=== PATIENT | female | born 1935 | race Caucasian/White ===

== ENCOUNTER 2016-07-27 11:27 | Inpatient (IN) | payer MEDICARE, BC ==
[2016-07-27 12:21] LABS: Basophils # (A) 0.1 k/uL (0-0.2); Basophils % (A) 0 %; CH 28.5; CHCM 32.1; Eosinophils # (A) 0.4 k/uL (0-0.7); Eosinophils % (A) 3 %; HCT 36.8 % (34.0-46.0); HDW 2.44; HGB 11.8 gm/dL (11.4-16.0); Luc % (Auto) 2; Lymphocytes % (A) 16 %; MCH 28.5 pg (25.0-35.0); MCV 88.9 fL (80.0-100.0); Mean Platelet Volume 6.8; Monocytes # (A) 0.6 k/uL (0-1.0); Monocytes % (A) 4 %; Neutrophils # (A) 9.8 k/uL (1.3-7.7); Neutrophils % (A) 75 %; RBC 4.13 m/uL (3.80-5.40); RDW 14.8 % (11.5-15.5); WBC (Perox) 14.08
[2016-07-27] MEDS: MORPHINE SULFATE 4 MG/ML SYRINGE IV STA ×2 (12:21→15:49)
[2016-07-27] MEDS ORDERED: ACETAMINOPHEN TAB 325 MG TAB PO STA ×2 (12:26→12:27)
[2016-07-27] MEDS ORDERED: ACETAMINOPHEN TAB 500 MG TAB PO STA (12:44)
[2016-07-27 13:26] LABS: Calcium 9.6 mg/dL (8.4-10.2); Potassium 4.3 mmol/L (3.5-5.1)
--- NOTE | 2016-07-27 13:53 | XR ---
EXAMINATION TYPE: 2 views right femur. 2 views right tibia/fibula. DATE OF EXAM: 07/27/2016 1:32 PM COMPARISON: NONE HISTORY: 80-year-old female with pain after fall. FINDINGS: Femurs: There is combination of osteopenia, superimposition of bony structures, and large body habitus limiti ng detailed evaluation of the hips. No displaced fracture is seen. 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 Tibia/fibula: Again, diffuse osteopenia. No tibial or fibular shaft fractures. Again, limited detailed evaluation o f the knee and ankles. No displaced fracture seen. Corticated ossific density below the right lateral malleolus suggests sequela of remote injury. IMPRESSION: 1. Limited evaluation of the hips, knees, and ankles due to combination of marked osteopenia, bony stone perimposition, and large body habitus. If pain localizes to any of these joints, dedicated imaging sh ould be considered. 2. No displaced fracture is seen.
--- NOTE | 2016-07-27 17:13 | XR ---
EXAMINATION TYPE: XR knee 4V RT DATE OF EXAM: 07/27/2016 4:55 PM COMPARISON: NONE HISTORY: Pain after fall TECHNIQUE: 4 views, the limited visualization due to patient motion artifact and also due to pain FINDINGS: There is also difficulty in visualization due to generalized osteoporosis. A tibial cortica l step-off laterally, 1 cm caudal to the tibial plateau. There is no definite joint effusion. Tricompartmental osteoarthritis changes are noted, moderate degr ee. IMPRESSION: SUSPICIOUS FINDINGS SUGGESTING POSSIBLE OCCULT FRACTURE, WOULD ADVISE CT OR MRI CHARACTER IZATION.
[2016-07-27] MEDS ORDERED: NALOXONE 0.4 MG/ML 1 ML VIAL IV PRN (17:15)
[2016-07-27] MEDS ORDERED: MAG HYDROX/AL HYDROX/SIMETH 30 ML CUP PO PRN (17:15)
[2016-07-27] MEDS ORDERED: ONDANSETRON 4 MG/2 ML VIAL IVP PRN (17:15)
[2016-07-27] MEDS ORDERED: DOCUSATE 100 MG CAP PO PRN (17:15)
--- NOTE | 2016-07-27 17:19 | ED ---
Fall HPI - General Chief Complaint: Fall Stated Complaint: Weakness Time Seen by Provider: 07/27/16 11:42 Source: family (Son), EMS, RN notes reviewed Mode of arrival: EMS - History of Present Illness Initial Comments: This patient is an 80-year-old woman who is for the most part bedbound, who had a fall when family attempted to stop get her up at the bedside so that they could change the bedding. The patient was not able to support herself and went to the ground while they were trying to support her. Since that time however the patient is complaining of pain to both legs and the inability to support herself. The patient denies any injury to her head, neck, chest, back or abdomen. When pressed to pick one spot that is worse she indicates the right knee. MD Complaint: fall -: minutes(s) Fall From: out of bed When Fall Occurred: 1 hour PHYSICIAN [facility]IST[facility]IMARY [facility]ARE Fall Witnessed: yes, by family Place Fall Occurred: home Loss of Consciousness: none Prolonged Down Time?: no Symptoms Prior to Fall: none - Related Data Home Medications Medication Instructions Recorded Confirmed Aspirin EC [Ecotrin Low Dose] 81 mg PO DAILY 01/20/16 07/27/16 Atorvastatin [Lipitor] 40 mg PO HS 01/20/16 07/27/16 Cholecalciferol [Vitamin D3] 5,000 unit PO DAILY 01/20/16 07/27/16 Clopidogrel [Plavix] 75 mg PO DAILY 01/20/16 07/27/16 Cyanocobalamin [Vitamin B-12] 1,000 mcg PO DAILY 01/20/16 07/27/16 Furosemide [Lasix] 40 mg PO DAILY 01/20/16 07/27/16 Gabapentin [Neurontin] 200 mg PO TID 01/20/16 07/27/16 Lisinopril [Zestril] 20 mg PO DAILY 01/20/16 07/27/16 Magnesium Oxide [Mag-Ox] 400 mg PO DAILY 01/20/16 07/27/16 Potassium Chloride [Klor-Con 10] 10 meq PO DAILY 01/20/16 07/27/16 amLODIPine [Norvasc] 10 mg PO DAILY 01/20/16 07/27/16 hydrALAZINE HCL [Apresoline] 50 mg PO TID 01/20/16 07/27/16 Famotidine [Pepcid] 40 mg PO HS 07/27/16 07/27/16 HYDROcodone/APAP 7.5-325MG [[place] 1 tab PO Q6H PRN 07/27/16 07/27/16 7.5-325] Naproxen [Naprosyn] 250 mg PO Q6H PRN 07/27/16 07/27/16 Nystatin 100,000Unit/gm Cream 1 applic TOPICAL BID 07/27/16 07/27/16 [Mycostatin Cream] Sennosides/Docusate Sodium 2 tab PO HS 07/27/16 07/27/16 [Doc-Q-Lax Tablet] Allergies Allergy/AdvReac Type Severity Reaction Status Date / Time lansoprazole Allergy Rash/Hives Verified 07/27/16 12:00 misoprostol [From Cytotec] Allergy Unknown Verified 07/27/16 12:00 omeprazole Allergy Rash/Hives Verified 07/27/16 12:00 Review of Systems ROS Statement: Those systems with pertinent positive or pertinent negative responses have been documented in the HPI. ROS Other: All systems not noted in ROS Statement are negative. Constitutional: Reports: weakness. Denies: fever, chills Respiratory: Denies: cough, dyspnea Cardiovascular: Denies: chest pain, palpitations, syncope Gastrointestinal: Denies: abdominal pain, vomiting, constipation Genitourinary: Denies: dysuria Musculoskeletal: Reports: as per HPI. Denies: back pain Skin: Denies: rash Neurological: Reports: weakness. Denies: headache, numbness, paresthesias Past Medical History Past Medical History: Coronary Artery Disease (CAD), Hyperlipidemia, Hypertension Additional Past Medical History / Comment(s): MS, MURMUR,BEGINNINGS OF CATARACTS History of Any Multi-Drug Resistant Organisms: None Reported Past Surgical History: Appendectomy, Heart Catheterization With Stent Additional Past Surgical History / Comment(s): EXPOLARATORY LAP- REMOVED LT FALLOPIAN TUBE Past Anesthesia/Blood Transfusion Reactions: No Reported Reaction Date of Last Stent Placement:: 2009 Past Psychological History: No Psychological Hx Reported Additional Psychological History / Comment(s): PT IS A ,[place] WITH HER GRANDSON. PT IS RETIRED-WORKED FOR [employer] FOR 31 YEARS. PT GETS UP WITH A WALKER BUT SINCE HER FALL SHE HAS BEEN GETTING HOME CARE NURSE AND PT. HAS VISITING PHYSICIAN. Smoking Status: Former smoker Past Alcohol Use History: None Reported Additional Past Alcohol Use History / Comment(s): STARTED SMOKING AT AGE 14, QUIT 2009-SMOKED LESS THAN 1 PPD. Past Drug Use History: None Reported - Past Family History Father Additional Family Medical History / Comment(s): AT AGE 62, WAS AN ALCOHOLIC - FROM COMPLICATIONS OF THAT Mother Family Medical History: Dementia Additional Family Medical History / Comment(s): AT AGE 83 General Exam Limitations: physical limitation General appearance: alert, in distress (Due to pain), obese Head exam: Present: atraumatic, normocephalic Eye exam: Present: normal appearance Neck exam: Present: normal inspection, full ROM. Absent: tenderness Respiratory exam: Present: normal lung sounds bilaterally. Absent: respiratory distress, wheezes, rales, rhonchi Cardiovascular Exam: Present: regular rate, normal rhythm, normal heart sounds. Absent: systolic murmur, diastolic murmur, rubs, gallop GI/Abdominal exam: Present: soft. Absent: tenderness, guarding, rebound Extremities exam: Present: normal inspection, tenderness, normal capillary refill, pedal edema, other (The patient has tenderness with axial loading throughout both legs and is difficult for her to pick one spot with more tenderness than the rest though perhaps the anterior aspect of the right knee.) Back exam: Absent: tenderness, CVA tenderness (R), CVA tenderness (L), paraspinal tenderness, vertebral tenderness Neurological exam: Present: alert, oriented X3, CN II-XII intact. Absent: normal gait, motor sensory deficit Skin exam: Present: warm, dry, intact, normal color. Absent: rash Course Vital Signs 07/27/16 07/27/16 07/27/16 11:31 12:20 14:01 Temperature 97.2 F L Pulse Rate 79 80 89 Respiratory 18 18 18 Rate Blood Pressure 115/53 102/54 107/71 O2 Sat by Pulse 92 L 95 93 L Oximetry 07/27/16 07/27/16 15:33 18:25 Temperature 96.9 F L Pulse Rate 91 81 Respiratory 18 18 Rate Blood Pressure 116/52 135/58 O2 Sat by Pulse 92 L 96 Oximetry Medical Decision Making - Medical Decision Making Patient is an 80-year-old woman who is having bilateral lower extremity pain. Plain films do not show an obvious fracture. She has been given multiple rounds of pain medication still complaining of intractable pain. At this point will admit the patient for further treatment and to possibly have physical therapy placement - Lab Data Result diagrams: 07/27/16 12:11 07/27/16 12:52 Lab Results 07/27/16 07/27/16 07/27/16 Range/Units 12:11 12:52 12:52 WBC 13.0 H (3.8-10.6) k/uL RBC 4.13 (3.80-5.40) m/uL Hgb 11.8 (11.4-16.0) gm/dL Hct 36.8 (34.0-46.0) % MCV 88.9 (80.0-100.0) fL MCH 28.5 (25.0-35.0) pg MCHC 32.0 (31.0-37.0) g/dL RDW 14.8 (11.5-15.5) % Plt Count 631 H (150-450) k/uL Neutrophils % 75 % Lymphocytes % 16 % Monocytes % 4 % Eosinophils % 3 % Basophils % 0 % Neutrophils # 9.8 H (1.3-7.7) k/uL Lymphocytes # 2.0 (1.0-4.8) k/uL Monocytes # 0.6 (0-1.0) k/uL Eosinophils # 0.4 (0-0.7) k/uL Basophils # 0.1 (0-0.2) k/uL Sodium 143 (137-145) mmol/L Potassium 4.3 (3.5-5.1) mmol/L Chloride 100 (98-107) mmol/L Carbon Dioxide 29 (22-30) mmol/L Anion Gap 14 mmol/L BUN 43 H (7-17) mg/dL Creatinine 1.20 H (0.52-1.04) mg/dL Est GFR (MDRD) Af Amer 52 (>60 ml/min/1.73 sqM) Est GFR (MDRD) Non-Af 43 (>60 ml/min/1.73 sqM) Glucose 192 H (74-99) mg/dL Plasma Lactic Acid Jozef 1.7 (0.7-2.0) mmol/L Calcium 9.6 (8.4-10.2) mg/dL - EKG Data -: EKG Interpreted by Hi EKG shows normal: sinus rhythm (With occasional PAC, rate 83 bpm), axis (Normal) , intervals (Normal), ST-T waves (Normal) Disposition Clinical Impression: Fall, Adult failure to thrive, Intractable pain Narrative: Right leg Disposition: ADMITTED IP TO THIS [facility] Condition: Poor
[2016-07-27 20:19] VITALS: BMI 46.0
[2016-07-27] MEDS: SODIUM CHLORIDE 0.9% 1,000 ML IV SCH (20:19)
[2016-07-27] MEDS: MORPHINE SULFATE 4 MG/ML SYRINGE IV PRN (21:00)
[2016-07-27] MEDS: HEPARIN SODIUM,PORCINE 5,000 UNIT/ML 1 ML VIAL SQ SCH (21:07)
[2016-07-27] MEDS: GABAPENTIN 100 MG CAP PO SCH (21:07)
[2016-07-27] MEDS: ATORVASTATIN 40 MG TAB PO SCH (21:07)
[2016-07-27] MEDS: hydrALAZINE HCL 50 MG TAB PO SCH (21:08)
[2016-07-27] MEDS: NYSTATIN 100,000UNIT/GM CREAM 30 GM TUBE TOPICAL SCH (21:08)
[2016-07-27] MEDS: FAMOTIDINE 20 MG TAB PO SCH (21:08)
[2016-07-28] MEDS: MORPHINE SULFATE 4 MG/ML SYRINGE IV PRN ×4 (00:53→18:46)
[2016-07-28] MEDS: HEPARIN SODIUM,PORCINE 5,000 UNIT/ML 1 ML VIAL SQ SCH (08:28)
[2016-07-28] MEDS: GABAPENTIN 100 MG CAP PO SCH ×2 (08:33→16:22)
[2016-07-28] MEDS: FUROSEMIDE 40 MG TAB PO SCH (08:34)
[2016-07-28] MEDS: hydrALAZINE HCL 50 MG TAB PO SCH ×2 (08:34→16:22)
[2016-07-28] MEDS: MAGNESIUM OXIDE 400 MG TAB PO SCH (08:34)
[2016-07-28] MEDS: amLODIPine 10 MG TAB PO SCH (08:34)
[2016-07-28] MEDS: CHOLECALCIFEROL 1,000 UNIT TAB PO SCH (08:38)
[2016-07-28] MEDS: CLOPIDOGREL 75 MG TAB PO SCH (08:38)
[2016-07-28] MEDS: POTASSIUM CHLORIDE ER 10 MEQ TAB.ER.PRT PO SCH (08:38)
[2016-07-28] MEDS: ASPIRIN 81 MG CHEW PO SCH (08:40)
[2016-07-28] MEDS: LISINOPRIL 20 MG TAB PO SCH (08:40)
[2016-07-28] MEDS: CYANOCOBALAMIN 500 MCG TAB PO SCH (09:16)
[2016-07-28] MEDS: NYSTATIN 100,000UNIT/GM CREAM 30 GM TUBE TOPICAL SCH (09:19)
--- NOTE | 2016-07-28 14:33 | P.HPIM ---
History of Present Illness H&P Date: 07/27/16 80-year-old female who presented on the day of admission to the emergency room via the EMS system. Patient reportedly has limited mobility is wheelchair bedbound. Patient is a poor historian difficult to adequately obtain any health history from the patient. The health history has been obtained from reviewing the computerized ER record. Patient apparently sustained a fall in the family is trying to get the patient out of bed subacute change the bedding. Patient was not able to support herself. Apparently went to the ground the family tried to support her her. Apparently the patient developed pain in both legs and was not able to support herself. Patients being seen this morning when asking the patient the patient states what hurts her the most is her right knee. An x-ray was obtained in the emergency room reviewing the reports indicates that it is suspicious findings suggested possible occult fracture advised CAT scan or an RI. The right knee is not swollen. But tender to the touch. Patient currently is pleasant and oriented to self with prompting can oriented to place patient states she's in the hospital because she could not get up off the ground" Reviewing prior utilized medical indicates the patient had fallen in January 2016 and was hospitalized. Patient reportedly is seen by a visiting physician Patient's baseline apparently is wheelchair bedbound. Past Medical History Past Medical History: Coronary Artery Disease (CAD), Hyperlipidemia, Hypertension Additional Past Medical History / Comment(s): MS, MURMUR,BEGINNINGS OF CATARACTS History of Any Multi-Drug Resistant Organisms: None Reported Past Surgical History: Appendectomy, Heart Catheterization With Stent Additional Past Surgical History / Comment(s): EXPOLARATORY LAP- REMOVED LT FALLOPIAN TUBE Past Anesthesia/Blood Transfusion Reactions: No Reported Reaction Date of Last Stent Placement:: 2009 Past Psychological History: No Psychological Hx Reported Additional Psychological History / Comment(s): PT IS A ,[place] WITH HER GRANDSON. PT IS RETIRED-WORKED FOR [employer] FOR 31 YEARS. PT GETS UP WITH A WALKER BUT SINCE HER FALL SHE HAS BEEN GETTING HOME CARE NURSE AND PT. HAS VISITING PHYSICIAN. Smoking Status: Former smoker Past Alcohol Use History: None Reported Additional Past Alcohol Use History / Comment(s): STARTED SMOKING AT AGE 14, QUIT 2009-SMOKED LESS THAN 1 PPD. Past Drug Use History: None Reported - Past Family History Father Additional Family Medical History / Comment(s): AT AGE 62, WAS AN ALCOHOLIC - FROM COMPLICATIONS OF THAT Mother Family Medical History: Dementia Additional Family Medical History / Comment(s): AT AGE 83 Medications and Allergies Home Medications Medication Instructions Recorded Confirmed Type Aspirin EC [Ecotrin Low Dose] 81 mg PO DAILY 01/20/16 07/27/16 History Atorvastatin [Lipitor] 40 mg PO HS 01/20/16 07/27/16 History Cholecalciferol [Vitamin D3] 5,000 unit PO DAILY 01/20/16 07/27/16 History Clopidogrel [Plavix] 75 mg PO DAILY 01/20/16 07/27/16 History Cyanocobalamin [Vitamin B-12] 1,000 mcg PO DAILY 01/20/16 07/27/16 History Furosemide [Lasix] 40 mg PO DAILY 01/20/16 07/27/16 History Gabapentin [Neurontin] 200 mg PO TID 01/20/16 07/27/16 History Lisinopril [Zestril] 20 mg PO DAILY 01/20/16 07/27/16 History Magnesium Oxide [Mag-Ox] 400 mg PO DAILY 01/20/16 07/27/16 History Potassium Chloride [Klor-Con 10] 10 meq PO DAILY 01/20/16 07/27/16 History amLODIPine [Norvasc] 10 mg PO DAILY 01/20/16 07/27/16 History hydrALAZINE HCL [Apresoline] 50 mg PO TID 01/20/16 07/27/16 History Famotidine [Pepcid] 40 mg PO HS 07/27/16 07/27/16 History HYDROcodone/APAP 7.5-325MG [[place] 1 tab PO Q6H PRN 07/27/16 07/27/16 History 7.5-325] Naproxen [Naprosyn] 250 mg PO Q6H PRN 07/27/16 07/27/16 History Nystatin 100,000Unit/gm Cream 1 applic TOPICAL BID 07/27/16 07/27/16 History [Mycostatin Cream] Sennosides/Docusate Sodium 2 tab PO HS 07/27/16 07/27/16 History [Doc-Q-Lax Tablet] Allergies Allergy/AdvReac Type Severity Reaction Status Date / Time lansoprazole Allergy Rash/Hives Verified 07/27/16 12:00 misoprostol [From Cytotec] Allergy Unknown Verified 07/27/16 12:00 omeprazole Allergy Rash/Hives Verified 07/27/16 12:00 Physical Exam GENERAL APPEARANCE: 80-year-old female patient is alert, oriented, to self only in no acute distress. VITAL SIGNS: Reviewed HEENT: Head is normocephalic and atraumatic. Pupils are equal and reactive. The nares are patent. Oropharynx is clear without lesions. NECK: Supple without lymphadenopathy. Traches midline. HEART: S1, S2. Regular rate and rhythm. Positive murmur noted LUNGS: No crackles or wheezes are heard. No shortness of breath ABDOMEN: Soft, nontender, nondistended with good bowel sounds. No peritoneal signs. No palpable organomegaly or masses. EXTREMITIES: Normal skin color and turgor. No cyanosis, rash, ulceration, clubbing or edema. Radial pedal pulses are 2/4 bilaterally. Reports having pain in the right knee Skin no evidence of skin breakdown or abrasion no rash Results CBC & Chem 7: 07/27/16 12:11 07/27/16 12:52 Thrombosis Risk Factor Assmnt - Choose All That Apply Each Risk Factor Represents 3 Points: Age 75 years or older Thrombosis Risk Factor Assessment Total Risk Factor Score: 3 Thrombosis Risk Factor Assessment Level: Moderate Risk Assessment and Plan Plan: Impression Prior to omission reported fall in ability to stand unclear etiology suspect due to deconditioning Morbid obesity BMI 46 Known coronary artery disease with prior coronary stenting Chronic debilitated suspect due to chronic illness Gait dysfunction baseline wheelchair bedbound Present on admission right knee pain x-ray suggest possible occult fracture right knee History of dyslipidemia Hypertension Plan PT OT eval Fall precautions Consult orthopedic for the right knee pain Possible benefit from an ECF placement for rehab skilled nursing case manager to pursue Resume home meds as appropriate DVT and GI prophylaxis Further recommendations pending Pain control The above dictated assessment and findings were discussed with dr stewart Impression and the plan of care have been dictated as directed. Tabitha Hooks nurse practitioner acting as a scribe for dr stewart
--- NOTE | 2016-07-28 16:34 | HP ---
DATE OF ADMISSION: 07/27/2016 CHIEF COMPLAINT: Pain in the legs; both hips and knees. HISTORY OF PRESENT ILLNESS: This is the first known admission for this 80-year-old white female. There is no history that can be obtained. She apparently is not ambulatory, and someone was trying to help her get her feet and she fell. She came to the emergency room with pain in both hips, both knees, and very nondescript history of what happened or where she has pain. X-rays were normal. There is a history that she may have multiple sclerosis, and it is believed that she is bedbound. REVIEW OF SYSTEMS: Unobtainable. Past medical history, family history, and personal and social histories are not obtainable. PHYSICAL EXAMINATION: Blood pressure is 139/90 with a pulse of 77, respirations of 20, and she is afebrile. In general she appeared to be pale and obese. Skin was dry. Lymph nodes are not enlarged. There are no lacerations or contusions. Head, ears, eyes, nose, mouth and throat were unremarkable. Carotids could not be assessed. The chest clear. Cardiac exam sounded like sinus rhythm with no murmurs or extra sounds heard. The abdomen is very protuberant, soft and nontender without masses. Extremities seem to be normal. There is no edema. Neurologically she was lethargic but did not have any focal or lateralizing findings. She is admitted to the hospital with the diagnoses: 1. Fall, with pain in both legs. 2. ( ) multiple sclerosis. 3. ? dementia. 4. Obesity. PLAN: 1. Bed rest. 2. IV fluids. 3. Analgesics. 4. Further evaluation of her neurologic status and lower extremity pain after she becomes more alert. 5. OT and PT with discharge planning.
--- NOTE | 2016-07-28 17:09 | PN ---
DATE OF SERVICE: 07/28/2016 CHIEF COMPLAINT: Fall, with pain in the lower extremities. HISTORY OF PRESENT ILLNESS: This lady is still a little bit lethargic and not very coherent. She seems to be a little bit more awake than last night. PHYSICAL EXAM: CHEST: Clear. CARDIAC: Normal. ABDOMEN: Soft, nontender. IMPRESSION: Fall, with pain in the lower extremities; etiology unknown. PLAN: 1. Continue workup. 2. Discharge planning.
--- NOTE | 2016-07-28 17:11 | P.CNOR ---
History of Present Illness - [facility] Consult date: 07/28/16 Requesting physician: Tabitha Hooks Consult reason: joint pain (Bilateral knee pain status post fall) History of present illness: Patient is a pleasant 80-year-old female who is seen and examined at the bedside for further evaluation for bilateral knee pain. Patient states she fell 2 days ago at home on her knees and has had significant pain since that time. She's had some progressive weakness and difficulty with ambulation that has been ongoing. She has home therapy help her with increasing mobilization. She states on Sunday home therapy placed a belt around her and was attempting to help her ambulate. She states she fell forward on her knees at that time. Since that time she's had significant pain in the bilateral knees. Patient states she is not overly ambulatory and prior to her fall she uses a wheeled walker to ambulate short distances. She resides with her grandson. Further medical reports state she is a poor historian. There are some discrepancies in her story as according to the ER report her fall happened when the family attempted to get her up at the bedside to change the bedsetting. The emergency department also reports the patient is mostly bedbound. At her presentation to the emergency department, the patient states she was experiencing significant right knee pain. X-rays of right knee were taken at that time. She did not have further imaging in regards to her left knee. Patient continues to complain of bilateral knee pain during physical examination in which the pain is exacerbated with any movement of the bilateral knees. She is known to have multiple comorbidities including coronary artery disease, dyslipidemia, and hypertension. Past Medical History Past Medical History: Coronary Artery Disease (CAD), Hyperlipidemia, Hypertension Additional Past Medical History / Comment(s): MS, MURMUR,BEGINNINGS OF CATARACTS History of Any Multi-Drug Resistant Organisms: None Reported Past Surgical History: Appendectomy, Heart Catheterization With Stent Additional Past Surgical History / Comment(s): EXPOLARATORY LAP- REMOVED LT FALLOPIAN TUBE Past Anesthesia/Blood Transfusion Reactions: No Reported Reaction Date of Last Stent Placement:: 2009 Past Psychological History: No Psychological Hx Reported Additional Psychological History / Comment(s): PT IS A ,[place] HER GRANDSON. PT IS RETIRED-WORKED FOR [employer] FOR 31 YEARS. PT GETS UP WITH A WALKER BUT SINCE HER FALL SHE HAS BEEN GETTING HOME CARE NURSE AND PT. HAS VISITING PHYSICIAN. Smoking Status: Former smoker Past Alcohol Use History: None Reported Additional Past Alcohol Use History / Comment(s): STARTED SMOKING AT AGE 14, QUIT 2009-SMOKED LESS THAN 1 PPD. Past Drug Use History: None Reported - Past Family History Father Additional Family Medical History / Comment(s): AT AGE 62, WAS AN ALCOHOLIC - FROM COMPLICATIONS OF THAT Mother Family Medical History: Dementia Additional Family Medical History / Comment(s): AT AGE 83 Medications and Allergies Home Medications Medication Instructions Recorded Confirmed Type Aspirin EC [Ecotrin Low Dose] 81 mg PO DAILY 01/20/16 07/27/16 History Atorvastatin [Lipitor] 40 mg PO HS 01/20/16 07/27/16 History Cholecalciferol [Vitamin D3] 5,000 unit PO DAILY 01/20/16 07/27/16 History Clopidogrel [Plavix] 75 mg PO DAILY 01/20/16 07/27/16 History Cyanocobalamin [Vitamin B-12] 1,000 mcg PO DAILY 01/20/16 07/27/16 History Furosemide [Lasix] 40 mg PO DAILY 01/20/16 07/27/16 History Gabapentin [Neurontin] 200 mg PO TID 01/20/16 07/27/16 History Lisinopril [Zestril] 20 mg PO DAILY 01/20/16 07/27/16 History Magnesium Oxide [Mag-Ox] 400 mg PO DAILY 01/20/16 07/27/16 History Potassium Chloride [Klor-Con 10] 10 meq PO DAILY 01/20/16 07/27/16 History amLODIPine [Norvasc] 10 mg PO DAILY 01/20/16 07/27/16 History hydrALAZINE HCL [Apresoline] 50 mg PO TID 01/20/16 07/27/16 History Famotidine [Pepcid] 40 mg PO HS 07/27/16 07/27/16 History HYDROcodone/APAP 7.5-325MG [[place] 1 tab PO Q6H PRN 07/27/16 07/27/16 History 7.5-325] Naproxen [Naprosyn] 250 mg PO Q6H PRN 07/27/16 07/27/16 History Nystatin 100,000Unit/gm Cream 1 applic TOPICAL BID 07/27/16 07/27/16 History [Mycostatin Cream] Sennosides/Docusate Sodium 2 tab PO HS 07/27/16 07/27/16 History [Doc-Q-Lax Tablet] Allergies Allergy/AdvReac Type Severity Reaction Status Date / Time lansoprazole Allergy Rash/Hives Verified 07/27/16 12:00 misoprostol [From Cytotec] Allergy Unknown Verified 07/27/16 12:00 omeprazole Allergy Rash/Hives Verified 07/27/16 12:00 Physical Examination Physical Exam: Patient is awake, alert, and oriented 3; she has some difficulty with accurate history of her symptoms Vital signs stable Good chest excursion with deep inspiration and expiration Abdomen soft nontender No signs or symptoms of DVT; no calf pain; calves are soft nontender to palpation Significant global weakness of the bilateral lower extremities Unable to perform adequate extensor hallucis longus, plantarflexion, and dorsiflexion positive sustained bilateral lower extremities Unable to independently lift legs off the bed bilaterally Unable to perform range of motion of the bilateral knees No evidence of significant swelling of the bilateral knees No evidence of erythema, laceration, calor, or obvious signs of infection No pain with light palpation of bilateral knees Pain with deep palpation right lateral knee Unable to perform significant dorsiflexion and plantarflexion of the left lower extremity but is able to perform inversion Difficulty with wiggling the toes of the bilateral feet Results Pertinent studies: X-rays the right knee taken on 07/27/2016: Difficulty in visualization due to generalized osteoporosis; tibial cortical step off laterally 1 cm caudal to the tibial plateau; tricompartmental osteoarthritic changes; Suspicious findings suggestive possible occult fracture would advise a CT or MRI for further evaluation X-rays of the right femur, tibia and fibula: Limited evaluation of the hips, knees, and ankles due to combination of marked osteopenia, bony superimposition , and large body habitus; no displaced fracture seen - Labs Result Diagrams: 07/27/16 12:11 07/27/16 12:52 Assessment and Plan (1) Acute bilateral knee pain Status: Acute (2) Status post fall Status: Acute (3) Osteoarthritis of right knee Status: Acute (4) Physical deconditioning Status: Acute (5) Morbid obesity Status: Acute (6) Coronary artery disease Status: Acute (7) Hyperlipidemia Status: Acute (8) Hypertension Status: Acute Plan: Assessment: Bilateral knee pain Status post fall Tricompartmental osteoarthritis arthritis right knee Suspicious findings suggestive possible occult fracture of the right knee Morbid obesity BMI 46 Gait dysfunction at baseline with wheelchair-bound Deconditioning Coronary artery disease with prior coronary stenting Hypertension History of dyslipidemia Plan: 1. Given the patient's ongoing right knee pain and inability to perform adequate range of motion of the right knee without significant exacerbation of pain, we'll plan to obtain a CT of the right knee for further evaluation. Patient is also complaining of significant left knee pain and is unable to perform adequate range of motion of the left knee without significant exacerbation of pain. There've been no further imaging studies taken at this time. We will plan to order complete x-ray series for the left knee. Following the results of these imagings, we will determine a plan of care accordingly. 2. Medicine to continue following the patient for her other medical diagnoses 3. We will continue to follow patient and we will determine a plan of care following x-ray imaging of the left knee and computed tomography scan of the right knee. 4. I have discussed this patient detail with Dr. Lucio Candelario and he agrees with this plan Time with Patient: Greater than 30
[2016-07-28] MEDS: SODIUM CHLORIDE 0.9% 1,000 ML IV SCH (18:47)
--- NOTE | 2016-07-28 18:49 | XR ---
EXAMINATION TYPE: XR knee complete LT DATE OF EXAM: 07/28/2016 6:12 PM COMPARISON: 01/20/2016 HISTORY: Knee pain after a fall TECHNIQUE: 3 views FINDINGS: There is osteopenia. There is narrowing of joint spaces with spurring of the femoral and ti bial condyles. I see no displaced fracture. There is no sign of joint effusion. IMPRESSION: Moderate osteoarthritis. No displaced fracture seen. Osteopenia appears worse than last e xam.
--- NOTE | 2016-07-28 18:57 | CT ---
EXAMINATION TYPE: CT knee RT wo con DATE OF EXAM: 07/28/2016 6:13 PM COMPARISON: NONE HISTORY: Right knee pain after fall [address] DLP: 502.30 mGycm Automated exposure control for dose reduction was used. FINDINGS: Multiple axial sections were obtained from the distal femur to the proximal tibia with no contrast. THERE IS GENERALIZED OSTEOPENIA. THERE IS NARROWING OF THE JOINT SPACES WITH SPURRING OF THE FEMORAL AND TIBIAL CONDYLES. THERE IS SPURRING ON THE PATELLA. THERE IS NO SIGN OF JOINT EFFUSION. I SEE NO F RACTURE LINE. I SEE NO FOCAL BONE DESTRUCTION. CONCLUSION: Osteoarthritic changes. No fracture seen. Generalized osteopenia.
[2016-07-29] MEDS: FAMOTIDINE 20 MG TAB PO SCH ×2 (00:08→21:22)
[2016-07-29] MEDS: GABAPENTIN 100 MG CAP PO SCH ×4 (00:08→21:22)
[2016-07-29] MEDS: ATORVASTATIN 40 MG TAB PO SCH ×2 (00:08→21:22)
[2016-07-29] MEDS: NYSTATIN 100,000UNIT/GM CREAM 30 GM TUBE TOPICAL SCH ×3 (00:09→21:23)
[2016-07-29] MEDS: HEPARIN SODIUM,PORCINE 5,000 UNIT/ML 1 ML VIAL SQ SCH ×3 (00:09→21:23)
[2016-07-29] MEDS: hydrALAZINE HCL 50 MG TAB PO SCH ×4 (04:54→21:22)
[2016-07-29] MEDS: HYDROcodone/APAP 5-325MG 1 EACH TAB PO PRN ×3 (05:57→15:38)
[2016-07-29] MEDS: MAGNESIUM OXIDE 400 MG TAB PO SCH (08:32)
[2016-07-29] MEDS: POTASSIUM CHLORIDE ER 10 MEQ TAB.ER.PRT PO SCH (08:35)
[2016-07-29] MEDS: CLOPIDOGREL 75 MG TAB PO SCH (08:35)
[2016-07-29] MEDS: CYANOCOBALAMIN 500 MCG TAB PO SCH (08:35)
[2016-07-29] MEDS: ASPIRIN 81 MG CHEW PO SCH (08:35)
[2016-07-29] MEDS: CHOLECALCIFEROL 1,000 UNIT TAB PO SCH (08:36)
--- NOTE | 2016-07-29 11:10 | P.PN ---
Progress Note - Text Patient is a pleasant 80-year-old female who is seen and examined at bedside for follow evaluation of her bilateral knee pain. Patient was sleeping comfortably. Upon awakening, patient states she feels she has had some improvement of her bilateral knee pain. She states she feels she is recovering following the fall. She admits today that prior to the fall she has remained bedridden for the most part. Since being seen exam yesterday, she has had a CT the right knee and x-rays of the left knee taken which showed no evidence of fracture. I discussed with the patient in detail that from an orthopedic standpoint, she will be cleared in regards to her bilateral knee pain. We discussed the importance of working with therapy to try to increase her mobility and ambulation. Patient states she is happy she does not have a fracture in either one of her knees. She has no new complaints this morning. Physical Exam: Patient is awake, alert, and oriented 3; she has some difficulty with accurate history of her symptoms Vital signs stable Good chest excursion with deep inspiration and expiration Abdomen soft nontender No signs or symptoms of DVT; no calf pain; calves are soft nontender to palpation Significant global weakness of the bilateral lower extremities Unable to perform adequate extensor hallucis longus, plantarflexion, and dorsiflexion positive sustained bilateral lower extremities Unable to independently lift legs off the bed bilaterally Unable to perform range of motion of the bilateral knees; patient does attempt to perform bilateral knee flexion today Some increased bilateral knee pain with movement of the bilateral knees No evidence of significant swelling of the bilateral knees No evidence of erythema, laceration, calor, or obvious signs of infection No pain with light palpation of bilateral knees Pain with deep palpation right lateral knee Unable to perform significant dorsiflexion and plantarflexion of the left lower extremity but is able to perform inversion Difficulty with wiggling the toes of the bilateral feet Pertinent studies: CT of the right knee today to 07/28/2016: Generalized osteopenia; osteoarthritis of the right knee; no sign of joint effusion; no fracture seen X-rays of the left knee taken on 07/28/2016: Moderate osteoarthritis of the left knee; no evidence of displaced fracture; osteopenia appears to be worse as compared to previous study taken on 01/20/2016 X-rays the right knee taken on 07/27/2016: Difficulty in visualization due to generalized osteoporosis; tibial cortical step off laterally 1 cm caudal to the tibial plateau; tricompartmental osteoarthritic changes; Suspicious findings suggestive possible occult fracture would advise a CT or MRI for further evaluation X-rays of the right femur, tibia and fibula: Limited evaluation of the hips, knees, and ankles due to combination of marked osteopenia, bony superimposition , and large body habitus; no displaced fracture seen Assessment: Bilateral knee pain Status post fall Osteoarthritis of bilateral knees Osteopenia bilateral knees Morbid obesity BMI 46 Gait dysfunction at baseline with wheelchair-bound Deconditioning Coronary artery disease with prior coronary stenting Hypertension History of dyslipidemia Plan: 1. Following multiple imaging modalities of the bilateral knees, there is no current evidence to support fracture in either one of her knees. At this time we will plan to have the patient work on increasing mobility with the assistance of physical therapy. From an orthopedic standpoint, we are not currently planning further invasive treatment as we do not have any current indications for further treatment. At this time we will sign off of the patient for orthopedic standpoint and she'll be cleared for discharge once cleared by all other medical providers. She may follow-up on an as-needed basis in terms of her bilateral knee pain. 2. Medicine to continue following the patient for her other medical diagnoses 3. Following discharge, patient may follow-up with Jayy Wolfe PA-C or Dr. Lucio Lewis at [facility] on an as-needed basis in terms of her bilateral knee pain 4. I have discussed this patient detail with Dr. Lucio Lewis and he agrees with this plan
[2016-07-29] MEDS: LISINOPRIL 20 MG TAB PO SCH (14:21)
[2016-07-29] MEDS: FUROSEMIDE 40 MG TAB PO SCH ×2 (14:21→15:07)
[2016-07-29] MEDS: amLODIPine 10 MG TAB PO SCH (14:22)
--- NOTE | 2016-07-29 14:30 | PN ---
CHIEF COMPLAINT: Fall with pain in the knees and ankles. HISTORY OF PRESENT ILLNESS: This lady seems stable and is doing well, but she is still complaining of a lot of pain in both ankles and both knees. PHYSICAL EXAM: There is no deformity or swelling in the legs. Chest is clear. Cardiac exam is normal. Abdomen is soft and nontender. IMPRESSION: 1. Failure to thrive. 2. ( ) of both knees and ankles. 3. Obesity. PLAN: Continue with rehab and work on discharge planning.
[2016-07-29] MEDS: SODIUM CHLORIDE 0.9% 1,000 ML IV SCH (19:48)
[2016-07-30] MEDS: HYDROcodone/APAP 5-325MG 1 EACH TAB PO PRN ×4 (02:19→17:49)
[2016-07-30] MEDS: HEPARIN SODIUM,PORCINE 5,000 UNIT/ML 1 ML VIAL SQ SCH ×2 (08:23→20:27)
[2016-07-30] MEDS: LISINOPRIL 20 MG TAB PO SCH (08:23)
[2016-07-30] MEDS: hydrALAZINE HCL 50 MG TAB PO SCH ×3 (08:23→20:27)
[2016-07-30] MEDS: MAGNESIUM OXIDE 400 MG TAB PO SCH (08:24)
[2016-07-30] MEDS: CLOPIDOGREL 75 MG TAB PO SCH (08:24)
[2016-07-30] MEDS: ASPIRIN 81 MG CHEW PO SCH (08:24)
[2016-07-30] MEDS: POTASSIUM CHLORIDE ER 10 MEQ TAB.ER.PRT PO SCH (08:24)
[2016-07-30] MEDS: CYANOCOBALAMIN 500 MCG TAB PO SCH (08:24)
[2016-07-30] MEDS: GABAPENTIN 100 MG CAP PO SCH ×3 (08:24→20:27)
[2016-07-30] MEDS: CHOLECALCIFEROL 1,000 UNIT TAB PO SCH (08:24)
[2016-07-30] MEDS: amLODIPine 10 MG TAB PO SCH (08:24)
[2016-07-30] MEDS: NYSTATIN 100,000UNIT/GM CREAM 30 GM TUBE TOPICAL SCH ×2 (08:25→20:27)
[2016-07-30] MEDS: FUROSEMIDE 40 MG TAB PO SCH (10:25)
[2016-07-30] MEDS: NAPROXEN 250 MG TAB PO PRN ×2 (12:49→22:21)
[2016-07-30 14:00] VITALS: RESP 16
[2016-07-30] MEDS: SODIUM CHLORIDE 0.9% 1,000 ML IV SCH (17:10)
[2016-07-30] MEDS: FAMOTIDINE 20 MG TAB PO SCH (20:27)
[2016-07-30] MEDS: ATORVASTATIN 40 MG TAB PO SCH (20:27)
--- NOTE | 2016-07-30 22:45 | PN ---
DATE OF SERVICE: 07/30/2016 CHIEF COMPLAINT: Intractable pain in the lower extremities after fall. HISTORY OF PRESENT ILLNESS: This lady has decided to go to the rehab tomorrow. Otherwise she is stable. PHYSICAL EXAMINATION: CHEST: Clear. CARDIAC: Normal. ABDOMEN: Protuberant. IMPRESSION: 1. Fall with pain in the knees, hips, and ankles. 2. Obesity. PLAN: Transfer to rehab tomorrow.
[2016-07-31] MEDS: HYDROcodone/APAP 5-325MG 1 EACH TAB PO PRN ×3 (08:20→15:32)
[2016-07-31] MEDS: SODIUM CHLORIDE 0.9% 1,000 ML IV SCH (08:21)
[2016-07-31] MEDS: MAGNESIUM OXIDE 400 MG TAB PO SCH (08:21)
[2016-07-31] MEDS: NYSTATIN 100,000UNIT/GM CREAM 30 GM TUBE TOPICAL SCH (08:21)
[2016-07-31] MEDS: CHOLECALCIFEROL 1,000 UNIT TAB PO SCH (08:21)
[2016-07-31] MEDS: POTASSIUM CHLORIDE ER 10 MEQ TAB.ER.PRT PO SCH (08:21)
[2016-07-31] MEDS: GABAPENTIN 100 MG CAP PO SCH ×2 (08:22→15:32)
[2016-07-31] MEDS: CYANOCOBALAMIN 500 MCG TAB PO SCH (08:22)
[2016-07-31] MEDS: HEPARIN SODIUM,PORCINE 5,000 UNIT/ML 1 ML VIAL SQ SCH (08:22)
[2016-07-31] MEDS: hydrALAZINE HCL 50 MG TAB PO SCH ×2 (08:22→15:32)
[2016-07-31] MEDS: LISINOPRIL 20 MG TAB PO SCH (08:22)
[2016-07-31] MEDS: ASPIRIN 81 MG CHEW PO SCH (08:23)
[2016-07-31] MEDS: amLODIPine 10 MG TAB PO SCH (08:23)
[2016-07-31] MEDS: CLOPIDOGREL 75 MG TAB PO SCH (08:23)
[2016-07-31] MEDS: FUROSEMIDE 40 MG TAB PO SCH (08:23)
--- NOTE | 2016-07-31 13:40 | XR ---
EXAMINATION TYPE: XR chest 1V portable DATE OF EXAM: 07/31/2016 1:25 PM COMPARISON: 01/20/2016 INDICATION: ECF placement TECHNIQUE: Single frontal view of the chest is obtained. FINDINGS: The heart size is normal. The pulmonary vasculature is normal. The lungs are clear. IMPRESSION: 1. No acute pulmonary process.
--- NOTE | 2016-07-31 13:51 | P.DS ---
Providers Date of admission: 07/28/16 14:14 Expected date of discharge: 07/31/16 Attending physician: Anselmo Ang Consults: [facility] Dr. parkinson Primary care physician: [facility] Course: 80-year-old female who presented on the day of admission to the emergency room via the EMS system which was activated after family was not able to get the patient up off of the floor. Patient reportedly has limited mobility is wheelchair bedbound. Patient apparently sustained a fall when the family was trying to get the patient out of bed to change the bedding. Patient was not able to support herself went to the ground. The family tried to support her and apparently was not able to get the patient back up. Patient developed pain in both legs was not able to stand up. Subsequently the EMS system was activated and the patient is brought into the emergency room to be evaluated. Patient did have x-rays in the emergency room CAT scan of the brain was negative. X-rays were obtained the bilateral knees a showed no evidence of a fracture. Orthopedic did participate in the plan of care. They felt from an orthopedic standpoint patient could be cleared to be transferred to an [facility] facility might benefit from subacute rehab. Patient underwent rehab may be able to increase her mobility and increase her ability to ambulate. Patient had agreed to proceed. Was transferred to [facility] facility Discharge diagnoses Prior to admission reported fall in ability to stand unclear etiology suspect due to deconditioning Morbid obesity BMI 46 Known coronary artery disease with prior coronary stenting Chronic debilitated suspect due to chronic illness Gait dysfunction baseline wheelchair bedbound Present on admission right knee pain x-ray no evidence of occult fracture right knee History of dyslipidemia Hypertension bilateral knee pain with no evidence of an occult fracture of the knees Osteoarthritis right knee Physically deconditioned limited mobility suspect due to deconditioning obesity Acute bilateral knee pain present on admission suspect due to osteoarthritis Gait dysfunction at baseline wheelchair bedbound The above dictated assessment and findings were discussed with dr ang . Impression and the plan of care have been dictated as directed. Tabitha Hooks nurse practitioner acting as a scribe for dr ang Patient Condition at Discharge: Poor Plan - Discharge Summary New Discharge Prescriptions: HYDROcodone/APAP 5-325MG [[place] 5-325] 1 each PO Q4HR PRN #30 tab PRN Reason: Moderate Pain Discharge Medication List Aspirin EC [Ecotrin Low Dose] 81 mg PO DAILY 01/20/16 [History] Atorvastatin [Lipitor] 40 mg PO HS 01/20/16 [History] Cholecalciferol [Vitamin D3] 5,000 unit PO DAILY 01/20/16 [History] Clopidogrel [Plavix] 75 mg PO DAILY 01/20/16 [History] Cyanocobalamin [Vitamin B-12] 1,000 mcg PO DAILY 01/20/16 [History] Furosemide [Lasix] 40 mg PO DAILY 01/20/16 [History] Gabapentin [Neurontin] 200 mg PO TID 01/20/16 [History] Lisinopril [Zestril] 20 mg PO DAILY 01/20/16 [History] Magnesium Oxide [Mag-Ox] 400 mg PO DAILY 01/20/16 [History] Potassium Chloride [Klor-Con 10] 10 meq PO DAILY 01/20/16 [History] amLODIPine [Norvasc] 10 mg PO DAILY 01/20/16 [History] hydrALAZINE HCL [Apresoline] 50 mg PO TID 01/20/16 [History] Famotidine [Pepcid] 40 mg PO HS 07/27/16 [History] HYDROcodone/APAP 7.5-325MG [[place] 7.5-325] 1 tab PO Q6H PRN 07/27/16 [History] Naproxen [Naprosyn] 250 mg PO Q6H PRN 07/27/16 [History] Nystatin 100,000Unit/gm Cream [Mycostatin Cream] 1 applic TOPICAL BID 07/27/16 [ History] Sennosides/Docusate Sodium [Doc-Q-Lax Tablet] 2 tab PO HS 07/27/16 [History] HYDROcodone/APAP 5-325MG [[place] 5-325] 1 each PO Q4HR PRN #30 tab 07/31/16 [Rx] Heparin Sodium,Porcine [Heparin Sodium] 5,000 unit SQ Q12HR vial 07/31/16 [Rx] Follow up Appointment(s)/Referral(s): Jayy Wolfe PAC [PHYSICIAN ENVIRONMENTAL ENGINEERING AIDE] - As Needed (Patient may follow-up with Jayy Wolfe PA-C or Dr. Lucio Parkinson at [facility] on an as-needed basis following discharge. ) Kike Kim DO [Primary Care Provider] - 1-2 days Anselmo Ang MD [STAFF PHYSICIAN] - 08/01/16 Discharge Disposition: TRANSFER TO SNF/ECF
[2016-07-31 15:47] VITALS: BP 97/46; PULSE 91; TEMP 96.9
--- NOTE | 2016-07-31 19:51 | PN ---
DATE OF SERVICE: 07/31/2016 CHIEF COMPLAINT: Fall with pain in the knees, hips and ankles. HISTORY OF PRESENT ILLNESS: This lady is doing fairly well. Her pain is under fairly good control. Plan is for her to go to a rehab facility, and this will be arranged by the nurse practitioner. FINAL DIAGNOSES: 1. Fall with pain in both knees, hips and ankles. 2. Obesity. PLAN: To long-term care facility today.
== END 2016-07-31 18:27 | DRG 554 ==
LOC: EC 11:27 → 3SUR 17:16 → OBSVTOIN 07-28 14:14
PROVIDERS: ADMIT Family Medicine; ATTEND Family Medicine
DX: M17.0 Bilateral primary osteoarthritis of knee (principal); G35 Multiple sclerosis; E66.01 Morbid (severe) obesity due to excess calories; I10 Essential (primary) hypertension; M25.551 Pain in right hip; M25.552 Pain in left hip; E78.5 Hyperlipidemia, unspecified; I25.10 Atherosclerotic heart disease of native coronary artery without angina pectoris; M85.80 Other specified disorders of bone density and structure, unspecified site; R62.7 Adult failure to thrive; H26.9 Unspecified cataract; R53.1 Weakness; R26.9 Unspecified abnormalities of gait and mobility; Z68.42 Body mass index [BMI] 45.0-49.9, adult; Z74.01 Bed confinement status; Z99.3 Dependence on wheelchair; Z87.891 Personal history of nicotine dependence; Z95.5 Presence of coronary angioplasty implant and graft; Z79.02 Long term (current) use of antithrombotics/antiplatelets; Z79.82 Long term (current) use of aspirin; Z79.899 Other long term (current) drug therapy; Z88.8 Allergy status to other drugs, medicaments and biological substances; W18.39XA Other fall on same level, initial encounter; Y92.9 Unspecified place or not applicable
CPT/HCPCS: 36415; 71010; 80048; 83605; 84443; 85025; 93005; 96372; 96374; 96376; 99285

== ENCOUNTER → 2018-02-01 | Outpatient (CLI) | payer MEDICARE, BC | END | disposition home or self-care (01) | LOC: RADMRIMAIN 13:57 | PROVIDERS: ATTEND Psychiatry & Neurology Neurology | DX: Z53.9 Procedure and treatment not carried out, unspecified reason (principal) ==

== ENCOUNTER 2022-11-30 08:51 | Inpatient (IN) | payer MEDICARE ==
--- NOTE | 2022-11-30 09:10 | ED ---
SOB HPI - General Chief Complaint: Shortness of Breath Stated Complaint: Time Seen by Provider: 11/30/22 08:52 Source: patient, EMS, RN notes reviewed Mode of arrival: EMS Limitations: no limitations - History of Present Illness Initial Comments: Patient is an 87-year-old female presenting to the emergency room via EMS from [facility] on the leg at the direction of their provider for further evaluation of sudden onset of dyspnea with hypoxia that began last night. She was requiring 6 L nasal cannula to maintain oxygen level of approximately 94% per EMS and typically is not on any supplemental oxygen. EMS does report an outbreak of Covid at her [facility] facility but she was negative her rapid testing at the facility this morning for Covid. Patient reports some shortness of breath last night but denies feeling short of breath at this time. She denies any other complaints or concerns at this time including any chest pain, cough, congestion, abdominal pain, nausea, vomiting, diarrhea, headache, dizziness, diaphoresis, fevers or chills. She has an extensive past medical history significant for CAD, hypertension, hyperlipidemia degenerative arthritis, multiple sclerosis with debility, wheelchair-bound, peripheral neuropathy and thrombocytosis. - Related Data Home Medications Medication Instructions Recorded Confirmed Aspirin EC [Ecotrin Low Dose] 81 mg PO DAILY@1200 01/20/16 11/30/22 Clopidogrel [Plavix] 75 mg PO HS@209901/20/16 11/30/22 hydrALAZINE HCL [Apresoline] 50 mg PO TID@0600,1400,2200 01/20/16 11/30/22 lisinopriL [Zestril] 20 mg PO DAILY@1200 01/20/16 11/30/22 Sennosides/Docusate Sodium 1 tab PO HS@209907/27/16 11/30/22 [Doc-Q-Lax Tablet] Acetaminophen [Tylenol Arthritis] 650 mg PO Q4H PRN 11/30/22 11/30/22 Artificial Tears-Hypromellose 1 drops BOTH EYES TID PRN 11/30/22 11/30/22 [Artificial Tear Drops] Atorvastatin [Lipitor] 40 mg PO HS@2100 11/30/22 11/30/22 Bismuth Subsalicylate 524 mg PO Q4H PRN 11/30/22 11/30/22 [Pepto-Bismol] Cholecalciferol [Vitamin D3 (25 25 mcg PO DAILY@1200 11/30/22 11/30/22 Mcg = 1000 Iu)] Cholestyramine/Aspartame 4 gm PO DAILY@1200 11/30/22 11/30/22 [Cholestyramine Light Packet] Furosemide [Lasix] 20 mg PO DAILY@0600 11/30/22 11/30/22 Gabapentin 300 mg PO BID@0600,1800 11/30/22 11/30/22 HYDROcodone/APAP 10-325MG [[place] 1 tab PO QID@00,06,12,18 11/30/22 11/30/22 10-325] Hydroxyurea [Hydrea] 500 mg PO HS@2100 11/30/22 11/30/22 Multivitamins, Thera [Multivitamin 1 tab PO DAILY@119911/30/22 11/30/22 (formulary)] amLODIPine [Norvasc] 2.5 mg PO DAILY@1200 11/30/22 11/30/22 guaiFENesin [guaiFENesin Oral 200 mg PO Q4H PRN 11/30/22 11/30/22 Solution] Allergies Allergy/AdvReac Type Severity Reaction Status Date / Time lansoprazole Allergy Rash/Hives Verified 11/30/22 12:09 misoprostol [From Cytotec] Allergy Unknown Verified 11/30/22 12:09 omeprazole Allergy Rash/Hives Verified 11/30/22 12:09 Review of Systems ROS Statement: Those systems with pertinent positive or pertinent negative responses have been documented in the HPI. ROS Other: All systems not noted in ROS Statement are negative. Past Medical History Past Medical History: Coronary Artery Disease (CAD), Hyperlipidemia, Hypertension Additional Past Medical History / Comment(s): Coronary artery disease with previous coronary intervention and stenting, questionable history of multiple sclerosis, debilitated secondary to chronic illness and the patient has been essentially wheelchair/bed bound, nonambulatory, degenerative arthritis, hyperlipidemia, hypertension, cataracts History of Any Multi-Drug Resistant Organisms: None Reported Past Surgical History: Appendectomy, Heart Catheterization With Stent Additional Past Surgical History / Comment(s): EXPOLARATORY LAP- REMOVED LT FALLOPIAN TUBE Past Anesthesia/Blood Transfusion Reactions: No Reported Reaction Date of Last Stent Placement:: 2009 Past Psychological History: No Psychological Hx Reported Smoking Status: Former smoker Past Alcohol Use History: None Reported Past Drug Use History: None Reported - Past Family History Father Additional Family Medical History / Comment(s): Father AT AGE 62, WAS AN ALCOHOLIC- FROM COMPLICATIONS OF THAT Mother Family Medical History: Dementia Additional Family Medical History / Comment(s): AT AGE 83 General Exam - General Exam Comments Initial Comments: GENERAL: No acute distress, well developed, well nourished. HEENT: Normocephalic, atraumatic. Pupils equal, round, reactive to light. Moist mucous membranes. LUNGS: No respiratory distress. Diminished bibasilar otherwise clear to auscultation, no adventitious sounds, no use of accessory muscles. HEART: Regular rate and rhythm systolic murmur III/IV without diastolic murmur, rub, or gallop. ABDOMEN: Normal bowel sounds. Soft, non-tender, non-distended. BACK: Normal inspection. EXTREMITIES: Bilateral lower extremity edema right greater than left +2 NEUROLOGIC: Alert & oriented x 3. CN II-XII grossly intact. PSYCHIATRIC: Normal affect and behavior. DERMATOLOGIC: Skin intact, without rashes or lesions noted. Limitations: no limitations Course Vital Signs 11/30/22 11/30/22 11/30/22 08:53 09:14 09:40 Temperature 97.3 F L Pulse Rate 80 Respiratory 28 H 18 Rate Blood Pressure 153/86 O2 Sat by Pulse 90 L 93 L Oximetry 11/30/22 11/30/22 10:07 11:58 Temperature Pulse Rate 87 80 Respiratory 28 H 20 Rate Blood Pressure 139/67 130/76 O2 Sat by Pulse 90 L 93 L Oximetry Medical Decision Making - Medical Decision Making Was pt. sent in by a medical professional or institution (, PA, FILEMAKER DEVELOPER, urgent care, hospital, or [facility]...) When possible be specific @ -Yes, [facility] on the [place]. Did you speak to anyone other than the patient for history (EMS, parent, family, police, friend...)? What history was obtained from this source @ -Yes, spoke with EMS regarding reason for transportation from [facility] and details of presenting illness. Did you review nursing and triage notes (agree or disagree)? Why? @ -I reviewed and agree with nursing and triage notes Were old charts reviewed (outside hosp., previous admission, EMS record, old EKG, old radiological studies, urgent care reports/EKG's, [facility] records)? Report findings @ -Yes, reviewed. shelter records sent with patient including medication list, CODE STATUS and most recent vital signs. Also received reviewed most recent laboratory studies on filem April 2022. Differential Diagnosis (chest pain, altered mental status, abdominal pain women, abdominal pain men, vaginal bleeding, weakness, fever, dyspnea, syncope, headache, dizziness, GI bleed, back pain, seizure, CVA, palpatations, mental health, musculoskeletal)? @-Differential Dyspnea: Coronary syndrome, arrhythmia, tamponade, asthma, COPD, pulmonary embolism, pneumonia, pneumothorax, pulmonary effusion, anaphylaxis, diabetic ketoacidosis, flailed chest, pulmonary contusion, diaphragmatic rupture, anemia, neuromuscular, this is not meant to be an all-inclusive list. EKG interpreted by me (3pts min.). @ -Sinus rhythm with sinus arrhythmia, ventricular rate 80 bpm, [place] interval 185 ms, QRS duration 96 ms, QT/QTC 359/105 ms, PRT axes 53, -42, 65 X-rays interpreted by me (1pt min.). @ -Chest x-ray two-view: Diffuse interstitial and bibasilar opacities consistent with pulmonary vascular congestion. Small bilateral pleural effusions. CT interpreted by me (1pt min.). @ -CT chest angiogram: No evidence of pulmonary emboli, redemonstration of pulmonary vascular congestion and pleural effusion. U/S interpreted by me (1pt. min.). @ -None done What testing was considered but not performed or refused? (CT, X-rays, U/S, labs)? Why? @ -None What meds were considered but not given or refused? Why? @ -None Did you discuss the management of the patient with other professionals (professionals i.e. , PA, FILEMAKER DEVELOPER, lab, RT, psych nurse, school social worker, dryerman/woman, teacher, court security officer, senior case manager)? Give summary @ -No Was smoking cessation discussed for >3mins.? @ -No Was critical care preformed (if so, how long)? @ -No Were there social determinants of health that impacted care today? How? (Homelessness, low income, unemployed, alcoholism, drug addiction, t ransportation, low edu. Level, literacy, decrease access to med. care, skilled nursing, rehab)? @ -No Was there de-escalation of care discussed even if they declined (Discuss DNR or withdrawal of care, Hospice)? DNR status @ -No What co-morbidities impacted this encounter? (DM, HTN, Smoking, COPD, CAD, Cancer, CVA, ARF, Chemo, Hep., AIDS, mental health diagnosis, sleep apnea, morbid obesity)? @ -None Was patient admitted / discharged? Hospital course, mention meds given and route, prescriptions, significant lab abnormalities, going to OR and other pertinent info. @ -87-year-old female presenting to the emergency room with complaints of sudden dyspnea and hypoxemia from [facility] facility. Per EMS provider at [facility] facility concern for pulmonary emboli. Covid test at facility negative. No history of supplemental oxygen needs. Will start workup fo r dyspnea with EKG, chest x-ray, CBC, CMP, troponin, proBNP, d-dimer, blood culture, lactic acid, coags along with venous blood gas. Oxygen saturation low at 90-92 on 6 L nasal cannula will monitor for decompensation and placed on BiPAP accordingly if occurs. Patient unable to tolerate facemask oxygen due to anxiety per EMS. Will order CT Angio chest however will wait for laboratory results prior to completing the setting of CKD stage III history. Laboratory studies demonstrates thrombocytosis near patient's baseline at 478 along with leukocytosis WBC 12.1 near patient's baseline. Coags and d-dimer negative venous blood gas to misuse pH 7.40 pCO2 normal pCO3 high at 31. CMP redemonstrates chronic kidney disease stage III with stable BUN and creatinine BUN 43, creatinine 1.06. Electrolytes stable, carbon dioxide 31 chloride 97 remaining electrolytes normal magnesium elevated 2.4 liver enzymes normal, alkaline phosphate normal, lactic acid normal. Troponin 0.025, proBNP elevated 3510. Solving for COVID, influenza and RSV all negative. Chest x-ray demonstrates pulmonary vascular congestion. Computed tomography scan negative for pulmonary emboli. Oxygenation levels remain stable without any evidence of respiratory distress on 6 L nasal cannula. Will defer further supplemental oxygen or BiPAP at this time. ProBNP elevation along with pulmonary vascular congestion and lower extremity edema consistent with acute congestive heart failure. Will give 40 mg of IV Lasix and plan for admission of acute CHF with hypoxia. Patient advised to follow-up information and recommendation for admission, she is agreeable to admission. Spoke with Dr. ago has not on for [facility] regarding patient presentation and workup with recommendation of admission to medical surgical unit on telemetry for acute CHF with hypoxia. He is accepting of admission and advises cardiology consult along with 2-D echo to be placed in addition to admission orders; will place these orders. Will admit patient in stable condition to medical surgical unit with telemetry under [facility] services for further evaluation and treatment of acute congestive heart failure with hypoxemia. Undiagnosed new problem with uncertain prognosis? @ -No Drug Therapy requiring intensive monitoring for toxicity (Heparin, Nitro, Insulin, Cardizem)? @ -No Were any procedures done? @ -No Diagnosis/symptom? @ -Acute exacerbation of congestive heart failure with hypoxemia Acute, or Chronic, or Acute on Chronic? @ -Acute Uncomplicated (without systemic symptoms) or Complicated (systemic symptoms)? @ -Complicated Side effects of treatment? @ -No Exacerbation, Progression, or Severe Exacerbation? @ -No Poses a threat to life or bodily function? How? (Chest pain, [place], [place], pneumonia, PE, COPD, DKA, ARF, appy, cholecystitis, CVA, Diverticulitis, Homicidal, Suicidal, threat to staff... and all critical care pts) @ -Yes, hypoxemia at risk for worsening respiratory decompensation and respiratory failure. Case discussed with Dr. Mcneil. - Lab Data Result diagrams: 11/30/22 09:03 11/30/22 09:03 Lab Results 11/30/22 11/30/22 11/30/22 Range/Units 09:03 09:03 09:03 WBC 12.1 H (3.8-10.6) k/uL RBC 4.28 (3.80-5.40) m/uL Hgb 13.5 (11.4-16.0) gm/dL Hct 44.7 (34.0-46.0) % MCV 104.5 H (80.0-100.0) fL MCH 31.5 (25.0-35.0) pg MCHC 30.2 L (31.0-37.0) g/dL RDW 16.2 H (11.5-15.5) % Plt Count 478 H (150-450) k/uL MPV 7.3 Neutrophils % 81 % Lymphocytes % 12 % Monocytes % 4 % Eosinophils % 1 % Basophils % 0 % Neutrophils # 9.8 H (1.3-7.7) k/uL Lymphocytes # 1.5 (1.0-4.8) k/uL Monocytes # 0.5 (0-1.0) k/uL Eosinophils # 0.2 (0-0.7) k/uL Basophils # 0.0 (0-0.2) k/uL Hypochromasia Marked Anisocytosis Slight Macrocytosis Moderate PT 10.7 (9.0-12.0) sec INR 1.0 (<1.2) APTT 24.7 (22.0-30.0) sec D-Dimer 0.41 (<0.60) mg/L FEU VBG pH (7.31-7.41) VBG pCO2 (37-51) mmHg VBG HCO3 (24-28) mmol/L Sodium 138 (137-145) mmol/L Potassium 5.1 (3.5-5.1) mmol/L Chloride 97 L (98-107) mmol/L Carbon Dioxide 31 H (22-30) mmol/L Anion Gap 10 mmol/L BUN 43 H (7-17) mg/dL Creatinine 1.06 H (0.52-1.04) mg/dL Est GFR (CKD-EPI)AfAm 55 (>60 ml/min/1.73 sqM) Est GFR (CKD-EPI)NonAf 47 (>60 ml/min/1.73 sqM) Glucose 118 H (74-99) mg/dL Plasma Lactic Acid Jozef (0.7-2.0) mmol/L Calcium 8.8 (8.4-10.2) mg/dL Magnesium 2.4 H (1.6-2.3) mg/dL Total Bilirubin 0.6 (0.2-1.3) mg/dL AST 24 (14-36) U/L ALT 20 (4-34) U/L Alkaline Phosphatase 118 (38-126) U/L Troponin I (0.000-0.034) ng/mL NT-Pro-B Natriuret Pep pg/mL Total Protein 6.3 (6.3-8.2) g/dL Albumin 3.6 (3.5-5.0) g/dL Influenza Type A (PCR) (Not Detectd) Influenza Type B (PCR) (Not Detectd) RSV (PCR) (Not Detectd) SARS-CoV-2 (PCR) (Not Detectd) 11/30/22 11/30/22 11/30/22 Range/Units 09:03 09:03 09:03 WBC (3.8-10.6) k/uL RBC (3.80-5.40) m/uL Hgb (11.4-16.0) gm/dL Hct (34.0-46.0) % MCV (80.0-100.0) fL MCH (25.0-35.0) pg MCHC (31.0-37.0) g/dL RDW (11.5-15.5) % Plt Count (150-450) k/uL MPV Neutrophils % % Lymphocytes % % Monocytes % % Eosinophils % % Basophils % % Neutrophils # (1.3-7.7) k/uL Lymphocytes # (1.0-4.8) k/uL Monocytes # (0-1.0) k/uL Eosinophils # (0-0.7) k/uL Basophils # (0-0.2) k/uL Hypochromasia Anisocytosis Macrocytosis PT (9.0-12.0) sec INR (<1.2) APTT (22.0-30.0) sec D-Dimer (<0.60) mg/L FEU VBG pH (7.31-7.41) VBG pCO2 (37-51) mmHg VBG HCO3 (24-28) mmol/L Sodium (137-145) mmol/L Potassium (3.5-5.1) mmol/L Chloride (98-107) mmol/L Carbon Dioxide (22-30) mmol/L Anion Gap mmol/L BUN (7-17) mg/dL Creatinine (0.52-1.04) mg/dL Est GFR (CKD-EPI)AfAm (>60 ml/min/1.73 sqM) Est GFR (CKD-EPI)NonAf (>60 ml/min/1.73 sqM) Glucose (74-99) mg/dL Plasma Lactic Acid Jozef 0.9 (0.7-2.0) mmol/L Calcium (8.4-10.2) mg/dL Magnesium (1.6-2.3) mg/dL Total Bilirubin (0.2-1.3) mg/dL AST (14-36) U/L ALT (4-34) U/L Alkaline Phosphatase (38-126) U/L Troponin I 0.025 (0.000-0.034) ng/mL NT-Pro-B Natriuret Pep 3510 pg/mL Total Protein (6.3-8.2) g/dL Albumin (3.5-5.0) g/dL Influenza Type A (PCR) (Not Detectd) Influenza Type B (PCR) (Not Detectd) RSV (PCR) (Not Detectd) SARS-CoV-2 (PCR) (Not Detectd) 11/30/22 11/30/22 Range/Units 09:03 09:03 WBC (3.8-10.6) k/uL RBC (3.80-5.40) m/uL Hgb (11.4-16.0) gm/dL Hct (34.0-46.0) % MCV (80.0-100.0) fL MCH (25.0-35.0) pg MCHC (31.0-37.0) g/dL RDW (11.5-15.5) % Plt Count (150-450) k/uL MPV Neutrophils % % Lymphocytes % % Monocytes % % Eosinophils % % Basophils % % Neutrophils # (1.3-7.7) k/uL Lymphocytes # (1.0-4.8) k/uL Monocytes # (0-1.0) k/uL Eosinophils # (0-0.7) k/uL Basophils # (0-0.2) k/uL Hypochromasia Anisocytosis Macrocytosis PT (9.0-12.0) sec INR (<1.2) APTT (22.0-30.0) sec D-Dimer (<0.60) mg/L FEU VBG pH 7.40 (7.31-7.41) VBG pCO2 51 (37-51) mmHg VBG HCO3 31 H (24-28) mmol/L Sodium (137-145) mmol/L Potassium (3.5-5.1) mmol/L Chloride (98-107) mmol/L Carbon Dioxide (22-30) mmol/L Anion Gap mmol/L BUN (7-17) mg/dL Creatinine (0.52-1.04) mg/dL Est GFR (CKD-EPI)AfAm (>60 ml/min/1.73 sqM) Est GFR (CKD-EPI)NonAf (>60 ml/min/1.73 sqM) Glucose (74-99) mg/dL Plasma Lactic Acid Jozef (0.7-2.0) mmol/L Calcium (8.4-10.2) mg/dL Magnesium (1.6-2.3) mg/dL Total Bilirubin (0.2-1.3) mg/dL AST (14-36) U/L ALT (4-34) U/L Alkaline Phosphatase (38-126) U/L Troponin I (0.000-0.034) ng/mL NT-Pro-B Natriuret Pep pg/mL Total Protein (6.3-8.2) g/dL Albumin (3.5-5.0) g/dL Influenza Type A (PCR) Not Detected (Not Detectd) Influenza Type B (PCR) Not Detected (Not Detectd) RSV (PCR) Not Detected (Not Detectd) SARS-CoV-2 (PCR) Not Detected (Not Detectd) - Radiology Data Radiology results: report reviewed, image reviewed Disposition Clinical Impression: Congestive heart failure Disposition: ADMITTED IP TO THIS [facility] Condition: Stable Is patient prescribed a controlled substance at d/c from ED?: No Time of Disposition: 11:26
[2022-11-30 09:35] LABS: Anisocytosis Slight; Basophils % (A) 0 %; Eosinophils # (A) 0.2 k/uL (0-0.7); Eosinophils % (A) 1 %; HCT 44.7 % (34.0-46.0); HGB 13.5 gm/dL (11.4-16.0); Hypochromasia Marked; Lymphocytes # (A) 1.5 k/uL (1.0-4.8); Lymphocytes % (A) 12 %; MCH 31.5 pg (25.0-35.0); MCHC 30.2 g/dL (31.0-37.0); MCV 104.5 fL (80.0-100.0); Macrocytosis Moderate; Mean Platelet Volume 7.3; Monocytes # (A) 0.5 k/uL (0-1.0); Monocytes % (A) 4 %; Neutrophils # (A) 9.8 k/uL (1.3-7.7); Neutrophils % (A) 81 %; Platelet Count 478 k/uL (150-450); RBC 4.28 m/uL (3.80-5.40); RDW 16.2 % (11.5-15.5); WBC 12.1 k/uL (3.8-10.6)
[2022-11-30 09:37] LABS: VBG PH 7.4 (7.31-7.41)
[2022-11-30 09:49] LABS: Partial Thromboplastin Time 24.7 sec (22.0-30.0); Prothrombin Time 10.7 sec (9.0-12.0)
[2022-11-30 09:53] LABS: Albumin 3.6 g/dL (3.5-5.0); Calcium 8.8 mg/dL (8.4-10.2); Magnesium 2.4 mg/dL (1.6-2.3); Potassium 5.1 mmol/L (3.5-5.1); Total Bilirubin 0.6 mg/dL (0.2-1.3); Total Protein 6.3 g/dL (6.3-8.2)
--- NOTE | 2022-11-30 10:16 | XR ---
EXAMINATION TYPE: XR chest 2V DATE OF EXAM: 11/30/2022 COMPARISON: 05/17/2017 HISTORY: 87 year-old female shortness of breath, weakness, difficulty breathing TECHNIQUE: AP and lateral views FINDINGS: Heart is mildly enlarged. Diffuse interstitial opacities have developed along with patchy bibasilar o pacities and small effusions. IMPRESSION: Correlate for the development of CHF with pulmonary vascular congestion. Small bilateral pleural effu sions with adjacent atelectasis and/or consolidation.
--- NOTE | 2022-11-30 10:39 | CT ---
CT CHEST FOR PULMONARY EMBOLISM. EXAMINATION TYPE: CT angio chest DATE OF EXAM: 11/30/2022 INDICATION: Hypoxia. CT DLP: 927.8 mGycm, Automated exposure control for dose reduction was used. CONTRAST: Patient injected with 100ml mL of Isovue 370. COMPARISON: None TECHNIQUE: CT of the chest is performed on a spiral scan at 2 mm thick sections. Study is performed with intravenous contrast timed for evaluation for pulmonary embolism. This will limit additional po rtions of the evaluation. FINDINGS: No persistent filling defects are evident to suggest an acute pulmonary embolism. No mediastinal or hilar adenopathy enlarged by CT criteria is evident. The ascending aorta diameter at the level of the main pulmonary artery is 2.4 cm. The main pulmonary artery diameter at the bifur cation is 3.2 cm. Correlate for pulmonary hypertension. Small bilateral pleural effusions are present. A 0.8 cm densities at the left apex. Series [address] section through the upper abdomen. Pancreas appears atrophic. Gallbladder appears distend ed. IMPRESSIONS: 1. No acute pulmonary embolism. 2. Small bilateral pleural effusions. 3. Clinical consideration for pulmonary hypertension. 4. There may be a small nodule at the left apex. Follow-up exam is recommended
[2022-11-30] MEDS ORDERED: FUROSEMIDE 10 MG/ML 4 ML VIAL IV STA (11:24)
[2022-11-30] MEDS ORDERED: NALOXONE 0.4 MG/ML 1 ML VIAL IV PRN (11:28)
[2022-11-30] MEDS ORDERED: BISMUTH SUBSALICYLATE 4,192 MG/240 ML BOTTLE PO PRN (12:28)
[2022-11-30] MEDS ORDERED: guaiFENesin SYRUP 100MG/5ML 200 MG/10 ML CUP PO PRN (12:28)
[2022-11-30] MEDS ORDERED: ARTIFICIAL TEARS-HYPROMELLOSE DROPS 15 ML BTL BOTH EYES PRN (12:28)
[2022-11-30] MEDS ORDERED: polyethylene glycoL 3350 17 GM POWD.PACK PO PRN (12:30)
--- NOTE | 2022-11-30 12:40 | P.HPIM ---
History of Present Illness 87-year-old female was sent in from [facility] for dyspnea. Unable to get much of the history from the patient because of her clinical condition patient is able to lay flat on the bed but requiring 6 L of oxygen, there is a concern about pulmonary embolism because of which patient was sent in here although patient is found to have bilateral pleural effusions found to be in CHF no pulmonary embolism was found patient had elevated the care of 3000 and bilateral pedal edema unable to assess JVD. There are some crackles in bibasilar lung bases posteriorly. REVIEW OF SYSTEMS: Unable to obtain much of the history from the patient PHYSICAL EXAMINATION: GENERAL: The patient is alert not in any acute distress. Well developed, well nourished. Obese HEENT: Pupils are round and equally reacting to light. EOMI. No scleral icterus. No conjunctival pallor. Normocephalic, atraumatic. No pharyngeal erythema. No thyromegaly. CARDIOVASCULAR: S1 and S2 present. No murmurs, rubs, or gallops. PULMONARY: Bibasilar crackles were appreciated no wheezing was appreciated ABDOMEN: Soft, nontender, nondistended, normoactive bowel sounds. No palpable organomegaly. MUSCULOSKELETAL: No joint swelling or deformity. EXTREMITIES: No cyanosis, clubbing, bilateral lower extremity edema NEUROLOGICAL: Limited exam but patient does have significant muscle atrophy SKIN: No rashes. Assessment and plan -Acute hypoxic respiratory failure secondary to congestive heart failure exacerbation and do not have any previous echocardiogram available at this time patient was started on a 40 mg of IV Lasix unsure whether patient has started d ysfunction at rest or dysfunction echocardiogram will be up and cardiology will be consulted for set of troponin is negative EKG did not show any significant acute density weight changes. Ruled out pulmonary embolism. -Leukocytosis reactive in nature no clear evidence of pneumonia at this time -Elevated MCV secondary to hydroxyurea unsure whether patient has polycythemia or thrombocytosis. This will be continued -Obesity possibility of sleep apnea -History of multiple sclerosis leading to chronic debility -Hyperlipidemia -Hypertension DVT prophylaxis: Patient will be started on Lovenox Past Medical History Past Medical History: Coronary Artery Disease (CAD), Hyperlipidemia, Hypertension Additional Past Medical History / Comment(s): Coronary artery disease with previous coronary intervention and stenting, questionable history of multiple sclerosis, debilitated secondary to chronic illness and the patient has been essentially wheelchair/bed bound, nonambulatory, degenerative arthritis, hyperlipidemia, hypertension, cataracts History of Any Multi-Drug Resistant Organisms: None Reported Past Surgical History: Appendectomy, Heart Catheterization With Stent Additional Past Surgical History / Comment(s): EXPOLARATORY LAP- REMOVED LT FALLOPIAN TUBE Past Anesthesia/Blood Transfusion Reactions: No Reported Reaction Date of Last Stent Placement:: 2009 Past Psychological History: No Psychological Hx Reported Smoking Status: Former smoker Past Alcohol Use History: None Reported Past Drug Use History: None Reported - Past Family History Father Additional Family Medical History / Comment(s): Father AT AGE 62, WAS AN ALCOHOLIC- FROM COMPLICATIONS OF THAT Mother Family Medical History: Dementia Additional Family Medical History / Comment(s): AT AGE 83 Medications and Allergies Home Medications Medication Instructions Recorded Confirmed Type Aspirin EC [Ecotrin Low Dose] 81 mg PO DAILY@1200 01/20/16 11/30/22 History Clopidogrel [Plavix] 75 mg PO HS@209901/20/16 11/30/22 History hydrALAZINE HCL [Apresoline] 50 mg PO TID@0600,1400,2200 01/20/16 11/30/22 History lisinopriL [Zestril] 20 mg PO DAILY@1200 01/20/16 11/30/22 History Sennosides/Docusate Sodium 1 tab PO HS@209907/27/16 11/30/22 History [Doc-Q-Lax Tablet] Acetaminophen [Tylenol Arthritis] 650 mg PO Q4H PRN 11/30/22 11/30/22 History Artificial Tears-Hypromellose 1 drops BOTH EYES TID PRN 11/30/22 11/30/22 History [Artificial Tear Drops] Atorvastatin [Lipitor] 40 mg PO HS@209911/30/22 11/30/22 History Bismuth Subsalicylate 524 mg PO Q4H PRN 11/30/22 11/30/22 History [Pepto-Bismol] Cholecalciferol [Vitamin D3 (25 25 mcg PO DAILY@119911/30/22 11/30/22 History Mcg = 1000 Iu)] Cholestyramine/Aspartame 4 gm PO DAILY@1200 11/30/22 11/30/22 History [Cholestyramine Light Packet] Furosemide [Lasix] 20 mg PO DAILY@0600 11/30/22 11/30/22 History Gabapentin 300 mg PO BID@0600,1800 11/30/22 11/30/22 History HYDROcodone/APAP 10-325MG [[place] 1 tab PO QID@00,06,12,18 11/30/22 11/30/22 History 10-325] Hydroxyurea [Hydrea] 500 mg PO HS@2100 11/30/22 11/30/22 History Multivitamins, Thera [Multivitamin 1 tab PO DAILY@1200 11/30/22 11/30/22 History (formulary)] amLODIPine [Norvasc] 2.5 mg PO DAILY@1200 11/30/22 11/30/22 History guaiFENesin [guaiFENesin Oral 200 mg PO Q4H PRN 11/30/22 11/30/22 History Solution] Allergies Allergy/AdvReac Type Severity Reaction Status Date / Time lansoprazole Allergy Rash/Hives Verified 11/30/22 12:09 misoprostol [From Cytotec] Allergy Unknown Verified 11/30/22 12:09 omeprazole Allergy Rash/Hives Verified 11/30/22 12:09 Physical Exam Vitals: Vital Signs Temp Pulse Resp BP Pulse Ox 11/30/22 11:58 80 20 130/76 93 L 11/30/22 10:07 87 28 H 139/67 90 L 11/30/22 09:40 18 11/30/22 09:14 97.3 F L 93 L 11/30/22 08:53 80 28 H 153/86 90 L Intake and Output 11/29/22 11/30/22 11/30/22 22:59 06:59 14:59 Other: Weight 104.326 kg Results CBC & Chem 7: 11/30/22 09:03 11/30/22 09:03 Labs: Abnormal Lab Results - Last 24 Hours (Table) 11/30/22 11/30/22 11/30/22 Range/Units 09:03 09:03 09:03 WBC 12.1 H (3.8-10.6) k/uL MCV 104.5 H (80.0-100.0) fL MCHC 30.2 L (31.0-37.0) g/dL RDW 16.2 H (11.5-15.5) % Plt Count 478 H (150-450) k/uL Neutrophils # 9.8 H (1.3-7.7) k/uL VBG HCO3 31 H (24-28) mmol/L Chloride 97 L (98-107) mmol/L Carbon Dioxide 31 H (22-30) mmol/L BUN 43 H (7-17) mg/dL Creatinine 1.06 H (0.52-1.04) mg/dL Glucose 118 H (74-99) mg/dL Magnesium 2.4 H (1.6-2.3) mg/dL
[2022-11-30 17:18] LABS: Glucose,Whole Blood 165 mg/dL (70-110)
[2022-11-30] MEDS: GABAPENTIN 300 MG CAP PO SCH (17:54)
[2022-11-30] MEDS: FUROSEMIDE 10 MG/ML 4 ML VIAL IV SCH (18:15)
[2022-11-30 18:56] LABS: Appearance,Urine Turbid (Clear); Bilirubin,Urine Negative (Negative); Blood,Urine Large (Negative); Budding Yeast,Urine Many /hpf; Color,Urine Yellow; Glucose,Urine (UA) Negative (Negative); Ketones,Urine Negative (Negative); Leukocyte Esterase,Urine Large (Negative); Nitrite,Urine Negative (Negative); Protein,Urine 1+ (Negative); RBC,Urine >182 /hpf (0-5); Urobilinogen,Urine <2.0 mg/dL (<2.0); WBC,Urine >182 /hpf (0-5)
[2022-11-30 18:59] LABS: ABG HCO3 37 mmol/L (21-25); ABG Oxygen Saturation 87.8 % (94-97); ABG PH 7.32 (7.35-7.45); ABG TCO2 39 mmol/L (19-24); Allen Test Performed? Yes
[2022-11-30 19:00] LABS: ABG PCO2 73 mmHg (35-45); ABG PO2 58 mmHg (83-108)
[2022-11-30] MEDS ORDERED: LORazepam 2 MG/ML INJ IV STA (20:01)
[2022-11-30] MEDS ORDERED: FUROSEMIDE 10 MG/ML 4 ML VIAL IV SCH (21:00)
[2022-11-30] MEDS: CLOPIDOGREL 75 MG TAB PO SCH (21:22)
[2022-11-30] MEDS: ATORVASTATIN 40 MG TAB PO SCH (21:22)
[2022-11-30] MEDS: SENNOSIDES-DOCUSATE SODIUM 1 EACH TAB PO SCH (21:23)
[2022-11-30] MEDS: FAMOTIDINE 20 MG TAB PO SCH (21:23)
[2022-11-30] MEDS: HYDROXYUREA 500 MG CAP PO SCH (21:23)
[2022-12-01] MEDS: FUROSEMIDE 10 MG/ML 4 ML VIAL IV SCH ×4 (01:26→23:25)
[2022-12-01] MEDS ORDERED: LORazepam 2 MG/ML INJ IV STA (02:58)
--- NOTE | 2022-12-01 03:59 | CONS ---
CONSULTATION CHIEF COMPLAINT: Shortness of breath. HISTORY OF PRESENT ILLNESS: This is an 87-year-old lady with history of hypertension, dyslipidemia and COPD that was transferred from [facility] because of dyspnea. There was an initial concern about pulmonary embolism, had a CT scan of the chest that was negative for PE. She instead has bilateral pleural effusion, elevated BNP and changes consistent with pulmonary edema. She received Lasix with some improvement in her symptoms. She is currently on O2, O2 saturation is about 93%, seems somewhat attended. I instructed the ER nurse to cut down the oxygen that she is on. Cardiology has been consulted for heart failure. We will obtain a 2D echo on her to evaluate her LV function. I am not able to obtain any meaningful information from her. It is unclear as to what exactly her prior medical history is. She has history of hypertension, COPD, dyslipidemia. CURRENT MEDICATIONS: Include aspirin, Norvasc, Hydrea, Plavix, lisinopril, Pepto-Bismol. ALLERGIES: She is allergic to Cytotec, omeprazole, lansoprazole. FAMILY HISTORY: I am unable to obtain from the patient. SOCIAL HISTORY: I am unable to obtain from the patient. REVIEW OF SYSTEMS: I am unable to obtain from the patient. PHYSICAL EXAMINATION: VITAL SIGNS: Heart rate , respiratory rate is 18, O2 saturation is 94%. CHEST: Reveals bilateral rhonchi and diminished air entry. HEART: reveals first and second heart sounds. No gallop. No murmur. ABDOMEN: Soft. EXTREMITIES: Exam of extremities reveals bilateral pitting edema. LABORATORY DATA: Showed that the BNP is elevated at 3500. Potassium is 5.1, creatinine is 1. Hemoglobin is 17.5. ASSESSMENT: 1. Acute onset congestive heart failure. 2. History of hypertension. 3. History of chronic obstructive pulmonary disease. PLAN: I will treat the patient with IV Lasix, obtain a 2D echo and adjust her therapies as needed based on her clinical response. MMODL / IJN: [id number] /
[2022-12-01] MEDS: GABAPENTIN 300 MG CAP PO SCH ×2 (08:44→18:20)
[2022-12-01] MEDS ORDERED: ENOXAPARIN 40 MG/0.4 ML SYRINGE SQ SCH (09:00)
--- NOTE | 2022-12-01 09:13 | CA ---
Transthoracic Echo Report Name: Consuelo Ashby Age: 87 Gender: F : 1935 Exam Date: 11/30/2022 14:37 Exam Location: [place] [facility] Ht (in): 63 Wt (lb): 230 Ordering Physician: Glenna Wilder Attending/Referring Phys: Marzipan Maker Xavier Brock Procedure CPT: Indications: chf Cardiac Hx: CAD Technical Quality: Poor Contrast 1: Total Dose (mL): Contrast 2: Total Dose (mL): MEASUREMENTS (Male / Female) Normal Values 2D ECHO LV Diastolic Diameter PLAX 4.7 cm 4.2 - 5.9 / 3.9 - 5.3 cm IVS Diastolic Thickness 1.5 cm 0.6 - 1.0 / 0.6 - 0.9 cm LVPW Diastolic Thickness 1.1 cm 0.6 - 1.0 / 0.6 - 0.9 cm LV Relative Wall Thickness 0.6 RV Internal Dim ED PLAX 2.3 cm Aortic Root Diameter 2.4 cm LA Systolic Diameter LX 2.7 cm 3.0 - 4.0 / 2.7 - 3.8 cm LV Diastolic Volume MOD BP 28.1 cm??? 67 - 155 / 56 - 104 cm??? LV Systolic Volume MOD BP 10.4 cm??? 22 - 58 / 19 - 49 cm??? LV Ejection Fraction MOD BP 62.8 % >= 55 % LV Diastolic Volume MOD 4C 40.4 cm??? LV Systolic Volume MOD 4C 14.1 cm??? LV Ejection Fraction MOD 4C 65.2 % LV Diastolic Length 4C 6.1 cm LV Systolic Length 4C 4.5 cm LV Diastolic Volume MOD 2C 18.3 cm??? LV Systolic Volume MOD 2C 7.4 cm??? LV Ejection Fraction MOD 2C 59.7 % LV Diastolic Length 2C 5.7 cm LV Systolic Length 2C 4.9 cm DOPPLER LVOT Peak Velocity 94.4 cm/s LVOT Peak Gradient 3.6 mmHg LVOT Velocity Time Integral 23.0 cm Mitral E Point Velocity 78.4 cm/s Mitral A Point Velocity 120.1 cm/s Mitral E to A Ratio 0.7 MV Deceleration Time 246.2 ms MV E' Velocity 4.9 cm/s Mitral E to MV E' Ratio 15.9 TR Peak Velocity 289.5 cm/s TR Peak Gradient 33.5 mmHg Right Ventricular Systolic Press 39.1 mmHg FINDINGS Left Ventricle Left ventricular ejection fraction is estimated at 50-55 %. Right Ventricle Grossy Normal. RVSP= 48mmhg Right Atrium Normal right atrial size. Left Atrium Left atrial size appears at the upper limits of normal. LA Index=21.3ml/m2 Mitral Valve Mitral valve not well visualized. Grossly normal.no mitral regurgitation. Aortic Valve Aortic valve not well visualized. Aortic stenosis. Tricuspid Valve Tricuspid valve not well visualized. [id number] tricuspid regurgitation. Pulmonic Valve Pulmonic valve not well visualized. No pulmonic regurgitation. Pericardium Normal pericardium. Aorta Aortic root and proximal ascending aorta not well visualized. CONCLUSIONS Normal LV size preserved systolic function. Technically suboptimal study with poor endocardial visualization. Mild mitral and mild to moderate tricuspid regurgitation with mild pulmonary hypertension. No pericardial effusion Previewed by: Dr. Venu Chavez MD (Electronically Signed) Final Date: 01 Dec 2022 09:13
[2022-12-01] MEDS: ENOXAPARIN 60 MG/0.6 ML SYRINGE SQ SCH (09:58)
[2022-12-01 11:03] LABS: Anisocytosis Slight; HCT 40.9 % (34.0-46.0); HGB 12.5 gm/dL (11.4-16.0); Hypochromasia Marked; MCH 32.2 pg (25.0-35.0); MCHC 30.5 g/dL (31.0-37.0); MCV 105.7 fL (80.0-100.0); Macrocytosis Moderate; Mean Platelet Volume 7.4; Platelet Count 371 k/uL (150-450); RBC 3.87 m/uL (3.80-5.40); RDW 16.4 % (11.5-15.5)
[2022-12-01 11:08] LABS: Calcium 8.4 mg/dL (8.4-10.2); Potassium 4.2 mmol/L (3.5-5.1)
[2022-12-01] MEDS: ASPIRIN 81 MG PO SCH (11:42)
[2022-12-01] MEDS ORDERED: lisinopriL 20 MG TAB PO SCH (12:00)
--- NOTE | 2022-12-01 12:41 | PN ---
PROGRESS NOTE SUBJECTIVE: Consuelo is an 87-year-old lady who is admitted to hospital with a combination of COPD and CHF exacerbations. This morning, she is feeling much better with the intravenous diuretics that she has received. She is more awake and alert. Her blood gases showed that she had CO2 retention with a pCO2 of 73. OBJECTIVE: GENERAL: This morning, she is doing well. VITAL SIGNS: Heart rate is 80 beats per minute. Blood pressure is 120/50, respiratory rate is 18, O2 saturation is 94% on 4 L. CHEST: Reveals diminished air entry at the bases. HEART: Reveals first and second heart sounds, an ejection systolic murmur in the aortic area. ABDOMEN: Soft. EXTREMITIES: Exam of extremities reveals bilateral pitting edema. ASSESSMENT: 1. Acute exacerbation of chronic congestive heart failure. 2. Chronic obstructive pulmonary disease exacerbation. PLAN: We will continue the patient on IV Lasix for another day and continue rest of her medications. We will obtain a 2D echo. SHIMA / GIANN: [id number] /
--- NOTE | 2022-12-01 12:47 | P.PN ---
Subjective Progress Note Date: 12/01/22 87-year-old female was sent in from [facility] for dyspnea. Unable to get much of the history from the patient because of her clinical condition patient is able to lay flat on the bed but requiring 6 L of oxygen, there is a concern about pulmonary embolism because of which patient was sent in here although patient is found to have bilateral pleural effusions found to be in CHF no pulmonary embolism was found patient had elevated the care of 3000 and bilateral pedal edema unable to assess JVD. There are some crackles in bibasilar lung bases posteriorly. 12/01/2022 Patient is taken off the BiPAP and currently on 4L nasal canula which [facility] Bed bound at baseline but patient does report increased weakness. Continues on IV lasix every 8 hours, oxygen sa turation 91% on 4L. Blood pressure down to 103/47. Echocardiogram is done showing normal LV size and preserved systolic function. This was a suboptimal study with poor endocardial visualization. Mild mitral and mild to moderate triscupid regurgitation with mild pulmonary hypertension. No pericardial effusion. Labs today showing white count of 12.0. BUN of 38, creatinine 1.19. Patient has indwelling catheter with 800 mls of urine output documented. Patient continues bilateral lower extremity edema. Review of Systems Constitutional: Reports fatigue, denied any fever. Cardio vascular: denied any chest pain, palpitations Gastrointestinal: denied any nausea, vomiting, diarrhea Pulmonary: Denied any shortness of breath cough Neurologic denied any new focal deficits Reports generalized weakness. All inpatient medications were reviewed and appropriate changes in these medications as dictated in the interval history and assessment and plan. PHYSICAL EXAMINATION: GENERAL: The patient is alert x3 with moments of confusion. not in any acute distress. Well developed, well nourished. Obese HEENT: Pupils are round and equally reacting to light. EOMI. No scleral icterus. No conjunctival pallor. Normocephalic, atraumatic. No pharyngeal erythema. No thyromegaly. CARDIOVASCULAR: S1 and S2 present. No murmurs, rubs, or gallops. PULMONARY: Faint Bibasilar crackles were appreciated no wheezing was appreciated ABDOMEN: Soft, nontender, nondistended, normoactive bowel sounds. No palpable organomegaly. MUSCULOSKELETAL: No joint swelling or deformity. EXTREMITIES: No cyanosis, clubbing, bilateral lower extremity edema NEUROLOGICAL: Limited exam but patient does have significant muscle atrophy SKIN: No rashes. Assessment and plan -Acute hypoxic respiratory failure secondary to congestive heart failure exacerbation -Acute diastolic heart failure with preserved EF -Leukocytosis reactive in nature no clear evidence of pneumonia at this time -Abnormal urine unable rule out UTI patient is asymptomatic at this time. Urine culture pending. -Elevated MCV secondary to hydroxyurea unsure whether patient has polycythemia or thrombocytosis. This will be continued -Obesity possibility of sleep apnea -History of multiple sclerosis leading to chronic debility -Hyperlipidemia -Hypertension DVT prophylaxis: Patient will be started on Lovenox GI prophylaxis Full Code Plan Continue IV lasix and monitor intake and output Continue oxygen via nasal cannula and wean as tolerated Urine culture is pending at this time and will check a procalcitonin Cardiology following Patient will return to ECF when stable The impression and plan of care has been dictated by Batsheva Alvarado, Nurse Practitioner as directed. Dr. Ernesto MD I have performed a history and physical examination and medical decision making of this patient, discussed the same with the dictator, and agree with the dictators assessment and plan as written, documented as a scribe. Based on total visit time, I have performed more than 50% of this visit. Objective - Vital Signs Vital signs: Vital Signs Temp 97.5 F L 12/01/22 08:50 Pulse 82 12/01/22 11:41 Resp 16 12/01/22 11:41 BP 103/47 12/01/22 11:41 Pulse Ox 91 L 12/01/22 11:41 FiO2 60 12/01/22 07:40 Intake & Output 11/30/22 12/01/22 12/01/22 18:59 06:59 18:59 Output Total 800 Balance -800 Weight 104.326 kg Output: Urine 800 Other: Voiding Method Indwelling Catheter - Labs CBC & Chem 7: 12/01/22 10:33 12/01/22 10:33 Labs: Abnormal Lab Results - Last 24 Hours (Table) 11/30/22 11/30/22 11/30/22 Range/Units 17:16 18:13 18:54 WBC (3.8-10.6) k/uL MCV (80.0-100.0) fL MCHC (31.0-37.0) g/dL RDW (11.5-15.5) % ABG pH 7.32 L (7.35-7.45) ABG pCO2 73 H* (35-45) mmHg ABG pO2 58 L* (83-108) mmHg ABG HCO3 37 H (21-25) mmol/L ABG Total CO2 39 H (19-24) mmol/L ABG O2 Saturation 87.8 L (94-97) % Chloride (98-107) mmol/L Carbon Dioxide (22-30) mmol/L BUN (7-17) mg/dL Creatinine (0.52-1.04) mg/dL POC Glucose (mg/dL) 165 H (70-110) mg/dL Urine Appearance Turbid H (Clear) Urine Protein 1+ H (Negative) Urine Blood Large H (Negative) Ur Leukocyte Esterase Large H (Negative) Urine RBC >182 H (0-5) /hpf Urine WBC >182 H (0-5) /hpf Urine WBC Clumps Moderate H (None) /hpf Urine Yeast (Budding) Many H (None) /hpf 12/01/22 12/01/22 Range/Units 10:33 10:33 WBC 12.0 H (3.8-10.6) k/uL MCV 105.7 H (80.0-100.0) fL MCHC 30.5 L (31.0-37.0) g/dL RDW 16.4 H (11.5-15.5) % ABG pH (7.35-7.45) ABG pCO2 (35-45) mmHg ABG pO2 (83-108) mmHg ABG HCO3 (21-25) mmol/L ABG Total CO2 (19-24) mmol/L ABG O2 Saturation (94-97) % Chloride 95 L (98-107) mmol/L Carbon Dioxide 37 H (22-30) mmol/L BUN 38 H (7-17) mg/dL Creatinine 1.19 H (0.52-1.04) mg/dL POC Glucose (mg/dL) (70-110) mg/dL Urine Appearance (Clear) Urine Protein (Negative) Urine Blood (Negative) Ur Leukocyte Esterase (Negative) Urine RBC (0-5) /hpf Urine WBC (0-5) /hpf Urine WBC Clumps (None) /hpf Urine Yeast (Budding) (None) /hpf Microbiology - Last 24 Hours (Table) 11/30/22 18:13 Urine Culture - Preliminary Urine,Voided Assessment and Plan Time with Patient: Less than 30
[2022-12-01] MEDS: CLOPIDOGREL 75 MG TAB PO SCH (21:27)
[2022-12-01] MEDS: SENNOSIDES-DOCUSATE SODIUM 1 EACH TAB PO SCH (21:27)
[2022-12-01] MEDS: ATORVASTATIN 40 MG TAB PO SCH (21:27)
[2022-12-01] MEDS: HYDROXYUREA 500 MG CAP PO SCH (21:27)
[2022-12-01] MEDS: FAMOTIDINE 20 MG TAB PO SCH (21:33)
[2022-12-02] MEDS: GABAPENTIN 300 MG CAP PO SCH ×2 (06:04→17:42)
[2022-12-02 09:05] LABS: Anisocytosis Slight; Basophils % (A) 0 %; Eosinophils # (A) 0.2 k/uL (0-0.7); Eosinophils % (A) 1 %; HCT 41.2 % (34.0-46.0); HGB 12.4 gm/dL (11.4-16.0); Hypochromasia Marked; Lymphocytes # (A) 1.4 k/uL (1.0-4.8); Lymphocytes % (A) 12 %; MCH 31.6 pg (25.0-35.0); MCHC 30.2 g/dL (31.0-37.0); MCV 104.9 fL (80.0-100.0); Macrocytosis Moderate; Mean Platelet Volume 7.6; Monocytes # (A) 0.7 k/uL (0-1.0); Monocytes % (A) 6 %; Neutrophils # (A) 8.6 k/uL (1.3-7.7); Neutrophils % (A) 78 %; Platelet Count 479 k/uL (150-450); RBC 3.93 m/uL (3.80-5.40); RDW 16.1 % (11.5-15.5)
[2022-12-02 09:26] LABS: Calcium 8.5 mg/dL (8.4-10.2); Magnesium 2.2 mg/dL (1.6-2.3); Potassium 3.7 mmol/L (3.5-5.1)
[2022-12-02] MEDS: FUROSEMIDE 10 MG/ML 4 ML VIAL IV SCH (09:40)
[2022-12-02] MEDS: ENOXAPARIN 60 MG/0.6 ML SYRINGE SQ SCH (09:40)
[2022-12-02] MEDS: HYDROcodone/APAP 10-325MG 1 EACH TAB PO PRN ×2 (09:40→17:42)
[2022-12-02] MEDS ORDERED: POTASSIUM CHLORIDE ER 20 MEQ TAB.ER PO STA (11:27)
[2022-12-02] MEDS: ASPIRIN 81 MG PO SCH (11:40)
--- NOTE | 2022-12-02 13:08 | P.CNPUL ---
History of Present Illness Consult date: 12/02/22 Requesting physician: Owen Orozco Reason for consult: dyspnea Chief complaint: Shortness of breath History of present illness: This is an 87-year-old female known history of hypertension, COPD, dyslipidemia, patient is a [facility] resident. Not a great historian, but apparently the patient was brought in to the ER mostly with symptoms of shortness of breath. Chest x-ray on this admission is mostly consistent with congestive heart failure. Her echocardiogram on this admission showed evidence of aortic stenosis, it was a very poor quality echocardiogram. And suboptimal. Her labs showed relatively normal CBC. ABG on 44% FiO2 showed a pO2 of 58 pCO2 of 73 pH of 7.32, which implies that the patient may have chronic hypercapnia with metabolic compensation, patient is morbidly obese, and it is not surprising to me that the patient may have obstructive sleep apnea syndrome and chronic hypercapnia basic metabolic profile was normal except for elevated bicarb of 40 her pro calcitonin level was borderline elevated at 0.14 but again the patient had no clear-cut symptoms to suggest pneumonia. She did have abnormal urinalysis quite consistent with acute urinary tract infection. Clinically the patient is a very poor historian, and I could not get much information from the patient herself about her symptoms patient was placed on high flow nasal cannula she is now at 15 L with O2 sats are 92% patient was seen by cardiology on consultation and she was placed on Lasix at 40 mg IV push every 8 hours. Review of Systems ROS unobtainable: due to mental status Past Medical History Past Medical History: Coronary Artery Disease (CAD), Hyperlipidemia, Hypertension Additional Past Medical History / Comment(s): Coronary artery disease with previous coronary intervention and stenting, questionable history of multiple sclerosis, debilitated secondary to chronic illness and the patient has been essentially wheelchair/bed bound, nonambulatory, degenerative arthritis, hyperlipidemia, hypertension, cataracts History of Any Multi-Drug Resistant Organisms: None Reported Past Surgical History: Appendectomy, Heart Catheterization With Stent Additional Past Surgical History / Comment(s): EXPOLARATORY LAP- REMOVED LT FALLOPIAN TUBE Past Anesthesia/Blood Transfusion Reactions: No Reported Reaction Date of Last Stent Placement:: 2009 Past Psychological History: No Psychological Hx Reported Additional Psychological History / Comment(s): . Smoking Status: Former smoker Past Alcohol Use History: None Reported Additional Past Alcohol Use History / Comment(s): STARTED SMOKING AT AGE 14,QUIT 2009-SMOKED LESS THAN 1 PPD. Past Drug Use History: None Reported - Past Family History Father Additional Family Medical History / Comment(s): Father AT AGE 62, WAS AN ALCOHOLIC- FROM COMPLICATIONS OF THAT Mother Family Medical History: Dementia Additional Family Medical History / Comment(s): AT AGE 83 Medications and Allergies Home Medications Medication Instructions Recorded Confirmed Type Aspirin EC [Ecotrin Low Dose] 81 mg PO DAILY@1200 01/20/16 11/30/22 History Clopidogrel [Plavix] 75 mg PO HS@209901/20/16 11/30/22 History hydrALAZINE HCL [Apresoline] 50 mg PO TID@0600,1400,2200 01/20/16 11/30/22 History lisinopriL [Zestril] 20 mg PO DAILY@119901/20/16 11/30/22 History Sennosides/Docusate Sodium 1 tab PO HS@209907/27/16 11/30/22 History [Doc-Q-Lax Tablet] Acetaminophen [Tylenol Arthritis] 650 mg PO Q4H PRN 11/30/22 11/30/22 History Artificial Tears-Hypromellose 1 drops BOTH EYES TID PRN 11/30/22 11/30/22 History [Artificial Tear Drops] Atorvastatin [Lipitor] 40 mg PO HS@209911/30/22 11/30/22 History Bismuth Subsalicylate 524 mg PO Q4H PRN 11/30/22 11/30/22 History [Pepto-Bismol] Cholecalciferol [Vitamin D3 (25 25 mcg PO DAILY@119911/30/22 11/30/22 History Mcg = 1000 Iu)] Cholestyramine/Aspartame 4 gm PO DAILY@119911/30/22 11/30/22 History [Cholestyramine Light Packet] Furosemide [Lasix] 20 mg PO DAILY@0600 11/30/22 11/30/22 History Gabapentin 300 mg PO BID@0600,1800 11/30/22 11/30/22 History HYDROcodone/APAP 10-325MG [[place] 1 tab PO QID@00,06,12,18 11/30/22 11/30/22 History 10-325] Hydroxyurea [Hydrea] 500 mg PO HS@209911/30/2211/30/23 History Multivitamins, Thera [Multivitamin 1 tab PO DAILY@1200 11/30/22 11/30/22 History (formulary)] amLODIPine [Norvasc] 2.5 mg PO DAILY@1200 11/30/22 11/30/22 History guaiFENesin [guaiFENesin Oral 200 mg PO Q4H PRN 11/30/22 11/30/22 History Solution] Allergies Allergy/AdvReac Type Severity Reaction Status Date / Time lansoprazole Allergy Rash/Hives Verified 11/30/22 12:09 misoprostol [From Cytotec] Allergy Unknown Verified 11/30/22 12:09 omeprazole Allergy Rash/Hives Verified 11/30/22 12:09 Physical Exam Vitals: Vital Signs Temp Pulse Pulse Resp BP BP Pulse Ox 12/02/22 11:38 98.6 F 90 20 108/64 90 L 12/02/22 09:42 92 L 12/02/22 08:00 98.6 F 99 22 113/65 92 L 12/02/22 03:17 97.9 F 102 H 20 111/55 91 L 12/01/22 23:15 98.8 F 104 H 20 133/72 91 L 12/01/22 19:57 98.1 F 18 103/51 93 L 12/01/22 17:52 97.5 F L 95 18 112/59 92 L 12/01/22 17:10 78 20 121/54 95 12/01/22 17:05 12/01/22 14:57 91 L 12/01/22 14:53 12/01/22 13:58 16 12/01/22 13:57 16 91 L FiO2 12/02/22 11:38 12/02/22 09:42 12/02/22 08:00 12/02/22 03:17 12/01/22 23:15 12/01/22 19:57 12/01/22 17:52 12/01/22 17:10 12/01/22 17:05 40 12/01/22 14:57 40 12/01/22 14:53 40 12/01/22 13:58 12/01/22 13:57 Intake and Output 12/01/22 12/02/22 12/02/22 22:59 06:59 14:59 Intake Total 180 480 Output Total 0 1660 Balance 180 -1660 480 Intake: Oral 180 480 Output: Urine 1660 Uretheral (Giles) 1480 Stool 0 Other: Voiding Method Indwelling Catheter Indwelling Catheter Weight 104.326 kg GENERAL: Revealed a morbidly obese 87-year-old female, confused, poor historian, on high flow nasal cannula, not in distress. Head: Atraumatic, normocephalic. HEENT:PERRLA, EOMI, nonicteric, no neck masses no JVD. CARDIOVASCULAR Distant S1 and S2, no S3 gallop, 2/6 systolic murmur heard best over the aortic area and left upper sternal border. PULMONARY Symmetrical chest expansion, crackles at the bases, no wheezing diminished breath sounds throughout anteriorly. MUSCULOSKELETAL:No deformities and no limitation in range of motion. EXTREMITIES 1+ bipedal edema, no clubbing, no cyanosis. NEUROLOGICAL Patient is awake, however she is only oriented to place and year, seems to be confused otherwise. SKIN: No rashes. Results - Laboratory Findings CBC and BMP: 12/02/22 08:13 12/02/22 08:13 ABG ABG pH 7.32 (7.35-7.45) L 11/30/22 18:54 ABG pCO2 73 mmHg (35-45) H* 11/30/22 18:54 ABG pO2 58 mmHg (83-108) L* 11/30/22 18:54 ABG O2 Saturation 87.8 % (94-97) L 11/30/22 18:54 PT/INR, D-dimer PT 10.7 sec (9.0-12.0) 11/30/22 09:03 INR 1.0 (<1.2) 11/30/22 09:03 D-Dimer 0.41 mg/L FEU (<0.60) 11/30/22 09:03 Abnormal lab findings: Abnormal Labs 11/30/22 11/30/22 11/30/22 09:03 09:03 09:03 WBC 12.1 H MCV 104.5 H MCHC 30.2 L RDW 16.2 H Plt Count 478 H Neutrophils # 9.8 H ABG pH ABG pCO2 ABG pO2 ABG HCO3 ABG Total CO2 ABG O2 Saturation VBG HCO3 31 H Chloride 97 L Carbon Dioxide 31 H BUN 43 H Creatinine 1.06 H Glucose 118 H POC Glucose (mg/dL) Magnesium 2.4 H Procalcitonin Urine Appearance Urine Protein Urine Blood Ur Leukocyte Esterase Urine RBC Urine WBC Urine WBC Clumps Urine Yeast (Budding) 11/30/22 11/30/22 11/30/22 17:16 18:13 18:54 WBC MCV MCHC RDW Plt Count Neutrophils # ABG pH 7.32 L ABG pCO2 73 H* ABG pO2 58 L* ABG HCO3 37 H ABG Total CO2 39 H ABG O2 Saturation 87.8 L VBG HCO3 Chloride Carbon Dioxide BUN Creatinine Glucose POC Glucose (mg/dL) 165 H Magnesium Procalcitonin Urine Appearance Turbid H Urine Protein 1+ H Urine Blood Large H Ur Leukocyte Esterase Large H Urine RBC >182 H Urine WBC >182 H Urine WBC Clumps Moderate H Urine Yeast (Budding) Many H 12/01/22 12/01/22 12/01/22 10:33 10:33 10:33 WBC 12.0 H MCV 105.7 H MCHC 30.5 L RDW 16.4 H Plt Count Neutrophils # ABG pH ABG pCO2 ABG pO2 ABG HCO3 ABG Total CO2 ABG O2 Saturation VBG HCO3 Chloride 95 L Carbon Dioxide 37 H BUN 38 H Creatinine 1.19 H Glucose POC Glucose (mg/dL) Magnesium Procalcitonin 0.14 H Urine Appearance Urine Protein Urine Blood Ur Leukocyte Esterase Urine RBC Urine WBC Urine WBC Clumps Urine Yeast (Budding) 12/02/22 12/02/22 08:13 08:13 WBC 11.0 H MCV 104.9 H MCHC 30.2 L RDW 16.1 H Plt Count 479 H Neutrophils # 8.6 H ABG pH ABG pCO2 ABG pO2 ABG HCO3 ABG Total CO2 ABG O2 Saturation VBG HCO3 Chloride 92 L Carbon Dioxide 40 H BUN 37 H Creatinine 1.19 H Glucose 107 H POC Glucose (mg/dL) Magnesium Procalcitonin Urine Appearance Urine Protein Urine Blood Ur Leukocyte Esterase Urine RBC Urine WBC Urine WBC Clumps Urine Yeast (Budding) - Diagnostic Findings Chest x-ray: image reviewed (As noted in HPI) CT scan - chest: image reviewed (CT angiogram on this patient showed no evidence of urinary embolism she did have evidence of bilateral pleural effusions and evidence of pulmonary hypertension) Assessment and Plan Assessment: Impression: Acute hypoxic and chronic hypercapnic respiratory failure Acute diastolic congestive heart failure Moderate severe pulmonary hypertension Chronic cor pulmonale Suspect aortic stenosis Morbid obesity Obstructive sleep apnea syndrome Benign essential hypertension History of multiple sclerosis and chronic debility Dyslipidemia Recommendation: Agree with the present treatment plan Continue oxygen and titrate accordingly Consider placing the patient on BiPAP if her mental status worsens or if she becomes obtunded In the meantime continue diuretics as ordered by cardiology Continue to monitor electrolytes and renal profile Check urine culture and decide whether to continue Rocephin. Resume home meds We'll continue to follow. Time with Patient: Greater than 30
--- NOTE | 2022-12-02 13:20 | P.PN ---
Subjective Progress Note Date: 12/02/22 History of present illness: This is an 87 year old female presented to the hospital with, patient of COPD and CHF exacerbation. This morning, nursing difficulty time obtaining an adequate pulse ox. She is currently on IV Lasix 40 mg every 8 hours and has been diuresing. Echocardiogram revealed normal EF, mild MR and nrmi-[id number] TR, mild pulmonary hypertension. Heart rate is running 90s to 102, blood pressure 111/55. Physical examination: Gen: This is a morbidly obese 87-year-old female. She is sitting up in bed she states she is not feeling well but does not seem to be in acute respiratory distress. VS: reviewed HEENT: Head is atraumatic, normocephalic. Pupils equal, round. Sclerae is anicteric. NECK: Supple. No JVD. . LUNGS: Diminished air entry bilaterally. No intercostal retractions. HEART: Regular rate and rhythm. Systolic ejection murmur in the aortic area. ABDOMEN: Soft No tenderness. EXTREMITIES: 1+ pedal edema. NEUROLOGICAL: Patient is awake, alert. Assessment: Acute on chronic diastolic heart failure COPD exacerbation Plan: Transition IV Lasix to oral 40 mg twice daily Continue other cardiac medications Further recommendations to follow based upon clinical course Nurse practitioner note has been reviewed, I agree with documented findings and plan of care. Patient was seen and examined. Objective - Vital Signs Vital signs: Vital Signs Temp 97.9 F 12/02/22 03:17 Pulse 102 H 12/02/22 03:17 Resp 20 12/02/22 03:17 BP 111/55 12/02/22 03:17 Pulse Ox 91 L 12/02/22 03:17 FiO2 40 12/01/22 17:05 Intake & Output 12/01/22 12/02/22 12/02/22 18:59 06:59 18:59 Intake Total 50 180 Output Total 800 1660 Balance -750 -1480 Weight 104.326 kg Intake: Oral 50 180 Output: Urine 800 1660 Uretheral (Giles) 1480 Stool 0 Other: Voiding Method Indwelling Catheter Indwelling Catheter - Labs CBC & Chem 7: 12/02/22 08:13 12/02/22 08:13 Labs: Abnormal Lab Results - Last 24 Hours (Table) 12/01/22 12/01/22 12/01/22 Range/Units 10:33 10:33 10:33 WBC 12.0 H (3.8-10.6) k/uL MCV 105.7 H (80.0-100.0) fL MCHC 30.5 L (31.0-37.0) g/dL RDW 16.4 H (11.5-15.5) % Plt Count (150-450) k/uL Neutrophils # (1.3-7.7) k/uL Chloride 95 L (98-107) mmol/L Carbon Dioxide 37 H (22-30) mmol/L BUN 38 H (7-17) mg/dL Creatinine 1.19 H (0.52-1.04) mg/dL Procalcitonin 0.14 H (0.02-0.09) ng/mL 12/02/22 Range/Units 08:13 WBC 11.0 H (3.8-10.6) k/uL MCV 104.9 H (80.0-100.0) fL MCHC 30.2 L (31.0-37.0) g/dL RDW 16.1 H (11.5-15.5) % Plt Count 479 H (150-450) k/uL Neutrophils # 8.6 H (1.3-7.7) k/uL Chloride (98-107) mmol/L Carbon Dioxide (22-30) mmol/L BUN (7-17) mg/dL Creatinine (0.52-1.04) mg/dL Procalcitonin (0.02-0.09) ng/mL Microbiology - Last 24 Hours (Table) 11/30/22 18:13 Urine Culture - Preliminary Urine,Voided
[2022-12-02] MEDS: FUROSEMIDE 40 MG TAB PO SCH (17:42)
[2022-12-02 18:07] VITALS: BMI 40.7
[2022-12-02] MEDS: ACETAMINOPHEN TAB 325 MG TAB PO PRN (21:06)
[2022-12-02] MEDS: CLOPIDOGREL 75 MG TAB PO SCH (21:06)
[2022-12-02] MEDS: ATORVASTATIN 40 MG TAB PO SCH (21:06)
[2022-12-02] MEDS: SENNOSIDES-DOCUSATE SODIUM 1 EACH TAB PO SCH (21:06)
[2022-12-02] MEDS: NYSTATIN 100,000 UNIT/GM POWD 15 GM TOPICAL SCH (21:07)
[2022-12-02] MEDS: FAMOTIDINE 20 MG TAB PO SCH (21:07)
[2022-12-02] MEDS: HYDROXYUREA 500 MG CAP PO SCH (21:07)
[2022-12-03] MEDS: GABAPENTIN 300 MG CAP PO SCH ×2 (06:03→17:29)
[2022-12-03] MEDS: NYSTATIN 100,000 UNIT/GM POWD 15 GM TOPICAL SCH ×2 (09:19→21:46)
[2022-12-03] MEDS: FUROSEMIDE 40 MG TAB PO SCH (09:19)
[2022-12-03] MEDS: ENOXAPARIN 60 MG/0.6 ML SYRINGE SQ SCH (09:19)
[2022-12-03] MEDS: FUROSEMIDE 10 MG/ML 4 ML VIAL IV SCH ×2 (09:32→21:46)
--- NOTE | 2022-12-03 10:22 | XR ---
EXAMINATION TYPE: XR chest 2V DATE OF EXAM: 12/03/2022 10:09 AM COMPARISON: Chest radiographs from 11/30/2022 TECHNIQUE: XR chest 2V Frontal and lateral views of the chest. CLINICAL INDICATION:Female, 87 years old with history of hypoxia; FINDINGS: Lungs/Pleura: No evidence of focal consolidation or pneumothorax. Blunting of the costophrenic angles is present. Pulmonary vascularity: Pulmonary vascular congestion. Heart/mediastinum: Cardiomediastinal silhouette is enlarged and stable. Musculoskeletal: No acute osseous pathology. IMPRESSION: Cardiomegaly, pulmonary vascular congestion and bilateral pleural effusions. Correlate with BNP for c ongestive heart failure.
--- NOTE | 2022-12-03 10:50 | P.PN ---
Subjective Progress Note Date: 12/03/22 87-year-old female was sent in from [facility] for dyspnea. Unable to get much of the history from the patient because of her clinical condition patient is able to lay flat on the bed but requiring 6 L of oxygen, there is a concern about pulmonary embolism because of which patient was sent in here although patient is found to have bilateral pleural effusions found to be in CHF no pulmonary embolism was found patient had elevated the care of 3000 and bilateral pedal edema unable to assess JVD. There are some crackles in bibasilar lung bases posteriorly. 12/01/2022 Patient is taken off the BiPAP and currently on 4L nasal canula which patient does not wear any oxygen at the care home. Bed bound at baseline but patient does report increased weakness. Continues on IV lasix every 8 hours, oxygen sa turation 91% on 4L. Blood pressure down to 103/47. Echocardiogram is done showing normal LV size and preserved systolic function. This was a suboptimal study with poor endocardial visualization. Mild mitral and mild to moderate triscupid regurgitation with mild pulmonary hypertension. No pericardial effusion. Labs today showing white count of 12.0. BUN of 38, creatinine 1.19. Patient has indwelling catheter with 800 mls of urine output documented. Patient continues bilateral lower extremity edema. Patient is evaluated today on the medical floor. Was placed back on BiPAP yesterday afternoon, now currently on nasal cannula 6L with marginal oxygen saturation. Procalcitonin level found to be 0.14. Urine culture is pending patient patient is given IV ceftriaxone pending final culture. Remains on IV lasix 40 mg Q8h with indwelling catheter. Patient has had 2.4 liters of urine output overnight. 12/03/2022 Patient remains on medical floor. Follow up chest xray today showing cardi omegaly, pulmonary vascular congestion, and bilateral pleural effusions. Patient remains on IV lasix 40 mg Q12, patient has had 930 mls of urine output in the last 24 hours. Urinue culture showing gram negative bacilli and also blood culture 1/2 showing coagulase negative staph this is likely a contaminent species blood cultures were repeated. Pulmonary and cardiology following. Review of Systems Constitutional: Reports fatigue, denied any fever. Cardio vascular: denied any chest pain, palpitations Gastrointestinal: denied any nausea, vomiting, diarrhea Pulmonary: Denied any shortness of breath cough Neurologic denied any new focal deficits Reports generalized weakness. All inpatient medications were reviewed and appropriate changes in these medications as dictated in the interval history and assessment and plan. PHYSICAL EXAMINATION: GENERAL: The patient is alert x3 with moments of confusion. not in any acute distress. Well developed, well nourished. Obese HEENT: Pupils are round and equally reacting to light. EOMI. No scleral icterus. No conjunctival pallor. Normocephalic, atraumatic. No pharyngeal erythema. No thyromegaly. CARDIOVASCULAR: S1 and S2 present. No murmurs, rubs, or gallops. PULMONARY: Faint Bibasilar crackles were appreciated no wheezing was appreciated ABDOMEN: Soft, nontender, nondistended, normoactive bowel sounds. No palpable organomegaly. MUSCULOSKELETAL: No joint swelling or deformity. EXTREMITIES: No cyanosis, clubbing, bilateral lower extremity edema NEUROLOGICAL: Limited exam but patient does have significant muscle atrophy SKIN: No rashes. Assessment and plan -Acute hypoxic respiratory failure secondary to congestive heart failure exacerbation -Acute diastolic heart failure with preserved EF -Leukocytosis reactive in nature no clear evidence of pneumonia at this time -Abnormal urine unable rule out UTI patient is asymptomatic at this time. Urine culture pending. -Elevated MCV secondary to hydroxyurea unsure whether patient has polycythemia or thrombocytosis. This will be continued -Obesity possibility of sleep apnea -History of multiple sclerosis leading to chronic debility -Hyperlipidemia -Hypertension DVT prophylaxis: Patient will be started on Lovenox GI prophylaxis Full Code Plan Continue IV lasix and monitor intake and output Continue oxygen support Continue IV ceftriaxone pending finalized urine cultures Repeat blood cultures Pulmonary, cardiology following. Patient will return to ECF when stable The impression and plan of care has been dictated by Batsheva Alvarado, Nurse Practitioner as directed. Dr. William MD I have performed a history and physical examination and medical decision making of this patient, discussed the same with the dictator, and agree with the dictators assessment and plan as written, documented as a scribe. Based on total visit time, I have performed more than 50% of this visit. Objective - Vital Signs Vital signs: Vital Signs Temp 97.8 F 12/03/22 09:18 Pulse 91 12/03/22 09:18 Resp 18 12/03/22 09:18 BP 112/62 12/03/22 09:18 Pulse Ox 92 L 12/03/22 09:18 FiO2 40 12/01/22 17:05 Intake & Output 12/02/22 12/03/22 12/03/22 18:59 06:59 18:59 Intake Total 930 0 Output Total 550 380 Balance 380 -380 0 Weight 104.326 kg Intake: Oral 930 0 Output: Urine 550 380 Uretheral (Giles) 380 Other: Voiding Method Indwelling Catheter Indwelling Catheter Indwelling Catheter - Labs CBC & Chem 7: 12/02/22 08:13 12/02/22 08:13 Labs: Microbiology - Last 24 Hours (Table) 11/30/22 18:13 Urine Culture - Preliminary Urine,Voided Gram Neg Bacilli 11/30/22 09:03 Blood Culture - Preliminary Blood 11/30/22 09:03 Blood Culture Gram Stain - Preliminary Blood Blood Culture - Preliminary Coagulase Negative Staph Assessment and Plan Time with Patient: Less than 30
[2022-12-03] MEDS: ASPIRIN 81 MG PO SCH (11:45)
--- NOTE | 2022-12-03 12:05 | P.PN ---
Subjective Progress Note Date: 12/03/22 History of present illness: This is an 87 year old female presented to the hospital with, patient of COPD and CHF exacerbation. This morning, nursing difficulty time obtaining an adequate pulse ox. She is currently on IV Lasix 40 mg every 8 hours and has been diuresing. Echocardiogram revealed normal EF, mild MR and [id number] TR, mild pulmonary hypertension. Heart rate is running 90s to 102, blood pressure 111/55. 12/04 Patient is seen today in follow-up. She has been on IV antibiotics for UTI. Yesterday we switched IV Lasix to oral but patient continues to have symptoms crackles to the bilateral bases. Her urine output has been 30-40 mL per hour. Blood pressure 103/63, heart rate in the 80s and 90s. WBC 11, hemoglobin 12.4, platelet count 479. Potassium 3.7, CO2 40, BUN 37 creatinine 1.19. Repeat chest x-ray reveals cardiomegaly. Pulmonary vascular congestion and bilateral pleural effusions. Physical examination: Gen: This is a morbidly obese 87-year-old female. She is sitting up in bed she states she is not feeling well but does not seem to be in acute res piratory distress. VS: reviewed HEENT: Head is atraumatic, normocephalic. Pupils equal, round. Sclerae is anicteric. NECK: Supple. No JVD. . LUNGS: Diminished air entry bilaterally. No intercostal retractions. HEART: Regular rate and rhythm. Systolic ejection murmur in the aortic area. ABDOMEN: Soft No tenderness. EXTREMITIES: 1+ pedal edema. NEUROLOGICAL: Patient is awake, alert. Assessment: Acute on chronic diastolic heart failure COPD exacerbation Plan: Transition Lasix to IV 40 mg twice daily, monitor I&O, daily weights, electrolytes and renal function Continue other cardiac medications Further recommendations to follow based upon clinical course Nurse practitioner note has been reviewed, I agree with documented findings and plan of care. Patient was seen and examined. Objective - Vital Signs Vital signs: Vital Signs Temp 97.8 F 12/03/22 09:18 Pulse 91 12/03/22 09:18 Resp 18 12/03/22 09:18 BP 112/62 12/03/22 09:18 Pulse Ox 92 L 12/03/22 09:18 FiO2 40 12/01/22 17:05 Intake & Output 12/02/22 12/03/22 12/03/22 18:59 06:59 18:59 Intake Total 930 0 Output Total 550 380 Balance 380 -380 0 Weight 104.326 kg Intake: Oral 930 0 Output: Urine 550 380 Uretheral (Giles) 380 Other: Voiding Method Indwelling Catheter Indwelling Catheter - Labs CBC & Chem 7: 12/02/22 08:13 12/02/22 08:13 Labs: Abnormal Lab Results - Last 24 Hours (Table) 12/02/22 Range/Units 08:13 Chloride 92 L (98-107) mmol/L Carbon Dioxide 40 H (22-30) mmol/L BUN 37 H (7-17) mg/dL Creatinine 1.19 H (0.52-1.04) mg/dL Glucose 107 H (74-99) mg/dL Microbiology - Last 24 Hours (Table) 11/30/22 18:13 Urine Culture - Preliminary Urine,Voided Gram Neg Bacilli 11/30/22 09:03 Blood Culture - Preliminary Blood 11/30/22 09:03 Blood Culture Gram Stain - Preliminary Blood Blood Culture - Preliminary Coagulase Negative Staph
--- NOTE | 2022-12-03 12:20 | P.PN ---
Subjective Progress Note Date: 12/03/22 Principal diagnosis: Acute hypoxic and chronic hypercapnic respiratory failure with acute diastolic congestive heart failure and moderate severe pulmonary hypertension This is an 87-year-old female known history of hypertension, COPD, dyslipidemia, patient is a [facility] resident. Not a great historian, but apparently the patient was brought in to the ER mostly with symptoms of shortness of breath. Chest x-ray on this admission is mostly consistent with congestive heart fail ure. Her echocardiogram on this admission showed evidence of aortic stenosis, it was a very poor quality echocardiogram. And suboptimal. Her labs showed relatively normal CBC. ABG on 44% FiO2 showed a pO2 of 58 pCO2 of 73 pH of 7.32, which implies that the patient may have chronic hypercapnia with metabolic compensation, patient is morbidly obese, and it is not surprising to me that the patient may have obstructive sleep apnea syndrome and chronic hypercapnia basic metabolic profile was normal except for elevated bicarb of 40 her pro calcitonin level was borderline elevated at 0.14 but again the patient had no clear-cut symptoms to suggest pneumonia. She did have abnormal urinalysis quite consistent with acute urinary tract infection. Clinically the patient is a very poor historian, and I could not get much information from the patient herself about her symptoms patient was placed on high flow nasal cannula she is now at 15 L with O2 sats are 92% patient was seen by cardiology on consultation and she was placed on Lasix at 40 mg IV push every 8 hours. Reevaluated today on 12/03/2022, patient is feeling better today compared to the last 2 days, hardly any shortness of breath, patient was transitioned from IV Lasix to oral Lasix, she is hemodynamically stable. Elects lites are normal BUN is 37 creatinine 1.19. Her last chest x-ray showed cardiomegaly and pulmonary vascular congestion with small pleural effusions. Swelling in the lower extremities is significantly better. Objective - Vital Signs Vital signs: Vital Signs Temp 98.2 F 12/03/22 11:43 Pulse 85 12/03/22 11:43 Resp 16 12/03/22 11:43 BP 103/63 12/03/22 11:43 Pulse Ox 92 L 12/03/22 11:43 FiO2 40 12/01/22 17:05 Intake & Output 12/02/22 12/03/22 12/03/22 18:59 06:59 18:59 Intake Total 930 0 Output Total 550 380 Balance 380 -380 0 Weight 104.326 kg Intake: Oral 930 0 Output: Urine 550 380 Uretheral (Giles) 380 Other: Voiding Method Indwelling Catheter Indwelling Catheter Indwelling Catheter - Exam GENERAL: Revealed a morbidly obese 87-year-old female, less confused today, alert oriented 3, in no distress. On 15 L high flow cannula per Head: Atraumatic, normocephalic. HEENT:PERRLA, EOMI, nonicteric, no neck masses no JVD. CARDIOVASCULAR Distant S1 and S2, no S3 gallop, 2/6 systolic murmur heard best over the aortic area and left upper sternal border. PULMONARY Symmetrical chest expansion, crackles at the bases, no wheezing diminished breath sounds throughout anteriorly. MUSCULOSKELETAL:No deformities and no limitation in range of motion. EXTREMITIES trace of bipedal edema, no clubbing, no cyanosis. NEUROLOGICAL Patient is awake, seems to be less confused and more appropriate today compared to yesterday. SKIN: No rashes. - Labs CBC & Chem 7: 12/02/22 08:13 12/02/22 08:13 Labs: Microbiology - Last 24 Hours (Table) 11/30/22 18:13 Urine Culture - Preliminary Urine,Voided Gram Neg Bacilli 11/30/22 09:03 Blood Culture - Preliminary Blood 11/30/22 09:03 Blood Culture Gram Stain - Preliminary Blood Blood Culture - Preliminary Coagulase Negative Staph Assessment and Plan Assessment: Impression: Acute hypoxic and chronic hypercapnic respiratory failure Acute diastolic congestive heart failure Moderate severe pulmonary hypertension Chronic cor pulmonale Suspect aortic stenosis Morbid obesity Obstructive sleep apnea syndrome Benign essential hypertension History of multiple sclerosis and chronic debility Dyslipidemia Recommendation: Continue diuretics orally. Continue oxygen and titrate accordingly Continue to monitor electrolytes and renal profile Continue antibiotics for positive urine culture showing gram-negative bacilli. Final sensitivities pending, patient is on Rocephin all along Use BiPAP if necessary if the patient becomes obtunted Resume home meds We'll continue to follow. Time with Patient: Less than 30
[2022-12-03 13:48] LABS: Calcium 8.5 mg/dL (8.4-10.2); Potassium 3.9 mmol/L (3.5-5.1)
[2022-12-03] MEDS: HYDROcodone/APAP 10-325MG 1 EACH TAB PO PRN (15:44)
[2022-12-03] MEDS: ATORVASTATIN 40 MG TAB PO SCH (21:46)
[2022-12-03] MEDS: CLOPIDOGREL 75 MG TAB PO SCH (21:46)
[2022-12-03] MEDS: SENNOSIDES-DOCUSATE SODIUM 1 EACH TAB PO SCH (21:46)
[2022-12-03] MEDS: HYDROXYUREA 500 MG CAP PO SCH (21:46)
[2022-12-03] MEDS: FAMOTIDINE 20 MG TAB PO SCH (21:46)
--- NOTE | 2022-12-03 22:30 | P.CONS ---
History of Present Illness - Reason for Consult Consult date: 12/03/22 - History of Present Illness Patient is a 87-year-old female with a past medical history significant for coronary disease hypertension hyperlipidemia multiple sclerosis with debility wheelchair-bound patient is currently a resident of the local longterm patient was sent to the ER 3 days ago for evaluation of sudden onset of dyspnea with hypoxemia that began the night before presentation to the hospital patient apparently tested negative for for the COVID swab at that facility on presentation to the hospital the patient was afebrile and no fever has been recorded subsequently patient was hypoxic and requiring high flow oxygen patient did have a chest x-ray followed by CT angiogram of the chest did not show acute pulmonary embolism small bilateral pleural effusion and concern for pulmonary hypertension chest x-ray repeated this morning cardiomegaly pulmonary vascular congestion bilateral effusion concerning for congestive heart failure patient did have a elevated white count 4.1 with a left shift. Creatinine has been mildly elevated did have a positive UA influenza RSV and COVID testing was negative patient did have a positive blood culture subsequently finalized with the coagulase negative staph in urine showing gram- negative patient is currently being treated with the ceftriaxone infectious disease was consulted for further management of antibiotic therapy most information has been obtained from review the chart talking with a family member and the nursing staff as the patient herself was not a very good historian Past Medical History Past Medical History: Coronary Artery Disease (CAD), Hyperlipidemia, Hypertension Additional Past Medical History / Comment(s): Coronary artery disease with previous coronary intervention and stenting, questionable history of multiple sclerosis, debilitated secondary to chronic illness and the patient has been essentially wheelchair/bed bound, nonambulatory, degenerative arthritis, hyperlipidemia, hypertension, cataracts History of Any Multi-Drug Resistant Organisms: None Reported Past Surgical History: Appendectomy, Heart Catheterization With Stent Additional Past Surgical History / Comment(s): EXPOLARATORY LAP- REMOVED LT FALLOPIAN TUBE Past Anesthesia/Blood Transfusion Reactions: No Reported Reaction Date of Last Stent Placement:: 2009 Past Psychological History: No Psychological Hx Reported Additional Psychological History / Comment(s): . Smoking Status: Former smoker Past Alcohol Use History: None Reported Additional Past Alcohol Use History / Comment(s): STARTED SMOKING AT AGE 14,QUIT 2009-SMOKED LESS THAN 1 PPD. Past Drug Use History: None Reported - Past Family History Father Additional Family Medical History / Comment(s): Father AT AGE 62, WAS AN ALCOHOLIC- FROM COMPLICATIONS OF THAT Mother Family Medical History: Dementia Additional Family Medical History / Comment(s): AT AGE 83 Medications and Allergies Home Medications Medication Instructions Recorded Confirmed Type Aspirin EC [Ecotrin Low Dose] 81 mg PO DAILY@1200 01/20/16 11/30/22 History Clopidogrel [Plavix] 75 mg PO HS@2100 01/20/16 11/30/22 History hydrALAZINE HCL [Apresoline] 50 mg PO TID@0600,1400,2200 01/20/16 11/30/22 History lisinopriL [Zestril] 20 mg PO DAILY@1200 01/20/16 11/30/22 History Sennosides/Docusate Sodium 1 tab PO HS@209907/27/16 11/30/22 History [Doc-Q-Lax Tablet] Acetaminophen [Tylenol Arthritis] 650 mg PO Q4H PRN 11/30/22 11/30/22 History Artificial Tears-Hypromellose 1 drops BOTH EYES TID PRN 11/30/22 11/30/22 History [Artificial Tear Drops] Atorvastatin [Lipitor] 40 mg PO HS@2100 11/30/22 11/30/22 History Bismuth Subsalicylate 524 mg PO Q4H PRN 11/30/22 11/30/22 History [Pepto-Bismol] Cholecalciferol [Vitamin D3 (25 25 mcg PO DAILY@1200 11/30/22 11/30/22 History Mcg = 1000 Iu)] Cholestyramine/Aspartame 4 gm PO DAILY@1200 11/30/22 11/30/22 History [Cholestyramine Light Packet] Furosemide [Lasix] 20 mg PO DAILY@0600 11/30/22 11/30/22 History Gabapentin 300 mg PO BID@0600,1800 11/30/22 11/30/22 History HYDROcodone/APAP 10-325MG [[place] 1 tab PO QID@00,06,12,18 11/30/22 11/30/22 History 10-325] Hydroxyurea [Hydrea] 500 mg PO HS@2100 11/30/22 11/30/22 History Multivitamins, Thera [Multivitamin 1 tab PO DAILY@1200 11/30/22 11/30/22 History (formulary)] amLODIPine [Norvasc] 2.5 mg PO DAILY@1200 11/30/22 11/30/22 History guaiFENesin [guaiFENesin Oral 200 mg PO Q4H PRN 11/30/22 11/30/22 History Solution] Allergies Allergy/AdvReac Type Severity Reaction Status Date / Time lansoprazole Allergy Rash/Hives Verified 11/30/22 12:09 misoprostol [From Cytotec] Allergy Unknown Verified 11/30/22 12:09 omeprazole Allergy Rash/Hives Verified 11/30/22 12:09 Physical Exam Vitals: Vital Signs Temp Pulse Resp BP Pulse Ox 12/03/22 11:43 98.2 F 85 16 103/63 92 L 12/03/22 09:18 97.8 F 91 18 112/62 92 L 12/03/22 08:02 94 L 12/03/22 03:29 97.3 F L 91 18 107/58 93 L 12/02/22 23:29 98.1 F 94 18 127/65 93 L 12/02/22 21:41 93 L 12/02/22 19:44 98.5 F 95 20 126/62 92 L 12/02/22 16:00 97.9 F 90 18 116/68 94 L Intake and Output 12/02/22 12/03/22 12/03/22 22:59 06:59 14:59 Intake Total 90 0 Output Total 150 380 Balance -60 -380 0 Intake: Oral 90 0 Output: Urine 150 380 Uretheral (Giles) 380 Other: Voiding Method Indwelling Catheter Indwelling Catheter Indwelling Catheter Weight 104.326 kg Results CBC & Chem 7: 12/02/22 08:13 12/03/22 12:51 Labs: Microbiology - Last 24 Hours (Table) 11/30/22 18:13 Urine Culture - Preliminary Urine,Voided Gram Neg Bacilli 11/30/22 09:03 Blood Culture - Preliminary Blood 11/30/22 09:03 Blood Culture Gram Stain - Preliminary Blood Blood Culture - Preliminary Coagulase Negative Staph Assessment and Plan Plan: 1patient with a positive blood culture has been finalized with staph epi likely skin contamination as patient has no clinical disease to go along with it blood culture has been repeated those will be followed no need for vancomycin 2-patient did have a positive UA some urinary symptoms concerning for symptoma tic UTI urine showing gram-negative ID sensitivities pending patient to continue with Rocephin while waiting for the culture to finalize 3-shortness of breath and hypoxemia with evidence of pulmonary vascular congestion cardiomegaly possible cardiac etiology We will follow on clinical condition and cultures to further adjust medication if needed Thank you for this consultation we will follow the patient along with you Time with Patient: Greater than 30
[2022-12-04] MEDS: GABAPENTIN 300 MG CAP PO SCH ×2 (06:06→17:13)
[2022-12-04] MEDS: FUROSEMIDE 40 MG TAB PO SCH (06:12)
[2022-12-04 07:28] LABS: Calcium 8.2 mg/dL (8.4-10.2); Potassium 3.8 mmol/L (3.5-5.1)
[2022-12-04] MEDS: FUROSEMIDE 10 MG/ML 4 ML VIAL IV SCH ×2 (09:29→20:16)
[2022-12-04] MEDS: ENOXAPARIN 60 MG/0.6 ML SYRINGE SQ SCH (09:30)
[2022-12-04] MEDS: HYDROcodone/APAP 10-325MG 1 EACH TAB PO PRN ×2 (09:33→17:13)
[2022-12-04] MEDS: NYSTATIN 100,000 UNIT/GM POWD 15 GM TOPICAL SCH ×2 (09:33→21:50)
--- NOTE | 2022-12-04 11:33 | P.PN ---
Subjective Progress Note Date: 12/04/22 History of present illness: This is an 87 year old female presented to the hospital with, patient of COPD and CHF exacerbation. This morning, nursing difficulty time obtaining an adequate pulse ox. She is currently on IV Lasix 40 mg every 8 hours and has been diuresing. Echocardiogram revealed normal EF, mild MR and [id number] TR, mild pulmonary hypertension. Heart rate is running 90s to 102, blood pressure 111/55. 12/03 Patient is seen today in follow-up. She has been on IV antibiotics for UTI. Yesterday we switched IV Lasix to oral but patient continues to have symptoms crackles to the bilateral bases. Her urine output has been 30-40 mL per hour. Blood pressure 103/63, heart rate in the 80s and 90s. WBC 11, hemoglobin 12.4, platelet count 479. Potassium 3.7, CO2 40, BUN 37 creatinine 1.19. Repeat chest x-ray reveals cardiomegaly. Pulmonary vascular congestion and bilateral pleural effusions. 12/04 Patient continues to have some lower extremity edema. She is on Lasix 40 mg IV every 12 hours. Patient is diuresing well with a negative balance of 1620. Repeat blood work reveals potassium 3.8, BUN 32, creatinine 1.12. CO2 43. Heart rate running in the 90s, blood pressure 119/71. Physical examination: Gen: This is a morbidly obese 87-year-old female. She is sitting up in bed and appears to be in no acute respiratory distress. VS: reviewed HEENT: Head is atraumatic, normocephalic. Pupils equal, round. Sclerae is anicteric. LUNGS: Diminished air entry bilaterally. No intercostal retractions. HEART: Regular rate and rhythm. Systolic ejection murmur in the aortic area. ABDOMEN: Soft No tenderness. EXTREMITIES: 1+ pedal edema. NEUROLOGICAL: Patient is awake, alert. Assessment: Acute on chronic diastolic heart failure COPD exacerbation Proteus urinary tract infection Plan: Continue Lasix to IV 40 mg twice daily, monitor I&O, daily weights, electrolytes and renal function Continue other cardiac medications Further recommendations to follow based upon clinical course Nurse practitioner note has been reviewed, I agree with documented findings and plan of care. Patient was seen and examined. Objective - Vital Signs Vital signs: Vital Signs Temp 98.1 F 12/04/22 04:00 Pulse 90 12/04/22 04:00 Resp 20 12/04/22 04:00 BP 119/55 12/04/22 04:00 Pulse Ox 91 L 12/04/22 04:00 FiO2 40 12/01/22 17:05 Intake & Output 12/03/22 12/04/22 12/04/22 18:59 06:59 18:59 Intake Total 478 237 Output Total 1375 960 Balance -897 -723 Intake: Oral 478 237 Output: Urine 1375 960 Uretheral (Giles) 460 Other: Voiding Method Indwelling Catheter Indwelling Catheter # Bowel Movements 1 1 - Labs CBC & Chem 7: 12/02/22 08:13 12/04/22 06:29 Labs: Abnormal Lab Results - Last 24 Hours (Table) 12/03/22 12/04/22 Range/Units 12:51 06:29 Chloride 92 L 90 L (98-107) mmol/L Carbon Dioxide 40 H 43 H* (22-30) mmol/L BUN 34 H 32 H (7-17) mg/dL Creatinine 1.14 H 1.12 H (0.52-1.04) mg/dL Glucose 101 H (74-99) mg/dL Calcium 8.2 L (8.4-10.2) mg/dL Microbiology - Last 24 Hours (Table) 11/30/22 18:13 Urine Culture - Final Urine,Voided Proteus mirabilis 11/30/22 09:03 Blood Culture - Preliminary Blood
[2022-12-04] MEDS: ASPIRIN 81 MG PO SCH (11:37)
--- NOTE | 2022-12-04 12:04 | P.PN ---
Subjective Progress Note Date: 12/04/22 Principal diagnosis: Respiratory failure. Acute hypoxic and chronic hypercapnic respiratory failure with acute diastolic congestive heart failure and moderate severe pulmonary hypertension This is an 87-year-old female known history of hypertension, COPD, dyslipidemia, patient is a [facility] resident. Not a great historian, but apparently the patient was brought in to the ER mostly with symptoms of shortness of breath. Chest x-ray on this admission is mostly consistent with congestive heart failure. Her echocardiogram on this admission showed evidence of aortic stenosis, it was a very poor quality echocardiogram. And suboptimal. Her labs showed relatively normal CBC. ABG on 44% FiO2 showed a pO2 of 58 pCO2 of 73 pH of 7.32, which implies that the patient may have chronic hypercapnia with metabolic compensation, patient is morbidly obese, and it is not surprising to me that the patient may have obstructive sleep apnea syndrome and chronic hypercapnia basic metabolic profile was normal except for elevated bicarb of 40 her pro calcitonin level was borderline elevated at 0.14 but again the patient had no clear-cut symptoms to suggest pneumonia. She did have abnormal urinalysis quite consistent with acute urinary tract infection. Clinically the patient is a very poor historian, and I could not get much information from the patient herself about her symptoms patient was placed on high flow nasal cannula she is now at 15 L with O2 sats are 92% patient was seen by cardiology on consultation and she was placed on Lasix at 40 mg IV push every 8 hours. Reevaluated today on 12/03/2022, patient is feeling better today compared to the last 2 days, hardly any shortness of breath, patient was transitioned from IV Lasix to oral Lasix, she is hemodynamically stable. Elects lites are normal BUN is 37 creatinine 1.19. Her last chest x-ray showed cardiomegaly and pulmonary vascular congestion with small pleural effusions. Swelling in the lower extremities is significantly better. Progress note dated 12/04/2022. The patient is seen today in room 359. She continues on high flow oxygen at 13 L. The BiPAP is in room, with settings of 10 and 5 and 40%. The patient was discovered to have Proteus in the urine. Lab data today includes a sodium 137, potassium 3.8, chlorides 90, CO2 43, BUN 32, and creatinine 1.12. Calcium is 8.2. Pro-calcitonin level is 0.14. The patient continues on ceftriaxone for the Proteus urinary tract infection. Objective - Vital Signs Vital signs: Vital Signs Temp 98.3 F 12/04/22 11:35 Pulse 88 12/04/22 11:35 Resp 16 12/04/22 11:35 BP 117/79 12/04/22 11:35 Pulse Ox 93 L 12/04/22 11:35 FiO2 40 12/01/22 17:05 Intake & Output 12/03/22 12/04/22 12/04/22 18:59 06:59 18:59 Intake Total 478 237 240 Output Total 1375 960 Balance -897 -723 240 Intake: Oral 478 237 240 Output: Urine 1375 960 Uretheral (Giles) 460 Other: Voiding Method Indwelling Catheter Indwelling Catheter Indwelling Catheter # Bowel Movements 1 1 - Exam No acute distress, oriented 3. The patient continues on high flow nasal cannula at 13 L/m. HEENT examination is grossly unremarkable. Neck supple. Full range of motion. No adenopathy thyromegaly or neck vein distention. Cardiovascular examination reveals regular rhythm rate. S1-S2 normal. No S3 or S4. A soft systolic murmur is noted. Heart sounds are distant. Heart rate 88 bpm. Lungs reveal clear scattered bilateral rhonchi and a few scattered crackles. Breath sounds equal. Breath sounds are diminished throughout. Saturations are 93%. Abdomen soft bowel sounds are heard. No masses or tenderness. Extremities are intact. No cyanosis or clubbing. Mild edema noted. Skin is without rash or lesion. Neurologic examination is brief but nonfocal. - Labs CBC & Chem 7: 12/02/22 08:13 12/04/22 06:29 Labs: Abnormal Lab Results - Last 24 Hours (Table) 12/03/22 12/04/22 Range/Units 12:51 06:29 Chloride 92 L 90 L (98-107) mmol/L Carbon Dioxide 40 H 43 H* (22-30) mmol/L BUN 34 H 32 H (7-17) mg/dL Creatinine 1.14 H 1.12 H (0.52-1.04) mg/dL Glucose 101 H (74-99) mg/dL Calcium 8.2 L (8.4-10.2) mg/dL Microbiology - Last 24 Hours (Table) 11/30/22 09:03 Blood Culture Gram Stain - Final Blood Blood Culture - Final Coagulase Negative Staph 11/30/22 09:03 Blood Culture - Preliminary Blood 11/30/22 18:13 Urine Culture - Final Urine,Voided Proteus mirabilis Assessment and Plan Assessment: Acute hypoxemic and chronic hypercapnic respiratory failure. Acute diastolic congestive heart failure. Moderate to severe pulmonary hypertension. Chronic cor pulmonale. Probable aortic stenosis. Morbid obesity. Obstructive sleep apnea syndrome. Benign essential hypertension. History of multiple sclerosis and chronic medical debility. Hyperlipidemia. Plan: Plan dated 12/04/2022. The patient is seen today in room 359. Labs, x-rays, medications are all reviewed. The patient continues on diuretics oxygen therapy. We'll continue to monitor her electrolytes, and kidney function. She continues on antibiotics for her Proteus urinary tract infection. The patient can go home BiPAP if necessary. Her BiPAP settings were 10 over 5 and 40%. Additional recommendations and suggestions are forthcoming. Prognosis is guarded. Time with Patient: Less than 30
[2022-12-04] MEDS ORDERED: IPRATROPIUM-ALBUTEROL 3 ML NEB INHALATION PRN (15:40)
[2022-12-04] MEDS: IPRATROPIUM-ALBUTEROL 3 ML NEB INHALATION SCH ×2 (16:22→20:48)
[2022-12-04] MEDS: HYDROXYUREA 500 MG CAP PO SCH (20:15)
[2022-12-04] MEDS: SENNOSIDES-DOCUSATE SODIUM 1 EACH TAB PO SCH (20:16)
[2022-12-04] MEDS: CLOPIDOGREL 75 MG TAB PO SCH (20:16)
[2022-12-04] MEDS: ATORVASTATIN 40 MG TAB PO SCH (20:16)
[2022-12-04] MEDS: FAMOTIDINE 20 MG TAB PO SCH (20:16)
[2022-12-04] MEDS: SYMBICORT 160-4.5 MCG INHALER INHALATION SCH (20:48)
[2022-12-05] MEDS: HYDROcodone/APAP 10-325MG 1 EACH TAB PO PRN ×4 (00:28→21:35)
[2022-12-05] MEDS: GABAPENTIN 300 MG CAP PO SCH ×2 (05:58→17:15)
--- NOTE | 2022-12-05 06:38 | PN ---
PROGRESS NOTE DATE OF SERVICE: 12/04/2022 SUBJECTIVE: This is an 87-year-old woman, who was admitted with CHF acute exacerbation, also continued to be hypoxic. Patient needs 15 L oxygen. No chest pain. No palpitation. The most recent chest x-ray showed some CHF. OBJECTIVE: VITAL SIGNS: Pulse is 88, blood pressure 117/70, respirations 16. CHEST: A few scattered rhonchi and crackles. ABDOMEN: Soft. NERVOUS SYSTEM: Nonfocal. LABORATORY DATA: Urine cultures, Proteus mirabilis which is rather resistant. ASSESSMENT: 1. Congestive heart failure acute exacerbation with acute hypoxic respiratory failure. 2. Acute diastolic heart failure. 3. Proteus mirabilis urinary tract infection. 4. Obesity. 5. History of multiple sclerosis. 6. Hypertension. 7. Hyperlipidemia. RECOMMENDATIONS AND DISCUSSION: Recommend to continue current management and continue symptomatic treatment. Otherwise, at this time, continue with Lasix. Infectious Disease following the patient closely. Guarded prognosis. Further recommendations to follow. I would also recommend add a course of bronchodilators as well. MMODL / IJN: [id number] /
[2022-12-05 07:42] LABS: Basophils % (A) 0 %; Eosinophils # (A) 0.4 k/uL (0-0.7); Eosinophils % (A) 4 %; HCT 40.5 % (34.0-46.0); HGB 11.8 gm/dL (11.4-16.0); Hypochromasia Marked; Lymphocytes # (A) 1.9 k/uL (1.0-4.8); Lymphocytes % (A) 17 %; MCH 31.1 pg (25.0-35.0); MCHC 29.2 g/dL (31.0-37.0); MCV 106.2 fL (80.0-100.0); Macrocytosis Moderate; Mean Platelet Volume 7.5; Monocytes # (A) 0.6 k/uL (0-1.0); Monocytes % (A) 6 %; Neutrophils # (A) 7.5 k/uL (1.3-7.7); Neutrophils % (A) 70 %; Platelet Count 307 k/uL (150-450); RBC 3.81 m/uL (3.80-5.40); RDW 15.5 % (11.5-15.5); WBC 10.7 k/uL (3.8-10.6)
[2022-12-05 07:48] LABS: Calcium 8.3 mg/dL (8.4-10.2); Potassium 3.7 mmol/L (3.5-5.1)
[2022-12-05] MEDS: IPRATROPIUM-ALBUTEROL 3 ML NEB INHALATION SCH ×4 (08:44→21:51)
[2022-12-05] MEDS: SYMBICORT 160-4.5 MCG INHALER INHALATION SCH ×2 (08:44→21:51)
[2022-12-05] MEDS: FUROSEMIDE 10 MG/ML 4 ML VIAL IV SCH ×2 (09:06→19:45)
[2022-12-05] MEDS: NYSTATIN 100,000 UNIT/GM POWD 15 GM TOPICAL SCH ×2 (09:07→19:46)
[2022-12-05] MEDS: ENOXAPARIN 60 MG/0.6 ML SYRINGE SQ SCH (09:07)
--- NOTE | 2022-12-05 10:32 | P.PN ---
Subjective Progress Note Date: 12/05/22 History of present illness: This is an 87 year old female presented to the hospital with, patient of COPD and CHF exacerbation. This morning, nursing difficulty time obtaining an adequate pulse ox. She is currently on IV Lasix 40 mg every 8 hours and has been diuresing. Echocardiogram revealed normal EF, mild MR and shqk-[id number] TR, mild pulmonary hypertension. Heart rate is running 90s to 102, blood pressure 111/55. 12/03 Patient is seen today in follow-up. She has been on IV antibiotics for UTI. Yesterday we switched IV Lasix to oral but patient continues to have symptoms crackles to the bilateral bases. Her urine output has been 30-40 mL per hour. Blood pressure 103/63, heart rate in the 80s and 90s. WBC 11, hemoglobin 12.4, platelet count 479. Potassium 3.7, CO2 40, BUN 37 creatinine 1.19. Repeat chest x-ray reveals cardiomegaly. Pulmonary vascular congestion and bilateral pleural effusions. 12/04 Patient continues to have some lower extremity edema. She is on Lasix 40 mg IV every 12 hours. Patient is diuresing well with a negative balance of 1620. Repeat blood work reveals potassium 3.8, BUN 32, creatinine 1.12. CO2 43. Heart rate running in the 90s, blood pressure 119/71. 12/05 Patient states that her breathing is better today. She's been maintained on IV Lasix 40 mg every 12 hours. She is in a negative fluid balance. Documented weight is unchanged and patient continues to have lower extremity edema. Potassium 3.7, BUN 30 creatinine 0.93. Blood pressure 119/68, heart rate in the 80s and 90s. Physical examination: Gen: This is a morbidly obese 87-year-old female. She is sitting up in bed and appears to be in no acute respiratory distress. VS: reviewed HEENT: Head is atraumatic, normocephalic. Pupils equal, round. Sclerae is anicteric. LUNGS: Diminished air entry bilaterally. No intercostal retractions. HEART: Regular rate and rhythm. Systolic ejection murmur in the aortic area. ABDOMEN: Soft No tenderness. EXTREMITIES: 1+ pedal edema. NEUROLOGICAL: Patient is awake, alert. Assessment: Acute on chronic diastolic heart failure COPD exacerbation Proteus urinary tract infection Plan: Continue Lasix to IV 40 mg twice daily, monitor I&O, daily weights, electrolytes and renal function Continue other cardiac medications Further recommendations to follow based upon clinical course Nurse practitioner note has been reviewed, I agree with documented findings and plan of care. Patient was seen and examined. Objective - Vital Signs Vital signs: Vital Signs Temp 97.8 F 12/05/22 04:00 Pulse 88 12/05/22 04:00 Resp 18 12/05/22 04:00 BP 109/57 12/05/22 04:00 Pulse Ox 99 12/05/22 04:00 FiO2 40 12/01/22 17:05 Intake & Output 12/04/22 12/05/22 12/05/22 18:59 06:59 18:59 Intake Total 1078 Output Total 750 500 Balance 328 -500 Intake: Oral 1078 Output: Urine 750 500 Other: Voiding Method Indwelling Catheter # Bowel Movements 1 1 - Labs CBC & Chem 7: 12/05/22 07:17 12/05/22 07:17 Labs: Abnormal Lab Results - Last 24 Hours (Table) 12/04/22 Range/Units 06:29 Chloride 90 L (98-107) mmol/L Carbon Dioxide 43 H* (22-30) mmol/L BUN 32 H (7-17) mg/dL Creatinine 1.12 H (0.52-1.04) mg/dL Calcium 8.2 L (8.4-10.2) mg/dL Microbiology - Last 24 Hours (Table) 11/30/22 09:03 Blood Culture Gram Stain - Final Blood Blood Culture - Final Coagulase Negative Staph 11/30/22 09:03 Blood Culture - Preliminary Blood
--- NOTE | 2022-12-05 11:13 | P.PN ---
Subjective Progress Note Date: 12/05/22 Principal diagnosis: Respiratory failure. Acute hypoxic and chronic hypercapnic respiratory failure with acute diastolic congestive heart failure and moderate severe pulmonary hypertension This is an 87-year-old female known history of hypertension, COPD, dyslipidemia, patient is a [facility] resident. Not a great historian, but apparently the patient was brought in to the ER mostly with symptoms of shortness of breath. Chest x-ray on this admission is mostly consistent with congestive heart failure. Her echocardiogram on this admission showed evidence of aortic stenosis, it was a very poor quality echocardiogram. And suboptimal. Her labs showed relatively normal CBC. ABG on 44% FiO2 showed a pO2 of 58 pCO2 of 73 pH of 7.32, which implies that the patient may have chronic hypercapnia with metabolic compensation, patient is morbidly obese, and it is not surprising to me that the patient may have obstructive sleep apnea syndrome and chronic hypercapnia basic metabolic profile was normal except for elevated bicarb of 40 her pro calcitonin level was borderline elevated at 0.14 but again the patient had no clear-cut symptoms to suggest pneumonia. She did have abnormal urinalysis quite consistent with acute urinary tract infection. Clinically the patient is a very poor historian, and I could not get much information from the patient herself about her symptoms patient was placed on high flow nasal cannula she is now at 15 L with O2 sats are 92% patient was seen by cardiology on consultation and she was placed on Lasix at 40 mg IV push every 8 hours. Reevaluated today on 12/03/2022, patient is feeling better today compared to the last 2 days, hardly any shortness of breath, patient was transitioned from IV Lasix to oral Lasix, she is hemodynamically stable. Elects lites are normal BUN is 37 creatinine 1.19. Her last chest x-ray showed cardiomegaly and pulmonary vascular congestion with small pleural effusions. Swelling in the lower extremities is significantly better. Progress note dated 12/04/2022. The patient is seen today in room 359. She continues on high flow oxygen at 13 L. The BiPAP is in room, with settings of 10 and 5 and 40%. The patient was discovered to have Proteus in the urine. Lab data today includes a sodium 137, potassium 3.8, chlorides 90, CO2 43, BUN 32, and creatinine 1.12. Calcium is 8.2. Pro-calcitonin level is 0.14. The patient continues on ceftriaxone for the Proteus urinary tract infection. Progress note dated 12/05/2022. The patient is again seen today in room 359. She continues on high flow oxygen, at 12 L. She's getting saline at 10 mL an hour. The BiPAP settings are 10/5 and 40%. Current laboratory data includes a white count 10.7, hemoglobin 11.8, hematocrit 40.5, with a normal platelet count. Sodium 137, potassium 3.7, chlorides 91, CO2 41, BUN 30, and creatinine 0.93. Urine was positive for Proteus mirabilis. Objective - Vital Signs Vital signs: Vital Signs Temp 97.5 F L 12/05/22 09:00 Pulse 91 12/05/22 09:00 Resp 18 12/05/22 09:00 BP 119/68 12/05/22 09:00 Pulse Ox 96 12/05/22 09:00 FiO2 40 12/01/22 17:05 Intake & Output 12/04/22 12/05/22 12/05/22 18:59 06:59 18:59 Intake Total 1078 180 Output Total 750 500 Balance 328 -500 180 Intake: Oral 1078 180 Output: Urine 750 500 Other: Voiding Method Indwelling Catheter Indwelling Catheter # Bowel Movements 1 1 - Exam No acute distress, oriented 3. The patient continues on high flow nasal cannula at 12 L/m. HEENT examination is grossly unremarkable. Neck supple. Full range of motion. No adenopathy thyromegaly or neck vein distention. Cardiovascular examination reveals regular rhythm rate. S1-S2 normal. No S3 or S4. A soft systolic murmur is noted, likely consistent with aortic stenosis. Heart sounds are distant. Heart rate 91 bpm. Lungs reveal clear scattered bilateral rhonchi and a few scattered crackles. Breath sounds equal. Breath sounds are diminished throughout. Saturations are 96%. Abdomen soft bowel sounds are heard. No masses or tenderness. Extremities are intact. No cyanosis or clubbing. Mild edema noted. Skin is without rash or lesion. Neurologic examination is brief but nonfocal. - Labs CBC & Chem 7: 12/05/22 07:17 12/05/22 07:17 Labs: Abnormal Lab Results - Last 24 Hours (Table) 12/05/22 12/05/22 Range/Units 07:17 07:17 WBC 10.7 H (3.8-10.6) k/uL MCV 106.2 H (80.0-100.0) fL MCHC 29.2 L (31.0-37.0) g/dL Chloride 91 L (98-107) mmol/L Carbon Dioxide 41 H* (22-30) mmol/L BUN 30 H (7-17) mg/dL Calcium 8.3 L (8.4-10.2) mg/dL Microbiology - Last 24 Hours (Table) 11/30/22 09:03 Blood Culture - Preliminary Blood 12/03/22 09:29 Blood Culture - Preliminary Blood 11/30/22 09:03 Blood Culture Gram Stain - Final Blood Blood Culture - Final Coagulase Negative Staph Assessment and Plan Assessment: Acute hypoxemic and chronic hypercapnic respiratory failure. Acute diastolic congestive heart failure. Moderate to severe pulmonary hypertension. Chronic cor pulmonale. Probable aortic stenosis. Morbid obesity. Obstructive sleep apnea syndrome. Benign essential hypertension. History of multiple sclerosis and chronic medical debility. Hyperlipidemia. Plan: Plan dated 12/04/2022. The patient is seen today in room 359. Labs, x-rays, medications are all reviewed. The patient continues on diuretics oxygen therapy. We'll continue to monitor her electrolytes, and kidney function. She continues on antibiotics for her Proteus urinary tract infection. The patient can go home BiPAP if necessary. Her BiPAP settings were 10 over 5 and 40%. Additional recommendations and suggestions are forthcoming. Prognosis is guarded. Plan dated 12/05/2022. The patient has now been weaned down to 10 L high flow oxygen. Saturations are in the mid 90s. The patient is currently on saline at 10 mL an hour. BiPAP settings are 10 over 5 and 40%. The patient clearly has a murmur, consistent with aortic stenosis. Labs, x-rays, and medications are reviewed. The patient's overall prognosis remains guarded. We will continue to follow the patient, and make recommendations along the way. Time with Patient: Less than 30
--- NOTE | 2022-12-05 11:41 | P.PN ---
Subjective Progress Note Date: 12/04/22 Principal diagnosis: UTI and bacteremia Patient is a 87-year-old female with a past medical history significant for coronary disease hypertension hyperlipidemia multiple sclerosis with debility wheelchair-bound patient is currently a resident of the local snf , patient did have a positive blood culture with staph epi and also noticed to have a positive UA and urine culture positive for Proteus. On today's evaluation that is 12/04/2022, the patient denies having any fever or chills, patient is breathing comfortably, still requiring 13 L high flow oxygen, patient denies having any chest pain occasional cough no nausea and vomiting no abdominal pain or diarrhea Objective - Vital Signs Vital signs: Vital Signs Temp 98.3 F 12/04/22 11:35 Pulse 88 12/04/22 11:35 Resp 16 12/04/22 11:35 BP 117/79 12/04/22 11:35 Pulse Ox 93 L 12/04/22 11:35 FiO2 40 12/01/22 17:05 Intake & Output 12/03/22 12/04/22 12/04/22 18:59 06:59 18:59 Intake Total 478 237 240 Output Total 1375 960 Balance -897 -723 240 Intake: Oral 478 237 240 Output: Urine 1375 960 Uretheral (Giles) 460 Other: Voiding Method Indwelling Catheter Indwelling Catheter Indwelling Catheter # Bowel Movements 1 1 - Exam GENERAL DESCRIPTION: An elderly female lying in bed in no distress RESPIRATORY SYSTEM: Unlabored breathing , decreased breath sounds at bases HEART: S1 S2 regular rate and rhythm , ABDOMEN: Soft , no tenderness EXTREMITIES: Swelling to the leg no redness - Labs CBC & Chem 7: 12/05/22 07:17 12/05/22 07:17 Labs: Abnormal Lab Results - Last 24 Hours (Table) 12/03/22 12/04/22 Range/Units 12:51 06:29 Chloride 92 L 90 L (98-107) mmol/L Carbon Dioxide 40 H 43 H* (22-30) mmol/L BUN 34 H 32 H (7-17) mg/dL Creatinine 1.14 H 1.12 H (0.52-1.04) mg/dL Glucose 101 H (74-99) mg/dL Calcium 8.2 L (8.4-10.2) mg/dL Microbiology - Last 24 Hours (Table) 11/30/22 09:03 Blood Culture Gram Stain - Final Blood Blood Culture - Final Coagulase Negative Staph 11/30/22 09:03 Blood Culture - Preliminary Blood 11/30/22 18:13 Urine Culture - Final Urine,Voided Proteus mirabilis Assessment and Plan (1) Positive blood culture Current Visit: Yes Status: Acute Code(s): R78.81 - BACTEREMIA SNOMED Code(s): 321052600 (2) Urinary tract infection Current Visit: No Status: Acute Code(s): N39.0 - URINARY TRACT INFECTION, SITE NOT SPECIFIED SNOMED Code(s): 39346992 Plan: 1patient with a positive blood culture has been finalized with staph epi likely skin contamination as patient has no clinical disease to go along with it blood culture has been repeated which is a 4 pending, there is no need for vancomycin at this point 2-patient did have a positive UA some urinary symptoms concerning for symptomatic UTI urine cultures currently growing Proteus mirabilis with the patient's covered with Rocephin Time with Patient: Less than 30
--- NOTE | 2022-12-05 11:42 | P.PN ---
Subjective Progress Note Date: 12/05/22 Principal diagnosis: UTI and bacteremia Patient is a 87-year-old female with a past medical history significant for coronary disease hypertension hyperlipidemia multiple sclerosis with debility wheelchair-bound patient is currently a resident of the local residential , patient did have a positive blood culture with staph epi and also noticed to have a positive UA and urine culture positive for Proteus. On today's evaluation that is 12/05/2022, the patient remains to be afebrile, patient is breathing comfortably requiring 10 L high flow oxygen which is less than yesterday, patient denies having any chest pain occasional cough no nausea and vomiting no abdominal pain or diarrhea Objective - Vital Signs Vital signs: Vital Signs Temp 97.5 F L 12/05/22 09:00 Pulse 91 12/05/22 09:00 Resp 18 12/05/22 09:00 BP 119/68 12/05/22 09:00 Pulse Ox 96 12/05/22 09:00 FiO2 40 12/01/22 17:05 Intake & Output 12/04/22 12/05/22 12/05/22 18:59 06:59 18:59 Intake Total 1078 180 Output Total 750 500 Balance 328 -500 180 Intake: Oral 1078 180 Output: Urine 750 500 Other: Voiding Method Indwelling Catheter Indwelling Catheter # Bowel Movements 1 1 - Exam GENERAL DESCRIPTION: An elderly female lying in bed in no distress RESPIRATORY SYSTEM: Unlabored breathing , decreased breath sounds at bases HEART: S1 S2 regular rate and rhythm , ABDOMEN: Soft , no tenderness EXTREMITIES: Swelling to the leg no redness - Labs CBC & Chem 7: 12/05/22 07:17 12/05/22 07:17 Labs: Abnormal Lab Results - Last 24 Hours (Table) 12/05/22 12/05/22 Range/Units 07:17 07:17 WBC 10.7 H (3.8-10.6) k/uL MCV 106.2 H (80.0-100.0) fL MCHC 29.2 L (31.0-37.0) g/dL Chloride 91 L (98-107) mmol/L Carbon Dioxide 41 H* (22-30) mmol/L BUN 30 H (7-17) mg/dL Calcium 8.3 L (8.4-10.2) mg/dL Microbiology - Last 24 Hours (Table) 11/30/22 09:03 Blood Culture - Preliminary Blood 12/03/22 09:29 Blood Culture - Preliminary Blood 11/30/22 09:03 Blood Culture Gram Stain - Final Blood Blood Culture - Final Coagulase Negative Staph Assessment and Plan (1) Positive blood culture Current Visit: Yes Status: Acute Code(s): R78.81 - BACTEREMIA SNOMED Code(s): 477126974 (2) Urinary tract infection Current Visit: No Status: Acute Code(s): N39.0 - URINARY TRACT INFECTION, SITE NOT SPECIFIED SNOMED Code(s): 07295571 Plan: 1patient with a positive blood culture has been finalized with staph epi likely skin contamination as patient has no clinical disease to go along with it blood culture has been repeated which is a 4 pending, there is no need for vancomycin at this point 2-patient did have a positive UA some urinary symptoms concerning for symptomatic UTI urine cultures currently grew Proteus mirabilis for the patient is currently being treated with Rocephin , to continue while inpatient Time with Patient: Less than 30
[2022-12-05] MEDS: ASPIRIN 81 MG PO SCH (12:39)
[2022-12-05] MEDS: FAMOTIDINE 20 MG TAB PO SCH (19:45)
[2022-12-05] MEDS: CLOPIDOGREL 75 MG TAB PO SCH (19:45)
[2022-12-05] MEDS: ATORVASTATIN 40 MG TAB PO SCH (19:45)
[2022-12-05] MEDS: HYDROXYUREA 500 MG CAP PO SCH (19:46)
[2022-12-05] MEDS: SENNOSIDES-DOCUSATE SODIUM 1 EACH TAB PO SCH (19:46)
--- NOTE | 2022-12-05 23:20 | PN ---
PROGRESS NOTE DATE OF SERVICE: 12/05/2022 SUBJECTIVE: This 87-year-old woman was admitted with CHF acute exacerbation, is being closely monitored. The patient is still significantly hypoxic. OBJECTIVE: VITAL SIGNS: Pulse 83, blood pressure 106/50, and respirations 16. CHEST: Bilateral scattered rhonchi and crackles. ABDOMEN: Soft, nontender. NERVOUS SYSTEM: No focal deficits. LABORATORY DATA: Reviewed. ASSESSMENT: 1. CHF acute exacerbation with acute on chronic diastolic heart failure with acute hypoxic respiratory failure. 2. Proteus mirabilis UTI. 3. Obesity. 4. History of multiple sclerosis. 5. Hypertension. 6. Hyperlipidemia. 7. Gait dysfunction. 8. Full code. RECOMMENDATIONS: Recommended to continue current management, continue symptomatic treatment, continue with bronchodilators. Continue with rest of medications and continue with antibiotics as well. The patient is also on IV Lasix and prognosis guarded. Further recommendations to follow. MMODL / IJN: [id number] /
[2022-12-06] MEDS: HYDROcodone/APAP 10-325MG 1 EACH TAB PO PRN ×2 (06:05→12:29)
[2022-12-06] MEDS: GABAPENTIN 300 MG CAP PO SCH ×2 (06:05→20:15)
[2022-12-06] MEDS: IPRATROPIUM-ALBUTEROL 3 ML NEB INHALATION SCH ×4 (08:38→21:08)
[2022-12-06] MEDS: SYMBICORT 160-4.5 MCG INHALER INHALATION SCH ×2 (08:38→21:08)
[2022-12-06] MEDS: FUROSEMIDE 10 MG/ML 4 ML VIAL IV SCH ×2 (09:23→20:15)
[2022-12-06] MEDS: ENOXAPARIN 60 MG/0.6 ML SYRINGE SQ SCH (09:23)
[2022-12-06] MEDS: NYSTATIN 100,000 UNIT/GM POWD 15 GM TOPICAL SCH ×2 (09:24→20:16)
--- NOTE | 2022-12-06 10:42 | XR ---
EXAMINATION TYPE: XR chest 1V portable DATE OF EXAM: 12/06/2022 10:32 AM COMPARISON: Chest radiographs from 12/03/2022 TECHNIQUE: XR chest 1V portable Frontal view of the chest. CLINICAL INDICATION:Female, 87 years old with history of chf; FINDINGS: Lungs/Pleura: There is no evidence of pleural effusion, focal consolidation, or pneumothorax. Pulmonary vascularity: Pulmonary vascular congestion. Heart/mediastinum: Cardiomediastinal silhouette is enlarged and stable. Musculoskeletal: No acute osseous pathology. IMPRESSION: Bibasilar airspace opacities correlate for congestive heart failure versus aspiration pneumonia.
--- NOTE | 2022-12-06 10:48 | P.PN ---
Subjective Progress Note Date: 12/06/22 Principal diagnosis: Respiratory failure. Acute hypoxic and chronic hypercapnic respiratory failure with acute diastolic congestive heart failure and moderate severe pulmonary hypertension This is an 87-year-old female known history of hypertension, COPD, dyslipidemia, patient is a [facility] resident. Not a great historian, but apparently the patient was brought in to the ER mostly with symptoms of shortness of breath. Chest x-ray on this admission is mostly consistent with congestive heart failure. Her echocardiogram on this admission showed evidence of aortic stenosis, it was a very poor quality echocardiogram. And suboptimal. Her labs showed relatively normal CBC. ABG on 44% FiO2 showed a pO2 of 58 pCO2 of 73 pH of 7.32, which implies that the patient may have chronic hypercapnia with metabolic compensation, patient is morbidly obese, and it is not surprising to me that the patient may have obstructive sleep apnea syndrome and chronic hypercapnia basic metabolic profile was normal except for elevated bicarb of 40 her pro calcitonin level was borderline elevated at 0.14 but again the patient had no clear-cut symptoms to suggest pneumonia. She did have abnormal urinalysis quite consistent with acute urinary tract infection. Clinically the patient is a very poor historian, and I could not get much information from the patient herself about her symptoms patient was placed on high flow nasal cannula she is now at 15 L with O2 sats are 92% patient was seen by cardiology on consultation and she was placed on Lasix at 40 mg IV push every 8 hours. Reevaluated today on 12/03/2022, patient is feeling better today compared to the last 2 days, hardly any shortness of breath, patient was transitioned from IV Lasix to oral Lasix, she is hemodynamically stable. Elects lites are normal BUN is 37 creatinine 1.19. Her last chest x-ray showed cardiomegaly and pulmonary vascular congestion with small pleural effusions. Swelling in the lower extremities is significantly better. Progress note dated 12/04/2022. The patient is seen today in room 359. She continues on high flow oxygen at 13 L. The BiPAP is in room, with settings of 10 and 5 and 40%. The patient was discovered to have Proteus in the urine. Lab data today includes a sodium 137, potassium 3.8, chlorides 90, CO2 43, BUN 32, and creatinine 1.12. Calcium is 8.2. Pro-calcitonin level is 0.14. The patient continues on ceftriaxone for the Proteus urinary tract infection. Progress note dated 12/05/2022. The patient is again seen today in room 359. She continues on high flow oxygen, at 12 L. She's getting saline at 10 mL an hour. The BiPAP settings are 10/5 and 40%. Current laboratory data includes a white count 10.7, hemoglobin 11.8, hematocrit 40.5, with a normal platelet count. Sodium 137, potassium 3.7, chlorides 91, CO2 41, BUN 30, and creatinine 0.93. Urine was positive for Proteus mirabilis. Progress note dated 12/06/2022. The patient is again seen today in room 359. She continues on high flow oxygen at 8 L. Yesterday, she was at 12 L. The patient is not receiving any IV fluids. She certainly much more awake today much more alert. She denies any di fficulty breathing, coughing, wheezing, or phlegm production. No new laboratory data today. Lab data from December 05 has been reviewed. Urine was positive for Proteus mirabilis, and she is being treated for that. Chest x-ray shows bibasilar airspace opacities, consistent with either CHF, or aspiration pneumonia. Objective - Vital Signs Vital signs: Vital Signs Temp 97.7 F 12/06/22 09:20 Pulse 81 12/06/22 09:20 Resp 18 12/06/22 09:20 BP 106/54 12/06/22 09:20 Pulse Ox 98 12/06/22 09:20 FiO2 40 12/01/22 17:05 Intake & Output 12/05/22 12/06/22 12/06/22 18:59 06:59 18:59 Intake Total 708 721 3772 Output Total 700 1100 Balance -402 -860 1013 Weight 104.326 kg Intake: Oral 941 707 0261 Output: Urine 700 1100 Other: Voiding Method Indwelling Catheter Indwelling Catheter # Bowel Movements 1 - Exam No acute distress, oriented 3. The patient continues on high flow nasal cannula at 8 L/m. HEENT examination is grossly unremarkable. Neck supple. Full range of motion. No adenopathy thyromegaly or neck vein distention. Cardiovascular examination reveals regular rhythm rate. S1-S2 normal. No S3 or S4. A soft systolic murmur is noted, likely consistent with aortic stenosis. Heart sounds are distant. Heart rate 80 bpm. Lungs reveal clear scattered bilateral rhonchi and a few scattered crackles. Breath sounds equal. Breath sounds are diminished throughout. Saturations are 98 %. Abdomen soft bowel sounds are heard. No masses or tenderness. Extremities are intact. No cyanosis or clubbing. Mild edema noted. Skin is without rash or lesion. Neurologic examination is brief but nonfocal. - Labs CBC & Chem 7: 12/05/22 07:17 12/05/22 07:17 Labs: Microbiology - Last 24 Hours (Table) 11/30/22 09:03 Blood Culture - Final Blood 12/03/22 09:29 Blood Culture - Preliminary Blood Assessment and Plan Assessment: Acute hypoxemic and chronic hypercapnic respiratory failure. Acute diastolic congestive heart failure. Moderate to severe pulmonary hypertension. Chronic cor pulmonale. Probable aortic stenosis. Morbid obesity. Obstructive sleep apnea syndrome. Benign essential hypertension. History of multiple sclerosis and chronic medical debility. Hyperlipidemia. Plan: Plan dated 12/04/2022. The patient is seen today in room 359. Labs, x-rays, medications are all reviewed. The patient continues on diuretics oxygen therapy. We'll continue to monitor her electrolytes, and kidney function. She continues on antibiotics for her Proteus urinary tract infection. The patient can go home BiPAP if ne cessary. Her BiPAP settings were 10 over 5 and 40%. Additional recommendations and suggestions are forthcoming. Prognosis is guarded. Plan dated 12/05/2022. The patient has now been weaned down to 10 L high flow oxygen. Saturations are in the mid 90s. The patient is currently on saline at 10 mL an hour. BiPAP settings are 10 over 5 and 40%. The patient clearly has a murmur, consistent with aortic stenosis. Labs, x-rays, and medications are reviewed. The patient's overall prognosis remains guarded. We will continue to follow the patient, and make recommendations along the way. Plan dated 12/06/2022. The patient has been weaned down from high flow oxygen at 15 L/m, over the last few days, down to 8 L/m. The patient is not receiving any IV fluids. Her breathing is much improved, and she is much more awake and alert. I would like to see her out of bed, sitting up in a chair. The patient does have a murmur consistent with aortic stenosis. Labs, x-rays, medications are reviewed. Saturations are 98%. We will continue to follow make recommendations along the way. The patient's overall prognosis remains very guarded. Time with Patient: Less than 30
--- NOTE | 2022-12-06 11:17 | P.PN ---
Subjective Progress Note Date: 12/06/22 History of present illness: This is an 87 year old female presented to the hospital with, patient of COPD and CHF exacerbation. This morning, nursing difficulty time obtaining an adequate pulse ox. She is currently on IV Lasix 40 mg every 8 hours and has been diuresing. Echocardiogram revealed normal EF, mild MR and juzb-[id number] TR, mild pulmonary hypertension. Heart rate is running 90s to 102, blood pressure 111/55. 12/03 Patient is seen today in follow-up. She has been on IV antibiotics for UTI. Yesterday we switched IV Lasix to oral but patient continues to have symptoms crackles to the bilateral bases. Her urine output has been 30-40 mL per hour. Blood pressure 103/63, heart rate in the 80s and 90s. WBC 11, hemoglobin 12.4, platelet count 479. Potassium 3.7, CO2 40, BUN 37 creatinine 1.19. Repeat chest x-ray reveals cardiomegaly. Pulmonary vascular congestion and bilateral pleural effusions. 12/04 Patient continues to have some lower extremity edema. She is on Lasix 40 mg IV every 12 hours. Patient is diuresing well with a negative balance of 1620. Repeat blood work reveals potassium 3.8, BUN 32, creatinine 1.12. CO2 43. Heart rate running in the 90s, blood pressure 119/71. 12/05 Patient states that her breathing is better today. She's been maintained on IV Lasix 40 mg every 12 hours. She is in a negative fluid balance. Documented weight is unchanged and patient continues to have lower extremity edema. Potassium 3.7, BUN 30 creatinine 0.93. Blood pressure 119/68, heart rate in the 80s and 90s. 12/06 Patient is improvement in her lower extremity edema and breathing seems to be stable. She is currently on O2 at 8 L nasal cannula and was not on oxygen prior to this admission. Patient is maintained on IV Lasix 40 mg every 12 hours. Patient is in a negative fluid balance with no change in her weights. Heart rate is running in the 70s and 80s, blood pressure 106/54. Telemetry is sinus rhythm. Physical examination: Gen: This is a morbidly obese 87-year-old female. She is sitting up in bed and appears to be in no acute respiratory distress. VS: reviewed HEENT: Head is atraumatic, normocephalic. Pupils equal, round. Sclerae is an icteric. LUNGS: Diminished air entry bilaterally. No intercostal retractions. HEART: Regular rate and rhythm. Systolic ejection murmur in the aortic area. ABDOMEN: Soft No tenderness. EXTREMITIES: 1+ pedal edema. NEUROLOGICAL: Patient is awake, alert. Assessment: Acute on chronic diastolic heart failure COPD exacerbation Proteus urinary tract infection Plan: Continue Lasix to IV 40 mg twice daily, monitor I&O, daily weights, electrolytes and renal function Continue other cardiac medications Further recommendations to follow based upon clinical course Nurse practitioner note has been reviewed, I agree with documented findings and plan of care. Patient was seen and examined. Objective - Vital Signs Vital signs: Vital Signs Temp 97.7 F 12/06/22 09:20 Pulse 81 12/06/22 09:20 Resp 18 12/06/22 09:20 BP 106/54 12/06/22 09:20 Pulse Ox 98 12/06/22 09:20 FiO2 40 12/01/22 17:05 Intake & Output 12/05/22 12/06/22 12/06/22 18:59 06:59 18:59 Intake Total 602 787 7796 Output Total 700 1100 Balance -402 -860 1013 Weight 104.326 kg Intake: Oral 321 268 9921 Output: Urine 700 1100 Other: Voiding Method Indwelling Catheter Indwelling Catheter # Bowel Movements 1 - Labs CBC & Chem 7: 12/05/22 07:17 12/05/22 07:17 Labs: Microbiology - Last 24 Hours (Table) 11/30/22 09:03 Blood Culture - Final Blood 12/03/22 09:29 Blood Culture - Preliminary Blood
[2022-12-06] MEDS: ASPIRIN 81 MG PO SCH (12:30)
--- NOTE | 2022-12-06 13:38 | PN ---
PROGRESS NOTE DATE OF SERVICE: 12/06/2022 SUBJECTIVE: This 87-year-old woman was admitted for CHF exacerbations on needing extremely high oxygen 8 L. The patient continues to be stuporous at this time. The patient is on IV Lasix at this time. PAST MEDICAL HISTORY: Could not be taken as the patient is confused. REVIEW OF SYSTEMS: Could not be taken as the patient is confused. CURRENT MEDICATIONS: Reviewed include DuoNeb, rest of medication and doses reviewed. OBJECTIVE: VITAL SIGNS: Pulse is 81, blood pressure 130/62, respirations 18. HEENT: Conjunctivae normal. NECK: No jugular venous distention. CARDIOVASCULAR: S1, S2 muffled. RESPIRATION: Few scattered rhonchi and crackles. ABDOMEN: Soft obese. LEGS: No edema. No swelling. NERVOUS SYSTEM: No focal deficit. LABORATORY DATA: CO2 is 41 and WBC 10.7. ASSESSMENT: 1. CHF acute exacerbation with acute on chronic diastolic heart failure with acute hypoxic respiratory failure. 2. Acute hypoxic hypercarbic respiratory failure, possibly secondary to obstructive sleep apnea/COPD. 3. Proteus mirabilis UTI. 4. Obesity. 5. History of multiple sclerosis. 6. Hypertension. 7. Hyperlipidemia. 8. Gait dysfunction. 9. Full code. RECOMMENDATIONS AND DISCUSSION: Recommended to continue current medications, continue symptomatic. Otherwise at this time, I would also recommend nighttime BiPAP P24 6A. Otherwise continue the bronchodilators. Continue rest of medications. Prognosis extremely guarded because of multiple complex medical issues. Further recommendations to follow. See orders for details. MMODL / IJN: [id number] /
[2022-12-06] MEDS: CLOPIDOGREL 75 MG TAB PO SCH (20:14)
[2022-12-06] MEDS: SENNOSIDES-DOCUSATE SODIUM 1 EACH TAB PO SCH (20:14)
[2022-12-06] MEDS: FAMOTIDINE 20 MG TAB PO SCH (20:15)
[2022-12-06] MEDS: HYDROXYUREA 500 MG CAP PO SCH (20:15)
[2022-12-06] MEDS: ATORVASTATIN 40 MG TAB PO SCH (20:15)
[2022-12-07] MEDS: HYDROcodone/APAP 10-325MG 1 EACH TAB PO PRN ×3 (02:01→15:33)
[2022-12-07] MEDS: GABAPENTIN 300 MG CAP PO SCH ×2 (05:46→16:56)
[2022-12-07] MEDS: IPRATROPIUM-ALBUTEROL 3 ML NEB INHALATION SCH ×4 (07:50→20:14)
[2022-12-07] MEDS: SYMBICORT 160-4.5 MCG INHALER INHALATION SCH ×2 (07:50→20:14)
[2022-12-07 09:01] LABS: Basophils % (A) 0 %; Eosinophils # (A) 0.3 k/uL (0-0.7); Eosinophils % (A) 4 %; HCT 39.7 % (34.0-46.0); HGB 11.7 gm/dL (11.4-16.0); Hypochromasia Marked; Lymphocytes # (A) 1.6 k/uL (1.0-4.8); Lymphocytes % (A) 16 %; MCH 31.2 pg (25.0-35.0); MCHC 29.4 g/dL (31.0-37.0); MCV 106.2 fL (80.0-100.0); Macrocytosis Moderate; Mean Platelet Volume 7.6; Monocytes # (A) 0.6 k/uL (0-1.0); Monocytes % (A) 6 %; Neutrophils % (A) 72 %; Platelet Count 321 k/uL (150-450); RBC 3.74 m/uL (3.80-5.40); RDW 15.3 % (11.5-15.5); WBC 9.7 k/uL (3.8-10.6)
[2022-12-07 09:40] LABS: Calcium 8.4 mg/dL (8.4-10.2); Potassium 3.5 mmol/L (3.5-5.1)
[2022-12-07] MEDS: ENOXAPARIN 60 MG/0.6 ML SYRINGE SQ SCH (10:03)
[2022-12-07] MEDS: FUROSEMIDE 10 MG/ML 4 ML VIAL IV SCH ×2 (10:04→21:20)
[2022-12-07] MEDS: NYSTATIN 100,000 UNIT/GM POWD 15 GM TOPICAL SCH ×2 (10:06→21:23)
--- NOTE | 2022-12-07 11:17 | P.PN ---
Subjective Progress Note Date: 12/07/22 Principal diagnosis: Respiratory failure. Acute hypoxic and chronic hypercapnic respiratory failure with acute diastolic congestive heart failure and moderate severe pulmonary hypertension This is an 87-year-old female known history of hypertension, COPD, dyslipidemia, patient is a [facility] resident. Not a great historian, but apparently the patient was brought in to the ER mostly with symptoms of shortness of breath. Chest x-ray on this admission is mostly consistent with congestive heart failure. Her echocardiogram on this admission showed evidence of aortic stenosis, it was a very poor quality echocardiogram. And suboptimal. Her labs showed relatively normal CBC. ABG on 44% FiO2 showed a pO2 of 58 pCO2 of 73 pH of 7.32, which implies that the patient may have chronic hypercapnia with metabolic compensation, patient is morbidly obese, and it is not surprising to me that the patient may have obstructive sleep apnea syndrome and chronic hypercapnia basic metabolic profile was normal except for elevated bicarb of 40 her pro calcitonin level was borderline elevated at 0.14 but again the patient had no clear-cut symptoms to suggest pneumonia. She did have abnormal urinalysis quite consistent with acute urinary tract infection. Clinically the patient is a very poor historian, and I could not get much information from the patient herself about her symptoms patient was placed on high flow nasal cannula she is now at 15 L with O2 sats are 92% patient was seen by cardiology on consultation and she was placed on Lasix at 40 mg IV push every 8 hours. Reevaluated today on 12/03/2022, patient is feeling better today compared to the last 2 days, hardly any shortness of breath, patient was transitioned from IV Lasix to oral Lasix, she is hemodynamically stable. Elects lites are normal BUN is 37 creatinine 1.19. Her last chest x-ray showed cardiomegaly and pulmonary vascular congestion with small pleural effusions. Swelling in the lower extremities is significantly better. Progress note dated 12/04/2022. The patient is seen today in room 359. She continues on high flow oxygen at 13 L. The BiPAP is in room, with settings of 10 and 5 and 40%. The patient was discovered to have Proteus in the urine. Lab data today includes a sodium 137, potassium 3.8, chlorides 90, CO2 43, BUN 32, and creatinine 1.12. Calcium is 8.2. Pro-calcitonin level is 0.14. The patient continues on ceftriaxone for the Proteus urinary tract infection. Progress note dated 12/05/2022. The patient is again seen today in room 359. She continues on high flow oxygen, at 12 L. She's getting saline at 10 mL an hour. The BiPAP settings are 10/5 and 40%. Current laboratory data includes a white count 10.7, hemoglobin 11.8, hematocrit 40.5, with a normal platelet count. Sodium 137, potassium 3.7, chlorides 91, CO2 41, BUN 30, and creatinine 0.93. Urine was positive for Proteus mirabilis. Progress note dated 12/06/2022. The patient is again seen today in room 359. She continues on high flow oxygen at 8 L. Yesterday, she was at 12 L. The patient is not receiving any IV fluids. She certainly much more awake today much more alert. She denies any di fficulty breathing, coughing, wheezing, or phlegm production. No new laboratory data today. Lab data from December 05 has been reviewed. Urine was positive for Proteus mirabilis, and she is being treated for that. Chest x-ray shows bibasilar airspace opacities, consistent with either CHF, or aspiration pneumonia. Progress note dated 12/05/2022. The patient is seen today in room 359. She continues on oxygen, at 9 L by nasal cannula, high flow. She apparently didn't use BiPAP last night, with settings of 10/5 and 50%. The patient is not getting any IV fluids. Clinically, she looks much more awake and alert. She is not manifesting any signs or symptoms of respiratory distress or difficulty. White count 9.7, hemoglobin 11.7, hematocrit 39.7, with a normal platelet count. Sodium 139, potassium 3.5, chlorides 87, CO2 43, BUN 27, and creatinine 0.95. Urine was positive for Proteus mirabilis. Chest x-ray from yesterday was consistent with probable CHF. Objective - Vital Signs Vital signs: Vital Signs Temp 98.0 F 12/07/22 10:01 Pulse 89 12/07/22 10:01 Resp 20 12/07/22 10:01 BP 113/55 12/07/22 10:01 Pulse Ox 92 L 12/07/22 10:01 FiO2 50 12/07/22 03:58 Intake & Output 12/06/22 12/07/22 12/07/22 18:59 06:59 18:59 Intake Total 1316 118 Output Total 1425 450 Balance -109 -450 118 Intake: Oral 1316 118 Output: Urine 1425 450 Other: Voiding Method Indwelling Catheter Indwelling Catheter # Bowel Movements 1 - Exam No acute distress, oriented 3. The patient continues on high flow nasal cannula at 9 L/m. HEENT examination is grossly unremarkable. Neck supple. Full range of motion. No adenopathy thyromegaly or neck vein distention. Cardiovascular examination reveals regular rhythm rate. S1-S2 normal. No S3 or S4. A soft systolic murmur is noted, likely consistent with aortic stenosis. Heart sounds are distant. Heart rate 70 bpm. Lungs reveal clear scattered bilateral rhonchi and a few scattered crackles. Breath sounds equal. Breath sounds are diminished throughout. Saturations are 94 %. Abdomen soft bowel sounds are heard. No masses or tenderness. Extremities are intact. No cyanosis or clubbing. Mild edema noted. Skin is without rash or lesion. Neurologic examination is brief but nonfocal. - Labs CBC & Chem 7: 12/07/22 07:55 12/07/22 07:55 Labs: Abnormal Lab Results - Last 24 Hours (Table) 12/07/22 12/07/22 Range/Units 07:55 07:55 RBC 3.74 L (3.80-5.40) m/uL MCV 106.2 H (80.0-100.0) fL MCHC 29.4 L (31.0-37.0) g/dL Chloride 87 L (98-107) mmol/L Carbon Dioxide 43 H* (22-30) mmol/L BUN 27 H (7-17) mg/dL Glucose 114 H (74-99) mg/dL Microbiology - Last 24 Hours (Table) 12/03/22 09:29 Blood Culture - Preliminary Blood 11/30/22 09:03 Blood Culture - Final Blood Assessment and Plan Assessment: Acute hypoxemic and chronic hypercapnic respiratory failure. Acute diastolic congestive heart failure. Moderate to severe pulmonary hypertension. Chronic cor pulmonale. Probable aortic stenosis. Morbid obesity. Obstructive sleep apnea syndrome. Benign essential hypertension. History of multiple sclerosis and chronic medical debility. Hyperlipidemia. Plan: Plan dated 12/04/2022. The patient is seen today in room 359. Labs, x-rays, medications are all reviewed. The patient continues on diuretics oxygen therapy. We'll continue to monitor her electrolytes, and kidney function. She continues on antibiotics for her Proteus urinary tract infection. The patient can go home BiPAP if necessar y. Her BiPAP settings were 10 over 5 and 40%. Additional recommendations and suggestions are forthcoming. Prognosis is guarded. Plan dated 12/05/2022. The patient has now been weaned down to 10 L high flow oxygen. Saturations are in the mid 90s. The patient is currently on saline at 10 mL an hour. BiPAP settings are 10 over 5 and 40%. The patient clearly has a murmur, consistent with aortic stenosis. Labs, x-rays, and medications are reviewed. The patient's overall prognosis remains guarded. We will continue to follow the patient, and make recommendations along the way. Plan dated 12/06/2022. The patient has been weaned down from high flow oxygen at 15 L/m, over the last few days, down to 8 L/m. The patient is not receiving any IV fluids. Her breathing is much improved, and she is much more awake and alert. I would like to see her out of bed, sitting up in a chair. The patient does have a murmur consistent with aortic stenosis. Labs, x-rays, medications are reviewed. Saturations are 98%. We will continue to follow make recommendations along the way. The patient's overall prognosis remains very guarded. Plan dated 12/07/2022. The patient continues on high flow nasal cannula 9 L. She apparently didn't use BiPAP last night at 10/5, and 50%. She is not receiving any IV fluids. Labs, x-rays, medications are reviewed. Prognosis is guarded. We will continue to follow patient and make recommendations along the way. Time with Patient: Less than 30
[2022-12-07] MEDS: ASPIRIN 81 MG PO SCH (12:21)
--- NOTE | 2022-12-07 13:21 | P.PN ---
Subjective Progress Note Date: 12/07/22 History of present illness: This is an 87 year old female presented to the hospital with, patient of COPD and CHF exacerbation. This morning, nursing difficulty time obtaining an adequate pulse ox. She is currently on IV Lasix 40 mg every 8 hours and has been diuresing. Echocardiogram revealed normal EF, mild MR and [id number] TR, mild pulmonary hypertension. Heart rate is running 90s to 102, blood pressure 111/55. 12/03 Patient is seen today in follow-up. She has been on IV antibiotics for UTI. Yesterday we switched IV Lasix to oral but patient continues to have symptoms crackles to the bilateral bases. Her urine output has been 30-40 mL per hour. Blood pressure 103/63, heart rate in the 80s and 90s. WBC 11, hemoglobin 12.4, platelet count 479. Potassium 3.7, CO2 40, BUN 37 creatinine 1.19. Repeat chest x-ray reveals cardiomegaly. Pulmonary vascular congestion and bilateral pleural effusions. 12/04 Patient continues to have some lower extremity edema. She is on Lasix 40 mg IV every 12 hours. Patient is diuresing well with a negative balance of 1620. Repeat blood work reveals potassium 3.8, BUN 32, creatinine 1.12. CO2 43. Heart rate running in the 90s, blood pressure 119/71. 12/05 Patient states that her breathing is better today. She's been maintained on IV Lasix 40 mg every 12 hours. She is in a negative fluid balance. Documented weight is unchanged and patient continues to have lower extremity edema. Potassium 3.7, BUN 30 creatinine 0.93. Blood pressure 119/68, heart rate in the 80s and 90s. 12/06 Patient is improvement in her lower extremity edema and breathing seems to be stable. She is currently on O2 at 8 L nasal cannula and was not on oxygen prior to this admission. Patient is maintained on IV Lasix 40 mg every 12 hours. Patient is in a negative fluid balance with no change in her weights. Heart rate is running in the 70s and 80s, blood pressure 106/54. Telemetry is sinus rhythm. 12/07 Patient is seen today in follow-up. She denies having any chest pain. Breathing status is improving slowly. She has no lower extremity edema. Mild crackles in the bases. She is currently on IV Lasix 40 mg every 12 hours. Blood pressure 113/55, heart rate in the 70s. Patient is on high flow nasal cannula 9 L of pulse ox 92%. She is utilizing BiPAP during the night for at least a few hours. Repeat blood work reveals potassium 3.5, BUN 27 creatinine 0.95. CO2 is 43. Physical examination: Gen: This is a morbidly obese 87-year-old female. She is sitting up in bed and appears to be in no acute respiratory distress. VS: reviewed HEENT: Head is atraumatic, normocephalic. Pupils equal, round. Sclerae is anicteric. LUNGS: Diminished air entry bilaterally. No intercostal retractions. HEART: Regular rate and rhythm. Systolic ejection murmur in the aortic area. ABDOMEN: Soft No tenderness. EXTREMITIES: 1+ pedal edema. NEUROLOGICAL: Patient is awake, alert. Assessment: Acute on chronic diastolic heart failure COPD exacerbation Proteus urinary tract infection Plan: Continue Lasix to IV 40 mg twice daily, monitor I&O, daily weights, electrolytes and renal function Continue other cardiac medications Further recommendations to follow based upon clinical course Nurse practitioner note has been reviewed, I agree with documented findings and plan of care. Patient was seen and examined. Objective - Vital Signs Vital signs: Vital Signs Temp 98.6 F 12/07/22 03:58 Pulse 70 12/07/22 08:11 Resp 18 12/07/22 03:58 BP 104/54 12/07/22 03:58 Pulse Ox 93 L 12/07/22 07:55 FiO2 50 12/07/22 03:58 Intake & Output 12/06/22 12/07/22 12/07/22 18:59 06:59 18:59 Intake Total 1316 118 Output Total 1425 450 Balance -109 -450 118 Intake: Oral 1316 118 Output: Urine 1425 450 Other: Voiding Method Indwelling Catheter Indwelling Catheter - Labs CBC & Chem 7: 12/07/22 07:55 12/07/22 07:55 Labs: Abnormal Lab Results - Last 24 Hours (Table) 12/07/22 Range/Units 07:55 RBC 3.74 L (3.80-5.40) m/uL MCV 106.2 H (80.0-100.0) fL MCHC 29.4 L (31.0-37.0) g/dL Microbiology - Last 24 Hours (Table) 12/03/22 09:29 Blood Culture - Preliminary Blood 11/30/22 09:03 Blood Culture - Final Blood
[2022-12-07] MEDS ORDERED: Potassium Replacement Protocol 1 EACH MISC MISCELLANE PRN (13:46)
--- NOTE | 2022-12-07 14:33 | P.PN ---
Subjective Progress Note Date: 12/06/22 Principal diagnosis: UTI and bacteremia Patient is a 87-year-old female with a past medical history significant for coronary disease hypertension hyperlipidemia multiple sclerosis with debility wheelchair-bound patient is currently a resident [facility] the local [facility] , patient did have a positive blood culture with staph epi and also noticed to have a positive UA and urine culture positive for Proteus. On today's evaluation that is 12/06/2022, the patient continues to be afebrile, patient is breathing comfortably requiring 8 L high flow oxygen, patient denies having any chest pain occasional cough no nausea and vomiting no abdominal pain or diarrhea has been reported Objective - Vital Signs Vital signs: Vital Signs Temp 98.3 F 12/06/22 12:28 Pulse 86 12/06/22 12:28 Resp 20 12/06/22 12:28 BP 122/59 12/06/22 12:28 Pulse Ox 95 12/06/22 12:28 FiO2 40 12/01/22 17:05 Intake & Output 12/05/22 12/06/22 12/06/22 18:59 06:59 18:59 Intake Total 569 953 4530 Output Total 700 1100 Balance -402 -860 1013 Weight 104.326 kg Intake: Oral 649 376 5282 Output: Urine 700 1100 Other: Voiding Method Indwelling Catheter Indwelling Catheter # Bowel Movements 1 - Exam GENERAL DESCRIPTION: An elderly female lying in bed in no distress RESPIRATORY SYSTEM: Unlabored breathing , decreased breath sounds at bases HEART: S1 S2 regular rate and rhythm , ABDOMEN: Soft , no tenderness EXTREMITIES: Swelling to the leg no redness - Labs CBC & Chem 7: 12/07/22 07:55 12/07/22 07:55 Labs: Microbiology - Last 24 Hours (Table) 11/30/22 09:03 Blood Culture - Final Blood 12/03/22 09:29 Blood Culture - Preliminary Blood Assessment and Plan (1) Positive blood culture Current Visit: Yes Status: Acute Code(s): R78.81 - BACTEREMIA SNOMED Code(s): 786368726 (2) Urinary tract infection Current Visit: No Status: Acute Code(s): N39.0 - URINARY TRACT INFECTION, SITE NOT SPECIFIED SNOMED Code(s): 05337545 Plan: 1patient with a positive blood culture has been finalized with staph epi likely skin contamination as patient has no clinical disease to go along with it blood culture has been repeated which is so far negative 2-patient did have a positive UA some urinary symptoms concerning for symptomatic UTI urine cultures currently grew Proteus mirabilis for the patient to continue with Rocephin and monitor clinical course closely Time with Patient: Less than 30
--- NOTE | 2022-12-07 14:34 | P.PN ---
Subjective Progress Note Date: 12/07/22 Principal diagnosis: UTI and bacteremia Patient is a 87-year-old female with a past medical history significant for coronary disease hypertension hyperlipidemia multiple sclerosis with debility wheelchair-bound patient is currently a [facility] of [facility] , patient did have a positive blood culture with staph epi and also noticed to have a positive UA and urine culture positive for Proteus. On today's evaluation that is 12/07/2022, the patient denies any fever or any chills, patient is breathing comfortably requiring 9 L high flow oxygen today, patient denies having any chest pain occasional cough no nausea and vomiting no abdominal pain or diarrhea has been reported, feeling better asking when she can [facility] to the [facility] Objective - Vital Signs Vital signs: Vital Signs Temp 98.0 F 12/07/22 10:01 Pulse 70 12/07/22 11:47 Resp 20 12/07/22 10:01 BP 113/55 12/07/22 10:01 Pulse Ox 92 L 12/07/22 10:01 FiO2 50 12/07/22 03:58 Intake & Output 12/06/22 12/07/22 12/07/22 18:59 06:59 18:59 Intake Total 1316 118 Output Total 1425 450 500 Balance -109 -176 -382 Intake: Oral 1316 118 Output: Urine 1425 450 500 Other: Voiding Method Indwelling Catheter Indwelling Catheter # Bowel Movements 1 - Exam GENERAL DESCRIPTION: An elderly female lying in bed in no distress RESPIRATORY SYSTEM: Unlabored breathing , decreased breath sounds at bases HEART: S1 S2 regular rate and rhythm , ABDOMEN: Soft , no tenderness EXTREMITIES: Swelling to the leg no redness - Labs CBC & Chem 7: 12/07/22 07:55 12/07/22 07:55 Labs: Abnormal Lab Results - Last 24 Hours (Table) 12/07/22 12/07/22 Range/Units 07:55 07:55 RBC 3.74 L (3.80-5.40) m/uL MCV 106.2 H (80.0-100.0) fL MCHC 29.4 L (31.0-37.0) g/dL Chloride 87 L (98-107) mmol/L Carbon Dioxide 43 H* (22-30) mmol/L BUN 27 H (7-17) mg/dL Glucose 114 H (74-99) mg/dL Microbiology - Last 24 Hours (Table) 12/03/22 09:29 Blood Culture - Preliminary Blood Assessment and Plan (1) Positive blood culture Current Visit: Yes Status: Acute Code(s): R78.81 - BACTEREMIA SNOMED Code(s): 160616070 (2) Urinary tract infection Current Visit: No Status: Acute Code(s): N39.0 - URINARY TRACT INFECTION, SITE NOT SPECIFIED SNOMED Code(s): 00400064 Plan: 1patient with a positive blood culture has been finalized with staph epi likely skin contamination as patient has no clinical disease to go along with it blood culture has been repeated on 12/03/2022 which remains to be negative 2-patient did have a positive UA some urinary symptoms concerning for symptomatic UTI urine cultures currently grew Proteus mirabilis for the patient currently being treated with Rocephin and plan to finish therapy with oral Ceftin on discharge Time with Patient: Less than 30
[2022-12-07] MEDS: POTASSIUM CHLORIDE ER 20 MEQ TAB.ER PO SCH ×2 (15:33→16:56)
[2022-12-07] MEDS: FAMOTIDINE 20 MG TAB PO SCH (21:22)
[2022-12-07] MEDS: CLOPIDOGREL 75 MG TAB PO SCH (21:22)
[2022-12-07] MEDS: SENNOSIDES-DOCUSATE SODIUM 1 EACH TAB PO SCH (21:22)
[2022-12-07] MEDS: ATORVASTATIN 40 MG TAB PO SCH (21:22)
[2022-12-07] MEDS: HYDROXYUREA 500 MG CAP PO SCH (21:23)
--- NOTE | 2022-12-07 21:57 | PN ---
PROGRESS NOTE DATE OF SERVICE: 12/07/2022 SUBJECTIVE: This is an 87-year-old woman who was admitted with CHF acute exacerbation, also continues to be hypoxic. The patient is apparently able to tolerate CPAP only for a few hours, and the patient is getting anxious, but sedatives have to be avoided including Xanax. The patient is stuporous prior to CPAP. PAST MEDICAL HISTORY: Reviewed. REVIEW OF SYSTEMS: A 14-point review of systems is negative except as mentioned earlier. CURRENT MEDICATIONS: Reviewed include DuoNeb, dose and rest of medications noted. PHYSICAL EXAMINATION: VITAL SIGNS: Pulse is 89, blood pressure 113/58, respirations 20. HEENT: Conjunctivae normal. NECK: No jugular venous distention. CARDIOVASCULAR: S1 and S2. RESPIRATORY: Bilateral scattered rhonchi and crackles. Expiratory wheezing. ABDOMEN: Soft. NERVOUS SYSTEM: No focal deficits. LABORATORY DATA: Sodium 130, potassium 3.5. Rest of the labs are noted. CO2 is 43. ASSESSMENT: 1. Congestive heart failure, acute exacerbation with acute on chronic diastolic heart failure with acute hypoxic hypercarbic respiratory failure. 2. Acute hypoxic hypercarbic respiratory failure possibly secondary to obstructive sleep apnea. Pickwickian syndrome or chronic obstructive pulmonary disease. 3. Proteus mirabilis, urinary tract infection. 4. Obesity. 5. History of multiple sclerosis. 6. Hypertension. 7. Hyperlipidemia. 8. Gait dysfunction. 9. Full code. RECOMMENDATIONS: This is an 87-year-old woman who presented with multiple complex medical issues, we will monitor the patient closely. I would recommend continue the bronchodilators and rest of medication. I would also recommend BiPAP at night at least 12 hours. Repeat labs in the morning. Otherwise, I would also recommend to avoid sedatives including Xanax because it might aggravate the respiratory depression. Prognosis extremely guarded. Once the oxygenation is stabilized, PT/OT evaluation, possible ECF rehab. Further recommendations to follow. ECF return. MMODL / IJN: [id number] /
[2022-12-08] MEDS: HYDROcodone/APAP 10-325MG 1 EACH TAB PO PRN ×4 (01:09→21:58)
[2022-12-08] MEDS: GABAPENTIN 300 MG CAP PO SCH ×2 (06:18→17:27)
[2022-12-08 07:56] LABS: Basophils # (A) 0.1 k/uL (0-0.2); Basophils % (A) 1 %; Eosinophils # (A) 0.2 k/uL (0-0.7); Eosinophils % (A) 3 %; HCT 38.6 % (34.0-46.0); HGB 11.3 gm/dL (11.4-16.0); Hypochromasia Marked; Lymphocytes # (A) 1.7 k/uL (1.0-4.8); Lymphocytes % (A) 21 %; MCH 30.4 pg (25.0-35.0); MCHC 29.2 g/dL (31.0-37.0); Macrocytosis Moderate; Mean Platelet Volume 7.7; Monocytes # (A) 0.4 k/uL (0-1.0); Monocytes % (A) 5 %; Neutrophils # (A) 5.3 k/uL (1.3-7.7); Neutrophils % (A) 67 %; Platelet Count 290 k/uL (150-450); RBC 3.71 m/uL (3.80-5.40); RDW 15.2 % (11.5-15.5); WBC 7.9 k/uL (3.8-10.6)
[2022-12-08 08:21] LABS: Calcium 8.6 mg/dL (8.4-10.2)
[2022-12-08 08:37] LABS: Potassium 4.1 mmol/L (3.5-5.1)
[2022-12-08] MEDS: IPRATROPIUM-ALBUTEROL 3 ML NEB INHALATION SCH ×4 (09:16→21:30)
[2022-12-08] MEDS: SYMBICORT 160-4.5 MCG INHALER INHALATION SCH ×2 (09:16→21:30)
[2022-12-08] MEDS: FUROSEMIDE 10 MG/ML 4 ML VIAL IV SCH ×2 (10:00→20:38)
[2022-12-08] MEDS: ENOXAPARIN 60 MG/0.6 ML SYRINGE SQ SCH (10:01)
[2022-12-08] MEDS: NYSTATIN 100,000 UNIT/GM POWD 15 GM TOPICAL SCH ×2 (10:02→20:39)
--- NOTE | 2022-12-08 11:25 | P.PN ---
Subjective Progress Note Date: 12/08/22 Principal diagnosis: Respiratory failure. Acute hypoxic and chronic hypercapnic respiratory failure with acute diastolic congestive heart failure and moderate severe pulmonary hypertension This is an 87-year-old female known history of hypertension, COPD, dyslipidemia, patient is a [facility] resident. Not a great historian, but apparently the patient was brought in to the ER mostly with symptoms of shortness of breath. Chest x-ray on this admission is mostly consistent with congestive heart failure. Her echocardiogram on this admission showed evidence of aortic stenosis, it was a very poor quality echocardiogram. And suboptimal. Her labs showed relatively normal CBC. ABG on 44% FiO2 showed a pO2 of 58 pCO2 of 73 pH of 7.32, which implies that the patient may have chronic hypercapnia with metabolic compensation, patient is morbidly obese, and it is not surprising to me that the patient may have obstructive sleep apnea syndrome and chronic hypercapnia basic metabolic profile was normal except for elevated bicarb of 40 her pro calcitonin level was borderline elevated at 0.14 but again the patient had no clear-cut symptoms to suggest pneumonia. She did have abnormal urinalysis quite consistent with acute urinary tract infection. Clinically the patient is a very poor historian, and I could not get much information from the patient herself about her symptoms patient was placed on high flow nasal cannula she is now at 15 L with O2 sats are 92% patient was seen by cardiology on consultation and she was placed on Lasix at 40 mg IV push every 8 hours. Reevaluated today on 12/03/2022, patient is feeling better today compared to the last 2 days, hardly any shortness of breath, patient was transitioned from IV Lasix to oral Lasix, she is hemodynamically stable. Elects lites are normal BUN is 37 creatinine 1.19. Her last chest x-ray showed cardiomegaly and pulmonary vascular congestion with small pleural effusions. Swelling in the lower extremities is significantly better. Progress note dated 12/04/2022. The patient is seen today in room 359. She continues on high flow oxygen at 13 L. The BiPAP is in room, with settings of 10 and 5 and 40%. The patient was discovered to have Proteus in the urine. Lab data today includes a sodium 137, potassium 3.8, chlorides 90, CO2 43, BUN 32, and creatinine 1.12. Calcium is 8.2. Pro-calcitonin level is 0.14. The patient continues on ceftriaxone for the Proteus urinary tract infection. Progress note dated 12/05/2022. The patient is again seen today in room 359. She continues on high flow oxygen, at 12 L. She's getting saline at 10 mL an hour. The BiPAP settings are 10/5 and 40%. Current laboratory data includes a white count 10.7, hemoglobin 11.8, hematocrit 40.5, with a normal platelet count. Sodium 137, potassium 3.7, chlorides 91, CO2 41, BUN 30, and creatinine 0.93. Urine was positive for Proteus mirabilis. Progress note dated 12/06/2022. The patient is again seen today in room 359. She continues on high flow oxygen at 8 L. Yesterday, she was at 12 L. The patient is not receiving any IV fluids. She certainly much more awake today much more alert. She denies any di fficulty breathing, coughing, wheezing, or phlegm production. No new laboratory data today. Lab data from December 05 has been reviewed. Urine was positive for Proteus mirabilis, and she is being treated for that. Chest x-ray shows bibasilar airspace opacities, consistent with either CHF, or aspiration pneumonia. Progress note dated 12/05/2022. The patient is seen today in room 359. She continues on oxygen, at 9 L by nasal cannula, high flow. She apparently didn't use BiPAP last night, with settings of 10/5 and 50%. The patient is not getting any IV fluids. Clinically, she looks much more awake and alert. She is not manifesting any signs or symptoms of respiratory distress or difficulty. White count 9.7, hemoglobin 11.7, hematocrit 39.7, with a normal platelet count. Sodium 139, potassium 3.5, chlorides 87, CO2 43, BUN 27, and creatinine 0.95. Urine was positive for Proteus mirabilis. Chest x-ray from yesterday was consistent with probable CHF. Progress note dated 12/08/2022. This is a 87-year-old female again seen in room 359. Currently, she is on 6 L of oxygen. Yesterday, she was on 9. She apparently didn't use of BiPAP for some time last night, with settings of IPAP 10, EPAP 5, and 50%. The patient is not receiving any IV fluids. The patient is anxious to be discharged home. White count 7.9, hemoglobin 11.3, hematocrit 38.6, platelet count 290,000. Sodium 137, potassium 4.1, chlorides 88, CO2 43, BUN 32, and creatinine 0.93. Urine cultures were previously positive for Proteus mirabilis. The patient's last chest x-ray was on December 06. Objective - Vital Signs Vital signs: Vital Signs Temp 98 F 12/08/22 08:00 Pulse 80 12/08/22 09:30 Resp 16 12/08/22 08:00 BP 135/64 12/08/22 08:00 Pulse Ox 96 12/08/22 09:16 FiO2 50 12/07/22 16:23 Intake & Output 12/07/22 12/08/22 12/08/22 18:59 06:59 18:59 Intake Total 472 240 180 Output Total 975 1050 200 Balance -503 -810 -20 Intake: Oral 472 240 180 Output: Urine 975 1050 200 Other: Voiding Method Indwelling Catheter Indwelling Catheter # Bowel Movements 1 - Exam No acute distress, oriented 3. The patient continues on high flow nasal cannula at 6 L/m. HEENT examination is grossly unremarkable. Neck supple. Full range of motion. No adenopathy thyromegaly or neck vein distention. Cardiovascular examination reveals regular rhythm rate. S1-S2 normal. No S3 or S4. A soft systolic murmur is noted, likely consistent with aortic stenosis. Heart sounds are distant. Heart rate 80 bpm. Lungs reveal clear scattered bilateral rhonchi and a few scattered crackles. Breath sounds equal. Breath sounds are diminished throughout. Saturations are 96 %. Abdomen soft bowel sounds are heard. No masses or tenderness. Extremities are intact. No cyanosis or clubbing. Mild edema noted. Skin is without rash or lesion. Neurologic examination is brief but nonfocal. - Labs CBC & Chem 7: 12/08/22 07:26 12/08/22 07:26 Labs: Abnormal Lab Results - Last 24 Hours (Table) 12/07/22 12/08/22 12/08/22 Range/Units 07:55 07:26 07:26 RBC 3.71 L (3.80-5.40) m/uL Hgb 11.3 L (11.4-16.0) gm/dL MCV 104.0 H (80.0-100.0) fL MCHC 29.2 L (31.0-37.0) g/dL Chloride 88 L (98-107) mmol/L Carbon Dioxide 43 H* 43 H* (22-30) mmol/L BUN 32 H (7-17) mg/dL Microbiology - Last 24 Hours (Table) 12/03/22 09:29 Blood Culture - Preliminary Blood Assessment and Plan Assessment: Acute hypoxemic and chronic hypercapnic respiratory failure. Acute diastolic congestive heart failure. Moderate to severe pulmonary hypertension. Chronic cor pulmonale. Probable aortic stenosis. Morbid obesity. Obstructive sleep apnea syndrome. Benign essential hypertension. History of multiple sclerosis and chronic medical debility. Hyperlipidemia. Plan: Plan dated 12/04/2022. The patient is seen today in room 359. Labs, x-rays, medications are all reviewed. The patient continues on diuretics oxygen therapy. We'll continue to monitor her electrolytes, and kidney function. She continues on antibiotics for her Proteus urinary tract infection. The patient can go home BiPAP if necessar y. Her BiPAP settings were 10 over 5 and 40%. Additional recommendations and suggestions are forthcoming. Prognosis is guarded. Plan dated 12/05/2022. The patient has now been weaned down to 10 L high flow oxygen. Saturations are in the mid 90s. The patient is currently on saline at 10 mL an hour. BiPAP settings are 10 over 5 and 40%. The patient clearly has a murmur, consistent with aortic stenosis. Labs, x-rays, and medications are reviewed. The patient's overall prognosis remains guarded. We will continue to follow the patient, and make recommendations along the way. Plan dated 12/06/2022. The patient has been weaned down from high flow oxygen at 15 L/m, over the last few days, down to 8 L/m. The patient is not receiving any IV fluids. Her breathing is much improved, and she is much more awake and alert. I would like to see her out of bed, sitting up in a chair. The patient does have a murmur consistent with aortic stenosis. Labs, x-rays, medications are reviewed. Saturations are 98%. We will continue to follow make recommendations along the way. The patient's overall prognosis remains very guarded. Plan dated 12/07/2022. The patient continues on high flow nasal cannula 9 L. She apparently didn't use BiPAP last night at 10/5, and 50%. She is not receiving any IV fluids. Labs, x-rays, medications are reviewed. Prognosis is guarded. We will continue to follow patient and make recommendations along the way. Plan dated 12/08/2022. The patient continues to improve. Yesterday she was on 9 L high flow oxygen. Today she is on 6 L. The patient would like to be discharged home as soon as possible. Labs, x-rays, and medications are reviewed. The patient's not receiving any IV fluids. She apparently did spend some time on BiPAP last night, at 10/5, and 50%. Make recommendations along the way. Prognosis is guarded. Time with Patient: Less than 30
[2022-12-08] MEDS: ASPIRIN 81 MG PO SCH (12:01)
--- NOTE | 2022-12-08 12:29 | P.PN ---
Subjective Progress Note Date: 12/08/22 Principal diagnosis: UTI and bacteremia Patient is a 87-year-old female with a past medical history significant for coronary disease hypertension hyperlipidemia multiple sclerosis with debility wheelchair-bound patient is currently a resident of the [facility] , patient did have a positive blood culture with staph epi and also noticed to have a positive UA and urine culture positive for Proteus. On today's evaluation that is 12/08/2022, the patient remains to be afebrile, patient is breathing comfortably however requiring less supplemental oxygen today, patient is slightly lethargic and not very good historian today vomiting or diarrhea has been reported Objective - Vital Signs Vital signs: Vital Signs Temp 99 F 12/08/22 12:00 Pulse 80 12/08/22 12:12 Resp 16 12/08/22 12:00 BP 134/60 12/08/22 12:00 Pulse Ox 95 12/08/22 12:00 FiO2 50 12/07/22 16:23 Intake & Output 12/07/22 12/08/22 12/08/22 18:59 06:59 18:59 Intake Total 472 240 180 Output Total 975 1050 200 Balance -503 -810 -20 Intake: Oral 472 240 180 Output: Urine 975 1050 200 Other: Voiding Method Indwelling Catheter Indwelling Catheter # Bowel Movements 1 - Exam GENERAL DESCRIPTION: An elderly female lying in bed in no distress RESPIRATORY SYSTEM: Unlabored breathing , decreased breath sounds at bases HEART: S1 S2 regular rate and rhythm , ABDOMEN: Soft , no tenderness EXTREMITIES: Swelling to the leg no redness - Labs CBC & Chem 7: 12/08/22 07:26 12/08/22 07:26 Labs: Abnormal Lab Results - Last 24 Hours (Table) 12/07/22 12/08/22 12/08/22 Range/Units 07:55 07:26 07:26 RBC 3.71 L (3.80-5.40) m/uL Hgb 11.3 L (11.4-16.0) gm/dL MCV 104.0 H (80.0-100.0) fL MCHC 29.2 L (31.0-37.0) g/dL Chloride 88 L (98-107) mmol/L Carbon Dioxide 43 H* 43 H* (22-30) mmol/L BUN 32 H (7-17) mg/dL Microbiology - Last 24 Hours (Table) 12/03/22 09:29 Blood Culture - Preliminary Blood Assessment and Plan (1) Positive blood culture Current Visit: Yes Status: Acute Code(s): R78.81 - BACTEREMIA SNOMED Code(s): 422543001 (2) Urinary tract infection Current Visit: No Status: Acute Code(s): N39.0 - URINARY TRACT INFECTION, SITE NOT SPECIFIED SNOMED Code(s): 14204882 Plan: 1patient with a positive blood culture has been finalized with staph epi likely skin contamination as patient has no clinical disease to go along with it blood culture has been repeated on 12/03/2022 which remains to be negative 2-patient did have a positive UA some urinary symptoms concerning for symptomatic UTI urine cultures currently grew Proteus mirabilis for the patient seemed to have clinically responded to Rocephin the patient white count has normalized we will continue the patient on Rocephin while in a patient and hopefully transition to oral antibiotics on discharge Time with Patient: Less than 30
--- NOTE | 2022-12-08 13:22 | P.PN ---
Subjective Progress Note Date: 12/08/22 History of present illness: This is an 87 year old female presented to the hospital with, patient of COPD and CHF exacerbation. This morning, nursing difficulty time obtaining an adequate pulse ox. She is currently on IV Lasix 40 mg every 8 hours and has been diuresing. Echocardiogram revealed normal EF, mild MR and [id number] TR, mild pulmonary hypertension. Heart rate is running 90s to 102, blood pressure 111/55. 12/03 Patient is seen today in follow-up. She has been on IV antibiotics for UTI. Yesterday we switched IV Lasix to oral but patient continues to have symptoms crackles to the bilateral bases. Her urine output has been 30-40 mL per hour. Blood pressure 103/63, heart rate in the 80s and 90s. WBC 11, hemoglobin 12.4, platelet count 479. Potassium 3.7, CO2 40, BUN 37 creatinine 1.19. Repeat chest x-ray reveals cardiomegaly. Pulmonary vascular congestion and bilateral pleural effusions. 12/04 Patient continues to have some lower extremity edema. She is on Lasix 40 mg IV every 12 hours. Patient is diuresing well with a negative balance of 1620. Repeat blood work reveals potassium 3.8, BUN 32, creatinine 1.12. CO2 43. Heart rate running in the 90s, blood pressure 119/71. 12/05 Patient states that her breathing is better today. She's been maintained on IV Lasix 40 mg every 12 hours. She is in a negative fluid balance. Documented weight is unchanged and patient continues to have lower extremity edema. Potassium 3.7, BUN 30 creatinine 0.93. Blood pressure 119/68, heart rate in the 80s and 90s. 12/06 Patient is improvement in her lower extremity edema and breathing seems to be stable. She is currently on O2 at 8 L nasal cannula and was not on oxygen prior to this admission. Patient is maintained on IV Lasix 40 mg every 12 hours. Patient is in a negative fluid balance with no change in her weights. Heart rate is running in the 70s and 80s, blood pressure 106/54. Telemetry is sinus rhythm. 12/07 Patient is seen today in follow-up. She denies having any chest pain. Breathing status is improving slowly. She has no lower extremity edema. Mild crackles in the bases. She is currently on IV Lasix 40 mg every 12 hours. Blood pressure 113/55, heart rate in the 70s. Patient is on high flow nasal cannula 9 L of pulse ox 92%. She is utilizing BiPAP during the night for at least a few hours. Repeat blood work reveals potassium 3.5, BUN 27 creatinine 0.95. CO2 is 43. 5/ Patient is seen today in follow-up. Her oxygen is now down to 6 L with pulse ox 92%. Patient states her breathing seems to be improving. She continues to have some wheezing. Patient is on Lasix 40 mg IV every 12 hours. Blood pressure is 134/60, heart rate is in the 80s. Repeat blood work reveals hemoglobin 11.3, potassium 4.1, CO2 is 43, BUN 32 and creatinine 0.93. Patient is requesting to go to [facility] today. Physical examination: Gen: This is a morbidly obese 87-year-old female. She is sitting up in bed and appears to be in no acute respiratory distress. VS: reviewed HEENT: Head is atraumatic, normocephalic. Pupils equal, round. Sclerae is anicteric. LUNGS: Diminished air entry bilaterally. No intercostal retractions. HEART: Regular rate and rhythm. Systolic ejection murmur in the aortic area. ABDOMEN: Soft No tenderness. EXTREMITIES: Trace pedal edema. NEUROLOGICAL: Patient is awake, alert. Assessment: Acute on chronic diastolic heart failure COPD exacerbation Proteus urinary tract infection Plan: Continue Lasix to IV 40 mg twice daily for another 24 hours and transition to oral Lasix. Monitor I&O, daily weights, electrolytes and renal function Continue other cardiac medications Further recommendations to follow based upon clinical course Nurse practitioner note has been reviewed, I agree with documented findings and plan of care. Patient was seen and examined. Objective - Vital Signs Vital signs: Vital Signs Temp 98.4 F 12/08/22 03:56 Pulse 77 12/08/22 03:56 Resp 16 12/08/22 03:56 BP 102/50 12/08/22 03:56 Pulse Ox 92 L 12/08/22 03:56 FiO2 50 12/07/22 16:23 Intake & Output 12/07/22 12/08/22 12/08/22 18:59 06:59 18:59 Intake Total 472 240 Output Total 975 1050 Balance -503 -810 Intake: Oral 472 240 Output: Urine 975 1050 Other: Voiding Method Indwelling Catheter Indwelling Catheter # Bowel Movements 1 - Labs CBC & Chem 7: 12/08/22 07:26 12/08/22 07:26 Labs: Abnormal Lab Results - Last 24 Hours (Table) 12/07/22 12/07/22 Range/Units 07:55 07:55 RBC 3.74 L (3.80-5.40) m/uL MCV 106.2 H (80.0-100.0) fL MCHC 29.4 L (31.0-37.0) g/dL Chloride 87 L (98-107) mmol/L Carbon Dioxide 43 H* (22-30) mmol/L BUN 27 H (7-17) mg/dL Glucose 114 H (74-99) mg/dL Microbiology - Last 24 Hours (Table) 12/03/22 09:29 Blood Culture - Preliminary Blood
--- NOTE | 2022-12-08 18:12 | P.PN ---
Subjective Progress Note Date: 12/08/22 87-year-old female known history of hypertension, COPD, dyslipidemia, patient is a [facility] resident. Not a great historian, but apparently the patient was brought in to the ER mostly with symptoms of shortness of breath. Chest x-ray on this admission is mostly consistent with congestive heart failure. Her echocardiogram on this admission showed evidence of aortic stenosis, it was a very poor quality echocardiogram. And suboptimal. Her labs showed relatively normal CBC. ABG on 44% FiO2 showed a pO2 of 58 pCO2 of 73 pH of 7.32, which implies that the patient may have chronic hypercapnia with metabolic compensation, patient is morbidly obese, and it is not surprising to me that the patient may have obstructive sleep apnea syndrome and chronic hypercapnia basic metabolic profile was normal except for elevated bicarb of 40 her pro calcitonin level was borderline elevated at 0.14 but again the patient had no clear-cut symptoms to suggest pneumonia. She did have abnormal urinalysis quite con sistent with acute urinary tract infection. Clinically the patient is a very poor historian, and I could not get much information from the patient herself about her symptoms patient was placed on high flow nasal cannula she is now at 15 L with O2 sats are 92% patient was seen by cardiology on consultation and she was placed on Lasix at 40 mg IV push every 8 hours. Objective - Vital Signs Vital signs: Vital Signs Temp 98 F 12/08/22 08:00 Pulse 80 12/08/22 09:30 Resp 16 12/08/22 08:00 BP 135/64 12/08/22 08:00 Pulse Ox 96 12/08/22 09:16 FiO2 50 12/07/22 16:23 Intake & Output 12/07/22 12/08/22 12/08/22 18:59 06:59 18:59 Intake Total 472 240 180 Output Total 975 1050 200 Balance -503 -810 -20 Intake: Oral 472 240 180 Output: Urine 975 1050 200 Other: Voiding Method Indwelling Catheter Indwelling Catheter # Bowel Movements 1 - Exam PHYSICAL EXAMINATION: GENERAL: The patient is alert and oriented x3, not in any acute distress. Well developed, well nourished. HEENT: Pupils are round and equally reacting to light. EOMI. No scleral icterus. No conjunctival pallor. Normocephalic, atraumatic. No pharyngeal erythema. No thyromegaly. CARDIOVASCULAR: S1 and S2 present. No murmurs, rubs, or gallops. PULMONARY: Chest is clear to auscultation, no wheezing or crackles. ABDOMEN: Soft, nontender, nondistended, normoactive bowel sounds. No palpable organomegaly. MUSCULOSKELETAL: No joint swelling or deformity. EXTREMITIES: No cyanosis, clubbing, or pedal edema. NEUROLOGICAL: Gross neurological examination did not reveal any focal deficits. SKIN: No rashes. - Labs CBC & Chem 7: 12/08/22 07:26 12/08/22 07:26 Labs: Abnormal Lab Results - Last 24 Hours (Table) 12/07/22 12/08/22 12/08/22 Range/Units 07:55 07: 07:26 RBC 3.71 L (3.80-5.40) m/uL Hgb 11.3 L (11.4-16.0) gm/dL MCV 104.0 H (80.0-100.0) fL MCHC 29.2 L (31.0-37.0) g/dL Chloride 88 L (98-107) mmol/L Carbon Dioxide 43 H* 43 H* (22-30) mmol/L BUN 32 H (7-17) mg/dL Microbiology - Last 24 Hours (Table) 12/03/22 09:29 Blood Culture - Preliminary Blood Assessment and Plan Assessment: Acute hypoxemic and chronic hypercapnic respiratory failure. Acute diastolic congestive heart failure. Moderate to severe pulmonary hypertension. Chronic cor pulmonale. Probable aortic stenosis. Morbid obesity. Obstructive sleep apnea syndrome. Benign essential hypertension. History of multiple sclerosis and chronic medical debility. Hyperlipidemia. -- Patient remains on O2; weaned down from O2 at 9 L high flow nasal cannula down to 6 L per nasal cannula - Patient remains on BiPAP at 10/5 at night - UA is positive; urine culture is positive for Proteus mirabilis; patient is recommended to continue with IV Rocephin with plans to transition to oral antibiotics once stable for discharge
[2022-12-08] MEDS: SENNOSIDES-DOCUSATE SODIUM 1 EACH TAB PO SCH (20:38)
[2022-12-08] MEDS: HYDROXYUREA 500 MG CAP PO SCH (20:39)
[2022-12-08] MEDS: FAMOTIDINE 20 MG TAB PO SCH (20:39)
[2022-12-08] MEDS: ATORVASTATIN 40 MG TAB PO SCH (20:39)
[2022-12-08] MEDS: CLOPIDOGREL 75 MG TAB PO SCH (20:39)
[2022-12-09] MEDS: GABAPENTIN 300 MG CAP PO SCH ×2 (05:00→17:23)
[2022-12-09] MEDS: HYDROcodone/APAP 10-325MG 1 EACH TAB PO PRN ×4 (05:00→23:17)
[2022-12-09] MEDS: SYMBICORT 160-4.5 MCG INHALER INHALATION SCH ×2 (08:46→20:51)
[2022-12-09] MEDS: IPRATROPIUM-ALBUTEROL 3 ML NEB INHALATION SCH ×4 (08:46→20:51)
[2022-12-09] MEDS: NYSTATIN 100,000 UNIT/GM POWD 15 GM TOPICAL SCH ×2 (09:57→19:41)
[2022-12-09] MEDS: ENOXAPARIN 60 MG/0.6 ML SYRINGE SQ SCH (09:57)
[2022-12-09] MEDS: FUROSEMIDE 10 MG/ML 4 ML VIAL IV SCH (10:33)
[2022-12-09] MEDS: ASPIRIN 81 MG PO SCH (11:14)
--- NOTE | 2022-12-09 11:28 | P.PN ---
Subjective Progress Note Date: 12/09/22 Principal diagnosis: Respiratory failure. Acute hypoxic and chronic hypercapnic respiratory failure with acute diastolic congestive heart failure and moderate severe pulmonary hypertension This is an 87-year-old female known history of hypertension, COPD, dyslipidemia, patient is a [facility] resident. Not a great historian, but apparently the patient was brought in to the ER mostly with symptoms of shortness of breath. Chest x-ray on this admission is mostly consistent with congestive heart failure. Her echocardiogram on this admission showed evidence of aortic stenosis, it was a very poor quality echocardiogram. And suboptimal. Her labs showed relatively normal CBC. ABG on 44% FiO2 showed a pO2 of 58 pCO2 of 73 pH of 7.32, which implies that the patient may have chronic hypercapnia with metabolic compensation, patient is morbidly obese, and it is not surprising to me that the patient may have obstructive sleep apnea syndrome and chronic hypercapnia basic metabolic profile was normal except for elevated bicarb of 40 her pro calcitonin level was borderline elevated at 0.14 but again the patient had no clear-cut symptoms to suggest pneumonia. She did have abnormal urinalysis quite consistent with acute urinary tract infection. Clinically the patient is a very poor historian, and I could not get much information from the patient herself about her symptoms patient was placed on high flow nasal cannula she is now at 15 L with O2 sats are 92% patient was seen by cardiology on consultation and she was placed on Lasix at 40 mg IV push every 8 hours. Reevaluated today on 12/03/2022, patient is feeling better today compared to the last 2 days, hardly any shortness of breath, patient was transitioned from IV Lasix to oral Lasix, she is hemodynamically stable. Elects lites are normal BUN is 37 creatinine 1.19. Her last chest x-ray showed cardiomegaly and pulmonary vascular congestion with small pleural effusions. Swelling in the lower extremities is significantly better. Progress note dated 12/04/2022. The patient is seen today in room 359. She continues on high flow oxygen at 13 L. The BiPAP is in room, with settings of 10 and 5 and 40%. The patient was discovered to have Proteus in the urine. Lab data today includes a sodium 137, potassium 3.8, chlorides 90, CO2 43, BUN 32, and creatinine 1.12. Calcium is 8.2. Pro-calcitonin level is 0.14. The patient continues on ceftriaxone for the Proteus urinary tract infection. Progress note dated 12/05/2022. The patient is again seen today in room 359. She continues on high flow oxygen, at 12 L. She's getting saline at 10 mL an hour. The BiPAP settings are 10/5 and 40%. Current laboratory data includes a white count 10.7, hemoglobin 11.8, hematocrit 40.5, with a normal platelet count. Sodium 137, potassium 3.7, chlorides 91, CO2 41, BUN 30, and creatinine 0.93. Urine was positive for Proteus mirabilis. Progress note dated 12/06/2022. The patient is again seen today in room 359. She continues on high flow oxygen at 8 L. Yesterday, she was at 12 L. The patient is not receiving any IV fluids. She certainly much more awake today much more alert. She denies any di fficulty breathing, coughing, wheezing, or phlegm production. No new laboratory data today. Lab data from December 05 has been reviewed. Urine was positive for Proteus mirabilis, and she is being treated for that. Chest x-ray shows bibasilar airspace opacities, consistent with either CHF, or aspiration pneumonia. Progress note dated 12/05/2022. The patient is seen today in room 359. She continues on oxygen, at 9 L by nasal cannula, high flow. She apparently didn't use BiPAP last night, with settings of 10/5 and 50%. The patient is not getting any IV fluids. Clinically, she looks much more awake and alert. She is not manifesting any signs or symptoms of respiratory distress or difficulty. White count 9.7, hemoglobin 11.7, hematocrit 39.7, with a normal platelet count. Sodium 139, potassium 3.5, chlorides 87, CO2 43, BUN 27, and creatinine 0.95. Urine was positive for Proteus mirabilis. Chest x-ray from yesterday was consistent with probable CHF. Progress note dated 12/08/2022. This is a 87-year-old female again seen in room 359. Currently, she is on 6 L of oxygen. Yesterday, she was on 9. She apparently didn't use of BiPAP for some time last night, with settings of IPAP 10, EPAP 5, and 50%. The patient is not receiving any IV fluids. The patient is anxious to be discharged home. White count 7.9, hemoglobin 11.3, hematocrit 38.6, platelet count 290,000. Sodium 137, potassium 4.1, chlorides 88, CO2 43, BUN 32, and creatinine 0.93. Urine cultures were previously positive for Proteus mirabilis. The patient's last chest x-ray was on December 06. Progress note dated 12/09/2022. This is a 87-year-old female seen today in room 359. The patient has been weaned down to 4 L of oxygen. She did not use of BiPAP last night. She feeling much improved. She would like to be discharged as soon as possible. No new labs today. Labs from December 08 have been reviewed. Urine culture from November 30 with positive for Proteus mirabilis. Objective - Vital Signs Vital signs: Vital Signs Temp 98.1 F 12/09/22 08:00 Pulse 82 12/09/22 11:17 Resp 18 12/09/22 11:17 BP 107/58 12/09/22 11:17 Pulse Ox 91 L 12/09/22 11:17 FiO2 30 12/08/22 16:26 Intake & Output 12/08/22 12/09/22 12/09/22 18:59 06:59 18:59 Intake Total 540 1065 118 Output Total 800 1075 Balance -260 -10 118 Intake: Oral 540 1065 118 Output: Urine 800 1075 Other: Voiding Method Indwelling Catheter Indwelling Catheter Indwelling Catheter - Exam No acute distress, oriented 3. The patient continues on high flow nasal tara sharri at 4 L/m. HEENT examination is grossly unremarkable. Neck supple. Full range of motion. No adenopathy thyromegaly or neck vein distention. Cardiovascular examination reveals regular rhythm rate. S1-S2 normal. No S3 or S4. A soft systolic murmur is noted, likely consistent with aortic stenosis. Heart sounds are distant. Heart rate 82 bpm. Lungs reveal clear scattered bilateral rhonchi and a few scattered crackles. Breath sounds equal. Breath sounds are diminished throughout. Saturations are 92 %. Abdomen soft bowel sounds are heard. No masses or tenderness. Extremities are intact. No cyanosis or clubbing. Mild edema noted. Skin is without rash or lesion. Neurologic examination is brief but nonfocal. - Labs CBC & Chem 7: 12/08/22 07:26 12/08/22 07:26 Labs: Microbiology - Last 24 Hours (Table) 12/03/22 09:29 Blood Culture - Final Blood Assessment and Plan Assessment: Acute hypoxemic and chronic hypercapnic respiratory failure. Acute diastolic congestive heart failure. Moderate to severe pulmonary hypertension. Chronic cor pulmonale. Probable aortic stenosis. Morbid obesity. Obstructive sleep apnea syndrome. Benign essential hypertension. History of multiple sclerosis and chronic medical debility. Hyperlipidemia. Plan: Plan dated 12/04/2022. The patient is seen today in room 359. Labs, x-rays, medications are all reviewed. The patient continues on diuretics oxygen therapy. We'll continue to monitor her electrolytes, and kidney function. She continues on antibiotics for her Proteus urinary tract infection. The patient can go home BiPAP if necessary. Her BiPAP settings were 10 over 5 and 40%. Additional recommendations and suggestions are forthcoming. Prognosis is guarded. Plan dated 12/05/2022. The patient has now been weaned down to 10 L high flow oxygen. Saturations are in the mid 90s. The patient is currently on saline at 10 mL an hour. BiPAP settings are 10 over 5 and 40%. The patient clearly has a murmur, consistent with aortic stenosis. Labs, x-rays, and medications are reviewed. The patient's overall prognosis remains guarded. We will continue to follow the patient, and make recommendations along the way. Plan dated 12/06/2022. The patient has been weaned down from high flow oxygen at 15 L/m, over the last few days, down to 8 L/m. The patient is not receiving any IV fluids. Her breathing is much improved, and she is much more awake and alert. I would like to see her out of bed, sitting up in a chair. The patient does have a murmur consistent with aortic stenosis. Labs, x-rays, medications are reviewed. Saturations are 98%. We will continue to follow make recommendations along the way. The patient's overall prognosis remains very guarded. Plan dated 12/07/2022. The patient continues on high flow nasal cannula 9 L. She apparently didn't use BiPAP last night at 10/5, and 50%. She is not receiving any IV fluids. Labs, x-rays, medications are reviewed. Prognosis is guarded. We will continue to follow patient and make recommendations along the way. Plan dated 12/08/2022. The patient continues to improve. Yesterday she was on 9 L high flow oxygen. Today she is on 6 L. The patient would like to be discharged home as soon as possible. Labs, x-rays, and medications are reviewed. The patient's not receiving any IV fluids. She apparently did spend some time on BiPAP last night, at 10/5, and 50%. Make recommendations along the way. Prognosis is guarded. Plan dated 12/09/2022. The patient continues to show slow improvement. A few days ago, she was on 12 L high flow oxygen. She has been weaned down to 4 L. She still receiving saline at 10 mL an hour. Labs, x-rays, and medications are all reviewed. The patient does not like using the BiPAP, and apparently did not use it last night. In that regard, he can be discontinued. We will continue to follow make recommendations along the way. Time with Patient: Less than 30
--- NOTE | 2022-12-09 11:45 | P.PN ---
Subjective Progress Note Date: 12/09/22 This is Onur Montoya NP, I'm dictating on behalf of Dr. Piper's H&P and A&P. Patient was interviewed and examined. Patient is a pleasant 87-year-old female who presented to the hospital with congestive heart failure. Patient reports that she's doing better today. She states that she's breathing better, and does not feel short of breath. This started the patient is down to 4 L of supplemental oxygen. She denies chest pain and palpitations at this time. Bilateral lower extremity edema is resolv ed. GENERAL: Well-appearing, well-nourished and in no acute distress. NECK: Supple without JVD or thyromegaly. LUNGS: Breath sounds clear to auscultation bilaterally. Respiration equal and unlabored. No wheezes, rales or rhonchi. HEART: Regular rate and rhythm without murmurs, rubs or gallops. S1 and S2 heard. EXTREMITIES: Normal range of motion, no edema. No clubbing or cyanosis. Peripheral pulses intact and strong. VITALS: Temp 91, pulse 80, respirations 18, blood pressure 112/64, O2 saturation 95% on 4 L TELEMETRY: Normal sinus rhythm LABS: No new labs since yesterday. Old labs are reviewed. IMPRESSION: 1. Acute on chronic diastolic heart failure 2. COPD exacerbation 3. Proteus urinary tract infection PLAN: Discontinue IV Lasix. Start oral Lasix 40 mg twice a day. Patient should be discharged home on this dose. No further recommendations from a cardiology standpoint. Thank you for allowing us to participate in the care of this patient. Objective - Vital Signs Vital signs: Vital Signs Temp 98.1 F 12/09/22 08:00 Pulse 82 12/09/22 11:17 Resp 18 12/09/22 11:17 BP 107/58 12/09/22 11:17 Pulse Ox 91 L 12/09/22 11:17 FiO2 30 12/08/22 16:26 Intake & Output 12/08/22 12/09/22 12/09/22 18:59 06:59 18:59 Intake Total 540 1065 118 Output Total 800 1075 Balance -260 -10 118 Intake: Oral 540 1065 118 Output: Urine 800 1075 Other: Voiding Method Indwelling Catheter Indwelling Catheter Indwelling Catheter - Labs CBC & Chem 7: 12/08/22 07:26 12/08/22 07:26 Labs: Microbiology - Last 24 Hours (Table) 12/03/22 09:29 Blood Culture - Final Blood
--- NOTE | 2022-12-09 16:46 | P.PN ---
Subjective Progress Note Date: 12/09/22 87-year-old female known history of hypertension, COPD, dyslipidemia, patient is a [facility] resident. Not a great historian, but apparently the patient was brought in to the ER mostly with symptoms of shortness of breath. Chest x-ray on this admission is mostly consistent with congestive heart failure. Her echocardiogram on this admission showed evidence of aortic stenosis, it was a very poor quality echocardiogram. And suboptimal. Her labs showed relatively normal CBC. ABG on 44% FiO2 showed a pO2 of 58 pCO2 of 73 pH of 7.32, which implies that the patient may have chronic hypercapnia with metabolic compensation, patient is morbidly obese, and it is not surprising to me that the patient may have obstructive sleep apnea syndrome and chronic hypercapnia basic metabolic profile was normal except for elevated bicarb of 40 her pro calcitonin level was borderline elevated at 0.14 but again the patient had no clear-cut symptoms to suggest pneumonia. She did have abnormal urinalysis quite con sistent with acute urinary tract infection. Clinically the patient is a very poor historian, and I could not get much information from the patient herself about her symptoms patient was placed on high flow nasal cannula she is now at 15 L with O2 sats are 92% patient was seen by cardiology on consultation and she was placed on Lasix at 40 mg IV push every 8 hours. 24 hour interval change 12/09/2022 Patient is seen and evaluated in room at bedside The patient has been weaned down to 4 L of oxygen. She did not use of BiPAP last night. She feeling much improved. She would like to be discharged as soon as possible. No new labs today. Labs from December 08 have been reviewed. Urine culture from November 30 with positive for Proteus mirabilis. The patient does not like using the BiPAP, and apparently did not use it last night. In that regard, he can be discontinued. We will continue to follow make recommendations along the way. Objective - Vital Signs Vital signs: Vital Signs Temp 98.1 F 12/09/22 08:00 Pulse 80 12/09/22 08:00 Resp 18 12/09/22 08:00 BP 112/64 12/09/22 08:00 Pulse Ox 95 12/09/22 08:00 FiO2 30 12/08/22 16:26 Intake & Output 12/08/22 12/09/22 12/09/22 18:59 06:59 18:59 Intake Total 540 1065 118 Output Total 800 1075 Balance -260 -10 118 Intake: Oral 540 1065 118 Output: Urine 800 1075 Other: Voiding Method Indwelling Catheter Indwelling Catheter Indwelling Catheter - Exam PHYSICAL EXAMINATION: GENERAL: The patient is alert and oriented x3, not in any acute distress. Well developed, well nourished. HEENT: Pupils are round and equally reacting to light. EOMI. No scleral icterus. No conjunctival pallor. Normocephalic, atraumatic. No pharyngeal erythema. No thyromegaly. CARDIOVASCULAR: S1 and S2 present. No murmurs, rubs, or gallops. PULMONARY: Chest is clear to auscultation, no wheezing or crackles. ABDOMEN: Soft, nontender, nondistended, normoactive bowel sounds. No palpable organomegaly. MUSCULOSKELETAL: No joint swelling or deformity. EXTREMITIES: No cyanosis, clubbing, or pedal edema. NEUROLOGICAL: Gross neurological examination did not reveal any focal deficits. SKIN: No rashes. - Labs CBC & Chem 7: 12/08/22 07:26 12/08/22 07:26 Labs: Microbiology - Last 24 Hours (Table) 12/03/22 09:29 Blood Culture - Final Blood Assessment and Plan Assessment: Acute hypoxemic and chronic hypercapnic respiratory failure. Acute diastolic congestive heart failure. Moderate to severe pulmonary hypertension. Chronic cor pulmonale. Probable aortic stenosis. Morbid obesity. Obstructive sleep apnea syndrome. Benign essential hypertension. History of multiple sclerosis and chronic medical debility. Hyperlipidemia. -- Patient remains on O2; weaned down from O2 at 9 L high flow nasal cannula down to 6 L per nasal cannula - Patient remains on BiPAP at 10/5 at night - UA is positive; urine culture is positive for Proteus mirabilis; patient is recommended to continue with IV Rocephin with plans to transition to oral antibiotics once stable for discharge
[2022-12-09] MEDS: FUROSEMIDE 40 MG TAB PO SCH (17:23)
[2022-12-09] MEDS: SENNOSIDES-DOCUSATE SODIUM 1 EACH TAB PO SCH (19:41)
[2022-12-09] MEDS: ATORVASTATIN 40 MG TAB PO SCH (19:41)
[2022-12-09] MEDS: HYDROXYUREA 500 MG CAP PO SCH (19:41)
[2022-12-09] MEDS: CLOPIDOGREL 75 MG TAB PO SCH (19:41)
[2022-12-09] MEDS: FAMOTIDINE 20 MG TAB PO SCH (19:41)
[2022-12-10] MEDS: HYDROcodone/APAP 10-325MG 1 EACH TAB PO PRN ×4 (04:28→23:42)
[2022-12-10] MEDS: GABAPENTIN 300 MG CAP PO SCH ×2 (06:29→18:36)
[2022-12-10 08:13] LABS: Basophils % (A) 1 %; Eosinophils # (A) 0.3 k/uL (0-0.7); Eosinophils % (A) 3 %; HCT 37.6 % (34.0-46.0); HGB 11.3 gm/dL (11.4-16.0); Hypochromasia Marked; Lymphocytes # (A) 1.5 k/uL (1.0-4.8); Lymphocytes % (A) 15 %; MCH 31.4 pg (25.0-35.0); MCV 104.7 fL (80.0-100.0); Macrocytosis Moderate; Monocytes # (A) 0.6 k/uL (0-1.0); Monocytes % (A) 6 %; Neutrophils # (A) 7.1 k/uL (1.3-7.7); Neutrophils % (A) 73 %; Platelet Count 310 k/uL (150-450); RBC 3.59 m/uL (3.80-5.40); RDW 15.2 % (11.5-15.5); WBC 9.6 k/uL (3.8-10.6)
[2022-12-10 08:33] LABS: Calcium 8.5 mg/dL (8.4-10.2); Potassium 4.3 mmol/L (3.5-5.1)
[2022-12-10] MEDS: FUROSEMIDE 40 MG TAB PO SCH ×2 (09:00→18:36)
[2022-12-10] MEDS: ENOXAPARIN 60 MG/0.6 ML SYRINGE SQ SCH (09:00)
[2022-12-10] MEDS: NYSTATIN 100,000 UNIT/GM POWD 15 GM TOPICAL SCH ×2 (09:01→19:53)
[2022-12-10] MEDS: SYMBICORT 160-4.5 MCG INHALER INHALATION SCH ×2 (09:11→21:09)
[2022-12-10] MEDS: IPRATROPIUM-ALBUTEROL 3 ML NEB INHALATION SCH ×4 (09:13→21:09)
--- NOTE | 2022-12-10 10:33 | P.PN ---
Subjective Progress Note Date: 12/10/22 Principal diagnosis: Respiratory failure. Acute hypoxic and chronic hypercapnic respiratory failure with acute diastolic congestive heart failure and moderate severe pulmonary hypertension This is an 87-year-old female known history of hypertension, COPD, dyslipidemia, patient is a [facility] resident. Not a great historian, but apparently the patient was brought in to the ER mostly with symptoms of shortness of breath. Chest x-ray on this admission is mostly consistent with congestive heart failure. Her echocardiogram on this admission showed evidence of aortic stenosis, it was a very poor quality echocardiogram. And suboptimal. Her labs showed relatively normal CBC. ABG on 44% FiO2 showed a pO2 of 58 pCO2 of 73 pH of 7.32, which implies that the patient may have chronic hypercapnia with metabolic compensation, patient is morbidly obese, and it is not surprising to me that the patient may have obstructive sleep apnea syndrome and chronic hypercapnia basic metabolic profile was normal except for elevated bicarb of 40 her pro calcitonin level was borderline elevated at 0.14 but again the patient had no clear-cut symptoms to suggest pneumonia. She did have abnormal urinalysis quite consistent with acute urinary tract infection. Clinically the patient is a very poor historian, and I could not get much information from the patient herself about her symptoms patient was placed on high flow nasal cannula she is now at 15 L with O2 sats are 92% patient was seen by cardiology on consultation and she was placed on Lasix at 40 mg IV push every 8 hours. Reevaluated today on 12/03/2022, patient is feeling better today compared to the last 2 days, hardly any shortness of breath, patient was transitioned from IV Lasix to oral Lasix, she is hemodynamically stable. Elects lites are normal BUN is 37 creatinine 1.19. Her last chest x-ray showed cardiomegaly and pulmonary vascular congestion with small pleural effusions. Swelling in the lower extremities is significantly better. Progress note dated 12/04/2022. The patient is seen today in room 359. She continues on high flow oxygen at 13 L. The BiPAP is in room, with settings of 10 and 5 and 40%. The patient was discovered to have Proteus in the urine. Lab data today includes a sodium 137, potassium 3.8, chlorides 90, CO2 43, BUN 32, and creatinine 1.12. Calcium is 8.2. Pro-calcitonin level is 0.14. The patient continues on ceftriaxone for the Proteus urinary tract infection. Progress note dated 12/05/2022. The patient is again seen today in room 359. She continues on high flow oxygen, at 12 L. She's getting saline at 10 mL an hour. The BiPAP settings are 10/5 and 40%. Current laboratory data includes a white count 10.7, hemoglobin 11.8, hematocrit 40.5, with a normal platelet count. Sodium 137, potassium 3.7, chlorides 91, CO2 41, BUN 30, and creatinine 0.93. Urine was positive for Proteus mirabilis. Progress note dated 12/06/2022. The patient is again seen today in room 359. She continues on high flow oxygen at 8 L. Yesterday, she was at 12 L. The patient is not receiving any IV fluids. She certainly much more awake today much more alert. She denies any di fficulty breathing, coughing, wheezing, or phlegm production. No new laboratory data today. Lab data from December 05 has been reviewed. Urine was positive for Proteus mirabilis, and she is being treated for that. Chest x-ray shows bibasilar airspace opacities, consistent with either CHF, or aspiration pneumonia. Progress note dated 12/05/2022. The patient is seen today in room 359. She continues on oxygen, at 9 L by nasal cannula, high flow. She apparently didn't use BiPAP last night, with settings of 10/5 and 50%. The patient is not getting any IV fluids. Clinically, she looks much more awake and alert. She is not manifesting any signs or symptoms of respiratory distress or difficulty. White count 9.7, hemoglobin 11.7, hematocrit 39.7, with a normal platelet count. Sodium 139, potassium 3.5, chlorides 87, CO2 43, BUN 27, and creatinine 0.95. Urine was positive for Proteus mirabilis. Chest x-ray from yesterday was consistent with probable CHF. Progress note dated 12/08/2022. This is a 87-year-old female again seen in room 359. Currently, she is on 6 L of oxygen. Yesterday, she was on 9. She apparently didn't use of BiPAP for some time last night, with settings of IPAP 10, EPAP 5, and 50%. The patient is not receiving any IV fluids. The patient is anxious to be discharged home. White count 7.9, hemoglobin 11.3, hematocrit 38.6, platelet count 290,000. Sodium 137, potassium 4.1, chlorides 88, CO2 43, BUN 32, and creatinine 0.93. Urine cultures were previously positive for Proteus mirabilis. The patient's last chest x-ray was on December 06. Progress note dated 12/09/2022. This is a 87-year-old female seen today in room 359. The patient has been weaned down to 4 L of oxygen. She did not use of BiPAP last night. She feeling much improved. She would like to be discharged as soon as possible. No new labs today. Labs from December 08 have been reviewed. Urine culture from November 30 with positive for Proteus mirabilis. Progress note dated 12/10/2022. 87-year-old female seen today in room 359. She continues on 4 L of oxygen. She is not receiving any IV fluids. She has been residing at [facility], for the last 5 years. That is likely where she will go back to. She feels well, without complaints today. She denies any shortness of breath, cough, wheezing, or chest pain. White count 9.6, hemoglobin 11.3, hematocrit 37.6, and platelet count was normal. Sodium 135, potassium 4.3, chlorides 89, CO2 38, BUN 34, and creatinine 0.96. Objective - Vital Signs Vital signs: Vital Signs Temp 97.4 F L 12/10/22 07:30 Pulse 90 12/10/22 07:30 Resp 16 12/10/22 07:30 BP 110/64 12/10/22 07:30 Pulse Ox 95 12/10/22 07:30 FiO2 30 12/08/22 16:26 Intake & Output 12/09/22 12/10/22 12/10/22 18:59 06:59 18:59 Intake Total 594 1250 240 Output Total 1200 Balance 594 50 240 Intake: Oral 594 1250 240 Output: Urine 1200 Uretheral (Giles) 325 Other: Voiding Method Indwelling Catheter Indwelling Catheter - Exam No acute distress, oriented 3. The patient continues on high flow nasal cannula at 4 L/m. HEENT examination is grossly unremarkable. Neck supple. Full range of motion. No adenopathy thyromegaly or neck vein distention. Cardiovascular examination reveals regular rhythm rate. S1-S2 normal. No S3 or S4. A soft systolic murmur is noted, likely consistent with aortic stenosis. Heart sounds are distant. Heart rate 90 bpm. Lungs reveal clear scattered bilateral rhonchi and a few scattered crackles. Breath sounds equal. Breath sounds are diminished throughout. Saturations are 95 %. Abdomen soft bowel sounds are heard. No masses or tenderness. Extremities are intact. No cyanosis or clubbing. Mild edema noted. Skin is without rash or lesion. Neurologic examination is brief but nonfocal. - Labs CBC & Chem 7: 12/10/22 06:44 12/10/22 06:44 Labs: Abnormal Lab Results - Last 24 Hours (Table) 12/10/22 12/10/22 Range/Units 06:44 06:44 RBC 3.59 L (3.80-5.40) m/uL Hgb 11.3 L (11.4-16.0) gm/dL MCV 104.7 H (80.0-100.0) fL MCHC 30.0 L (31.0-37.0) g/dL Sodium 135 L (137-145) mmol/L Chloride 89 L (98-107) mmol/L Carbon Dioxide 38 H (22-30) mmol/L BUN 34 H (7-17) mg/dL Microbiology - Last 24 Hours (Table) 12/03/22 09:29 Blood Culture - Final Blood Assessment and Plan Assessment: Acute hypoxemic and chronic hypercapnic respiratory failure. Acute diastolic congestive heart failure. Moderate to severe pulmonary hypertension. Chronic cor pulmonale. Probable aortic stenosis. Morbid obesity. Obstructive sleep apnea syndrome. Benign essential hypertension. History of multiple sclerosis and chronic medical debility. Hyperlipidemia. Plan: Plan dated 12/04/2022. The patient is seen today in room 359. Labs, x-rays, medications are all reviewed. The patient continues on diuretics oxygen therapy. We'll continue to monitor her electrolytes, and kidney function. She continues on antibiotics for her Proteus urinary tract infection. The patient can go home BiPAP if necessary. Her BiPAP settings were 10 over 5 and 40%. Additional recommendations and suggestions are forthcoming. Prognosis is guarded. Plan dated 12/05/2022. The patient has now been weaned down to 10 L high flow oxygen. Saturations are in the mid 90s. The patient is currently on saline at 10 mL an hour. BiPAP settings are 10 over 5 and 40%. The patient clearly has a murmur, consistent with aortic stenosis. Labs, x-rays, and medications are reviewed. The patient's overall prognosis remains guarded. We will continue to follow the patient, and make recommendations along the way. Plan dated 12/06/2022. The patient has been weaned down from high flow oxygen at 15 L/m, over the last few days, down to 8 L/m. The patient is not receiving any IV fluids. Her breathing is much improved, and she is much more awake and alert. I would like to see her out of bed, sitting up in a chair. The patient does have a murmur consistent with aortic stenosis. Labs, x-rays, medications are reviewed. Saturations are 98%. We will continue to follow make recommendations along the way. The patient's overall prognosis remains very guarded. Plan dated 12/07/2022. The patient continues on high flow nasal cannula 9 L. She apparently didn't use BiPAP last night at 10/5, and 50%. She is not receiving any IV fluids. Labs, x-rays, medications are reviewed. Prognosis is guarded. We will continue to follow patient and make recommendations along the way. Plan dated 12/08/2022. The patient continues to improve. Yesterday she was on 9 L high flow oxygen. Today she is on 6 L. The patient would like to be discharged home as soon as possible. Labs, x-rays, and medications are reviewed. The patient's not receiving any IV fluids. She apparently did spend some time on BiPAP last night, at 10/5, and 50%. Make recommendations along the way. Prognosis is guarded. Plan dated 12/09/2022. The patient continues to show slow improvement. A few days ago, she was on 12 L high flow oxygen. She has been weaned down to 4 L. She still receiving saline at 10 mL an hour. Labs, x-rays, and medications are all reviewed. The patient does not like using the BiPAP, and apparently did not use it last night. In that regard, he can be discontinued. We will continue to follow make r ecommendations along the way. Plan dated 12/10/2022. Labs, x-rays, and medications are all reviewed. The patient's currently on 4 L of oxygen. Her saturations are 95%. The rest of her vital signs are stable. We will continue to follow the patient and make recommendations along the way. The patient is likely to be discharged to a local long-term, on Sunday. No additional recommendations at this time. Time with Patient: Less than 30
[2022-12-10] MEDS: ASPIRIN 81 MG PO SCH (12:06)
--- NOTE | 2022-12-10 16:30 | P.PN ---
Subjective Progress Note Date: 12/10/22 87-year-old female known history of hypertension, COPD, dyslipidemia, patient is a [facility] resident. Not a great historian, but apparently the patient was brought in to the ER mostly with symptoms of shortness of breath. Chest x-ray on this admission is mostly consistent with congestive heart failure. Her echocardiogram on this admission showed evidence of aortic stenosis, it was a very poor quality echocardiogram. And suboptimal. Her labs showed relatively normal CBC. ABG on 44% FiO2 showed a pO2 of 58 pCO2 of 73 pH of 7.32, which implies that the patient may have chronic hypercapnia with metabolic compensation, patient is morbidly obese, and it is not surprising to me that the patient may have obstructive sleep apnea syndrome and chronic hypercapnia basic metabolic profile was normal except for elevated bicarb of 40 her pro calcitonin level was borderline elevated at 0.14 but again the patient had no clear-cut symptoms to suggest pneumonia. She did have abnormal urinalysis quite con sistent with acute urinary tract infection. Clinically the patient is a very poor historian, and I could not get much information from the patient herself about her symptoms patient was placed on high flow nasal cannula she is now at 15 L with O2 sats are 92% patient was seen by cardiology on consultation and she was placed on Lasix at 40 mg IV push every 8 hours. 24 hour interval change 12/09/2022 Patient is seen and evaluated in room at bedside The patient has been weaned down to 4 L of oxygen. She did not use of BiPAP last night. She feeling much improved. She would like to be discharged as soon as possible. No new labs today. Labs from December 08 have been reviewed. Urine culture from November 30 with positive for Proteus mirabilis. The patient does not like using the BiPAP, and apparently did not use it last night. In that regard, he can be discontinued. We will continue to follow make recommendations along the way. 12/10/2022 Patient is seen and evaluated in room at bedside; no specific complaints reported She continues on 4 L of oxygen. Vital signs are reviewed and stable with a temperature of 97.4, pulse 90, respirations 16 and blood pressure 110/64 She is not receiving any IV fluids. She has been residing at [facility], for the last 5 years. That is likely where she will go back to. She feels well, without complaints today. She denies any shortness of breath, cough, wheezing, or chest pain. White count 9.6, hemoglobin 11.3, hematocrit 37.6, and platelet count was normal. Sodium 135, potassium 4.3, chlorides 89, CO2 38, BUN 34, and creatinine 0.96. She does plan to be discharged to long term facility once arrangements are made Objective - Vital Signs Vital signs: Vital Signs Temp 97.4 F L 12/10/22 07:30 Pulse 86 12/10/22 12:41 Resp 18 12/10/22 12:00 BP 127/65 12/10/22 12:00 Pulse Ox 94 L 12/10/22 12:00 FiO2 30 12/08/22 16:26 Intake & Output 12/09/22 12/10/22 12/10/22 18:59 06:59 18:59 Intake Total 594 1250 240 Output Total 1200 Balance 594 50 240 Intake: Oral 594 1250 240 Output: Urine 1200 Uretheral (Giles) 325 Other: Voiding Method Indwelling Catheter Indwelling Catheter Indwelling Catheter # Bowel Movements 1 - Exam PHYSICAL EXAMINATION: GENERAL: The patient is alert and oriented x3, not in any acute distress. Well developed, well nourished. HEENT: Pupils are round and equally reacting to light. EOMI. No scleral icterus. No conjunctival pallor. Normocephalic, atraumatic. No pharyngeal erythema. No thyromegaly. CARDIOVASCULAR: S1 and S2 present. No murmurs, rubs, or gallops. PULMONARY: Chest is clear to auscultation, no wheezing or crackles. ABDOMEN: Soft, nontender, nondistended, normoactive bowel sounds. No palpable organomegaly. MUSCULOSKELETAL: No joint swelling or deformity. EXTREMITIES: No cyanosis, clubbing, or pedal edema. NEUROLOGICAL: Gross neurological examination did not reveal any focal deficits. SKIN: No rashes. - Labs CBC & Chem 7: 12/10/22 06:44 12/10/22 06:44 Labs: Abnormal Lab Results - Last 24 Hours (Table) 12/10/22 12/10/22 Range/Units 06:44 06:44 RBC 3.59 L (3.80-5.40) m/uL Hgb 11.3 L (11.4-16.0) gm/dL MCV 104.7 H (80.0-100.0) fL MCHC 30.0 L (31.0-37.0) g/dL Sodium 135 L (137-145) mmol/L Chloride 89 L (98-107) mmol/L Carbon Dioxide 38 H (22-30) mmol/L BUN 34 H (7-17) mg/dL Microbiology - Last 24 Hours (Table) 12/03/22 09:29 Blood Culture - Final Blood Assessment and Plan Assessment: Acute hypoxemic and chronic hypercapnic respiratory failure. Acute diastolic congestive heart failure. Moderate to severe pulmonary hypertension. Chronic cor pulmonale. Probable aortic stenosis. Morbid obesity. Obstructive sleep apnea syndrome. Benign essential hypertension. History of multiple sclerosis and chronic medical debility. Hyperlipidemia. -- Patient remains on O2; weaned down from O2 at 9 L high flow nasal cannula down to 6 L per nasal cannula - Patient remains on BiPAP at 10/5 at night - UA is positive; urine culture is positive for Proteus mirabilis; patient is recommended to continue with IV Rocephin with plans to transition to oral antibiotics once stable for discharge
[2022-12-10] MEDS: SENNOSIDES-DOCUSATE SODIUM 1 EACH TAB PO SCH (19:46)
[2022-12-10] MEDS: FAMOTIDINE 20 MG TAB PO SCH (19:50)
[2022-12-10] MEDS: CLOPIDOGREL 75 MG TAB PO SCH (19:50)
[2022-12-10] MEDS: ATORVASTATIN 40 MG TAB PO SCH (19:50)
[2022-12-10] MEDS: HYDROXYUREA 500 MG CAP PO SCH (19:50)
[2022-12-10] MEDS: ACETAMINOPHEN TAB 325 MG TAB PO PRN (19:50)
[2022-12-11] MEDS: HYDROcodone/APAP 10-325MG 1 EACH TAB PO PRN ×4 (05:56→23:32)
[2022-12-11] MEDS: GABAPENTIN 300 MG CAP PO SCH ×2 (05:56→17:30)
[2022-12-11] MEDS: SYMBICORT 160-4.5 MCG INHALER INHALATION SCH ×2 (07:52→22:26)
[2022-12-11] MEDS: IPRATROPIUM-ALBUTEROL 3 ML NEB INHALATION SCH ×4 (07:52→22:26)
[2022-12-11] MEDS: ENOXAPARIN 60 MG/0.6 ML SYRINGE SQ SCH (08:56)
[2022-12-11] MEDS: FUROSEMIDE 40 MG TAB PO SCH ×2 (08:56→17:30)
[2022-12-11] MEDS: NYSTATIN 100,000 UNIT/GM POWD 15 GM TOPICAL SCH ×2 (08:56→21:01)
[2022-12-11 11:51] LABS: Calcium 8.5 mg/dL (8.4-10.2); Potassium 3.9 mmol/L (3.5-5.1)
--- NOTE | 2022-12-11 11:51 | P.PN ---
Subjective Progress Note Date: 12/11/22 Principal diagnosis: Respiratory failure. Acute hypoxic and chronic hypercapnic respiratory failure with acute diastolic congestive heart failure and moderate severe pulmonary hypertension This is an 87-year-old female known history of hypertension, COPD, dyslipidemia, patient is a [facility] resident. Not a great historian, but apparently the patient was brought in to the ER mostly with symptoms of shortness of breath. Chest x-ray on this admission is mostly consistent with congestive heart failure. Her echocardiogram on this admission showed evidence of aortic stenosis, it was a very poor quality echocardiogram. And suboptimal. Her labs showed relatively normal CBC. ABG on 44% FiO2 showed a pO2 of 58 pCO2 of 73 pH of 7.32, which implies that the patient may have chronic hypercapnia with metabolic compensation, patient is morbidly obese, and it is not surprising to me that the patient may have obstructive sleep apnea syndrome and chronic hypercapnia basic metabolic profile was normal except for elevated bicarb of 40 her pro calcitonin level was borderline elevated at 0.14 but again the patient had no clear-cut symptoms to suggest pneumonia. She did have abnormal urinalysis quite consistent with acute urinary tract infection. Clinically the patient is a very poor historian, and I could not get much information from the patient herself about her symptoms patient was placed on high flow nasal cannula she is now at 15 L with O2 sats are 92% patient was seen by cardiology on consultation and she was placed on Lasix at 40 mg IV push every 8 hours. Reevaluated today on 12/03/2022, patient is feeling better today compared to the last 2 days, hardly any shortness of breath, patient was transitioned from IV Lasix to oral Lasix, she is hemodynamically stable. Elects lites are normal BUN is 37 creatinine 1.19. Her last chest x-ray showed cardiomegaly and pulmonary vascular congestion with small pleural effusions. Swelling in the lower extremities is significantly better. Progress note dated 12/04/2022. The patient is seen today in room 359. She continues on high flow oxygen at 13 L. The BiPAP is in room, with settings of 10 and 5 and 40%. The patient was discovered to have Proteus in the urine. Lab data today includes a sodium 137, potassium 3.8, chlorides 90, CO2 43, BUN 32, and creatinine 1.12. Calcium is 8.2. Pro-calcitonin level is 0.14. The patient continues on ceftriaxone for the Proteus urinary tract infection. Progress note dated 12/05/2022. The patient is again seen today in room 359. She continues on high flow oxygen, at 12 L. She's getting saline at 10 mL an hour. The BiPAP settings are 10/5 and 40%. Current laboratory data includes a white count 10.7, hemoglobin 11.8, hematocrit 40.5, with a normal platelet count. Sodium 137, potassium 3.7, chlorides 91, CO2 41, BUN 30, and creatinine 0.93. Urine was positive for Proteus mirabilis. Progress note dated 12/06/2022. The patient is again seen today in room 359. She continues on high flow oxygen at 8 L. Yesterday, she was at 12 L. The patient is not receiving any IV fluids. She certainly much more awake today much more alert. She denies any di fficulty breathing, coughing, wheezing, or phlegm production. No new laboratory data today. Lab data from December 05 has been reviewed. Urine was positive for Proteus mirabilis, and she is being treated for that. Chest x-ray shows bibasilar airspace opacities, consistent with either CHF, or aspiration pneumonia. Progress note dated 12/05/2022. The patient is seen today in room 359. She continues on oxygen, at 9 L by nasal cannula, high flow. She apparently didn't use BiPAP last night, with settings of 10/5 and 50%. The patient is not getting any IV fluids. Clinically, she looks much more awake and alert. She is not manifesting any signs or symptoms of respiratory distress or difficulty. White count 9.7, hemoglobin 11.7, hematocrit 39.7, with a normal platelet count. Sodium 139, potassium 3.5, chlorides 87, CO2 43, BUN 27, and creatinine 0.95. Urine was positive for Proteus mirabilis. Chest x-ray from yesterday was consistent with probable CHF. Progress note dated 12/08/2022. This is a 87-year-old female again seen in room 359. Currently, she is on 6 L of oxygen. Yesterday, she was on 9. She apparently didn't use of BiPAP for some time last night, with settings of IPAP 10, EPAP 5, and 50%. The patient is not receiving any IV fluids. The patient is anxious to be discharged home. White count 7.9, hemoglobin 11.3, hematocrit 38.6, platelet count 290,000. Sodium 137, potassium 4.1, chlorides 88, CO2 43, BUN 32, and creatinine 0.93. Urine cultures were previously positive for Proteus mirabilis. The patient's last chest x-ray was on December 06. Progress note dated 12/09/2022. This is a 87-year-old female seen today in room 359. The patient has been weaned down to 4 L of oxygen. She did not use of BiPAP last night. She feeling much improved. She would like to be discharged as soon as possible. No new labs today. Labs from December 08 have been reviewed. Urine culture from November 30 with positive for Proteus mirabilis. Progress note dated 12/10/2022. 87-year-old female seen today in room 359. She continues on 4 L of oxygen. She is not receiving any IV fluids. She has been residing at [facility], for the last 5 years. That is likely where she will go back to. She feels well, without complaints today. She denies any shortness of breath, cough, wheezing, or chest pain. White count 9.6, hemoglobin 11.3, hematocrit 37.6, and platelet count was normal. Sodium 135, potassium 4.3, chlorides 89, CO2 38, BUN 34, and creatinine 0.96. Progress note dated 12/11/2022. 87-year-old female seen in room 359. The patient's hoping to be [facility] tomorrow. She's currently on 4 L. She's not receiving any IV fluids. No new labs today. Labs December 10 have been reviewed. The patient had a Proteus mirabilis urinary tract infection, that was treated. Clinically she is very stable. Objective - Vital Signs Vital signs: Vital Signs Temp 97.8 F 12/11/22 08:00 Pulse 86 12/11/22 08:01 Resp 18 12/11/22 08:00 BP 99/58 12/11/22 08:00 Pulse Ox 99 12/11/22 08:00 FiO2 30 12/08/22 16:26 Intake & Output 12/10/22 12/11/2223 18:59 06:59 18:59 Intake Total 440 1250 118 Output Total 800 475 Balance -360 775 118 Intake: Oral 440 1250 118 Output: Urine 800 475 Other: Voiding Method Indwelling Catheter Indwelling Catheter Indwelling Catheter # Bowel Movements 1 1 - Exam No acute distress, oriented 3. The patient continues on high flow nasal cannula at 4 L/m. HEENT examination is grossly unremarkable. Neck supple. Full range of motion. No adenopathy thyromegaly or neck vein distention. Cardiovascular examination reveals regular rhythm rate. S1-S2 normal. No S3 or S4. A soft systolic murmur is noted, likely consistent with aortic stenosis. Heart sounds are distant. Heart rate 86 bpm. Lungs reveal clear scattered bilateral rhonchi and a few scattered crackles. Breath sounds equal. Breath sounds are diminished throughout. Saturations are 99 %. Abdomen soft bowel sounds are heard. No masses or tenderness. Extremities are intact. No cyanosis or clubbing. Mild edema noted. Skin is without rash or lesion. Neurologic examination is brief but nonfocal. - Labs CBC & Chem 7: 12/10/22 06:44 12/10/22 06:44 Assessment and Plan Assessment: Acute hypoxemic and chronic hypercapnic respiratory failure. Acute diastolic congestive heart failure. Moderate to severe pulmonary hypertension. Chronic cor pulmonale. Probable aortic stenosis. Morbid obesity. Obstructive sleep apnea syndrome. Benign essential hypertension. History of multiple sclerosis and chronic medical debility. Hyperlipidemia. Plan: Plan dated 12/04/2022. The patient is seen today in room 359. Labs, x-rays, medications are all reviewed. The patient continues on diuretics oxygen therapy. We'll continue to monitor her electrolytes, and kidney function. She continues on antibiotics for her Proteus urinary tract infection. The patient can go home BiPAP if necessary. Her BiPAP settings were 10 over 5 and 40%. Additional recommendations and suggestions are forthcoming. Prognosis is guarded. Plan dated 12/05/2022. The patient has now been weaned down to 10 L high flow oxygen. Saturations are in the mid 90s. The patient is currently on saline at 10 mL an hour. BiPAP settings are 10 over 5 and 40%. The patient clearly has a murmur, consistent with aortic stenosis. Labs, x-rays, and medications are reviewed. The patient's overall prognosis remains guarded. We will continue to follow the patient, and make recommendations along the way. Plan dated 12/06/2022. The patient has been weaned down from high flow oxygen at 15 L/m, over the last few days, down to 8 L/m. The patient is not receiving any IV fluids. Her breathing is much improved, and she is much more awake and alert. I would like to see her out of bed, sitting up in a chair. The patient does have a murmur consistent with aortic stenosis. Labs, x-rays, medications are reviewed. Saturations are 98%. We will continue to follow make recommendations along the way. The patient's overall prognosis remains very guarded. Plan dated 12/07/2022. The patient continues on high flow nasal cannula 9 L. She apparently didn't use BiPAP last night at 10/5, and 50%. She is not receiving any IV fluids. Labs, x-rays, medications are reviewed. Prognosis is guarded. We will continue to follow patient and make recommendations along the way. Plan dated 12/08/2022. The patient continues to improve. Yesterday she was on 9 L high flow oxygen. Today she is on 6 L. The patient would like to be discharged home as soon as possible. Labs, x-rays, and medications are reviewed. The patient's not receiving any IV fluids. She apparently did spend some time on BiPAP last night, at 10/5, and 50%. Make recommendations along the way. Prognosis is guarded. Plan dated 12/09/2022. The patient continues to show slow improvement. A few days ago, she was on 12 L high flow oxygen. She has been weaned down to 4 L. She still receiving saline at 10 mL an hour. Labs, x-rays, and medications are all reviewed. The patient does not like using the BiPAP, and apparently did not use it last night. In that regard, he can be discontinued. We will continue to follow make recommendations along the way. Plan dated 12/10/2022. Labs, x-rays, and medications are all reviewed. The patient's currently on 4 L of oxygen. Her saturations are 95%. The rest of her vital signs are stable. We will continue to follow the patient and make recommendations along the way. The patient is likely to be discharged to a local detention, on Sunday. No additional recommendations at this time. Plan dated 12/11/2022. Again, the patient's labs, x-rays, and medications are all reviewed. No new labs today as yet. The labs from the day before have been reviewed. The patient's currently on 4 L of oxygen, with saturations are between 98-99%. The patient is hoping to be discharged back to the detention tomorrow. She has been at [facility] for 5 years. We will continue to follow make recommendations along the way. Prognosis is guarded. Time with Patient: Less than 30
[2022-12-11] MEDS: ASPIRIN 81 MG PO SCH (12:25)
--- NOTE | 2022-12-11 12:55 | P.PN ---
Subjective Progress Note Date: 12/09/22 Principal diagnosis: UTI and bacteremia Patient is a 87-year-old female with a past medical history significant for coronary disease hypertension hyperlipidemia multiple sclerosis with debility wheelchair-bound patient is currently a [facility] the [facility] , patient did have a positive blood culture with staph epi and also noticed to have a positive UA and urine culture positive for Proteus. On today's evaluation that is 12/09/2022, the patient continues to be afebrile, patient is breathing comfortably on 4 L nasal cannula oxygen today, patient denies any chest pain shortness of breath or cough, no vomiting or diarrhea has been reported Objective - Vital Signs Vital signs: Vital Signs Temp 97.9 F 12/09/22 04:00 Pulse 82 12/09/22 04:00 Resp 18 12/09/22 04:00 BP 120/72 12/09/22 04:00 Pulse Ox 94 L 12/09/22 04:00 FiO2 30 12/08/22 16:26 Intake & Output 12/08/22 12/09/22 12/09/22 18:59 06:59 18:59 Intake Total 540 1065 Output Total 800 1075 Balance -260 -10 Intake: Oral 540 1065 Output: Urine 800 1075 Other: Voiding Method Indwelling Catheter Indwelling Catheter - Exam Elderly female lying in bed in no distress Decreased intensity of breath sounds Abdomen soft Exam completed with the help of LOOM INSPECTOR - Labs CBC & Chem 7: 12/10/22 06:44 12/11/22 11:10 Labs: Microbiology - Last 24 Hours (Table) 12/03/22 09:29 Blood Culture - Final Blood Assessment and Plan (1) Positive blood culture Current Visit: Yes Status: Acute Code(s): R78.81 - BACTEREMIA SNOMED Code(s): 761230917 (2) Urinary tract infection Current Visit: No Status: Acute Code(s): N39.0 - URINARY TRACT INFECTION, SITE NOT SPECIFIED SNOMED Code(s): 42955997 Plan: 1patient with a positive blood culture has been finalized with staph epi likely skin contamination as patient has no clinical disease to go along with it blood culture has been repeated on 12/03/2022 which remains to be negative 2-patient did have a positive UA some urinary symptoms concerning for symptomatic UTI urine cultures currently grew Proteus mirabilis for the patient seemed to have clinically responded to Rocephin the patient white count has normalized, we will continue the patient on Rocephin and monitor clinical course closely This was a telehealth visit Time with Patient: Less than 30
--- NOTE | 2022-12-11 12:57 | P.PN ---
Subjective Progress Note Date: 12/10/22 Principal diagnosis: UTI and bacteremia Patient is a 87-year-old female with a past medical history significant for coronary disease hypertension hyperlipidemia multiple sclerosis with debility wheelchair-bound patient is currently a [facility] the local [facility] , patient did have a positive blood culture with staph epi and also noticed to have a positive UA and urine culture positive for Proteus. On today's evaluation that is 12/10/2022, the patient remains to be afebrile, patient is breathing comfortably on 4 L nasal cannula oxygen , and the patient denies any chest pain shortness of breath or cough, however the patient denies any nausea no vomiting and no diarrhea has been reported Objective - Vital Signs Vital signs: Vital Signs Temp 97.4 F L 12/10/22 07:30 Pulse 90 12/10/22 08:00 Resp 16 12/10/22 08:00 BP 110/64 12/10/22 07:30 Pulse Ox 95 12/10/22 07:30 FiO2 30 12/08/22 16:26 Intake & Output 12/09/22 12/10/22 12/10/22 18:59 06:59 18:59 Intake Total 594 1250 240 Output Total 1200 Balance 594 50 240 Intake: Oral 594 1250 240 Output: Urine 1200 Uretheral (Giles) 325 Other: Voiding Method Indwelling Catheter Indwelling Catheter Indwelling Catheter # Bowel Movements 1 - Exam Elderly female lying in bed in no distress Decreased intensity of breath sounds Abdomen soft Exam completed with the help of SOCK EXAMINER - Labs CBC & Chem 7: 12/10/22 06:44 12/11/22 11:10 Labs: Abnormal Lab Results - Last 24 Hours (Table) 12/10/22 12/10/22 Range/Units 06:44 06:44 RBC 3.59 L (3.80-5.40) m/uL Hgb 11.3 L (11.4-16.0) gm/dL MCV 104.7 H (80.0-100.0) fL MCHC 30.0 L (31.0-37.0) g/dL Sodium 135 L (137-145) mmol/L Chloride 89 L (98-107) mmol/L Carbon Dioxide 38 H (22-30) mmol/L BUN 34 H (7-17) mg/dL Microbiology - Last 24 Hours (Table) 12/03/22 09:29 Blood Culture - Final Blood Assessment and Plan (1) Positive blood culture Current Visit: Yes Status: Acute Code(s): R78.81 - BACTEREMIA SNOMED Code(s): 696825663 (2) Urinary tract infection Current Visit: No Status: Acute Code(s): N39.0 - URINARY TRACT INFECTION, SITE NOT SPECIFIED SNOMED Code(s): 35008452 Plan: This was a telehealth visit 1patient with a positive blood culture has been finalized with staph epi likely skin contamination as patient has no clinical disease to go along with it blood culture has been repeated on 12/03/2022 which remains to be negative 2-patient did have a positive UA some urinary symptoms concerning for symptomatic UTI urine cultures currently grew Proteus mirabilis , the patient remains to be febrile and the patient white count has normalized, we will continue the patient on Rocephin and monitor clinical course closely Time with Patient: Less than 30
--- NOTE | 2022-12-11 12:58 | P.PN ---
Subjective Progress Note Date: 12/11/22 Principal diagnosis: UTI and bacteremia Patient is a 87-year-old female with a past medical history significant for coronary disease hypertension hyperlipidemia multiple sclerosis with debility wheelchair-bound patient is currently a [facility] the local [facility] , patient did have a positive blood culture with staph epi and also noticed to have a positive UA and urine culture positive for Proteus. On today's evaluation that is 12/11/2022, the patient denies any fever or chills, the patient is breathing comfortably on 4 L nasal cannula oxygen , the patient denies any chest pain shortness of breath and no significant cough, the patient denies any nausea no vomiting and no diarrhea has been reported Objective - Vital Signs Vital signs: Vital Signs Temp 97.8 F 12/11/22 08:00 Pulse 87 12/11/22 11:56 Resp 18 12/11/22 08:00 BP 99/58 12/11/22 08:00 Pulse Ox 99 12/11/22 08:00 FiO2 30 12/08/22 16:26 Intake & Output 12/10/22 12/11/22 12/11/22 18:59 06:59 18:59 Intake Total 440 1250 118 Output Total 800 475 Balance -360 775 118 Intake: Oral 440 1250 118 Output: Urine 800 475 Other: Voiding Method Indwelling Catheter Indwelling Catheter Indwelling Catheter # Bowel Movements 1 1 - Exam GENERAL DESCRIPTION: An elderly female lying in bed in no distress RESPIRATORY SYSTEM: Unlabored breathing , decreased breath sounds at bases HEART: S1 S2 regular rate and rhythm , ABDOMEN: Soft , no tenderness - Labs CBC & Chem 7: 12/10/22 06:44 12/11/22 11:10 Labs: Abnormal Lab Results - Last 24 Hours (Table) 12/11/22 Range/Units 11:10 Chloride 91 L (98-107) mmol/L Carbon Dioxide 42 H* (22-30) mmol/L BUN 30 H (7-17) mg/dL Glucose 152 H (74-99) mg/dL Assessment and Plan (1) Positive blood culture Current Visit: Yes Status: Acute Code(s): R78.81 - BACTEREMIA SNOMED Code(s): 581827501 (2) Urinary tract infection Current Visit: No Status: Acute Code(s): N39.0 - URINARY TRACT INFECTION, SITE NOT SPECIFIED SNOMED Code(s): 09980553 Plan: 1patient with a positive blood culture has been finalized with staph epi likely skin contamination as patient has no clinical disease to go along with it blood culture has been repeated on 12/03/2022 which remains to be negative 2-patient did have a positive UA some urinary symptoms concerning for symptomatic UTI urine cultures currently grew Proteus mirabilis , the patient remains to be febrile and the patient white count has normalized, we will switch her antibiotic therapy to oral Omnicef which should be continued on discharge for a few days
--- NOTE | 2022-12-11 14:43 | P.PN ---
Subjective Progress Note Date: 12/11/22 Principal diagnosis: Acute hypoxemic and chronic hypercapnic respiratory failure. Acute diastolic congestive heart failure. Moderate to severe pulmonary hypertension UTI urine cultures currently grew Proteus mirabilis 87-year-old female known history of hypertension, COPD, dyslipidemia, patient is a [facility] resident. Not a great historian, but apparently the patient was brought in to the ER mostly with symptoms of shortness of breath. Chest x-ray o n this admission is mostly consistent with congestive heart failure. Her echocardiogram on this admission showed evidence of aortic stenosis, it was a very poor quality echocardiogram. And suboptimal. Her labs showed relatively normal CBC. ABG on 44% FiO2 showed a pO2 of 58 pCO2 of 73 pH of 7.32, which implies that the patient may have chronic hypercapnia with metabolic compensation, patient is morbidly obese, and it is not surprising to me that the patient may have obstructive sleep apnea syndrome and chronic hypercapnia basic metabolic profile was normal except for elevated bicarb of 40 her pro calcitonin level was borderline elevated at 0.14 but again the patient had no clear-cut symptoms to suggest pneumonia. She did have abnormal urinalysis quite consistent with acute urinary tract infection. Clinically the patient is a very poor historian, and I could not get much information from the patient herself about her symptoms patient was placed on high flow nasal cannula she is now at 15 L with O2 sats are 92% patient was seen by cardiology on consultation and she was placed on Lasix at 40 mg IV push every 8 hours. 24 hour interval change 12/09/2022 Patient is seen and evaluated in room at bedside The patient has been weaned down to 4 L of oxygen. She did not use of BiPAP last night. She feeling much improved. She would like to be discharged as soon as possible. No new labs today. Labs from December 08 have been reviewed. Urine culture from November 30 with positive for Proteus mirabilis. The patient does not like using the BiPAP, and apparently did not use it last night. In that regard, he can be discontinued. We will continue to follow make recommendations along the way. 12/10/2022 Patient is seen and evaluated in room at bedside; no specific complaints reported She continues on 4 L of oxygen. Vital signs are reviewed and stable with a temperature of 97.4, pulse 90, respirations 16 and blood pressure 110/64 She is not receiving any IV fluids. She has been residing at [facility], for the last 5 years. That is likely where she will go back to. She feels well, without complaints today. She denies any shortness of breath, cough, wheezing, or chest pain. White count 9.6, hemoglobin 11.3, hematocrit 37.6, and platelet count was normal. Sodium 135, potassium 4.3, chlorides 89, CO2 38, BUN 34, and creatinine 0.96. She does plan to be discharged to intermediate facility once arrangements are made 12/11/2022 Patient is seen and evaluated in room at bedside; discussed with nursing staff; no specific complaints reported Patient remains on O2 at 4 L per nasal cannula with saturation between 95-99% -- Pulmonary service is following and deems patient is stable from pulmonary standpoint ID on board and recommending to switch patient to oral antibiotics in form of Omnicef to complete antibiotic course of therapy -- Patient is stable for discharge to ECF once arrangements are pending Objective - Vital Signs Vital signs: Vital Signs Temp 97.5 F L 12/11/22 03:55 Pulse 86 12/11/22 08:01 Resp 16 12/11/22 03:55 BP 106/63 12/11/22 03:55 Pulse Ox 94 L 12/11/22 03:55 FiO2 30 12/08/22 16:26 Intake & Output 12/10/22 12/11/22 12/11/22 18:59 06:59 18:59 Intake Total 440 1250 Output Total 800 475 Balance -360 775 Intake: Oral 440 1250 Output: Urine 800 475 Other: Voiding Method Indwelling Catheter Indwelling Catheter # Bowel Movements 1 1 - Exam PHYSICAL EXAMINATION: GENERAL: The patient is alert and oriented x3, not in any acute distress. Well developed, well nourished. HEENT: Pupils are round and equally reacting to light. EOMI. No scleral icterus. No conjunctival pallor. Normocephalic, atraumatic. No pharyngeal erythema. No thyromegaly. CARDIOVASCULAR: S1 and S2 present. No murmurs, rubs, or gallops. PULMONARY: Chest is clear to auscultation, no wheezing or crackles. ABDOMEN: Soft, nontender, nondistended, normoactive bowel sounds. No palpable organomegaly. MUSCULOSKELETAL: No joint swelling or deformity. EXTREMITIES: No cyanosis, clubbing, or pedal edema. NEUROLOGICAL: Gross neurological examination did not reveal any focal deficits. SKIN: No rashes. - Labs CBC & Chem 7: 12/10/22 06:44 12/11/22 11:10 Labs: Abnormal Lab Results - Last 24 Hours (Table) 12/10/22 Range/Units 06:44 Sodium 135 L (137-145) mmol/L Chloride 89 L (98-107) mmol/L Carbon Dioxide 38 H (22-30) mmol/L BUN 34 H (7-17) mg/dL Assessment and Plan Assessment: Acute hypoxemic and chronic hypercapnic respiratory failure. Acute diastolic congestive heart failure. Moderate to severe pulmonary hypertension. Chronic cor pulmonale. Probable aortic stenosis. Morbid obesity. Obstructive sleep apnea syndrome. Benign essential hypertension. History of multiple sclerosis and chronic medical debility. Hyperlipidemia. -- Patient remains on O2; weaned down from O2 at 9 L high flow nasal cannula down to 6 L per nasal cannula - Patient remains on BiPAP at 10/5 at night - UA is positive; urine culture is positive for Proteus mirabilis; patient is recommended to continue with IV Rocephin with plans to transition to oral antibiotics once stable for discharge
[2022-12-11] MEDS: CEFDINIR 300 MG CAP PO SCH ×2 (17:31→20:57)
[2022-12-11] MEDS: ATORVASTATIN 40 MG TAB PO SCH (20:56)
[2022-12-11] MEDS: HYDROXYUREA 500 MG CAP PO SCH (20:56)
[2022-12-11] MEDS: FAMOTIDINE 20 MG TAB PO SCH (20:57)
[2022-12-11] MEDS: ACETAMINOPHEN TAB 325 MG TAB PO PRN (20:57)
[2022-12-11] MEDS: CLOPIDOGREL 75 MG TAB PO SCH (20:57)
[2022-12-11] MEDS: SENNOSIDES-DOCUSATE SODIUM 1 EACH TAB PO SCH (21:03)
[2022-12-12] MEDS: HYDROcodone/APAP 10-325MG 1 EACH TAB PO PRN ×3 (06:08→17:35)
[2022-12-12] MEDS: GABAPENTIN 300 MG CAP PO SCH ×2 (06:08→17:18)
[2022-12-12] MEDS: SYMBICORT 160-4.5 MCG INHALER INHALATION SCH (08:23)
[2022-12-12] MEDS: IPRATROPIUM-ALBUTEROL 3 ML NEB INHALATION SCH ×3 (08:23→15:04)
[2022-12-12] MEDS: ENOXAPARIN 60 MG/0.6 ML SYRINGE SQ SCH (09:40)
[2022-12-12] MEDS: ACETAMINOPHEN TAB 325 MG TAB PO PRN (09:41)
[2022-12-12] MEDS: FUROSEMIDE 40 MG TAB PO SCH ×2 (09:42→16:48)
[2022-12-12] MEDS: NYSTATIN 100,000 UNIT/GM POWD 15 GM TOPICAL SCH ×2 (09:42→20:32)
[2022-12-12] MEDS: CEFDINIR 300 MG CAP PO SCH ×2 (09:42→20:05)
--- NOTE | 2022-12-12 11:57 | P.PN ---
Subjective Progress Note Date: 12/12/22 Acute hypoxic and chronic hypercapnic respiratory failure with acute diastolic congestive heart failure and moderate severe pulmonary hypertension This is an 87-year-old female known history of hypertension, COPD, dyslipidemia, patient is a [facility] resident. Not a great historian, but apparently the ameya milian was brought in to the ER mostly with symptoms of shortness of breath. Chest x-ray on this admission is mostly consistent with congestive heart failure. Her echocardiogram on this admission showed evidence of aortic stenosis, it was a very poor quality echocardiogram. And suboptimal. Her labs showed relatively normal CBC. ABG on 44% FiO2 showed a pO2 of 58 pCO2 of 73 pH of 7.32, which implies that the patient may have chronic hypercapnia with metabolic compensation, patient is morbidly obese, and it is not surprising to me that the patient may have obstructive sleep apnea syndrome and chronic hypercapnia basic metabolic profile was normal except for elevated bicarb of 40 her pro calcitonin level was borderline elevated at 0.14 but again the patient had no clear-cut symptoms to suggest pneumonia. She did have abnormal urinalysis quite consistent with acute urinary tract infection. Clinically the patient is a very poor historian, and I could not get much information from the patient herself about her symptoms patient was placed on high flow nasal cannula she is now at 15 L with O2 sats are 92% patient was seen by cardiology on consultation and she was placed on Lasix at 40 mg IV push every 8 hours. Reevaluated today on 12/03/2022, patient is feeling better today compared to the last 2 days, hardly any shortness of breath, patient was transitioned from IV Lasix to oral Lasix, she is hemodynamically stable. Elects lites are normal BUN is 37 creatinine 1.19. Her last chest x-ray showed cardiomegaly and pulmonary vascular congestion with small pleural effusions. Swelling in the lower extremities is significantly better. Progress note dated 12/04/2022. The patient is seen today in room 359. She continues on high flow oxygen at 13 L. The BiPAP is in room, with settings of 10 and 5 and 40%. The patient was discovered to have Proteus in the urine. Lab data today includes a sodium 137, potassium 3.8, chlorides 90, CO2 43, BUN 32, and creatinine 1.12. Calcium is 8.2. Pro-calcitonin level is 0.14. The patient continues on ceftriaxone for the Proteus urinary tract infection. Progress note dated 12/05/2022. The patient is again seen today in room 359. She continues on high flow oxygen, at 12 L. She's getting saline at 10 mL an hour. The BiPAP settings are 10/5 and 40%. Current laboratory data includes a white count 10.7, hemoglobin 11.8, hematocrit 40.5, with a normal platelet count. Sodium 137, potassium 3.7, chlorides 91, CO2 41, BUN 30, and creatinine 0.93. Urine was positive for Proteus mirabilis. Progress note dated 12/06/2022. The patient is again seen today in room 359. She continues on high flow oxygen at 8 L. Yesterday, she was at 12 L. The patient is not receiving any IV fluids. She certainly much more awake today much more alert. She denies any difficulty breathing, coughing, wheezing, or phlegm production. No new laboratory data today. Lab data from December 05 has been reviewed. Urine was positive for Proteus mirabilis, and she is being treated for that. Chest x-ray shows bibasilar airspace opacities, consistent with either CHF, or aspiration pneumonia. Progress note dated 12/05/2022. The patient is seen today in room 359. She continues on oxygen, at 9 L by nasal cannula, high flow. She apparently didn't use BiPAP last night, with settings of 10/5 and 50%. The patient is not getting any IV fluids. Clinically, she looks much more awake and alert. She is not manifesting any signs or symptoms of respiratory distress or difficulty. White count 9.7, hemoglobin 11.7, hematocrit 39.7, with a normal platelet count. Sodium 139, potassium 3.5, chlorides 87, CO2 43, BUN 27, and creatinine 0.95. Urine was positive for Proteus mirabilis. Chest x-ray from yesterday was consistent with probable CHF. Progress note dated 12/08/2022. This is a 87-year-old female again seen in room 359. Currently, she is on 6 L of oxygen. Yesterday, she was on 9. She apparently didn't use of BiPAP for some time last night, with settings of IPAP 10, EPAP 5, and 50%. The patient is not receiving any IV fluids. The patient is anxious to be discharged home. White count 7.9, hemoglobin 11.3, hematocrit 38.6, platelet count 290,000. Sodium 137, potassium 4.1, chlorides 88, CO2 43, BUN 32, and creatinine 0.93. Urine cultures were previously positive for Proteus mirabilis. The patient's last chest x-ray was on December 06. Progress note dated 12/09/2022. This is a 87-year-old female seen today in room 359. The patient has been weaned down to 4 L of oxygen. She did not use of BiPAP last night. She feeling much improved. She would like to be discharged as soon as possible. No new labs today. Labs from December 08 have been reviewed. Urine culture from November 30 with positive for Proteus mirabilis. Progress note dated 12/10/2022. 87-year-old female seen today in room 359. She continues on 4 L of oxygen. She is not receiving any IV fluids. She has been residing at [facility], for the last 5 years. That is likely where she will go back to. She feels well, without complaints today. She denies any shortness of breath, cough, wheezing, or chest pain. White count 9.6, hemoglobin 11.3, hematocrit 37.6, and platelet count was normal. Sodium 135, potassium 4.3, chlorides 89, CO2 38, BUN 34, and creatinine 0.96. Progress note dated 12/11/2022. 87-year-old female seen in room 359. The patient's hoping to be discharged back to the [place] [facility] tomorrow. She's currently on 4 L. She's not receiving any IV fluids. No new labs today. Labs December 10 have been reviewed. The patient had a Proteus mirabilis urinary tract infection, that was treated. Clinically she is very stable. On today's evaluation of 12/12/2022, I'm seeing the patient for a follow-up. This is a [facility] patient and the patient resides [facility]. The patient for the most part is doing well. No significant respiratory distress. The patient is currently on 4 L of oxygen by nasal cannula with a pulse ox of 94-95%. The patient is currently on DuoNeb nebulized treatments [id number], Symbicort as maintenance and the patient is also on Lasix 40 mg twice a day. Blood work from today shows a BUN of 30 with a creatinine of 0.9. The patient is a sodium level of 138. The bicarb level is at 42. Glucose at 152. The patient is afebrile and the patient is hemodynamically stable at this point in time. The patient is not utilizing any form of BiPAP. The patient did have an underlying UTI with Proteus mirabilis and this was treated. Objective - Vital Signs Vital signs: Vital Signs Temp 97.7 F 12/12/22 08:15 Pulse 80 12/12/22 08:35 Resp 18 12/12/22 08:35 BP 98/48 12/12/22 08:15 Pulse Ox 95 12/12/22 08:23 FiO2 30 12/08/22 16:26 Intake & Output 12/11/22 12/12/22 12/12/22 18:59 06:59 18:59 Intake Total 236 240 Output Total 550 550 Balance -314 -550 240 Intake: Oral 236 240 Output: Urine 550 550 Other: Voiding Method Indwelling Catheter Indwelling Catheter Indwelling Catheter # Bowel Movements 1 - Exam No acute distress, oriented 3. The patient continues on high flow nasal cannula at 4 L/m. HEENT examination is grossly unremarkable. Neck supple. Full range of motion. No adenopathy thyromegaly or neck vein distention. Cardiovascular examination reveals regular rhythm rate. S1-S2 normal. No S3 or S4. A soft systolic murmur is noted, likely consistent with aortic stenosis. Heart sounds are distant. Heart rate 86 bpm. Lungs reveal clear scattered bilateral rhonchi and a few scattered crackles. Breath sounds equal. Breath sounds are diminished throughout. Saturations are 99 %. Abdomen soft bowel sounds are heard. No masses or tenderness. Extremities are intact. No cyanosis or clubbing. Mild edema noted. Skin is without rash or lesion. Neurologic examination is brief but nonfocal. - Labs CBC & Chem 7: 12/10/22 06:44 12/11/22 11:10 Labs: Abnormal Lab Results - Last 24 Hours (Table) 12/11/22 Range/Units 11:10 Chloride 91 L (98-107) mmol/L Carbon Dioxide 42 H* (22-30) mmol/L BUN 30 H (7-17) mg/dL Glucose 152 H (74-99) mg/dL Assessment and Plan Plan: Acute hypoxemic and chronic hypercapnic respiratory failure. Recovered and the patient is currently on oxygen at 3 L nasal cannula, clinically stable and the patient be able to wean off the FiO2 further. Acute diastolic congestive heart failure, currently inactive and stable Moderate to severe pulmonary hypertension. Chronic cor pulmonale. Probable aortic stenosis. The patient may have an underlying aotic stenosis with a normal LV systolic function and mild to moderate tricuspid regurgitation, no evidence of any pericardial effusion. Note that the aortic valve was not adequately visualized and echocardiogram. Morbid obesity. Obstructive sleep apnea syndrome. Benign essential hypertension. History of multiple sclerosis and chronic medical debility. Hyperlipidemia. Gram-negative UTI with Proteus, treated Plan Titrate oxygen flow to maintain a saturation above 90% Continue diuretics oxygenation is stable provided incentive spirometer Echo was noted We will follow
[2022-12-12] MEDS: ASPIRIN 81 MG PO SCH (12:02)
--- NOTE | 2022-12-12 12:51 | P.PN ---
Subjective Progress Note Date: 12/12/22 Principal diagnosis: UTI and bacteremia Patient is a 87-year-old female with a past medical history significant for coronary disease hypertension hyperlipidemia multiple sclerosis with debility wheelchair-bound patient is currently [facility] , patient did have a positive blood culture with staph epi and also noticed to have a positive UA and urine culture positive for Proteus. On today's evaluation that is 12/12/2022, the patient denies any fever or chills, the patient is breathing comfortably on 4 L nasal cannula oxygen , the patient denies chest pain shortness of breath did have occasional dry cough, the patient denies any nausea no vomiting and no diarrhea has been reported Objective - Vital Signs Vital signs: Vital Signs Temp 97.7 F 12/12/22 11:47 Pulse 74 12/12/22 11:47 Resp 18 12/12/22 11:47 BP 111/63 12/12/22 11:47 Pulse Ox 94 L 12/12/22 11:47 FiO2 30 12/08/22 16:26 Intake & Output 12/11/22 12/12/22 12/12/22 18:59 06:59 18:59 Intake Total 236 240 Output Total 550 550 Balance -314 -550 240 Intake: Oral 236 240 Output: Urine 550 550 Other: Voiding Method Indwelling Catheter Indwelling Catheter Indwelling Catheter # Bowel Movements 1 - Exam GENERAL DESCRIPTION: An elderly female lying in bed in no distress RESPIRATORY SYSTEM: Unlabored breathing , decreased breath sounds at bases HEART: S1 S2 regular rate and rhythm , ABDOMEN: Soft , no tenderness - Labs CBC & Chem 7: 12/10/22 06:44 12/11/22 11:10 Assessment and Plan (1) Positive blood culture Current Visit: Yes Status: Acute Code(s): R78.81 - BACTEREMIA SNOMED Code(s): 995361739 (2) Urinary tract infection Current Visit: No Status: Acute Code(s): N39.0 - URINARY TRACT INFECTION, SITE NOT SPECIFIED SNOMED Code(s): 27099090 Plan: 1patient with a positive blood culture has been finalized with staph epi likely skin contamination as patient has no clinical disease to go along with it blood culture has been repeated on 12/03/2022 which remains to be negative 2-patient did have a positive UA some urinary symptoms concerning for symptomatic UTI urine cultures currently grew Proteus mirabilis 3-the patient remains to be febrile and the patient white count has normalized, patient to continue with oral Omnicef 5 days on discharge Time with Patient: Less than 30
--- NOTE | 2022-12-12 14:53 | P.DS ---
Providers Date of admission: 11/30/22 11:50 Attending physician: Owen Orozco Consults: 11/30/22 12:26 Consult Physician Stat Consulting Provider: Zan Peter Consult Reason/Comments: Acute CHF Do you want consulting provider notified?: Yes 12/01/22 14:59 Consult Physician Routine Consulting Provider: Mckay Odell Consult Reason/Comments: respiratory distress Do you want consulting provider notified?: Yes 12/02/22 14:01 Consult Physician Routine Consulting Provider: Chacho Yuen Consult Reason/Comments: Positive blood cultures, UTI Do you want consulting provider notified?: Yes Primary care physician: Deonte Patel Hospital Course: Diagnoses: Acute hypoxemic respiratory failure. Acute diastolic congestive heart failure. Moderate to severe pulmonary hypertension. Chronic cor pulmonale. Probable aortic stenosis. Morbid obesity. Obstructive sleep apnea syndrome. Benign essential hypertension. History of multiple sclerosis and chronic medical debility. Hyperlipidemia. Hospital course: 87-year-old female known history of hypertension, COPD, dyslipidemia, patient is a [facility] resident. Not a great historian, but apparently the patient was brought in to the ER mostly with symptoms of shortness of breath. Chest x-ray on this admission is mostly consistent with congestive heart failure. Her echocardiogram on this admission showed evidence of aortic stenosis, it was a very poor quality echocardiogram. And suboptimal. Her labs showed relatively normal CBC. ABG on 44% FiO2 showed a pO2 of 58 pCO2 of 73 pH of 7.32, which implies that the patient may have chronic hypercapnia with metabolic compensation, patient is morbidly obese, and it is not surprising to me that the patient may have obstructive sleep apnea syndrome and chronic hypercapnia basic metabolic profile was normal except for elevated bicarb of 40 her pro calcitonin level was borderline elevated at 0.14 patient also found to have a pleasant tract infection secondary to Proteus. Patient developed a pulmonary and collection systems technician and infectious disease., she was treated with diuretics and her symptoms improved. Patient today his back close to her baseline. She denies any chest pain. No urinary or GI symptoms. She can go home today. She is on 4 L oxygen via nasal cannula and oxygen saturation is 95%. Patient was cleared for discharge by all consultants including cardiology, pulmonary and ID team Patient will be discharged on Omnicef 5 days per ID team. Problems and management plan were discussed with the patient and he verbalized understanding and acceptance Patient was found stable and can be discharged home in guarded prognosis however he needs follow-up as an outpatient. Patient was instructed to follow up with PCP within one week and patient agrees Patient was recommended to follow-up with collection systems technician Dr. carney in 1-2 weeks and front office assistant Dr. Callejas in 2-3 weeks Physical exam -Gen: patient is a AAOx3, no distress. obese CVS: S1-S2, RRR, no murmur Lungs: B/L CTA, no wheezing Abdomen: soft, no distention, no tenderness, positive bowel sounds Extremity: no leg edema or induration Time spent more than 35 minutes Patient Condition at Discharge: Stable Plan - Discharge Summary New Discharge Prescriptions: New Furosemide [Lasix] 40 mg PO BID@0900,1600 tab Cefdinir [Omnicef] 300 mg PO BID 5 Days #10 cap polyethylene glycoL 3350 [Miralax] 17 gm PO DAILY PRN packet PRN Reason: Constipation Continue Aspirin EC [Ecotrin Low Dose] 81 mg PO DAILY@1200 Clopidogrel [Plavix] 75 mg PO HS@2100 Sennosides/Docusate Sodium [Doc-Q-Lax Tablet] 1 tab PO HS@2100 guaiFENesin [guaiFENesin Oral Solution] 200 mg PO Q4H PRN PRN Reason: Cough Acetaminophen [Tylenol Arthritis] 650 mg PO Q4H PRN PRN Reason: Pain Gabapentin 300 mg PO BID@0600,1800 Atorvastatin [Lipitor] 40 mg PO HS@2100 Artificial Tears-Hypromellose [Artificial Tear Drops] 1 drops BOTH EYES TID PRN PRN Reason: DRY EYES Multivitamins, Thera [Multivitamin (formulary)] 1 tab PO DAILY@1200 Cholecalciferol [Vitamin D3 (25 Mcg = 1000 Iu)] 25 mcg PO DAILY@1200 Hydroxyurea [Hydrea] 500 mg PO HS@2100 Bismuth Subsalicylate [Pepto-Bismol] 524 mg PO Q4H PRN PRN Reason: Diarrhea/Indigestion Changed HYDROcodone/APAP 10-325MG [Tunica 10-325] 1 tab PO QID@00,06,12,18 PRN 3 Days #12 tab PRN Reason: Severe Pain (Scale 7 To 10) Discontinued hydrALAZINE HCL [Apresoline] 50 mg PO TID@0600,1400,2200 lisinopriL [Zestril] 20 mg PO DAILY@1200 Cholestyramine/Aspartame [Cholestyramine Light Packet] 4 gm PO DAILY@1200 amLODIPine [Norvasc] 2.5 mg PO DAILY@1200 Furosemide [Lasix] 20 mg PO DAILY@0600 Discharge Medication List Aspirin EC [Ecotrin Low Dose] 81 mg PO DAILY@119901/20/16 [History] Clopidogrel [Plavix] 75 mg PO HS@209901/20/16 [History] Sennosides/Docusate Sodium [Doc-Q-Lax Tablet] 1 tab PO HS@209907/27/16 [History] Acetaminophen [Tylenol Arthritis] 650 mg PO Q4H PRN 11/30/22 [History] Artificial Tears-Hypromellose [Artificial Tear Drops] 1 drops BOTH EYES TID PRN 11/30/22 [History] Atorvastatin [Lipitor] 40 mg PO HS@209911/30/22 [History] Bismuth Subsalicylate [Pepto-Bismol] 524 mg PO Q4H PRN 11/30/22 [History] Cholecalciferol [Vitamin D3 (25 Mcg = 1000 Iu)] 25 mcg PO DAILY@119911/30/22 [History] Gabapentin 300 mg PO BID@0600,1800 11/30/22 [History] Hydroxyurea [Hydrea] 500 mg PO HS@209911/30/22 [History] Multivitamins, Thera [Multivitamin (formulary)] 1 tab PO DAILY@119911/30/22 [History] guaiFENesin [guaiFENesin Oral Solution] 200 mg PO Q4H PRN 11/30/22 [History] Cefdinir [Omnicef] 300 mg PO BID 5 Days #10 cap 12/12/22 [Rx] Furosemide [Lasix] 40 mg PO BID@0900,1600 tab 12/12/22 [Rx] HYDROcodone/APAP 10-325MG [Tunica 10-325] 1 tab PO QID@00,06,12,18 PRN 3 Days #12 tab 12/12/22 [Rx] polyethylene glycoL 3350 [Miralax] 17 gm PO DAILY PRN packet 12/12/22 [Rx] Follow up Appointment(s)/Referral(s): Deonte Patel MD [Primary Care Provider] - 1-[address] [facility] on the [place], [NON-STAFF] - 1 Week
[2022-12-12 15:53] VITALS: RESP 18
[2022-12-12] MEDS: CLOPIDOGREL 75 MG TAB PO SCH (20:05)
[2022-12-12] MEDS: SENNOSIDES-DOCUSATE SODIUM 1 EACH TAB PO SCH (20:05)
[2022-12-12] MEDS: FAMOTIDINE 20 MG TAB PO SCH (20:05)
[2022-12-12] MEDS: HYDROXYUREA 500 MG CAP PO SCH (20:06)
[2022-12-12] MEDS: ATORVASTATIN 40 MG TAB PO SCH (20:08)
[2022-12-12 20:18] VITALS: BP 117/65; PULSE 76; TEMP 98.2
== END 2022-12-12 20:54 | DRG 291 ==
LOC: EC 08:51 → 3SCARD 11:50
PROVIDERS: ADMIT Internal Medicine; ATTEND Internal Medicine
PROC: 5A09357 Assistance with Respiratory Ventilation, Less than 24 Consecutive Hours, Continuous Positive Airway Pressure (ICD-10-PCS; principal; 2022-12-03)
DX: I13.0 Hypertensive heart and chronic kidney disease with heart failure and stage 1 through stage 4 chronic kidney disease, or unspecified chronic kidney disease (principal); I50.33 Acute on chronic diastolic (congestive) heart failure; J96.21 Acute and chronic respiratory failure with hypoxia; J96.22 Acute and chronic respiratory failure with hypercapnia; J44.1 Chronic obstructive pulmonary disease with (acute) exacerbation; N39.0 Urinary tract infection, site not specified; Z68.41 Body mass index [BMI] 40.0-44.9, adult; I25.10 Atherosclerotic heart disease of native coronary artery without angina pectoris; N18.30 Chronic kidney disease, stage 3 unspecified; B96.4 Proteus (mirabilis) (morganii) as the cause of diseases classified elsewhere; Z20.822 Contact with and (suspected) exposure to COVID-19; D75.839 Thrombocytosis, unspecified; E66.01 Morbid (severe) obesity due to excess calories; D63.1 Anemia in chronic kidney disease; E78.5 Hyperlipidemia, unspecified; F41.9 Anxiety disorder, unspecified; G35 Multiple sclerosis; G47.33 Obstructive sleep apnea (adult) (pediatric); I27.29 Other secondary pulmonary hypertension; I27.81 Cor pulmonale (chronic); I35.0 Nonrheumatic aortic (valve) stenosis; M19.90 Unspecified osteoarthritis, unspecified site; G62.9 Polyneuropathy, unspecified; R53.81 Other malaise; Z74.01 Bed confinement status; Z79.82 Long term (current) use of aspirin; Z79.899 Other long term (current) drug therapy; Z87.891 Personal history of nicotine dependence; Z95.5 Presence of coronary angioplasty implant and graft; Z99.3 Dependence on wheelchair; Z28.21 Immunization not carried out because of patient refusal; Z71.3 Dietary counseling and surveillance; Z88.8 Allergy status to other drugs, medicaments and biological substances
CPT/HCPCS: 36415; 36600; 71045; 71046; 71275; 80048; 80053; 81001; 82803; 82805; 83605; 83735; 83880; 84145; 84484; 85025; 85027; 85379; 85610; 85730; 87040; 87077; 87086; 87186; 87636; 93005; 93306; 94640; 94660; 94760

== ENCOUNTER 2024-06-13 06:16 | Inpatient (IN) | payer MEDICARE, BC ==
--- NOTE | 2024-06-13 06:36 | ED ---
SOB HPI - General Chief Complaint: Shortness of Breath Stated Complaint: Hypoxia Time Seen by Provider: 06/13/24 06:21 Source: patient, EMS, RN notes reviewed Mode of arrival: EMS Limitations: altered mental status - History of Present Illness Initial Comments: This is an 88-year-old female who presents to the emergency department for difficulty breathing. Patient presents from [facility] where they noted her to be hypoxic with an O2 saturation of 83%. There does seem to be some confusion as to when this started. We were told by one nurse at [facility] that this started yesterday and they considered calling EMS then, but waited until today for unclear reasons. She does wear 3 L of oxygen at baseline, however they did not turn this up. When EMS arrived they placed her on a nonrebreather. She has a history of CHF but not COPD. They also noted her to be more lethargic than normal. MD Complaint: shortness of breath - Related Data Home Medications Medication Instructions Recorded Confirmed Aspirin EC [Ecotrin Low Dose] 81 mg PO HS@209901/20/16 06/13/24 Clopidogrel [Plavix] 75 mg PO HS@209901/20/16 06/13/24 Atorvastatin [Lipitor] 40 mg PO HS@209911/30/22 06/13/24 Cholecalciferol [Vitamin D3 (25 50 mcg PO DAILY@119911/30/22 06/13/24 Mcg = 1000 Iu)] Hydroxyurea [Hydrea] 500 mg PO HS@209911/30/22 06/13/24 Multivitamins, Thera [Multivitamin 1 tab PO DAILY@119911/30/22 06/13/24 (formulary)] Furosemide [Lasix] 40 mg PO BID@0600,1200 06/13/24 06/13/24 Sennosides/Docusate Sodium [Senna 1 tab PO HS@209906/13/24 06/13/24 Plus 8.6-50 mg Tablet] oxyCODONE-APAP 10-325MG [Percocet 1 tab PO Q6H 06/13/24 06/13/24 10-325 mg] Previous Rx's Medication Instructions Recorded Gabapentin 300 mg PO BID@0600,1800 #6 cap 12/12/22 Allergies Allergy/AdvReac Type Severity Reaction Status Date / Time lansoprazole Allergy Rash/Hives Verified 06/13/24 10:08 misoprostol [From Cytotec] Allergy Unknown Verified 06/13/24 10:08 omeprazole Allergy Rash/Hives Verified 06/13/24 10:08 Review of Systems ROS Statement: Those systems with pertinent positive or pertinent negative responses have been documented in the HPI. ROS Other: All systems not noted in ROS Statement are negative. 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, debilitated secondary to chronic illness and the patient has been essentially wheelchair/bed bound, nonambulatory, degenerative arthritis, hyperlipidemia, hypertension, cataracts History of Any Multi-Drug Resistant Organisms: None Reported Past Surgical History: Appendectomy, Heart Catheterization With Stent Additional Past Surgical History / Comment(s): EXPOLARATORY LAP- REMOVED LT FALLOPIAN TUBE Past Anesthesia/Blood Transfusion Reactions: No Reported Reaction Date of Last Stent Placement:: 2009 Past Psychological History: No Psychological Hx Reported Smoking Status: Former smoker Past Alcohol Use History: None Reported Past Drug Use History: None Reported - Past Family History Father Additional Family Medical History / Comment(s): Father AT AGE 62, WAS AN ALCOHOLIC- FROM COMPLICATIONS OF THAT Mother Family Medical History: Dementia Additional Family Medical History / Comment(s): AT AGE 83 General Exam Limitations: altered mental status General appearance: alert, in no apparent distress Head exam: Present: atraumatic, normocephalic, normal inspection Respiratory exam: Present: rhonchi Cardiovascular Exam: Present: regular rate, normal rhythm, normal heart sounds. Absent: systolic murmur, diastolic murmur, rubs, gallop, clicks Neurological exam: Present: alert Skin exam: Present: warm, dry, intact, normal color. Absent: rash Course Vital Signs 06/13/24 06/13/24 06/13/24 06:17 07:20 07:23 Temperature 98.2 F 98.6 F Pulse Rate 97 98 Respiratory 13 16 Rate Blood Pressure 120/79 124/63 O2 Sat by Pulse 96 95 Oximetry Fraction of 50 Inspired Oxygen (FIO2) 06/13/24 06/13/24 06/13/24 09:12 11:08 11:51 Temperature Pulse Rate 93 96 Respiratory 16 16 Rate Blood Pressure 117/67 138/78 O2 Sat by Pulse 93 L 96 Oximetry Fraction of 50 Inspired Oxygen (FIO2) 06/13/24 13:55 Temperature Pulse Rate 88 Respiratory 16 Rate Blood Pressure 131/85 O2 Sat by Pulse 93 L Oximetry Fraction of Inspired Oxygen (FIO2) Medical Decision Making - Medical Decision Making This is an 88-year-old female who presents to the emergency department for difficulty breathing. Was pt. sent in by a medical professional or institution? @ -No Did you speak to anyone other than the patient for history? @ -EMS and [facility] provided all of the history. Did you review nursing and triage notes? @ -Yes, and I agree, it is accurate with regards to the patient's symptoms. Were old charts reviewed? @ -No Differential Diagnosis? @ -Differential Dyspnea: Coronary syndrome, arrhythmia, tamponade, asthma, COPD, pulmonary embolism, pneumonia, pneumothorax, pulmonary effusion, anaphylaxis, diabetic ketoacidosis, flailed chest, pulmonary contusion, diaphragmatic rupture, anemia, neuromuscular, this is not meant to be an all-inclusive list. EKG interpreted by me (3pts min.)? @ -EKG interpreted by me demonstrating the following: Sinus tachycardia. Ventricular rate 104 bpm, NV interval 161 ms, QRS duration 97 ms, QTc 386 ms. X-rays interpreted by me (1pt min.)? @ -Chest x-ray obtained. My interpretation identifies patchy bibasilar airspace disease. CT interpreted by me (1pt min.)? @ -Not obtained U/S interpreted by me (1pt. min.)? @ -Duplex ultrasound of the bilateral lower extremities obtained. My interpretation identifies no evidence of a DVT. What testing was considered but not performed? (CT, X-rays, U/S, labs)? Why? @ -CTA of the chest for PE, however due to poor renal function, VQ scan was ordered instead What meds were considered but not given? Why? @ -None Did you discuss the management of the patient with other professionals? @ -Yes, Dr. Garcia, who accepts the patient for admission Did you reconcile home meds? @ -Yes Was smoking cessation discussed for >3mins.? @ -No Was critical care preformed (if so, how long)? @ -No Were there social determinants of health that impacted care today? How? (Homelessness, low income, unemployed, alcoholism, drug addiction, transportation, low edu. Level, literacy, decrease access to med. care, longterm, rehab)? @ -No Was there de-escalation of care discussed even if they declined? (Discuss DNR or withdrawal of care, Hospice)? @ -No What co-morbidities impacted this encounter? (DM, HTN, Smoking, COPD, CAD, Cancer, CVA, Hep., AIDS, mental health diagnosis, sleep apnea, morbid obesity)? @ -CAD, CHF, HLD, HTN Was patient admitted / discharged? @ -Admitted. On arrival patient was on a nonrebreather at 15 L. ABG obtained and patient found to have a bicarb of approximately 40. Given that she was exhibiting retention, she was switched to BiPAP. Lab work only demonstrates a BNP of 327. She also has signs of dehydration and hypokalemia with a potassium of 3.4. Chest x-ray demonstrates patchy bibasilar areas of airspace disease. They advised correlation for infectious/aspiration pneumonitis versus sequela of CHF. She is not febrile and there is no leukocytosis to suggest infectious process. However, BNP is also only 327. 40 mg of IV Lasix administered for potential CHF component. She was also started on the pneumonia protocol with ceftriaxone and azithromycin for potential pneumonia. D-dimer returned elevated at 1.15. However, due to patient's poor renal function CTA of the chest could not be obtained. VQ scan subsequently ordered to be completed on an inpatient basis. Duplex ultrasound of the bilateral lower extremities was obtained. No evidence of a DVT was identified, however the exam was limited due to patient's body habitus. COVID-19 test then returned positive. Urinalysis also show suggestive of infection and urine was sent for culture. Patient started on 6 mg of Decadron daily for COVID-19 hypoxia. Will keep antibiotics in place pending procalcitonin and pulmonology consult in the event of potential bacterial coinfection. If they are felt to be unnecessary, she may benefit from keeping the ceftriaxone on board due to possible UTI. Patient admitted to medicine for hypoxia due to COVID-19. Consult placed for pulmonology and infectious disease. Case discussed with ED attending, Dr. Christensen. Undiagnosed new problem with uncertain prognosis? @ -None Drug Therapy requiring intensive monitoring for toxicity (Heparin, Nitro, Insulin, Cardizem)? @ -None Were any procedures done? @ -None Diagnosis/symptom? @ -Acute hypoxic respiratory failure due to COVID-19, UTI Acute, or Chronic, or Acute on Chronic? @ -Acute Uncomplicated (without systemic symptoms) or Complicated (systemic symptoms)? @ -Complicated Side effects of treatment? @ -None Exacerbation, Progression, or Severe Exacerbation] @ -Not applicable Poses a threat to life or bodily function? @ -Yes, can lead to respiratory failure and - Lab Data Result diagrams: 06/13/24 06:35 06/13/24 06:35 Lab Results 06/13/24 06/13/24 06/13/24 Range/Units 06:35 06:35 06:35 WBC 8.1 (3.8-10.6) k/uL RBC 4.49 (3.80-5.40) m/uL Hgb 14.0 (11.4-16.0) gm/dL Hct 45.3 (34.0-46.0) % MCV 100.7 H (80.0-100.0) fL MCH 31.1 (25.0-35.0) pg MCHC 30.9 L (31.0-37.0) g/dL RDW 16.4 H (11.5-15.5) % Plt Count 318 (150-450) k/uL MPV 8.5 Neutrophils % 76 % Lymphocytes % 14 % Monocytes % 6 % Eosinophils % 0 % Basophils % 0 % Neutrophils # 6.2 (1.3-7.7) k/uL Lymphocytes # 1.2 (1.0-4.8) k/uL Monocytes # 0.5 (0-1.0) k/uL Eosinophils # 0.0 (0-0.7) k/uL Basophils # 0.0 (0-0.2) k/uL Hypochromasia Marked Anisocytosis Slight Macrocytosis Slight PT 10.5 (10.0-12.5) sec INR 1.0 (<1.2) APTT 24.7 (22.0-30.0) sec D-Dimer 1.15 H (<0.60) mg/L FEU Sample Site ABG pH (7.35-7.45) ABG pCO2 (35-45) mmHg ABG pO2 (83-108) mmHg ABG HCO3 (21-25) mmol/L ABG Total CO2 (19-24) mmol/L ABG O2 Saturation (94-97) % ABG Base Excess mmol/L Nav Test Hemoglobin (11.4-16.0) gm/dL FiO2 % Sodium (137-145) mmol/L Potassium (3.5-5.1) mmol/L Chloride (98-107) mmol/L Carbon Dioxide (22-30) mmol/L Anion Gap mmol/L BUN (7-17) mg/dL Creatinine (0.52-1.04) mg/dL Est GFR (CKD-EPI)AfAm (>60 ml/min/1.73 sqM) Est GFR (CKD-EPI)NonAf (>60 ml/min/1.73 sqM) Glucose (74-99) mg/dL Plasma Lactic Acid Jozef (0.7-2.0) mmol/L Calcium (8.4-10.2) mg/dL Magnesium (1.6-2.3) mg/dL Total Bilirubin (0.2-1.3) mg/dL AST (14-36) U/L ALT (4-34) U/L Alkaline Phosphatase (38-126) U/L Troponin I (0.000-0.034) ng/mL C-Reactive Protein (<1.0) mg/dL NT-Pro-B Natriuret Pep 327 pg/mL Total Protein (6.3-8.2) g/dL Albumin (3.5-5.0) g/dL Urine Color Urine Appearance (Clear) Urine pH (5.0-8.0) Ur Specific [place] (1.001-1.035) Urine Protein (Negative) Urine Glucose (UA) (Negative) Urine Ketones (Negative) Urine Blood (Negative) Urine Nitrite (Negative) Urine Bilirubin (Negative) Urine Urobilinogen (<2.0) mg/dL Ur Leukocyte Esterase (Negative) Urine RBC (0-5) /hpf Urine WBC (0-5) /hpf Urine Bacteria (None) /hpf Influenza Type A (PCR) (Not Detectd) Influenza Type B (PCR) (Not Detectd) RSV (PCR) (Not Detectd) SARS-CoV-2 (PCR) (Not Detectd) 06/13/24 06/13/24 06/13/24 Range/Units 06:35 06:35 06:35 WBC (3.8-10.6) k/uL RBC (3.80-5.40) m/uL Hgb (11.4-16.0) gm/dL Hct (34.0-46.0) % MCV (80.0-100.0) fL MCH (25.0-35.0) pg MCHC (31.0-37.0) g/dL RDW (11.5-15.5) % Plt Count (150-450) k/uL MPV Neutrophils % % Lymphocytes % % Monocytes % % Eosinophils % % Basophils % % Neutrophils # (1.3-7.7) k/uL Lymphocytes # (1.0-4.8) k/uL Monocytes # (0-1.0) k/uL Eosinophils # (0-0.7) k/uL Basophils # (0-0.2) k/uL Hypochromasia Anisocytosis Macrocytosis PT (10.0-12.5) sec INR (<1.2) APTT (22.0-30.0) sec D-Dimer (<0.60) mg/L FEU Sample Site ABG pH (7.35-7.45) ABG pCO2 (35-45) mmHg ABG pO2 (83-108) mmHg ABG HCO3 (21-25) mmol/L ABG Total CO2 (19-24) mmol/L ABG O2 Saturation (94-97) % ABG Base Excess mmol/L Nav Test Hemoglobin (11.4-16.0) gm/dL FiO2 % Sodium 145 (137-145) mmol/L Potassium 3.4 L (3.5-5.1) mmol/L Chloride 100 (98-107) mmol/L Carbon Dioxide 35 H (22-30) mmol/L Anion Gap 10 mmol/L BUN 60 H (7-17) mg/dL Creatinine 1.60 H (0.52-1.04) mg/dL Est GFR (CKD-EPI)AfAm 33 (>60 ml/min/1.73 sqM) Est GFR (CKD-EPI)NonAf 29 (>60 ml/min/1.73 sqM) Glucose 143 H (74-99) mg/dL Plasma Lactic Acid Jozef 1.1 (0.7-2.0) mmol/L Calcium 9.6 (8.4-10.2) mg/dL Magnesium 2.3 (1.6-2.3) mg/dL Total Bilirubin 0.6 (0.2-1.3) mg/dL AST 41 H (14-36) U/L ALT 24 (4-34) U/L Alkaline Phosphatase 91 (38-126) U/L Troponin I 0.027 (0.000-0.034) ng/mL C-Reactive Protein (<1.0) mg/dL NT-Pro-B Natriuret Pep pg/mL Total Protein 7.1 (6.3-8.2) g/dL Albumin 3.9 (3.5-5.0) g/dL Urine Color Urine Appearance (Clear) Urine pH (5.0-8.0) Ur Specific [place] (1.001-1.035) Urine Protein (Negative) Urine Glucose (UA) (Negative) Urine Ketones (Negative) Urine Blood (Negative) Urine Nitrite (Negative) Urine Bilirubin (Negative) Urine Urobilinogen (<2.0) mg/dL Ur Leukocyte Esterase (Negative) Urine RBC (0-5) /hpf Urine WBC (0-5) /hpf Urine Bacteria (None) /hpf Influenza Type A (PCR) (Not Detectd) Influenza Type B (PCR) (Not Detectd) RSV (PCR) (Not Detectd) SARS-CoV-2 (PCR) (Not Detectd) 06/13/24 06/13/24 06/13/24 Range/Units 07:00 08:14 08:14 WBC (3.8-10.6) k/uL RBC (3.80-5.40) m/uL Hgb (11.4-16.0) gm/dL Hct (34.0-46.0) % MCV (80.0-100.0) fL MCH (25.0-35.0) pg MCHC (31.0-37.0) g/dL RDW (11.5-15.5) % Plt Count (150-450) k/uL MPV Neutrophils % % Lymphocytes % % Monocytes % % Eosinophils % % Basophils % % Neutrophils # (1.3-7.7) k/uL Lymphocytes # (1.0-4.8) k/uL Monocytes # (0-1.0) k/uL Eosinophils # (0-0.7) k/uL Basophils # (0-0.2) k/uL Hypochromasia Anisocytosis Macrocytosis PT (10.0-12.5) sec INR (<1.2) APTT (22.0-30.0) sec D-Dimer (<0.60) mg/L FEU Sample Site R radial ABG pH 7.39 (7.35-7.45) ABG pCO2 67 H (35-45) mmHg ABG pO2 92 (83-108) mmHg ABG HCO3 40 H* (21-25) mmol/L ABG Total CO2 42 H (19-24) mmol/L ABG O2 Saturation 96.3 (94-97) % ABG Base Excess 11.9 mmol/L Nav Test Yes Hemoglobin 13.2 (11.4-16.0) gm/dL FiO2 100 % Sodium (137-145) mmol/L Potassium (3.5-5.1) mmol/L Chloride (98-107) mmol/L Carbon Dioxide (22-30) mmol/L Anion Gap mmol/L BUN (7-17) mg/dL Creatinine (0.52-1.04) mg/dL Est GFR (CKD-EPI)AfAm (>60 ml/min/1.73 sqM) Est GFR (CKD-EPI)NonAf (>60 ml/min/1.73 sqM) Glucose (74-99) mg/dL Plasma Lactic Acid Jozef (0.7-2.0) mmol/L Calcium (8.4-10.2) mg/dL Magnesium (1.6-2.3) mg/dL Total Bilirubin (0.2-1.3) mg/dL AST (14-36) U/L ALT (4-34) U/L Alkaline Phosphatase (38-126) U/L Troponin I (0.000-0.034) ng/mL C-Reactive Protein (<1.0) mg/dL NT-Pro-B Natriuret Pep pg/mL Total Protein (6.3-8.2) g/dL Albumin (3.5-5.0) g/dL Urine Color Light Yellow Urine Appearance Clear (Clear) Urine pH 6.5 (5.0-8.0) Ur Specific [place] 1.013 (1.001-1.035) Urine Protein 1+ H (Negative) Urine Glucose (UA) Trace H (Negative) Urine Ketones Negative (Negative) Urine Blood Trace H (Negative) Urine Nitrite Negative (Negative) Urine Bilirubin Negative (Negative) Urine Urobilinogen <2.0 (<2.0) mg/dL Ur Leukocyte Esterase Large H (Negative) Urine RBC 2 (0-5) /hpf Urine WBC 74 H (0-5) /hpf Urine Bacteria Rare H (None) /hpf Influenza Type A (PCR) Not Detected (Not Detectd) Influenza Type B (PCR) Not Detected (Not Detectd) RSV (PCR) Not Detected (Not Detectd) SARS-CoV-2 (PCR) Detected A (Not Detectd) 06/13/24 Range/Units 08:14 WBC (3.8-10.6) k/uL RBC (3.80-5.40) m/uL Hgb (11.4-16.0) gm/dL Hct (34.0-46.0) % MCV (80.0-100.0) fL MCH (25.0-35.0) pg MCHC (31.0-37.0) g/dL RDW (11.5-15.5) % Plt Count (150-450) k/uL MPV Neutrophils % % Lymphocytes % % Monocytes % % Eosinophils % % Basophils % % Neutrophils # (1.3-7.7) k/uL Lymphocytes # (1.0-4.8) k/uL Monocytes # (0-1.0) k/uL Eosinophils # (0-0.7) k/uL Basophils # (0-0.2) k/uL Hypochromasia Anisocytosis Macrocytosis PT (10.0-12.5) sec INR (<1.2) APTT (22.0-30.0) sec D-Dimer (<0.60) mg/L FEU Sample Site ABG pH (7.35-7.45) ABG pCO2 (35-45) mmHg ABG pO2 (83-108) mmHg ABG HCO3 (21-25) mmol/L ABG Total CO2 (19-24) mmol/L ABG O2 Saturation (94-97) % ABG Base Excess mmol/L Nav Test Hemoglobin (11.4-16.0) gm/dL FiO2 % Sodium (137-145) mmol/L Potassium (3.5-5.1) mmol/L Chloride (98-107) mmol/L Carbon Dioxide (22-30) mmol/L Anion Gap mmol/L BUN (7-17) mg/dL Creatinine (0.52-1.04) mg/dL Est GFR (CKD-EPI)AfAm (>60 ml/min/1.73 sqM) Est GFR (CKD-EPI)NonAf (>60 ml/min/1.73 sqM) Glucose (74-99) mg/dL Plasma Lactic Acid Jozef (0.7-2.0) mmol/L Calcium (8.4-10.2) mg/dL Magnesium (1.6-2.3) mg/dL Total Bilirubin (0.2-1.3) mg/dL AST (14-36) U/L ALT (4-34) U/L Alkaline Phosphatase (38-126) U/L Troponin I (0.000-0.034) ng/mL C-Reactive Protein 15.1 H (<1.0) mg/dL NT-Pro-B Natriuret Pep pg/mL Total Protein (6.3-8.2) g/dL Albumin (3.5-5.0) g/dL Urine Color Urine Appearance (Clear) Urine pH (5.0-8.0) Ur Specific [place] (1.001-1.035) Urine Protein (Negative) Urine Glucose (UA) (Negative) Urine Ketones (Negative) Urine Blood (Negative) Urine Nitrite (Negative) Urine Bilirubin (Negative) Urine Urobilinogen (<2.0) mg/dL Ur Leukocyte Esterase (Negative) Urine RBC (0-5) /hpf Urine WBC (0-5) /hpf Urine Bacteria (None) /hpf Influenza Type A (PCR) (Not Detectd) Influenza Type B (PCR) (Not Detectd) RSV (PCR) (Not Detectd) SARS-CoV-2 (PCR) (Not Detectd) - Radiology Data Radiology results: report reviewed, image reviewed Disposition Clinical Impression: Acute hypoxemic respiratory failure due to COVID-19, SOL (acute kidney injury), UTI (urinary tract infection) Disposition: ADMITTED IP TO THIS HOSP
[2024-06-13 07:04] LABS: ABG Base Excess 11.9 mmol/L; ABG Oxygen Saturation 96.3 % (94-97); ABG PCO2 67 mmHg (35-45); ABG PH 7.39 (7.35-7.45); ABG PO2 92 mmHg (83-108); ABG TCO2 42 mmol/L (19-24); Allen Test Performed? Yes
[2024-06-13 07:14] LABS: ABG HCO3 40 mmol/L (21-25)
[2024-06-13 07:21] LABS: ALT 24 U/L (4-34); AST 41 U/L (14-36); African American GFR (CKD) 33 (>60 ml/min/1.73 sqM); Albumin 3.9 g/dL (3.5-5.0); Alkaline Phosphatase 91 U/L (38-126); Blood Urea Nitrogen 60 mg/dL (7-17); Calcium 9.6 mg/dL (8.4-10.2); Chloride 100 mmol/L (98-107); Glucose 143 mg/dL (74-99); Magnesium 2.3 mg/dL (1.6-2.3); Non-African American GFR(CKD) 29 (>60 ml/min/1.73 sqM); Potassium 3.4 mmol/L (3.5-5.1); Sodium 145 mmol/L (137-145); Total Bilirubin 0.6 mg/dL (0.2-1.3); Total Protein 7.1 g/dL (6.3-8.2)
[2024-06-13 07:23] LABS: Anisocytosis Slight; Basophils % (A) 0 %; Eosinophils % (A) 0 %; HCT 45.3 % (34.0-46.0); Hypochromasia Marked; Lymphocytes # (A) 1.2 k/uL (1.0-4.8); Lymphocytes % (A) 14 %; MCH 31.1 pg (25.0-35.0); MCHC 30.9 g/dL (31.0-37.0); MCV 100.7 fL (80.0-100.0); Macrocytosis Slight; Mean Platelet Volume 8.5; Monocytes # (A) 0.5 k/uL (0-1.0); Monocytes % (A) 6 %; Neutrophils # (A) 6.2 k/uL (1.3-7.7); Neutrophils % (A) 76 %; Platelet Count 318 k/uL (150-450); RBC 4.49 m/uL (3.80-5.40); RDW 16.4 % (11.5-15.5); WBC 8.1 k/uL (3.8-10.6)
[2024-06-13 07:24] LABS: Partial Thromboplastin Time 24.7 sec (22.0-30.0); Prothrombin Time 10.5 sec (10.0-12.5)
--- NOTE | 2024-06-13 07:27 | XR ---
EXAMINATION TYPE: XR chest 1V DATE OF EXAM: 06/13/2024 COMPARISON: 12/06/2022 CLINICAL INDICATION: Female, 88 years old with history of shortness of breath, CHAVEZ; TECHNIQUE: Single frontal view of the chest is obtained. FINDINGS: Patient is rotated towards the right ultrasound and normal cardiac mediastinal contours. H eart appears borderline to mildly enlarged. Patchy bilateral lower lung opacities are noted. IMPRESSION: Limited, rotated exam. There are patchy bibasilar areas of airspace disease. Correlate f or infectious/aspiration pneumonitis versus sequela of CHF. [facility], , 06/13/2024 7:24 AM
[2024-06-13] MEDS ORDERED: PNEUMONIA PROTOCOL UTILIZED 1 EACH MISC PO PRN (07:29)
[2024-06-13 07:31] LABS: Anion Gap 10 mmol/L
[2024-06-13 07:32] LABS: Carbon Dioxide 35 mmol/L (22-30)
[2024-06-13] MEDS: FUROSEMIDE 10 MG/ML 4 ML VIAL IV STA (08:33)
[2024-06-13] MEDS: AZITHROMYCIN 500 MG in SODIUM CHLORIDE 0.9% 250 ML IVPB STA (08:55)
[2024-06-13 08:57] LABS: Appearance,Urine Clear (Clear); Bacteria,Urine Rare /hpf; Bilirubin,Urine Negative (Negative); Blood,Urine Trace (Negative); Color,Urine Light Yellow; Glucose,Urine (UA) Trace (Negative); Ketones,Urine Negative (Negative); Leukocyte Esterase,Urine Large (Negative); Nitrite,Urine Negative (Negative); PH, Urine 6.5 (5.0-8.0); Protein,Urine 1+ (Negative); RBC,Urine 2 /hpf (0-5); Specific Gravity,Urine 1.013 (1.001-1.035); Urobilinogen,Urine <2.0 mg/dL (<2.0); WBC,Urine 74 /hpf (0-5)
[2024-06-13] MEDS ORDERED: ALBUTEROL HFA INHALER INHALATION PRN (09:07)
--- NOTE | 2024-06-13 09:09 | US ---
EXAMINATION TYPE: US venous doppler duplex LE DATE OF EXAM: 06/13/2024 8:57 AM COMPARISON: Us(05/18/2017) CLINICAL INDICATION: Female, 88 years old with history of Leg swelling, elevated d-dimer; bilateral s welling, TECHNIQUE: The lower extremity deep venous system is examined utilizing real time linear array sonog alis with graded compression, color doppler sonography, and spectral doppler. SIDE PERFORMED: Bilateral FINDINGS: VESSELS IMAGED: Common Femoral Vein Deep Femoral Vein Greater Saphenous Vein * Femoral Vein Popliteal Vein Small Saphenous Vein * Proximal Calf Veins (* superficial vessels) Right Leg: limited due to pt body habitus and swelling, normal as seen, Color Doppler imaging shows patency of the vessels. Spectral waveforms are within normal limits. Left Leg: limited due to pt body habitus and swelling, normal as seen, Color Doppler imaging shows p atency of the vessels. Spectral waveforms are within normal limits. IMPRESSION: 1. Some exam limitations due to soft tissue edema. No DVT identified within the bilateral lower extre mities imaged from the groin to the upper calf. 2. A 4.5 x 4.0 x 1.1 cm Valdes cyst noted on the right. [facility], , 06/13/2024 9:07 AM
[2024-06-13] MEDS ORDERED: NALOXONE 0.4 MG/ML 1 ML VIAL IV PRN (09:14)
[2024-06-13] MEDS ORDERED: HYDROcodone/APAP 5-325MG 1 EACH TAB PO PRN (09:14)
[2024-06-13] MEDS ORDERED: ONDANSETRON 4 MG/2 ML VIAL IVP PRN (09:14)
[2024-06-13] MEDS ORDERED: ACETAMINOPHEN TAB 325 MG TAB PO PRN (09:14)
[2024-06-13] MEDS: DEXAMETHASONE SOD PHOSPHATE 10 MG/ML 1 ML VIAL IVP SCH (09:21)
[2024-06-13] MEDS: POTASSIUM CHLORIDE ER 20 MEQ TAB.ER PO STA (09:24)
[2024-06-13] MEDS: POTASSIUM CHLORIDE 20 MEQ in WATER FOR INJECTION 1 100ML.BAG IVPB STA (10:03)
[2024-06-13] MEDS: CHOLECALCIFEROL 25 MCG (1000 IU) TABLET PO SCH (11:17)
[2024-06-13] MEDS: MULTIVITAMINS, THERA 1 EACH TAB PO SCH (11:18)
[2024-06-13] MEDS: FUROSEMIDE 40 MG TAB PO SCH (11:18)
[2024-06-13] MEDS: oxyCODONE-APAP 10-325MG 1 EACH TAB PO SCH (11:18)
--- NOTE | 2024-06-13 11:47 | P.HPIM ---
History of Present Illness This is a pleasant 88 years old female who presents from [facility] for hypoxic respiratory failure. Patient is poor historian and cannot provide information so it was obtained from staff and record. [facility] she was saturating at 83% on 3 L oxygen which is her baseline. No significant coughing, no significant chest pain reported Abdomen looks soft Legs with minimal edema. Patient on admission she was placed on nonrebreather at 15 L/min, currently she is on BiPAP with good oxygen saturation, patient is afebrile Labs reviewed, WBC within the reference range 8.1, rest of CBC, INR, LFTs were unremarkable. Troponin is negative, proBNP is normal at 327. Creatinine slightly above baseline at 1.6 with potassium low at 3.4. Patient urinalysis is suspicious for infection COVID tested positive while out of [place] V and influenza were negative EKG showing sinus tachycardia at [address]-T changes Venous Doppler is negative for DVT but there is Valdes's cyst Chest x-ray: There is patchy bibasilar areas of airspace disease. Pneumonitis versus CHF. Review of Systems ROS unobtainable: due to mental status 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, debilitated secondary to chronic illness and the patient has been essentially wheelchair/bed bound, nonambulatory, degenerative arthritis, hyperlipidemia, hypertension, cataracts History of Any Multi-Drug Resistant Organisms: None Reported Past Surgical History: Appendectomy, Heart Catheterization With Stent Additional Past Surgical History / Comment(s): EXPOLARATORY LAP- REMOVED LT FALLOPIAN TUBE Past Anesthesia/Blood Transfusion Reactions: No Reported Reaction Date of Last Stent Placement:: 2009 Past Psychological History: No Psychological Hx Reported Smoking Status: Former smoker Past Alcohol Use History: None Reported Past Drug Use History: None Reported - Past Family History Father Additional Family Medical History / Comment(s): Father AT AGE 62, WAS AN ALCOHOLIC- FROM COMPLICATIONS OF THAT Mother Family Medical History: Dementia Additional Family Medical History / Comment(s): AT AGE 83 Medications and Allergies Home Medications Medication Instructions Recorded Confirmed Type Aspirin EC [Ecotrin Low Dose] 81 mg PO HS@209901/20/16 06/13/24 History Clopidogrel [Plavix] 75 mg PO HS@209916 06/13/24 History Atorvastatin [Lipitor] 40 mg PO HS@209911/30/22 06/13/24 History Cholecalciferol [Vitamin D3 (25 50 mcg PO DAILY@1200 11/30/22 06/13/24 History Mcg = 1000 Iu)] Hydroxyurea [Hydrea] 500 mg PO HS@2100 11/30/22 06/13/24 History Multivitamins, Thera [Multivitamin 1 tab PO DAILY@1200 11/30/22 06/13/24 History (formulary)] Gabapentin 300 mg PO BID@0600,1800 #6 cap 12/12/22 06/13/24 Rx Furosemide [Lasix] 40 mg PO BID@0600,1200 06/13/24 06/13/24 History Sennosides/Docusate Sodium [Senna 1 tab PO HS@209906/13/24 06/13/24 History Plus 8.6-50 mg Tablet] oxyCODONE-APAP 10-325MG [Percocet 1 tab PO Q6H 06/13/24 06/13/24 History 10-325 mg] Allergies Allergy/AdvReac Type Severity Reaction Status Date / Time lansoprazole Allergy Rash/Hives Verified 06/13/24 10:08 misoprostol [From Cytotec] Allergy Unknown Verified 06/13/24 10:08 omeprazole Allergy Rash/Hives Verified 06/13/24 10:08 Physical Exam Vitals: Vital Signs Temp Pulse Resp BP Pulse Ox FiO2 06/13/24 11:08 96 16 138/78 96 06/13/24 09:12 93 16 117/67 93 L 06/13/24 07:23 98.6 F 98 16 124/63 95 06/13/24 07:20 50 06/13/24 06:17 98.2 F 97 13 120/79 96 Intake and Output 06/12/24 06/13/24 06/13/24 22:59 06:59 14:59 Output Total 200 Balance -200 Output: Urine 200 Uretheral (Giles) 200 Other: Weight 99.337 kg --GENERAL: The patient is drowsy, on BiPAP mask, hard for her to interact and goes to sleep right away. Obese HEENT: Pupils are round and equally reacting to light. EOMI. No scleral icterus. No conjunctival pallor. Normocephalic, atraumatic. No pharyngeal erythema. No thyromegaly. CARDIOVASCULAR: S1 and S2 present. No murmurs, rubs, or gallops. -PULMONARY: Chest is clear to auscultation, no wheezing , no crackles. Distant breathing sound, on BiPAP. Tachypneic with scattered crepitation ABDOMEN: Soft, nontender, nondistended, normoactive bowel sounds. No palpable organomegaly. MUSCULOSKELETAL: No joint swelling or deformity. EXTREMITIES: No cyanosis, clubbing, or pedal edema. NEUROLOGICAL: Gross neurological examination did not reveal any focal deficits. SKIN: No rashes. no petechiae. Results CBC & Chem 7: 06/13/24 06:35 06/13/24 06:35 Labs: Abnormal Lab Results - Last 24 Hours (Table) 06/13/24 06/13/24 06/13/24 Range/Units 06:35 06:35 06:35 MCV 100.7 H (80.0-100.0) fL MCHC 30.9 L (31.0-37.0) g/dL RDW 16.4 H (11.5-15.5) % D-Dimer 1.15 H (<0.60) mg/L FEU ABG pCO2 (35-45) mmHg ABG HCO3 (21-25) mmol/L ABG Total CO2 (19-24) mmol/L Potassium 3.4 L (3.5-5.1) mmol/L Carbon Dioxide 35 H (22-30) mmol/L BUN 60 H (7-17) mg/dL Creatinine 1.60 H (0.52-1.04) mg/dL Glucose 143 H (74-99) mg/dL AST 41 H (14-36) U/L C-Reactive Protein (<1.0) mg/dL Urine Protein (Negative) Urine Glucose (UA) (Negative) Urine Blood (Negative) Ur Leukocyte Esterase (Negative) Urine WBC (0-5) /hpf Urine Bacteria (None) /hpf SARS-CoV-2 (PCR) (Not Detectd) 06/13/24 06/13/24 06/13/24 Range/Units 07:00 08:14 08:14 MCV (80.0-100.0) fL MCHC (31.0-37.0) g/dL RDW (11.5-15.5) % D-Dimer (<0.60) mg/L FEU ABG pCO2 67 H (35-45) mmHg ABG HCO3 40 H* (21-25) mmol/L ABG Total CO2 42 H (19-24) mmol/L Potassium (3.5-5.1) mmol/L Carbon Dioxide (22-30) mmol/L BUN (7-17) mg/dL Creatinine (0.52-1.04) mg/dL Glucose (74-99) mg/dL AST (14-36) U/L C-Reactive Protein (<1.0) mg/dL Urine Protein 1+ H (Negative) Urine Glucose (UA) Trace H (Negative) Urine Blood Trace H (Negative) Ur Leukocyte Esterase Large H (Negative) Urine WBC 74 H (0-5) /hpf Urine Bacteria Rare H (None) /hpf SARS-CoV-2 (PCR) Detected A (Not Detectd) 06/13/24 Range/Units 08:14 MCV (80.0-100.0) fL MCHC (31.0-37.0) g/dL RDW (11.5-15.5) % D-Dimer (<0.60) mg/L FEU ABG pCO2 (35-45) mmHg ABG HCO3 (21-25) mmol/L ABG Total CO2 (19-24) mmol/L Potassium (3.5-5.1) mmol/L Carbon Dioxide (22-30) mmol/L BUN (7-17) mg/dL Creatinine (0.52-1.04) mg/dL Glucose (74-99) mg/dL AST (14-36) U/L C-Reactive Protein 15.1 H (<1.0) mg/dL Urine Protein (Negative) Urine Glucose (UA) (Negative) Urine Blood (Negative) Ur Leukocyte Esterase (Negative) Urine WBC (0-5) /hpf Urine Bacteria (None) /hpf SARS-CoV-2 (PCR) (Not Detectd) Assessment and Plan Assessment: acute COVID infection, with possible pneumonia and hypoxia Bibasilar groundglass opacity suspicious for pneumonia, could be secondary to COVID infection. Rule out bacterial superinfection Acute on chronic hypoxic respiratory failure Mildly elevated D-dimer with negative venous Doppler of the leg. Pending VQ scan Abnormal urine analysis suspicious for UTI Chronic CHF. Obesity with BMI of 40.1 Plan: Continue with ceftriaxone and Zithromax and check.proCalcitonin Continue with dexamethasone Start vitamin D, vitamin C and zinc Continue with breathing treatment Currently patient on BiPAP Pulmonary team consult Infectious disease team consult Labs and medication were reviewed.. Continue same treatment. Continue with symptomatic treatment. Resume home medication. Monitor labs and vitals. DVT and GI prophylaxis. Further recommendations as per clinical course of the jaskaran cesar DVT prophylaxis: Subcutaneou Lovenox GI Prophylaxis: Pepcid PT/OT: Pending Prognosis is guarded
[2024-06-13] MEDS: ENOXAPARIN 30 MG/0.3 ML SYRINGE SQ SCH (11:53)
[2024-06-13] MEDS: ALBUTEROL HFA INHALER INHALATION STA (12:02)
[2024-06-13] MEDS ORDERED: ALBUTEROL HFA INHALER INHALATION SCH (14:00)
--- NOTE | 2024-06-13 15:41 | NM ---
EXAMINATION TYPE: NM pul perfusion DATE OF EXAM: 06/13/2024 COMPARISON: 06/14/2024. CLINICAL INDICATION: Female, 88 years old with history of Elevated d-dimer, hypoxia; Following administration of 3.3 mCi Tc 99m MAA. Images obtained post injection. FINDINGS: No large segmental defects on perfusion only imaging. IMPRESSION: No evidence for pulmonary emboli by modified PIOPED 2 perfusion only criteria. [facility], , 06/13/2024 3:38 PM
[2024-06-13] MEDS: GABAPENTIN 300 MG CAP PO SCH (17:11)
--- NOTE | 2024-06-13 17:46 | P.CNPUL ---
History of Present Illness Consult date: 06/13/24 Reason for consult: dyspnea, hypoxemia History of present illness: This is an 88-year-old female patient was seen in the emergency department bec ause of acute on chronic shortness of breath and the patient was diagnosed having acute COVID-19 infection. The patient is a poor historian. She is a shelter resident. She resides in the [facility]. The patient was noted to have labored breathing and her pulse ox dropped down to 83% reads of oxygen nasal cannula. Denied having any cough or sputum production. Denies having any chest pain. Noted the patient is quite poor historian. In the emergency, the patient was placed on high flow oxygen and subsequently she was transition to BiPAP pressure of 12 over 6 cm of water on FiO2 of 50%. COVID-19 testing was positive. The rest of the viral screen was negative. The exact o nset of symptoms is not known. Vaccination is not known. The patient's rest of the blood work shows a white cell count of 8.1, hemoglobin of 14 and a platelet count of 318. D-dimer is at 1.15 and the rest of the coagulation profile was within normal limits. The blood gas while on BiPAP with an FiO2 of 100% showed a pH of 7.39 with a pCO2 of 67 and pO2 of 92. The patient seem to be quite comfortable and subsequently the patient was taken off the BiPAP and placed on 10 L of oxygen nasal cannula and the patient is currently on 6 L O2. Sodium is at 145, BUN is a 68 and 1.6. LFTs are normal. Troponin is negative. CRP is at 15.1. proBNP level is at 327. UA is negative. The white cell count is 8.1 with a hemoglobin of 14 and a platelet count of 318. Chest x-ray is rotated. The VQ scan shows no suspicion for pulmonary embolism. The patient is currently on Decadron. The patient IV Rocephin and Zithromax. Patient is on Lovenox 30 mg subcu for DVT prophylaxis. Home medication resumed. Review of Systems Constitutional: Reports daytime sleepiness, Reports fatigue, Reports weakness, Reports weight gain Eyes: denies as per HPI, denies blurred vision, denies bulging eye, denies decreased vision, denies diplopia, denies discharge, denies dry eye, denies irritation, denies itching, denies pain, denies photophobia, denies loss of peripheral vision, denies loss of vision, denies tunnel vision/blind spots Ears: deny: decreased hearing, ear discharge, earache, tinnitus Ears, nose, mouth and throat: Reports as per HPI Breasts: absent: as per HPI, change in shape, gynecomastia, masses, nipple discharge, pain, skin changes, swelling Breasts: Reports as per HPI Cardiovascular: Reports decreased exercise tolerance, Reports dyspnea on exertion Respiratory: Reports dyspnea Gastrointestinal: Reports as per HPI Genitourinary: Reports as per HPI Menstruation: Reports as per HPI Musculoskeletal: Reports as per HPI Musculoskeletal: absent: ankle pain, ankle stiffness, ankle swelling, as per HPI, elbow pain, elbow stiffness, elbow swelling, foot pain, foot stiffness, foot swelling, hand pain, hand stiffness, hand swelling, hip pain, hip st iffness, hip swelling, knee pain, knee stiffness, knee swelling, shoulder pain, shoulder stiffness, shoulder swelling, wrist pain, wrist stiffness, wrist swelling Integumentary: Reports as per HPI Neurological: Reports gait dysfunction, Reports weakness Psychiatric: Reports as per HPI Endocrine: Reports as per HPI, Reports fatigue Hematologic/Lymphatic: Reports as per HPI Past Medical History Past Medical History: Coronary Artery Disease (CAD), Hyperlipidemia, Hypertension Additional Past Medical History / Comment(s): Coronary artery disease with previous coronary intervention and stenting, questionable history of multiple sclerosis, debilitated secondary to chronic illness and the patient has been es sentially wheelchair/bed bound, nonambulatory, degenerative arthritis, hyperlipidemia, hypertension, cataracts History of Any Multi-Drug Resistant Organisms: None Reported Past Surgical History: Appendectomy, Heart Catheterization With Stent Additional Past Surgical History / Comment(s): EXPOLARATORY LAP- REMOVED LT FALLOPIAN TUBE Past Anesthesia/Blood Transfusion Reactions: No Reported Reaction Date of Last Stent Placement:: 2009 Past Psychological History: No Psychological Hx Reported Smoking Status: Former smoker Past Alcohol Use History: None Reported Past Drug Use History: None Reported - Past Family History Father Additional Family Medical History / Comment(s): Father AT AGE 62, WAS AN ALCOHOLIC- FROM COMPLICATIONS OF THAT Mother Family Medical History: Dementia Additional Family Medical History / Comment(s): AT AGE 83 Medications and Allergies Home Medications Medication Instructions Recorded Confirmed Type Aspirin EC [Ecotrin Low Dose] 81 mg PO HS@2100 01/20/16 11/29/24 History Clopidogrel [Plavix] 75 mg PO HS@209901/20/16 06/13/24 History Atorvastatin [Lipitor] 40 mg PO HS@209911/30/22 06/13/24 History Cholecalciferol [Vitamin D3 (25 50 mcg PO DAILY@1200 11/30/22 06/13/24 History Mcg = 1000 Iu)] Hydroxyurea [Hydrea] 500 mg PO HS@209911/30/22 06/13/24 History Multivitamins, Thera [Multivitamin 1 tab PO DAILY@1200 11/30/22 06/13/24 History (formulary)] Gabapentin 300 mg PO BID@0600,1800 #6 cap 12/12/22 06/13/24 Rx Furosemide [Lasix] 40 mg PO BID@0600,1200 06/13/24 06/13/24 History Sennosides/Docusate Sodium [Senna 1 tab PO HS@209906/13/24 06/13/24 History Plus 8.6-50 mg Tablet] oxyCODONE-APAP 10-325MG [Percocet 1 tab PO Q6H 06/13/24 06/13/24 History 10-325 mg] Allergies Allergy/AdvReac Type Severity Reaction Status Date / Time lansoprazole Allergy Rash/Hives Verified 06/13/24 10:08 misoprostol [From Cytotec] Allergy Unknown Verified 06/13/24 10:08 omeprazole Allergy Rash/Hives Verified 06/13/24 10:08 Physical Exam Vitals: Vital Signs Temp Pulse Resp BP Pulse Ox FiO2 06/13/24 17:20 93 18 154/88 92 L 06/13/24 16:26 89 18 149/83 90 L 06/13/24 15:41 97.6 F 88 16 122/90 93 L 06/13/24 15:33 92 L 06/13/24 13:55 88 16 131/85 93 L 06/13/24 11:51 50 06/13/24 11:08 96 16 138/78 96 06/13/24 09:12 93 16 117/67 93 L 06/13/24 07:23 98.6 F 98 16 124/63 95 06/13/24 07:20 50 06/13/24 06:17 98.2 F 97 13 120/79 96 Intake and Output 11/29/24 11/29/24 11/29/24 06:59 14:59 22:59 Output Total 200 500 Balance -200 -500 Output: Urine 200 500 Uretheral (Giles) 200 500 Other: Weight 99.337 kg GENERAL: Revealed a morbidly obese 87-year-old female, lethargic and sleepy and arousable and answers questions appropriately. She is currently on 6 L oxygen cannula per Head: Atraumatic, normocephalic. HEENT:PERRLA, EOMI, nonicteric, no neck masses no JVD. CARDIOVASCULAR Distant S1 and S2, no S3 gallop, 2/6 systolic murmur heard best over the aortic area and left upper sternal border. PULMONARY Symmetrical chest expansion, crackles at the bases, no wheezing diminished breath sounds throughout anteriorly. MUSCULOSKELETAL:No deformities and no limitation in range of motion. EXTREMITIES trace of bipedal edema, no clubbing, no cyanosis. NEUROLOGICAL Patient is awake, lethargic. Arousable. Moving all 4 extremities without any limitation. No cranial nerve deficits. Examination of the skin revealed no evidence of significant rashes, suspicious appearing nevi or other concerning lesions. Results - Laboratory Findings CBC and BMP: 06/13/24 06:35 06/13/24 06:35 ABG ABG pH 7.39 (7.35-7.45) 06/13/24 07:00 ABG pCO2 67 mmHg (35-45) H 06/13/24 07:00 ABG pO2 92 mmHg (83-108) 06/13/24 07:00 ABG O2 Saturation 96.3 % (94-97) 06/13/24 07:00 PT/INR, D-dimer PT 10.5 sec (10.0-12.5) 06/13/24 06:35 INR 1.0 (<1.2) 06/13/24 06:35 D-Dimer 1.15 mg/L FEU (<0.60) H 06/13/24 06:35 Abnormal lab findings: Abnormal Labs 06/13/24 06/13/24 06/13/24 06:35 06:35 06:35 MCV 100.7 H MCHC 30.9 L RDW 16.4 H D-Dimer 1.15 H ABG pCO2 ABG HCO3 ABG Total CO2 Potassium 3.4 L Carbon Dioxide 35 H BUN 60 H Creatinine 1.60 H Glucose 143 H AST 41 H C-Reactive Protein Urine Protein Urine Glucose (UA) Urine Blood Ur Leukocyte Esterase Urine WBC Urine Bacteria SARS-CoV-2 (PCR) 06/13/24 06/13/24 06/13/24 07:00 08:14 08:14 MCV MCHC RDW D-Dimer ABG pCO2 67 H ABG HCO3 40 H* ABG Total CO2 42 H Potassium Carbon Dioxide BUN Creatinine Glucose AST C-Reactive Protein Urine Protein 1+ H Urine Glucose (UA) Trace H Urine Blood Trace H Ur Leukocyte Esterase Large H Urine WBC 74 H Urine Bacteria Rare H SARS-CoV-2 (PCR) Detected A 06/13/24 08:14 MCV MCHC RDW D-Dimer ABG pCO2 ABG HCO3 ABG Total CO2 Potassium Carbon Dioxide BUN Creatinine Glucose AST C-Reactive Protein 15.1 H Urine Protein Urine Glucose (UA) Urine Blood Ur Leukocyte Esterase Urine WBC Urine Bacteria SARS-CoV-2 (PCR) Assessment and Plan Plan: Acute COVID-19 infection, exact timing/onset of symptoms unknown. Vaccination status unknown.. Mild elevation of D-dimer. VQ scan is of a low probability/normal and suspicion for pulm embolism extremely low at this point. Acute on top of chronic hypoxic respiratory failure, initially placed on the BiPAP and the patient is currently on 6 L of O2 nasal cannula Chronic hypercapnic respiratory failure, compensated Chronic diastolic congestive heart failure, currently inactive and stable Moderate to severe pulmonary hypertension. Chronic cor pulmonale. Probable aortic stenosis. The patient may have an underlying aotic stenosis with a normal LV systolic function and mild to moderate tricuspid regurgitation, no evidence of any pericardial effusion. Note that the aortic valve was not adequately visualized and echocardiogram. Morbid obesity. Obstructive sleep apnea syndrome. Benign essential hypertension. History of multiple sclerosis and chronic medical debility. Hyperlipidemia. History of urine tract infections, UA is noted [facility] resident Plan Continue O2 and gradually titrated down to maintain saturation above 90%, currently on 6 L Utilize BiPAP overnight at the same setting Continue Decadron 6 mg IV every 24 hours No clear indication for pneumonia we will continue the same antibiotic coverage for now Lovenox for DVT prophylaxis Resume home medications Will continue to follow
[2024-06-13] MEDS: ALBUTEROL HFA INHALER INHALATION SCH (19:32)
[2024-06-13] MEDS: CLOPIDOGREL 75 MG TAB PO SCH (20:00)
[2024-06-13] MEDS: ASPIRIN 81 MG PO SCH (20:00)
[2024-06-13] MEDS: HYDROXYUREA 500 MG CAP PO SCH (20:00)
[2024-06-13] MEDS: SENNOSIDES-DOCUSATE SODIUM 1 EACH TAB PO SCH (20:00)
[2024-06-13] MEDS: ATORVASTATIN 40 MG TAB PO SCH (20:00)
[2024-06-13] MEDS: FAMOTIDINE 20 MG/2 ML VIAL IV SCH (20:00)
--- NOTE | 2024-06-14 07:27 | XR ---
EXAMINATION TYPE: XR chest 1V portable DATE OF EXAM: 06/14/2024 COMPARISON: 06/13/2024 CLINICAL INDICATION: Female, 88 years old with history of resp fail; TECHNIQUE: Single frontal view of the chest is obtained. FINDINGS: Exam is limited by rotation. There is no change in the bibasilar infiltrates. There is no pleural effusion or pneumothorax. The heart and pulmonary vasculature are normal for the technique. The osseous structures are intact IMPRESSION: No change in the acute cardiopulmonary process involving the lung bases likely acute pne umonia and/or atelectasis. [facility], , 06/14/2024 7:24 AM
[2024-06-14 07:52] LABS: Anisocytosis Slight; Basophils % (A) 0 %; Eosinophils % (A) 0 %; HCT 40.1 % (34.0-46.0); HGB 12.2 gm/dL (11.4-16.0); Hypochromasia Marked; Lymphocytes # (A) 1.3 k/uL (1.0-4.8); Lymphocytes % (A) 12 %; MCH 30.8 pg (25.0-35.0); MCHC 30.6 g/dL (31.0-37.0); MCV 100.7 fL (80.0-100.0); Macrocytosis Slight; Mean Platelet Volume 8.2; Monocytes # (A) 0.6 k/uL (0-1.0); Monocytes % (A) 6 %; Neutrophils # (A) 8.9 k/uL (1.3-7.7); Neutrophils % (A) 80 %; Platelet Count 370 k/uL (150-450); RBC 3.98 m/uL (3.80-5.40); RDW 16.4 % (11.5-15.5); WBC 11.1 k/uL (3.8-10.6)
[2024-06-14] MEDS: ZINC SULFATE 220 MG CAP PO SCH (07:52)
[2024-06-14] MEDS: ASCORBIC ACID 500 MG TAB PO SCH (07:52)
[2024-06-14 07:59] LABS: African American GFR (CKD) 30 (>60 ml/min/1.73 sqM); Anion Gap 5 mmol/L; Blood Urea Nitrogen 69 mg/dL (7-17); Calcium 9.7 mg/dL (8.4-10.2); Carbon Dioxide 39 mmol/L (22-30); Chloride 101 mmol/L (98-107); Glucose 135 mg/dL (74-99); Non-African American GFR(CKD) 26 (>60 ml/min/1.73 sqM); Potassium 3.1 mmol/L (3.5-5.1); Sodium 145 mmol/L (137-145)
[2024-06-14] MEDS ORDERED: AZITHROMYCIN 500 MG TAB PO SCH (09:00)
--- NOTE | 2024-06-14 09:05 | P.CONS ---
History of Present Illness - Reason for Consult Consult date: 06/13/24 Hypoxic respiratory failure due to COVID-19 Requesting physician: Peggy Marks - Chief Complaint Shortness of breath and low O2 sats x 1 day - History of Present Illness Patient is a 88-year-old female with a past medical history significant for hypertension hyperlipidemia coronary artery disease COPD and correction resident, patient has been brought into the hospital concerning for difficulty in breathing apparently the patient was noted to have a low O2 sats of 83% and subsequently the patient has been brought into the hospital by EMS and is not very clear when her symptoms started or if the patient ever tested positive for COVID-19 at that facility patient on arrival to the ER was hypoxic she has been initiated on a nasal cannula subsequently has been switched over to BiPAP with the patient is currently on patient was not running any fever and no fever have been recorded subsequently patient was not tachycardic or hypotensive patient did have a white count of 8.1, BUN and creatinine slightly elevated with a creatinine 1.60 urine has been positive patient also tested positive for COVID-19 did have chest x-ray limited rotated exam patient bibasilar areas of airspace disease did have venous Doppler no DVT there was evidence of Valdes's cy st patient be started on Lovenox dexamethasone Rocephin and Zithromax infectious disease was consulted for further management most information has been repeated for with discharge diagnosis time the patient is currently Palgic on the BiPAP and cannot provide any history Review of Systems Positive points has been mentioned in HPI complete review could not be obtained because of his underlying mental status Past Medical History Past Medical History: Coronary Artery Disease (CAD), Hyperlipidemia, Hypertension Additional Past Medical History / Comment(s): Coronary artery disease with previous coronary intervention and stenting, questionable history of multiple sclerosis, debilitated secondary to chronic illness and the patient has been essentially wheelchair/bed bound, nonambulatory, degenerative arthritis, hyperlipidemia, hypertension, cataracts History of Any Multi-Drug Resistant Organisms: None Reported Past Surgical History: Appendectomy, Heart Catheterization With Stent Additional Past Surgical History / Comment(s): EXPOLARATORY LAP- REMOVED LT FALLOPIAN TUBE Past Anesthesia/Blood Transfusion Reactions: No Reported Reaction Date of Last Stent Placement:: 2009 Past Psychological History: No Psychological Hx Reported Smoking Status: Former smoker Past Alcohol Use History: None Reported Past Drug Use History: None Reported - Past Family History Father Additional Family Medical History / Comment(s): Father AT AGE 62, WAS AN ALCOHOLIC- FROM COMPLICATIONS OF THAT Mother Family Medical History: Dementia Additional Family Medical History / Comment(s): AT AGE 83 Medications and Allergies Home Medications Medication Instructions Recorded Confirmed Type Aspirin EC [Ecotrin Low Dose] 81 mg PO HS@2100 01/20/16 06/13/24 History Clopidogrel [Plavix] 75 mg PO HS@2100 01/20/16 06/13/24 History Atorvastatin [Lipitor] 40 mg PO HS@209911/30/22 06/13/24 History Cholecalciferol [Vitamin D3 (25 50 mcg PO DAILY@1200 11/30/22 06/13/24 History Mcg = 1000 Iu)] Hydroxyurea [Hydrea] 500 mg PO HS@209911/30/22 06/13/24 History Multivitamins, Thera [Multivitamin 1 tab PO DAILY@1200 11/30/22 06/13/24 History (formulary)] Gabapentin 300 mg PO BID@0600,1800 #6 cap 12/12/22 06/13/24 Rx Furosemide [Lasix] 40 mg PO BID@0600,1200 06/13/24 06/13/24 History Sennosides/Docusate Sodium [Senna 1 tab PO HS@209906/13/24 06/13/24 History Plus 8.6-50 mg Tablet] oxyCODONE-APAP 10-325MG [Percocet 1 tab PO Q6H 06/13/24 06/13/24 History 10-325 mg] Allergies Allergy/AdvReac Type Severity Reaction Status Date / Time lansoprazole Allergy Rash/Hives Verified 06/13/24 10:08 misoprostol [From Cytotec] Allergy Unknown Verified 06/13/24 10:08 omeprazole Allergy Rash/Hives Verified 06/13/24 10:08 Physical Exam Vitals: Vital Signs Temp Pulse Resp BP Pulse Ox FiO2 06/13/24 11:08 96 16 138/78 96 06/13/24 09:12 93 16 117/67 93 L 06/13/24 07:23 98.6 F 98 16 124/63 95 06/13/24 07:20 50 06/13/24 06:17 98.2 F 97 13 120/79 96 Intake and Output 06/12/24 06/13/24 06/13/24 22:59 06:59 14:59 Output Total 200 Balance -200 Output: Urine 200 Uretheral (Giles) 200 Other: Weight 99.337 kg GENERAL DESCRIPTION: Elderly female on the BiPAP mild tachypnea but no accessory muscle respiration HEENT: Shows Pallor , no scleral icterus. NECK: Trachea central, no thyromegaly. LUNGS: Unlabored breathing. Coarse breath sounds bilaterally HEART: S1, S2, regular rate and rhythm. No loud murmur ABDOMEN: Soft, no tenderness , guarding or rigidity, no organomegaly EXTREMITIES: No edema of feet. SKIN: No rash, no masses palpable. NEUROLOGICAL: The patient is lethargic orientation could not be determined Results CBC & Chem 7: 06/14/24 07:25 06/14/24 07:25 Labs: Abnormal Lab Results - Last 24 Hours (Table) 06/13/24 06/13/24 06/13/24 Range/Units 06:35 06:35 06:35 MCV 100.7 H (80.0-100.0) fL MCHC 30.9 L (31.0-37.0) g/dL RDW 16.4 H (11.5-15.5) % D-Dimer 1.15 H (<0.60) mg/L FEU ABG pCO2 (35-45) mmHg ABG HCO3 (21-25) mmol/L ABG Total CO2 (19-24) mmol/L Potassium 3.4 L (3.5-5.1) mmol/L Carbon Dioxide 35 H (22-30) mmol/L BUN 60 H (7-17) mg/dL Creatinine 1.60 H (0.52-1.04) mg/dL Glucose 143 H (74-99) mg/dL AST 41 H (14-36) U/L C-Reactive Protein (<1.0) mg/dL Urine Protein (Negative) Urine Glucose (UA) (Negative) Urine Blood (Negative) Ur Leukocyte Esterase (Negative) Urine WBC (0-5) /hpf Urine Bacteria (None) /hpf SARS-CoV-2 (PCR) (Not Detectd) 06/13/24 06/13/24 06/13/24 Range/Units 07:00 08:14 08:14 MCV (80.0-100.0) fL MCHC (31.0-37.0) g/dL RDW (11.5-15.5) % D-Dimer (<0.60) mg/L FEU ABG pCO2 67 H (35-45) mmHg ABG HCO3 40 H* (21-25) mmol/L ABG Total CO2 42 H (19-24) mmol/L Potassium (3.5-5.1) mmol/L Carbon Dioxide (22-30) mmol/L BUN (7-17) mg/dL Creatinine (0.52-1.04) mg/dL Glucose (74-99) mg/dL AST (14-36) U/L C-Reactive Protein (<1.0) mg/dL Urine Protein 1+ H (Negative) Urine Glucose (UA) Trace H (Negative) Urine Blood Trace H (Negative) Ur Leukocyte Esterase Large H (Negative) Urine WBC 74 H (0-5) /hpf Urine Bacteria Rare H (None) /hpf SARS-CoV-2 (PCR) Detected A (Not Detectd) 06/13/24 Range/Units 08:14 MCV (80.0-100.0) fL MCHC (31.0-37.0) g/dL RDW (11.5-15.5) % D-Dimer (<0.60) mg/L FEU ABG pCO2 (35-45) mmHg ABG HCO3 (21-25) mmol/L ABG Total CO2 (19-24) mmol/L Potassium (3.5-5.1) mmol/L Carbon Dioxide (22-30) mmol/L BUN (7-17) mg/dL Creatinine (0.52-1.04) mg/dL Glucose (74-99) mg/dL AST (14-36) U/L C-Reactive Protein 15.1 H (<1.0) mg/dL Urine Protein (Negative) Urine Glucose (UA) (Negative) Urine Blood (Negative) Ur Leukocyte Esterase (Negative) Urine WBC (0-5) /hpf Urine Bacteria (None) /hpf SARS-CoV-2 (PCR) (Not Detectd) Assessment and Plan (1) COVID-19 Current Visit: Yes Status: Acute Code(s): U07.1 - COVID-19 SNOMED Code(s): 281056428 (2) Acute hypoxemic respiratory failure due to COVID-19 Current Visit: Yes Status: Acute Code(s): U07.1 - COVID-19; J96.01 - ACUTE RESPIRATORY FAILURE WITH HYPOXIA SNOMED Code(s): 130920332 (3) Urinary tract infection Current Visit: Yes Status: Acute Code(s): N39.0 - URINARY TRACT INFECTION, SITE NOT SPECIFIED SNOMED Code(s): 60904336 Plan: 1patient presented to hospital with acute respiratory failure in this patient noticed to be hypoxic with O2 sat 83% and is currently requiring BiPAP exam symptom onset is not very clear and the patient requiring high flow oxygen not a n ideal candidate for remdesivir at this point patient is currently being treated with the dexamethasone Lovenox will be continued. 2clinical suspicious low for secondary bacterial pneumonia currently waiting for procalcitonin. 3patient also have a positive UA very hard to get any history from this patient to see if the patient had any symptoms suggestive of UTI for now continue with Rocephin till the patient symptoms improved and she is able to provide any history 4droplet isolation We will follow on clinical condition and cultures to further adjust medication if needed Thank you for this consultation we will follow the patient along with you Dictation was produced using [employer] dictation software. please excuse any grammatical, word or spelling errors. Time with Patient: Greater than 30
--- NOTE | 2024-06-14 14:28 | P.PN ---
Subjective Progress Note Date: 06/14/24 This is an 88-year-old female patient was seen in the emergency department because of acute on chronic shortness of breath and the patient was diagnosed having acute COVID-19 infection. The patient is a poor historian. She is a half-way resident. She resides in the [facility]. The patient was noted to have labored breathing and her pulse ox dropped down to 83% reads of oxygen nasal cannula. Denied having any cough or sputum production. Denies having any chest pain. Noted the patient is quite poor historian. In the emergency, the patient was placed on high flow oxygen and subsequently she was transition to BiPAP pressure of 12 over 6 cm of water on FiO2 of 50%. COVID-19 testing was positive. The rest of the viral screen was negative. The exact onset of symptoms is not known. Vaccination is not known. The patient's rest of the blood work shows a white cell count of 8.1, hemoglobin of 14 and a platelet count of 318. D-dimer is at 1.15 and the rest of the coagulation profile was within normal limits. The blood gas while on BiPAP with an FiO2 of 100% showed a pH of 7.39 with a pCO2 of 67 and pO2 of 92. The patient seem to be quite comfortable and subsequently the patient was taken off the BiPAP and placed on 10 L of oxygen nasal cannula and the patient is currently on 6 L O2. Sodium is at 145, BUN is a 68 and 1.6. LFTs are normal. Troponin is negative. CRP is at 15.1. proBNP level is at 327. UA is negative. The white cell count is 8.1 with a hemoglobin of 14 and a platelet count of 318. Chest x-ray is rotated. The VQ scan shows no suspicion for pulmonary embolism. The patient is currently on Decadron. The patient IV Rocephin and Zithromax. Patient is on Lovenox 30 mg subcu for DVT prophylaxis. Home medication resumed. On 06/14/2024, the patient remains quite lethargic and sleepy. No overt signs of respiratory distress at rest. Nevertheless, there has been interval worsening in oxygenation the patient is currently on 10 L of O2 nasal cannula. Repeat chest x-ray was done today and the patient was found to have no significant interval change in the chest x-ray findings without any new findings. There are some limited atelectatic changes in the lung bases. No significant herbal change. The white cell count is at 11 with a hemoglobin 12 and a platelet count of 370. Sodium is 145, BUN 69 with a creatinine of 1.7. Serum bicarb is at 39. C-reactive protein is at 15. She is positive for COVID- 19 and the patient remains on Decadron. The patient remains on albuterol HFA. Remains on IV Rocephin as an empiric antibiotic coverage. Remains on Lasix 40 mg p.o. twice a day. She is also on Lovenox 30 mg subcu for DVT prophylaxis. The VQ scan was normal. Objective - Vital Signs Vital signs: Vital Signs Temp 98.1 F 06/14/24 11:05 Pulse 96 06/14/24 11:05 Resp 14 06/14/24 11:05 BP 136/66 06/14/24 11:05 Pulse Ox 92 L 06/14/24 11:05 FiO2 50 06/13/24 11:51 Intake & Output 06/13/24 06/14/24 06/14/24 18:59 06:59 18:59 Intake Total 0 Output Total 700 250 Balance -700 -250 0 Weight 99.337 kg Intake: Oral 0 Output: Urine 700 250 Uretheral (Giles) 700 Other: Voiding Method Self-Catheterization Self-Catheterization - Exam GENERAL: Revealed a morbidly obese 87-year-old female, lethargic and sleepy and arousable and answers questions appropriately. She is currently on 10 L oxygen cannula per Head: Atraumatic, normocephalic. HEENT:PERRLA, EOMI, nonicteric, no neck masses no JVD. CARDIOVASCULAR Distant S1 and S2, no S3 gallop, 2/6 systolic murmur heard best over the aortic area and left upper sternal border. PULMONARY Symmetrical chest expansion, crackles at the bases, no wheezing diminished breath sounds throughout anteriorly. MUSCULOSKELETAL:No deformities and no limitation in range of motion. EXTREMITIES trace of bipedal edema, no clubbing, no cyanosis. NEUROLOGICAL Patient is awake, lethargic. Arousable. Moving all 4 extremities without any limitation. No cranial nerve deficits. Examination of the skin revealed no evidence of significant rashes, suspicious appearing nevi or other concerning lesions. - Labs CBC & Chem 7: 06/14/24 07:25 06/14/24 07:25 Labs: Abnormal Lab Results - Last 24 Hours (Table) 06/14/24 06/14/24 Range/Units 07:25 07:25 WBC 11.1 H (3.8-10.6) k/uL MCV 100.7 H (80.0-100.0) fL MCHC 30.6 L (31.0-37.0) g/dL RDW 16.4 H (11.5-15.5) % Neutrophils # 8.9 H (1.3-7.7) k/uL Potassium 3.1 L (3.5-5.1) mmol/L Carbon Dioxide 39 H (22-30) mmol/L BUN 69 H (7-17) mg/dL Creatinine 1.74 H (0.52-1.04) mg/dL Glucose 135 H (74-99) mg/dL Assessment and Plan Plan: Acute COVID-19 infection, exact timing/onset of symptoms unknown. Vaccination status unknown.. Mild elevation of D-dimer. VQ scan is of a low probabil ity/normal and suspicion for pulm embolism extremely low at this point. Acute on top of chronic hypoxic respiratory failure, initially placed on the BiPAP and the patient is currently on 10 L of O2 nasal cannula Chronic hypercapnic respiratory failure, compensated Chronic diastolic congestive heart failure, currently inactive and stable Moderate to severe pulmonary hypertension. Chronic cor pulmonale. Probable aortic stenosis. The patient may have an underlying aotic stenosis with a normal LV systolic function and mild to moderate tricuspid regurgitation, no evidence of any pericardial effusion. Note that the aortic valve was not adequately visualized and echocardiogram. Morbid obesity. Obstructive sleep apnea syndrome. Benign essential hypertension. History of multiple sclerosis and chronic medical debility. Hyperlipidemia. History of urine tract infections, UA is noted alf resident Plan Continue O2 and gradually titrated down to maintain saturation above 90%, currently on 10 L oxygen nasal cannula Utilize BiPAP overnight if needed. For now, the patient seems to be quite comfortable. Continue Decadron 6 mg IV every 24 hours Continue IV Rocephin Obtain a blood gas to evaluate her acid-base status Chest x-ray finding SYSTEM with some atelectatic changes in lung bases No clear indication for pneumonia we will continue the same antibiotic coverage for now Lovenox for DVT prophylaxis and a VQ scan was negative for pulmonary embolism Resume home medications DNR DNI CODE STATUS Will follow
[2024-06-14 15:11] LABS: ABG Base Excess 10.9 mmol/L; ABG HCO3 38 mmol/L (21-25); ABG Oxygen Saturation 92.8 % (94-97); ABG PCO2 62 mmHg (35-45); ABG PO2 63 mmHg (83-108); ABG TCO2 40 mmol/L (19-24); Allen Test Performed? Yes
--- NOTE | 2024-06-14 15:21 | P.PN ---
Subjective Progress Note Date: 06/14/24 Principal diagnosis: Reason for follow-up is COVID-19 Patient is a 88-year-old female with a past medical history significant for hypertension hyperlipidemia coronary artery disease COPD and long-term resident, patient has been brought into the hospital concerning for difficulty in breathing and hypoxemia patient tested positive for COVID-19 chest x-ray with bibasilar airspace disease. On today's evaluation that is 06/14/2024, the patient continues to be afebrile, the patient is on 10 L high flow nasal cannula oxygen patient is lethargic send question no vomiting diarrhea or any other changes reported by the nursing staff. Patient white count is 11.1 creatinine is 1.74 procalcitonin 0.39 Objective - Vital Signs Vital signs: Vital Signs Temp 98.1 F 06/14/24 11:05 Pulse 96 06/14/24 11:05 Resp 14 06/14/24 11:05 BP 136/66 06/14/24 11:05 Pulse Ox 92 L 06/14/24 11:05 FiO2 50 06/13/24 11:51 Intake & Output 06/13/24 06/14/24 06/14/24 18:59 06:59 18:59 Intake Total 0 Output Total 700 250 Balance -700 -250 0 Weight 99.337 kg Intake: Oral 0 Output: Urine 700 250 Uretheral (Giles) 700 Other: Voiding Method Self-Catheterization Indwelling Catheter - Exam GENERAL DESCRIPTION: An elderly female lying in bed in no distress RESPIRATORY SYSTEM: Unlabored breathing , decreased breath sounds at bases HEART: S1 S2 regular rate and rhythm , ABDOMEN: Soft , no tenderness EXTREMITIES: No edema feet - Labs CBC & Chem 7: 06/14/24 07:25 06/14/24 07:25 Labs: Abnormal Lab Results - Last 24 Hours (Table) 06/14/24 06/14/24 06/14/24 Range/Units 07:25 07:25 15:04 WBC 11.1 H (3.8-10.6) k/uL MCV 100.7 H (80.0-100.0) fL MCHC 30.6 L (31.0-37.0) g/dL RDW 16.4 H (11.5-15.5) % Neutrophils # 8.9 H (1.3-7.7) k/uL ABG pCO2 62 H (35-45) mmHg ABG pO2 63 L (83-108) mmHg ABG HCO3 38 H (21-25) mmol/L ABG Total CO2 40 H (19-24) mmol/L ABG O2 Saturation 92.8 L (94-97) % Potassium 3.1 L (3.5-5.1) mmol/L Carbon Dioxide 39 H (22-30) mmol/L BUN 69 H (7-17) mg/dL Creatinine 1.74 H (0.52-1.04) mg/dL Glucose 135 H (74-99) mg/dL Microbiology - Last 24 Hours (Table) 06/13/24 08:14 Blood Culture - Preliminary Blood 06/13/24 09:07 Urine Culture - Final Urine,Catheterized Assessment and Plan (1) COVID-19 Current Visit: Yes Status: Acute Code(s): U07.1 - COVID-19 SNOMED Code(s): 627162159 (2) Acute hypoxemic respiratory failure due to COVID-19 Current Visit: Yes Status: Acute Code(s): U07.1 - COVID-19; J96.01 - ACUTE RESPIRATORY FAILURE WITH HYPOXIA SNOMED Code(s): 804709884 (3) Urinary tract infection Current Visit: Yes Status: Acute Code(s): N39.0 - URINARY TRACT INFECTION, SITE NOT SPECIFIED SNOMED Code(s): 22337815 Plan: 1patient presented to hospital with acute respiratory failure in this patient noticed to be hypoxic with O2 sat 83% and is currently requiring BiPAP exam symptom onset is not very clear and the patient requiring high flow oxygen not an ideal candidate for remdesivir at this point patient is currently being treated with the dexamethasone Lovenox will be continued. 2clinical suspicious low for secondary bacterial pneumonia and the patient did have procalcitonin 0.39 3patient also have a positive UA very hard to get any history from this patient however culture have been negative this can be discontinued Dictation was produced using [employer] dictation software. please excuse any grammatical, word or spelling errors.
[2024-06-15] MEDS: MORPHINE SULFATE 4 MG/ML SYRINGE IV PRN (11:53)
--- NOTE | 2024-06-15 13:33 | P.PN ---
Subjective Progress Note Date: 06/15/24 Principal diagnosis: Reason for follow-up is COVID-19 Patient is a 88-year-old female with a past medical history significant for hypertension hyperlipidemia coronary artery disease COPD and [facility] resident, patient has been brought into the hospital concerning for difficulty in breathing and hypoxemia patient tested positive for COVID-19 chest x-ray with bibasilar airspace disease. On today's evaluation that is 06/15/2024, Patient is afebrile patient is cur rently on 5 L high flow nasal cannula oxygen patient remains to be lethargic did not answer any question no vomiting or diarrhea has been reported. Patient did not have any lab draw today blood urine culture have been negative Objective - Vital Signs Vital signs: Vital Signs Temp 98.5 F 06/15/24 11:46 Pulse 91 06/15/24 11:46 Resp 16 06/15/24 11:46 BP 150/94 06/15/24 11:46 Pulse Ox 90 L 06/15/24 12:00 FiO2 50 06/13/24 11:51 Intake & Output 06/14/24 06/15/24 06/15/24 18:59 06:59 18:59 Intake Total 0 110 Output Total 250 300 Balance -250 -300 110 Intake: Oral 0 110 Output: Urine 250 300 Other: Voiding Method Indwelling Catheter Indwelling Catheter Indwelling Catheter - Exam GENERAL DESCRIPTION: An elderly female lying in bed in no distress RESPIRATORY SYSTEM: Unlabored breathing , decreased breath sounds at bases HEART: S1 S2 regular rate and rhythm , ABDOMEN: Soft , no tenderness EXTREMITIES: No edema feet - Labs CBC & Chem 7: 06/14/24 07:25 06/14/24 07:25 Labs: Abnormal Lab Results - Last 24 Hours (Table) 06/14/24 Range/Units 15:04 ABG pCO2 62 H (35-45) mmHg ABG pO2 63 L (83-108) mmHg ABG HCO3 38 H (21-25) mmol/L ABG Total CO2 40 H (19-24) mmol/L ABG O2 Saturation 92.8 L (94-97) % Microbiology - Last 24 Hours (Table) 06/13/24 08:14 Blood Culture - Preliminary Blood 06/13/24 09:07 Urine Culture - Final Urine,Catheterized Assessment and Plan (1) COVID-19 Current Visit: Yes Status: Acute Code(s): U07.1 - COVID-19 SNOMED Code(s): 105174422 (2) Acute hypoxemic respiratory failure due to COVID-19 Current Visit: Yes Status: Acute Code(s): U07.1 - COVID-19; J96.01 - ACUTE RESPIRATORY FAILURE WITH HYPOXIA SNOMED Code(s): 629914911 (3) Urinary tract infection Current Visit: Yes Status: Acute Code(s): N39.0 - URINARY TRACT INFECTION, SITE NOT SPECIFIED SNOMED Code(s): 90661379 Plan: 1patient presented to hospital with acute respiratory failure in this patient noticed to be hypoxic with O2 sat 83% and is currently requiring BiPAP exam symp [place] onset is not very clear and the patient requiring high flow oxygen not an ideal candidate for remdesivir at this point patient is currently being treated with the dexamethasone Lovenox which will be continued 2clinical suspicious low for secondary bacterial pneumonia and the patient did have normal procalcitonin 0.39, Rocephin will be discontinued 3patient also have a positive UA very hard to get any history from this patient however culture have been negative, Rocephin will be discontinued and will monitor closely off antibiotic Dictation was produced using [employer] dictation software. please excuse any grammatical, word or spelling errors. Time with Patient: Less than 30
--- NOTE | 2024-06-15 13:35 | P.PN ---
Subjective Progress Note Date: 06/15/24 This is an 88-year-old female patient was seen in the emergency department because of acute on chronic shortness of breath and the patient was diagnosed having acute COVID-19 infection. The patient is a poor historian. She is a jail resident. She resides in the [facility]. The patient was noted to have labored breathing and her pulse ox dropped down to 83% reads of oxygen nasal cannula. Denied having any cough or sputum production. Denies having any chest pain. Noted the patient is quite poor historian. In the emergency, the patient was placed on high flow oxygen and subsequently she was transition to BiPAP pressure of 12 over 6 cm of water on FiO2 of 50%. COVID-19 testing was positive. The rest of the viral screen was negative. The exact onset of symptoms is not known. Vaccination is not known. The patient's rest of the blood work shows a white cell count of 8.1, hemoglobin of 14 and a platelet count of 318. D-dimer is at 1.15 and the rest of the coagulation profile was within normal limits. The blood gas while on BiPAP with an FiO2 of 100% showed a pH of 7.39 with a pCO2 of 67 and pO2 of 92. The patient seem to be quite comfortable and subsequently the patient was taken off the BiPAP and placed on 10 L of oxygen nasal cannula and the patient is currently on 6 L O2. Sodium is at 145, BUN is a 68 and 1.6. LFTs are normal. Troponin is negative. CRP is at 15.1. proBNP level is at 327. UA is negative. The white cell count is 8.1 with a hemoglobin of 14 and a platelet count of 318. Chest x-ray is rotated. The VQ scan shows no suspicion for pulmonary embolism. The patient is currently on Decadron. The patient IV Rocephin and Zithromax. Patient is on Lovenox 30 mg subcu for DVT prophylaxis. Home medication resumed. On 06/14/2024, the patient remains quite lethargic and sleepy. No overt signs of respiratory distress at rest. Nevertheless, there has been interval worsening in oxygenation the patient is currently on 10 L of O2 nasal cannula. Repeat chest x-ray was done today and the patient was found to have no significant interval change in the chest x-ray findings without any new findings. There are some limited atelectatic changes in the lung bases. No significant herbal change. The white cell count is at 11 with a hemoglobin 12 and a platelet count of 370. Sodium is 145, BUN 69 with a creatinine of 1.7. Serum bicarb is at 39. C-reactive protein is at 15. She is positive for COVID- 19 and the patient remains on Decadron. The patient remains on albuterol HFA. Remains on IV Rocephin as an empiric antibiotic coverage. Remains on Lasix 40 mg p.o. twice a day. She is also on Lovenox 30 mg subcu for DVT prophylaxis. The VQ scan was normal. On 06/15/2024, the patient remains sleepy and lethargic yet arousable. She was weaned off from 10 L and she is currently down to 5 L with a pulse ox of 91 to 92%. Limited congested cough. No significant sputum production. No focal neurological deficits. She is in bed most of the time. Family at the bedside. WBC count 11.1 hemoglobin is at 12.2 and a platelet count of 370. Blood gas from today showed a pH of 7.4 with a pCO2 of 62 and pO2 of 63 and the BUN is 69 with a creatinine of 1.7 and the creatinine remained stable. Sodium levels at 145. The patient remains on Decadron. The patient remains on Lovenox for DVT prophylaxis. She remains on Lasix 40 mg p.o. twice a day. Objective - Vital Signs Vital signs: Vital Signs Temp 98.1 F 06/15/24 08:14 Pulse 90 06/15/24 08:14 Resp 18 06/15/24 08:14 BP 152/84 06/15/24 08:14 Pulse Ox 90 L 06/15/24 08:14 FiO2 50 06/13/24 11:51 Intake & Output 06/14/24 06/15/24 06/15/24 18:59 06:59 18:59 Intake Total 0 110 Output Total 250 300 Balance -250 -300 110 Intake: Oral 0 110 Output: Urine 250 300 Other: Voiding Method Indwelling Catheter Indwelling Catheter - Exam GENERAL: Revealed a morbidly obese 87-year-old female, lethargic and sleepy and arousable and answers questions appropriately. She is currently on 5 L oxygen cannula per Head: Atraumatic, normocephalic. HEENT:PERRLA, EOMI, nonicteric, no neck masses no JVD. CARDIOVASCULAR Distant S1 and S2, no S3 gallop, 2/6 systolic murmur heard best over the aortic area and left upper sternal border. PULMONARY Symmetrical chest expansion, crackles at the bases, no wheezing di minished breath sounds throughout anteriorly. MUSCULOSKELETAL:No deformities and no limitation in range of motion. EXTREMITIES trace of bipedal edema, no clubbing, no cyanosis. NEUROLOGICAL Patient is awake, lethargic. Arousable. Moving all 4 extremities without any limitation. No cranial nerve deficits. Examination of the skin revealed no evidence of significant rashes, suspicious appearing nevi or other concerning lesions. - Labs CBC & Chem 7: 06/14/24 07:25 06/14/24 07:25 Labs: Abnormal Lab Results - Last 24 Hours (Table) 06/14/24 Range/Units 15:04 ABG pCO2 62 H (35-45) mmHg ABG pO2 63 L (83-108) mmHg ABG HCO3 38 H (21-25) mmol/L ABG Total CO2 40 H (19-24) mmol/L ABG O2 Saturation 92.8 L (94-97) % Microbiology - Last 24 Hours (Table) 06/13/24 08:14 Blood Culture - Preliminary Blood 06/13/24 09:07 Urine Culture - Final Urine,Catheterized Assessment and Plan Plan: Acute COVID-19 infection, exact timing/onset of symptoms unknown. Vaccination status unknown.. Mild elevation of D-dimer. VQ scan is of a low probability/normal and suspicion for pulm embolism extremely low at this point. Acute on top of chronic hypoxic respiratory failure, initially placed on the BiPAP and the patient was as high as 10 L O2 nasal cannula and currently she is weaned down to 5 L. Blood gas shows chronic hypoxic and hypercapnic respiratory failure, compensated Chronic hypercapnic respiratory failure, compensated Chronic diastolic congestive heart failure, currently inactive and stable Moderate to severe pulmonary hypertension. Chronic cor pulmonale. Probable aortic stenosis. The patient may have an underlying aotic stenosis with a normal LV systolic function and mild to moderate tricuspid regurgitation, no evidence of any pericardial effusion. Note that the aortic valve was not ad equately visualized and echocardiogram. Morbid obesity. Obstructive sleep apnea syndrome. Benign essential hypertension. History of multiple sclerosis and chronic medical debility. Hyperlipidemia. History of urine tract infections, UA is noted long-term resident Plan Continue O2 and gradually titrated down to maintain saturation above 90%, currently on 5 L O2 nasal cannula Utilize BiPAP overnight if needed. For now, the patient seems to be quite comfortable. Continue Decadron 6 mg IV every 24 hours Antibiotics have been discontinued Obtain a blood gas to evaluate her acid-base status and this was reviewed and showed compensated hypercapnic respiratory failure Chest x-ray some atelectatic changes in lung bases No clear indication for pneumonia we will continue the same antibiotic coverage for now Lovenox for DVT prophylaxis and a VQ scan was negative for pulmonary embolism Resume home medications DNR DNI CODE STATUS Will follow
--- NOTE | 2024-06-16 14:20 | P.PN ---
Subjective Progress Note Date: 06/16/24 This is a pleasant 88 years old female who presents from [facility] for hypoxic respiratory failure. Patient is poor historian and cannot provide information so it was obtained from staff and record. At jail she was saturating at 83% on 3 L oxygen which is her baseline. No significant coughing, no significant chest pain reported Abdomen looks soft Legs with minimal edema. Patient on admission she was placed on nonrebreather at 15 L/min, currently she is on BiPAP with good oxygen saturation, patient is afebrile Labs reviewed, WBC within the reference range 8.1, rest of CBC, INR, LFTs were unremarkable. Troponin is negative, proBNP is normal at 327. Creatinine slightly above baseline at 1.6 with potassium low at 3.4. Patient urinalysis is suspicious for infection COVID tested positive while out of [place] and influenza were negative EKG showing sinus tachycardia at [address]-T changes Venous Doppler is negative for DVT but there is Valdes's cyst Chest x-ray: There is patchy bibasilar areas of airspace disease. Pneumonitis versus CHF. 06/16/2024 Patient is seen and evaluated in follow-up and remains extremely lethargic although arousable. Patient is continued on 8 L high flow and chronically wears oxygen outpatient although did test positive for COVID. Patient is off BiPAP and family is discussing with hospice regarding hospice at [facility]. Patient does not currently meet criteria for inpatient hospice and would need to return to [facility]. Case management/social work following and will work further with hospice regarding discharge planning. Review of systems: Constitutional: No reports of fatigue, fever, or chills Cardiovascular: No reports of chest pain or palpitations Respiratory: No reports of shortness of breath or cough GI: No reports of nausea, vomiting, or diarrhea : No reports of dysuria or retention Neurovascular: No reports of weakness or numbness All medications have been reviewed Physical exam: GENERAL: The patient is drowsy, somewhat arousable although fatigues easily, currently maintained on 8 L high flow, well-developed, elderly appearing, ill- appearing, morbidly obese HEENT: Pupils are round and equally reacting to light. EOMI. No scleral icterus. No conjunctival pallor. Normocephalic, atraumatic. No pharyngeal erythema. No thyromegaly. CARDIOVASCULAR: S1 and S2 present. No murmurs, rubs, or gallops. -PULMONARY: Diminished breath sounds bilaterally chest is clear to auscultation, no wheezing , no crackles. Distant breathing sound, on 8 L high flow. Tachypneic with scattered crepitation ABDOMEN: Soft, obese, nontender, nondistended, normoactive bowel sounds. No palpable organomegaly. MUSCULOSKELETAL: No joint swelling or deformity. EXTREMITIES: No cyanosis, clubbing, or pedal edema. NEUROLOGICAL: Gross neurological examination did not reveal any focal deficits. Diffusely weak, minimally responsive SKIN: No rashes. no petechiae. Assessment: acute COVID infection, with possible pneumonia and hypoxia, initially requiring BiPAP, maintained on 8 L high flow currently Bibasilar groundglass opacity suspicious for pneumonia, could be secondary to COVID infection. Rule out bacterial super-infection Acute on chronic hypoxic respiratory failure Mildly elevated D-dimer with negative venous Doppler of the leg. Pending VQ scan Abnormal urine analysis suspicious for UTI, present on admission Chronic CHF. Obesity with BMI of 40.1 GI prophylaxis DVT prophylaxis No code Plan: Continue with supplemental oxygen support. Off BiPAP and maintained on 8 L high flow and weaning as tolerated Patient and family met with [facility] hospice and does not meet GIP criteria and planning on returning to [facility] with hospice comfort measures Discussed with case management and plan will be for discharge to [facility] with hospice Continue dexamethasone and supplemental care Infectious disease following maintained off antibiotics Overall prognosis is poor Discharge planning to ECF in 24 hours The impression and plan of care has been dictated by Pattie Gillette, Nurse Prac titioner as directed. Dr. Adam MD I have performed a history and examination and MDM of this patient, discussed the same with the dictator, and agree with the dictator's assessment and plan as written ,documented as a scribe. Based on total visit time, I have performed more than 50% of the visit. Objective - Vital Signs Vital signs: Vital Signs Temp 98.1 F 06/16/24 08:00 Pulse 78 06/16/24 08:00 Resp 16 06/16/24 08:00 BP 168/84 06/16/24 08:00 Pulse Ox 92 L 06/16/24 09:32 FiO2 50 06/13/24 11:51 Intake & Output 06/15/24 06/16/24 06/16/24 18:59 06:59 18:59 Intake Total 110 118 Output Total 450 425 Balance -340 -425 118 Intake: Oral 110 118 Output: Urine 450 425 Other: Voiding Method Indwelling Catheter Indwelling Catheter - Labs CBC & Chem 7: 06/14/24 07:25 06/14/24 07:25 Labs: Microbiology - Last 24 Hours (Table) 06/13/24 08:14 Blood Culture - Preliminary Blood
--- NOTE | 2024-06-16 16:06 | P.PN ---
Subjective Progress Note Date: 06/16/24 This is an 88-year-old female patient was seen in the emergency department because of acute on chronic shortness of breath and the patient was diagnosed having acute COVID-19 infection. The patient is a poor historian. She is a residential resident. She resides in the [facility]. The patient was noted to have labored breathing and her pulse ox dropped down to 83% reads of oxygen nasal cannula. Denied having any cough or sputum production. Denies having any chest pain. Noted the patient is quite poor historian. In the emergency, the patient was placed on high flow oxygen and subsequently she was transition to BiPAP pressure of 12 over 6 cm of water on FiO2 of 50%. COVID-19 testing was positive. The rest of the viral screen was negative. The exact onset of symptoms is not known. Vaccination is not known. The patient's rest of the blood work shows a white cell count of 8.1, hemoglobin of 14 and a platelet count of 318. D-dimer is at 1.15 and the rest of the coagulation p rofile was within normal limits. The blood gas while on BiPAP with an FiO2 of 100% showed a pH of 7.39 with a pCO2 of 67 and pO2 of 92. The patient seem to be quite comfortable and subsequently the patient was taken off the BiPAP and placed on 10 L of oxygen nasal cannula and the patient is currently on 6 L O2. Sodium is at 145, BUN is a 68 and 1.6. LFTs are normal. Troponin is negative. CRP is at 15.1. proBNP level is at 327. UA is negative. The white cell count is 8.1 with a hemoglobin of 14 and a platelet count of 318. Chest x-ray is rotated. The VQ scan shows no suspicion for pulmonary embolism. The patient is currently on Decadron. The patient IV Rocephin and Zithromax. Patient is on Lovenox 30 mg subcu for DVT prophylaxis. Home medication resumed. On 06/14/2024, the patient remains quite lethargic and sleepy. No overt signs of respiratory distress at rest. Nevertheless, there has been interval worsening in oxygenation the patient is currently on 10 L of O2 nasal cannula. Repeat chest x-ray was done today and the patient was found to have no significant interval change in the chest x-ray findings without any new findings. There are some limited atelectatic changes in the lung bases. No significant herbal change. The white cell count is at 11 with a hemoglobin 12 and a platelet count of 370. Sodium is 145, BUN 69 with a creatinine of 1.7. Serum bicarb is at 39. C-reactive protein is at 15. She is positive for COVID- 19 and the patient remains on Decadron. The patient remains on albuterol HFA. Remains on IV Rocephin as an empiric antibiotic coverage. Remains on Lasix 40 mg p.o. twice a day. She is also on Lovenox 30 mg subcu for DVT prophylaxis. The VQ scan was normal. On 06/15/2024, the patient remains sleepy and lethargic yet arousable. She was weaned off from 10 L and she is currently down to 5 L with a pulse ox of 91 to 92%. Limited congested cough. No significant sputum production. No focal neurological deficits. She is in bed most of the time. Family at the bedside. WBC count 11.1 hemoglobin is at 12.2 and a platelet count of 370. Blood gas from today showed a pH of 7.4 with a pCO2 of 62 and pO2 of 63 and the BUN is 69 with a creatinine of 1.7 and the creatinine remained stable. Sodium levels at 145. The patient remains on Decadron. The patient remains on Lovenox for DVT prophylaxis. She remains on Lasix 40 mg p.o. twice a day. The patient is seen today June 16, 2024 in follow-up on the selective care unit. She is currently resting in bed. She is awake and alert. Maintaining O2 saturations on 8 L high flow nasal cannula. Blood culture revealed no growth. Urine culture revealed no growth. She is continued on Decadron. Lovenox for DVT prophylaxis. Vitamin supplements. Remains on oral diuretics. Objective - Vital Signs Vital signs: Vital Signs Temp 98.1 F 06/16/24 08:00 Pulse 99 06/16/24 12:00 Resp 16 06/16/24 12:00 BP 142/78 06/16/24 12:00 Pulse Ox 94 L 06/16/24 12:00 FiO2 50 06/13/24 11:51 Intake & Output 06/15/24 06/16/24 06/16/24 18:59 06:59 18:59 Intake Total 110 118 Output Total 450 425 Balance -340 -425 118 Intake: Oral 110 118 Output: Urine 450 425 Other: Voiding Method Indwelling Catheter Indwelling Catheter Indwelling Catheter - Exam GENERAL: Revealed a morbidly obese 87-year-old female, resting in bed, arousable and answers questions appropriately. She is currently on 8 L oxygen cannula per Head: Atraumatic, normocephalic. HEENT:PERRLA, EOMI, nonicteric, no neck masses no JVD. CARDIOVASCULAR Distant S1 and S2, no S3 gallop, 2/6 systolic murmur heard best over the aortic area and left upper sternal border. PULMONARY Symmetrical chest expansion, crackles at the bases, no wheezing dimin ished breath sounds throughout anteriorly. MUSCULOSKELETAL:No deformities and no limitation in range of motion. EXTREMITIES trace of bipedal edema, no clubbing, no cyanosis. NEUROLOGICAL Patient is awake, lethargic. Arousable. Moving all 4 extremities without any limitation. No cranial nerve deficits. Examination of the skin revealed no evidence of significant rashes, suspicious appearing nevi or other concerning lesions. - Labs CBC & Chem 7: 06/14/24 07:25 06/14/24 07:25 Labs: Microbiology - Last 24 Hours (Table) 06/13/24 08:14 Blood Culture - Preliminary Blood Assessment and Plan Assessment: Acute COVID-19 infection, exact timing/onset of symptoms unknown. Vaccination status unknown.. Mild elevation of D-dimer. VQ scan is of a low probability/normal and suspicion for pulm embolism extremely low at this point Acute on top of chronic hypoxic respiratory failure, initially placed on the BiPAP and the patient was as high as 10 L O2 nasal cannula and currently she is weaned down to 5 L. Blood gas shows chronic hypoxic and hypercapnic respiratory failure, compensated Chronic hypercapnic respiratory failure, compensated Chronic diastolic congestive heart failure, currently inactive and stable Moderate to severe pulmonary hypertension. Chronic cor pulmonale. Probable aortic stenosis. The patient may have an underlying aotic stenosis with a normal LV systolic function and mild to moderate tricuspid regurgitation, no evidence of any pericardial effusion. Note that the aortic valve was not adequately visualized and echocardiogram. Morbid obesity. Obstructive sleep apnea syndrome. Benign essential hypertension. History of multiple sclerosis and chronic medical debility. Hyperlipidemia. History of urine tract infections, UA is noted [facility] resident Plan: The patient was seen and evaluated Currently on 8 L high flow nasal cannula Titrate down the FiO2 as tolerated Remains on Decadron Remains on Lovenox for DVT prophylaxis Remains on vitamin supplements Prognosis is guarded Plan is for [facility] possibly tomorrow I have personally seen and examined the patient, performed the documentation and the assessment and plan as written. Number of minutes spent on the visit: 10 Dictation was produced using [employer] dictation software. Please excuse any grammatical, word or spelling errors.
[2024-06-17 00:12] VITALS: RESP 16
--- NOTE | 2024-06-17 08:44 | P.PN ---
Subjective Progress Note Date: 06/16/24 Principal diagnosis: Reason for follow-up is COVID-19 Patient is a 88-year-old female with a past medical history significant for hypertension hyperlipidemia coronary artery disease COPD and penitentiary resident, patient has been brought into the hospital concerning for difficulty in breathing and hypoxemia patient tested positive for COVID-19 chest x-ray with bibasilar airspace disease. On today's evaluation that is 06/16/2024, patient has been afebrile, patient is breathing slightly comfortably still requiring 8 flow high high flow nasal cannula oxygen patient is slightly more awake as she responded to her name but did not answer any question no vomiting or diarrhea has been reported. No new lab has been obtained today Objective - Vital Signs Vital signs: Vital Signs Temp 98.1 F 06/16/24 08:00 Pulse 99 06/16/24 12:00 Resp 16 06/16/24 12:00 BP 142/78 06/16/24 12:00 Pulse Ox 94 L 06/16/24 12:00 FiO2 50 06/13/24 11:51 Intake & Output 06/15/24 06/16/24 06/16/24 18:59 06:59 18:59 Intake Total 110 118 Output Total 450 425 Balance -340 -425 118 Intake: Oral 110 118 Output: Urine 450 425 Other: Voiding Method Indwelling Catheter Indwelling Catheter Indwelling Catheter - Exam GENERAL DESCRIPTION: An elderly female lying in bed in no distress RESPIRATORY SYSTEM: Unlabored breathing , decreased breath sounds at bases HEART: S1 S2 regular rate and rhythm , ABDOMEN: Soft , no tenderness EXTREMITIES: No edema feet - Labs CBC & Chem 7: 06/14/24 07:25 06/14/24 07:25 Labs: Microbiology - Last 24 Hours (Table) 06/13/24 08:14 Blood Culture - Preliminary Blood Assessment and Plan (1) COVID-19 Current Visit: Yes Status: Acute Code(s): U07.1 - COVID-19 SNOMED Code(s): 908099784 (2) Acute hypoxemic respiratory failure due to COVID-19 Current Visit: Yes Status: Acute Code(s): U07.1 - COVID-19; J96.01 - ACUTE RESPIRATORY FAILURE WITH HYPOXIA SNOMED Code(s): 839408834 (3) Urinary tract infection Current Visit: Yes Status: Acute Code(s): N39.0 - URINARY TRACT INFECTION, SITE NOT SPECIFIED SNOMED Code(s): 59253548 Plan: 1patient presented to hospital with acute respiratory failure in this patient noticed to be hypoxic with O2 sat 83% and is currently requiring BiPAP exam symptom onset is not very clear and the patient requiring high flow oxygen not an ideal candidate for remdesivir at this point patient is currently being treated with the dexamethasone Lovenox which will be continued 2clinical suspicious low for secondary bacterial pneumonia and the patient did have normal procalcitonin 0.39, Rocephin has been discontinued 3patient also have a positive UA very hard to get any history from this patient however culture have been negative, no need for antibiotic therapy at this point Dictation was produced using [employer] dictation software. please excuse any grammatical, word or spelling errors. Time with Patient: Less than 30
[2024-06-17 09:26] VITALS: TEMP 97.7
--- NOTE | 2024-06-17 10:29 | P.DS ---
Providers Date of admission: 06/13/24 09:12 Expected date of discharge: 06/17/24 Attending physician: Jhon Thomas Consults: 06/13/24 09:14 Consult Physician Urgent Consulting Provider: Corrine Fraser Consult Reason/Comments: Hypoxic respiratory failure due to COVID-19 Do you want consulting provider notified?: Yes Consult Physician Urgent Consulting Provider: Chacho Yuen Consult Reason/Comments: Hypoxic respiratory failure due to COVID-19 Do you want consulting provider notified?: Yes Primary care physician: Deonte Patel Hospital Course: Final diagnosis acute COVID infection, with possible pneumonia and hypoxia, initially requiring BiPAP, maintained on 8 L high flow currently Bibasilar groundglass opacity suspicious for pneumonia, could be secondary to COVID infection. Ruled out bacterial super-infection Acute on chronic hypoxic respiratory failure Mildly elevated D-dimer with negative venous Doppler of the leg. VQ scan negative for pulmonary embolus Abnormal urine analysis suspicious for UTI, present on admission, ruled out, urine cultures were negative Chronic CHF. Morbid obesity with BMI of 40.1 GI prophylaxis DVT prophylaxis No code Discharge disposition Patient is being discharged in a stable condition with guarded prognosis to [facility] where she resides. Patient will follow-up with Dr. Patel in the outpatient setting upon discharge. Patient is to continue with current supportive measures including dexamethasone, vitamin C, zinc. Patient will be signing on with [facility] hospice services at [facility]. Total time taken is greater than 35 minutes. Hospital course This is a 88-year-old female who was recently admitted with concerns for acute on chronic hypoxic respiratory failure with shortness of breath requiring BiPAP and concerns of pneumonia and found to be positive for COVID. Patient initially on BiPAP has transition and is currently on 6 to 8 L high flow nasal cannula. Patient with multiple comorbidities and overall poor generalized health family has met with hospice and will be sending him with [facility] hospice services and will be returning to [facility]. Patient did not meet GIP inpatient criteria for admission. Patient will return to [facility] on hospice. Currently no reports of chest pain, shortness of breath, or palpitations. Patient is afebrile. No reports of nausea or vomiting and patient is tolerating diet. Patient will be going to [facility] on the [place] today. Overall poor prognosis Physical exam: Gen: This is a 88-year-old female who is minimally responsive, awake at times although easily lethargic, alert and oriented x 1-2, well-developed, elderly appearing, ill-appearing, morbidly obese HEENT: Head is atraumatic, normocephalic. Pupils equal, round. Sclerae is anicteric. NECK: Supple. No JVD. No lymphadenopathy. No thyromegaly. LUNGS: Diminished breath sounds bilaterally with coarse scattered rhonchi. No intercostal retractions. HEART: S1, S2 are muffled ABDOMEN: Soft. Obese bowel sounds are present. No masses. No tenderness. EXTREMITIES: No pedal edema. No calf tenderness. Bilateral upper and lower extremity chronic edema noted, nonpitting NEUROLOGICAL: Patient is awake, alert and oriented x1-2. Diffusely weak Please refer to medication reconciliation sheet for a list of medications. The impression and plan of care has been dictated by aPttie Gillette, Nurse Practitioner as directed. Dr. Adam MD I have performed a history and examination and MDM of this patient, discussed the same with the dictator, and agree with the dictator's assessment and plan as written ,documented as a scribe. Based on total visit time, I have performed more than 50% of the visit. Patient Condition at Discharge: Poor Plan - Discharge Summary New Discharge Prescriptions: New dexAMETHasone [Decadron] 6 mg PO DAILY 6 Days #6 tablet Zinc Sulfate [Orazinc] 220 mg PO DAILY #15 cap Albuterol Inhaler [Ventolin Hfa Inhaler] 2 puff INHALATION RT-Q6H PRN each PRN Reason: Shortness Of Breath Or Wheezing Enoxaparin [Lovenox] 30 mg SQ DAILY each Acetaminophen Tab [Tylenol] 650 mg PO Q6HR PRN tab PRN Reason: Mild Pain Or Fever > 100.5 Albuterol Inhaler [Ventolin Hfa Inhaler] 2 puff INHALATION RT-QID each Ascorbic Acid [Vitamin C] 1,000 mg PO DAILY tab Continue Aspirin EC [Ecotrin Low Dose] 81 mg PO HS@2100 Clopidogrel [Plavix] 75 mg PO HS@2100 Atorvastatin [Lipitor] 40 mg PO HS@2100 Gabapentin 300 mg PO BID@0600,1800 #6 cap Sennosides/Docusate Sodium [Senna Plus 8.6-50 mg Tablet] 1 tab PO HS@2100 Furosemide [Lasix] 40 mg PO BID@0600,1200 Multivitamins, Thera [Multivitamin (formulary)] 1 tab PO DAILY@1199 Cholecalciferol [Vitamin D3 (25 Mcg = 1000 Iu)] 50 mcg PO DAILY@1199 Hydroxyurea [Hydrea] 500 mg PO HS@2099 oxyCODONE-APAP 10-325MG [Percocet 10-325 mg] 1 tab PO Q6H #4 tab Discharge Medication List Aspirin EC [Ecotrin Low Dose] 81 mg PO HS@209901/20/16 [History] Clopidogrel [Plavix] 75 mg PO HS@209901/20/16 [History] Atorvastatin [Lipitor] 40 mg PO HS@209911/30/22 [History] Cholecalciferol [Vitamin D3 (25 Mcg = 1000 Iu)] 50 mcg PO DAILY@119911/30/22 [History] Hydroxyurea [Hydrea] 500 mg PO HS@209911/30/22 [History] Multivitamins, Thera [Multivitamin (formulary)] 1 tab PO DAILY@119911/30/22 [History] Gabapentin 300 mg PO BID@0600,1800 #6 cap 12/12/22 [Rx] Furosemide [Lasix] 40 mg PO BID@0600,1200 06/13/24 [History] Sennosides/Docusate Sodium [Senna Plus 8.6-50 mg Tablet] 1 tab PO HS@209906/13/24 [History] Acetaminophen Tab [Tylenol] 650 mg PO Q6HR PRN tab 06/17/24 [Rx] Albuterol Inhaler [Ventolin Hfa Inhaler] 2 puff INHALATION RT-Q6H PRN each 06/17/24 [Rx] Albuterol Inhaler [Ventolin Hfa Inhaler] 2 puff INHALATION RT-QID each 06/17/24 [Rx] Ascorbic Acid [Vitamin C] 1,000 mg PO DAILY tab 06/17/24 [Rx] Enoxaparin [Lovenox] 30 mg SQ DAILY each 06/17/24 [Rx] Zinc Sulfate [Orazinc] 220 mg PO DAILY #15 cap 06/17/24 [Rx] dexAMETHasone [Decadron] 6 mg PO DAILY 6 Days #6 tablet 06/17/24 [Rx] oxyCODONE-APAP 10-325MG [Percocet 10-325 mg] 1 tab PO Q6H #4 tab 06/17/24 [Rx] Follow up Appointment(s)/Referral(s): Deonte Patel MD [Primary Care Provider] - 1-2 days
--- NOTE | 2024-06-17 13:49 | P.PN ---
Subjective Progress Note Date: 06/17/24 Principal diagnosis: Reason for follow-up is COVID-19 Patient is a 88-year-old female with a past medical history significant for hypertension hyperlipidemia coronary artery disease COPD and half-way resident, patient has been brought into the hospital concerning for difficulty in breathing and hypoxemia patient tested positive for COVID-19 chest x-ray with bibasilar airspace disease. On today's evaluation that is 06/17/2024, Patient is afebrile this morning p atient remains to be lethargic and did not provide any history currently requiring 8 L high flow nasal oxygen no vomiting diarrhea any other changes reported. No new lab has been repeated today blood and urine culture have been negative Objective - Vital Signs Vital signs: Vital Signs Temp 97.7 F 06/17/24 08:00 Pulse 73 06/17/24 12:00 Resp 16 06/17/24 12:00 BP 156/85 06/17/24 12:00 Pulse Ox 92 L 06/17/24 12:00 FiO2 50 06/13/24 11:51 Intake & Output 06/16/24 06/17/24 06/17/24 18:59 06:59 18:59 Intake Total 178 Output Total 450 300 Balance -272 -300 Intake: Oral 178 Output: Urine 450 300 Other: Voiding Method Indwelling Catheter Indwelling Catheter Indwelling Catheter - Exam GENERAL DESCRIPTION: An elderly female lying in bed in no distress RESPIRATORY SYSTEM: Unlabored breathing , decreased breath sounds at bases HEART: S1 S2 regular rate and rhythm , ABDOMEN: Soft , no tenderness EXTREMITIES: No edema feet - Labs CBC & Chem 7: 06/14/24 07:25 06/14/24 07:25 Labs: Microbiology - Last 24 Hours (Table) 06/13/24 08:14 Blood Culture - Preliminary Blood Assessment and Plan (1) COVID-19 Current Visit: Yes Status: Acute Code(s): U07.1 - COVID-19 SNOMED Code(s): 879948179 (2) Acute hypoxemic respiratory failure due to COVID-19 Current Visit: Yes Status: Acute Code(s): U07.1 - COVID-19; J96.01 - ACUTE RESPIRATORY FAILURE WITH HYPOXIA SNOMED Code(s): 023259650 (3) Urinary tract infection Current Visit: Yes Status: Acute Code(s): N39.0 - URINARY TRACT INFECTION, SITE NOT SPECIFIED SNOMED Code(s): 19062906 Plan: 1patient presented to hospital with acute respiratory failure in this patient noticed to be hypoxic with O2 sat 83% and is currently requiring BiPAP exam symptom onset is not very clear and the patient requiring high flow oxygen not an ideal candidate for remdesivir at this point patient is currently being treated with the dexamethasone Lovenox which will be continued 2clinical suspicious low for secondary bacterial pneumonia and the patient did have normal procalcitonin 0.39, Rocephin has been discontinued 3patient also have a positive UA very hard to get any history from this patient however culture have been negative, no need for antibiotic therapy at this point 4plan is for possible hospice which may be appropriate recommending no antibiotics or antiviral on discharge Dictation was produced using [employer] dictation software. please excuse any grammatical, word or spelling errors.
--- NOTE | 2024-06-17 15:37 | P.PN ---
Subjective Progress Note Date: 06/17/24 This is an 88-year-old female patient was seen in the emergency department because of acute on chronic shortness of breath and the patient was diagnosed having acute COVID-19 infection. The patient is a poor historian. She is a prison resident. She resides in the [facility]. The patient was noted to have labored breathing and her pulse ox dropped down to 83% reads of oxygen nasal cannula. Denied having any cough or sputum production. Denies having any chest pain. Noted the patient is quite poor historian. In the emergency, the patient was placed on high flow oxygen and subsequently she was transition to BiPAP pressure of 12 over 6 cm of water on FiO2 of 50%. COVID-19 testing was positive. The rest of the viral screen was negative. The exact onset of symptoms is not known. Vaccination is not known. The patient's rest of the blood work shows a white cell count of 8.1, hemoglobin of 14 and a platelet count of 318. D-dimer is at 1.15 and the rest of the coagulation p rofile was within normal limits. The blood gas while on BiPAP with an FiO2 of 100% showed a pH of 7.39 with a pCO2 of 67 and pO2 of 92. The patient seem to be quite comfortable and subsequently the patient was taken off the BiPAP and placed on 10 L of oxygen nasal cannula and the patient is currently on 6 L O2. Sodium is at 145, BUN is a 68 and 1.6. LFTs are normal. Troponin is negative. CRP is at 15.1. proBNP level is at 327. UA is negative. The white cell count is 8.1 with a hemoglobin of 14 and a platelet count of 318. Chest x-ray is rotated. The VQ scan shows no suspicion for pulmonary embolism. The patient is currently on Decadron. The patient IV Rocephin and Zithromax. Patient is on Lovenox 30 mg subcu for DVT prophylaxis. Home medication resumed. On 06/14/2024, the patient remains quite lethargic and sleepy. No overt signs of respiratory distress at rest. Nevertheless, there has been interval worsening in oxygenation the patient is currently on 10 L of O2 nasal cannula. Repeat chest x-ray was done today and the patient was found to have no significant interval change in the chest x-ray findings without any new findings. There are some limited atelectatic changes in the lung bases. No significant herbal change. The white cell count is at 11 with a hemoglobin 12 and a platelet count of 370. Sodium is 145, BUN 69 with a creatinine of 1.7. Serum bicarb is at 39. C-reactive protein is at 15. She is positive for COVID- 19 and the patient remains on Decadron. The patient remains on albuterol HFA. Remains on IV Rocephin as an empiric antibiotic coverage. Remains on Lasix 40 mg p.o. twice a day. She is also on Lovenox 30 mg subcu for DVT prophylaxis. The VQ scan was normal. On 06/15/2024, the patient remains sleepy and lethargic yet arousable. She was weaned off from 10 L and she is currently down to 5 L with a pulse ox of 91 to 92%. Limited congested cough. No significant sputum production. No focal neurological deficits. She is in bed most of the time. Family at the bedside. WBC count 11.1 hemoglobin is at 12.2 and a platelet count of 370. Blood gas from today showed a pH of 7.4 with a pCO2 of 62 and pO2 of 63 and the BUN is 69 with a creatinine of 1.7 and the creatinine remained stable. Sodium levels at 145. The patient remains on Decadron. The patient remains on Lovenox for DVT prophylaxis. She remains on Lasix 40 mg p.o. twice a day. The patient is seen today June 16, 2024 in follow-up on the selective care unit. She is currently resting in bed. She is awake and alert. Maintaining O2 saturations on 8 L high flow nasal cannula. Blood culture revealed no growth. Urine culture revealed no growth. She is continued on Decadron. Lovenox for DVT prophylaxis. Vitamin supplements. Remains on oral diuretics. The patient is seen today June 17, 2024 in follow-up on the selective care unit. She is currently resting in bed. Maintaining O2 saturations in the 90s on 8 L high flow nasal cannula. She is continued on Decadron, Lovenox, bronchodilators. Remains on oral diuretics. Remains on vitamin supplements. Blood and urine cultures revealed no growth. No new labs today. Objective - Vital Signs Vital signs: Vital Signs Temp 97.7 F 06/17/24 08:00 Pulse 73 06/17/24 12:00 Resp 16 06/17/24 12:00 BP 156/85 06/17/24 12:00 Pulse Ox 92 L 06/17/24 12:00 FiO2 50 06/13/24 11:51 Intake & Output 06/16/24 06/17/24 06/17/24 18:59 06:59 18:59 Intake Total 178 Output Total 450 300 Balance -272 -300 Intake: Oral 178 Output: Urine 450 300 Other: Voiding Method Indwelling Catheter Indwelling Catheter Indwelling Catheter - Exam GENERAL: Revealed an obese, very weak 87-year-old female, arousable and answers questions. She is currently on 8 L high flow nasal cannula Head: Atraumatic, normocephalic. HEENT:PERRLA, EOMI, nonicteric, no neck masses no JVD. CARDIOVASCULAR Distant S1 and S2, no S3 gallop, 2/6 systolic murmur heard best over the aortic area and left upper sternal border. PULMONARY Symmetrical chest expansion, crackles at the bases, no wheezing diminished breath sounds throughout anteriorly. MUSCULOSKELETAL:No deformities and no limitation in range of motion. EXTREMITIES trace of bipedal edema, no clubbing, no cyanosis. NEUROLOGICAL Patient is arousable, drifts off easily. Moving all 4 extremities without any limitation. No cranial nerve deficits. Examination of the skin revealed no evidence of significant rashes, suspicious appearing nevi or other concerning lesions. - Labs CBC & Chem 7: 06/14/24 07:25 06/14/24 07:25 Labs: Microbiology - Last 24 Hours (Table) 06/13/24 08:14 Blood Culture - Preliminary Blood Assessment and Plan Assessment: Acute COVID-19 infection, exact timing/onset of symptoms unknown. Vaccination status unknown. Mild elevation of D-dimer. VQ scan is of a low probability/normal and suspicion for pulmonary embolism is low Acute on top of chronic hypoxic respiratory failure, initially placed on the BiPAP and the patient was as high as 10 L O2 nasal cannula and currently she is weaned down to 8 L. Blood gas shows chronic hypoxic and hypercapnic respiratory failure, compensated Chronic hypercapnic respiratory failure, compensated Chronic diastolic congestive heart failure, currently inactive and stable Moderate to severe pulmonary hypertension Chronic cor pulmonale Probable aortic stenosis. The patient may have an underlying aotic stenosis with a normal LV systolic function and mild to moderate tricuspid regurgitation, no evidence of any pericardial effusion. Note that the aortic valve was not adequately visualized and echocardiogram Morbid obesity Obstructive sleep apnea syndrome Benign essential hypertension History of multiple sclerosis and chronic medical debilit. Hyperlipidemia History of urine tract infections, UA is noted skilled nursing resident Plan: The patient was seen and evaluated Medications reviewed Currently on 8 L high flow nasal cannula Titrate down the FiO2 as tolerated Remains on Decadron Remains on Lovenox for DVT prophylaxis Remains on vitamin supplements Prognosis is poor Plan is for [facility] with hospice I have personally seen and examined the patient, performed the documentation and the assessment and plan as written. Number of minutes spent on the visit: 10 Dictation was produced using [employer] dictation software. Please excuse any grammatical, word or spelling errors.
[2024-06-17 16:24] VITALS: BP 180/97; PULSE 84
== END 2024-06-17 19:34 | DRG 177 ==
LOC: EC 06:16 → 3SCARD 09:12
PROVIDERS: ADMIT Hospitalist; ATTEND Hospitalist
PROC: 5A09357 Assistance with Respiratory Ventilation, Less than 24 Consecutive Hours, Continuous Positive Airway Pressure (ICD-10-PCS; principal; 2024-06-13)
DX: U07.1 COVID-19 (principal); J12.82 Pneumonia due to coronavirus disease 2019; J96.22 Acute and chronic respiratory failure with hypercapnia; J96.21 Acute and chronic respiratory failure with hypoxia; N17.9 Acute kidney failure, unspecified; I50.32 Chronic diastolic (congestive) heart failure; N39.0 Urinary tract infection, site not specified; Z68.41 Body mass index [BMI] 40.0-44.9, adult; Z66 Do not resuscitate; I27.81 Cor pulmonale (chronic); I27.29 Other secondary pulmonary hypertension; I11.0 Hypertensive heart disease with heart failure; Z99.81 Dependence on supplemental oxygen; E66.01 Morbid (severe) obesity due to excess calories; G35 Multiple sclerosis; I08.2 Rheumatic disorders of both aortic and tricuspid valves; G47.33 Obstructive sleep apnea (adult) (pediatric); E86.0 Dehydration; E87.6 Hypokalemia; I25.10 Atherosclerotic heart disease of native coronary artery without angina pectoris; E78.5 Hyperlipidemia, unspecified; R53.81 Other malaise; R79.1 Abnormal coagulation profile; Z79.891 Long term (current) use of opiate analgesic; Z79.02 Long term (current) use of antithrombotics/antiplatelets; Z95.5 Presence of coronary angioplasty implant and graft; Z99.3 Dependence on wheelchair; Z74.01 Bed confinement status; Z79.899 Other long term (current) drug therapy; Z87.891 Personal history of nicotine dependence
CPT/HCPCS: 36415; 36600; 71045; 78580; 80048; 80053; 81001; 82805; 83605; 83735; 83880; 84145; 84484; 85025; 85379; 85610; 85730; 86140; 87040; 87086; 87449; 87636; 93005; 93970; 94640; 94660; 94760